=== PATIENT | female | born 1940 | race Caucasian/White ===

== ENCOUNTER → 2017-02-12 | Outpatient (CLI) | payer OTHER ==
[~2017-02-12] MED LIST: ACET325T96 PO; ASPI1TAB83 PO; B-COTAB69 PO; CALC-338 PO; CARV12.5 PO; CRAN1CAP15 PO; CRDCD/180 PO; FURO20TA PO; KRIL1000 PO; LEVO125T72 PO; LPT/40 PO; MAGN400T5 PO; MCRK20 PO; METF500T PO; MISCCAP80 PO; MULTTAB58 PO; NAPR1TAB9 PO; OMEP40CA36 PO; VALS320T PO
--- NOTE | 2017-02-12 13:17 | DIAGNOSTIC IMAGING REPORT ---
ABDOMINAL ULTRASOUND, RIGHT UPPER QUADRANT HISTORY: Pain. Nausea. RUQ PAIN. COMPARISON: None. FINDINGS: Pancreas: The pancreas demonstrates a normal echotexture. Liver: Unremarkable. Gallbladder: Surgically absent CBD: 5 mm Right kidney: No hydronephrosis. IMPRESSION: Negative study post cholecystectomy Electronically signed by: Freeman Gusman M.D. 02/12/2017 1:16 PM Dictated Date/Time: 02/12/2017 1:15 PM
== END | disposition home or self-care (01) ==
LOC: C.ULTR 11:25
PROVIDERS: ATTEND Nurse Practitioner Family
DX: R10.11 Right upper quadrant pain (principal); Z87.448 Personal history of other diseases of urinary system; R14.0 Abdominal distension (gaseous)

== ENCOUNTER → 2017-03-09 | Outpatient (CLI) | payer OTHER ==
[~2017-03-09] MED LIST changes: +OPTIRAY 320 IV PRN
--- NOTE | 2017-03-09 10:17 | DIAGNOSTIC IMAGING REPORT ---
CT OF THE ABDOMEN AND PELVIS WITH CONTRAST CLINICAL HISTORY: Progressive right upper quadrant abdominal pain. COMPARISON STUDY: CT of the abdomen and pelvis February 22, 2015. TECHNIQUE: Following IV administration of 94 mL of Optiray-320, axial images of the abdomen and pelvis were obtained from the lung bases to the proximal femurs. Images were reviewed in the axial, sagittal, and coronal planes. IV contrast was administered without complication. Oral contrast was administered. CT DOSE: 1101.92 mGy.cm FINDINGS: There is no biliary ductal dilatation status post cholecystectomy. The spleen, adrenal glands and pancreas are on remarkable. A few left renal calculi measure up to 3 mm. There is no hydronephrosis. No ureteral calculi are identified although evaluation of the pelvis is compromised due to streak artifact from a right hip arthroplasty. There is mild renal cortical thinning. There is a cortical calcification within the midpole the right kidney. There is no pancreatic ductal dilatation. No enlarged abdominal or pelvic lymph nodes are present. Caliber and wall thickness of small and large bowel are normal. There is a moderate amount of stool within the colon and rectum. The appendix is normal. Colonic diverticulosis is noted without evidence for acute diverticulitis. The uterus is not visualized. IMPRESSION: 1. No acute process within the abdomen or pelvis. 2. Colonic diverticulosis without evidence for acute diverticulitis. Moderate amount of stool within the colon and rectum. 3. Left-sided nephrolithiasis. Electronically signed by: Jhonny Rankin M.D. 03/09/2017 10:15 AM Dictated Date/Time: 03/09/2017 10:07 AM
== END | disposition home or self-care (01) ==
LOC: C.CTS 09:36
PROVIDERS: ATTEND Surgery
DX: R10.11 Right upper quadrant pain (principal); N20.0 Calculus of kidney; K57.90 Diverticulosis of intestine, part unspecified, without perforation or abscess without bleeding

== ENCOUNTER → 2017-03-11 | Outpatient (CLI) | payer OTHER ==
[~2017-03-11] MED LIST changes: -OPTIRAY 320 IV PRN
[2017-03-11 13:57] LABS: BLOOD UREA NITROGEN 12 mg/dl (7-18); CREATININE 0.75 mg/dl (0.60-1.20)
== END | disposition home or self-care (01) ==
LOC: C.LABBC 11:17
PROVIDERS: ATTEND Surgery
DX: R10.11 Right upper quadrant pain (principal)

== ENCOUNTER → 2017-06-30 | Outpatient (CLI) | payer OTHER ==
--- NOTE | 2017-06-30 15:30 | MAMMOGRAPHY REPORT ---
BILATERAL DIGITAL SCREENING MAMMOGRAM WITH CAD: 06/30/2017 CLINICAL HISTORY: Routine screening. Patient has no complaints. TECHNIQUE: Current study was also evaluated with a Computer Aided Detection (CAD) system. Bilateral CC and MLO views were obtained. COMPARISON: Comparison is made to exams dated: 06/29/2016 mammogram, 06/26/2015 mammogram, 06/25/2014 m ammogram, 06/22/2013 mammogram - [facility], 09/14/2011 mammogram, and 09/10/2010 tricia mogram. BREAST COMPOSITION: There are scattered areas of fibroglandular density in both breasts. FINDINGS: No suspicious masses, calcifications, or areas of architectural distortion are noted in ei ther breast. There has been no significant interval change compared to prior exams. Scattered bilater al benign-appearing calcifications are not significantly changed. Asymmetry in the left lateral alpa st on the CC view is stable compared to prior exams including the 2006 and 2009 exams, and considered benign given long-term stability. IMPRESSION: ACR BI-RADS CATEGORY 2: BENIGN There is no mammographic evidence of malignancy. A 1 year screening mammogram is recommended. The pa tient will receive written notification of the results. Approximately 10% of breast cancers are not detected with mammography. A negative mammographic report should not delay biopsy if a clinically suggestive mass is present. Izabel Yan M.D. /:06/30/2017 13:33:54 Professor Of Poultry Science: Susie OGDEN)(Edward), [facility] letter sent: Normal 1/2 BI-RADS Code: ACR BI-RADS Category 2: Benign
== END | disposition home or self-care (01) ==
LOC: C.MAMM 12:55
PROVIDERS: ATTEND Obstetrics & Gynecology
DX: Z12.31 Encounter for screening mammogram for malignant neoplasm of breast (principal)

== ENCOUNTER → 2018-04-26 | Outpatient (CLI) | payer OTHER ==
[~2018-04-26] MED LIST changes: +ACET-1693 PO; -ACET325T96 PO
== END | disposition home or self-care (01) ==
LOC: C.RDSM 15:19
PROVIDERS: ATTEND Orthopaedic Surgery Sports Medicine
DX: R52 Pain, unspecified (principal)

== ENCOUNTER 2018-05-18 13:16 | Inpatient (IN) | payer OTHER ==
[~2018-05-18] VITALS: Ht 162.6 cm; Wt 102.0 kg
[~2018-05-18 13:16] MED LIST changes: -ACET-1693 PO; -MISCCAP80 PO; -NAPR1TAB9 PO
--- NOTE | 2018-05-18 14:15 | DIAGNOSTIC IMAGING REPORT ---
SINGLE VIEW CHEST CLINICAL HISTORY: Fall. FINDINGS: An AP, portable, upright chest radiograph is compared to study dated 02/18/2016 and correlated with chest CT dated 02/22/2015. The examination is degraded by portable technique and patient rotation. The heart size normal for projection noting atherosclerotic calcification of the thoracic aorta. Chronic interstitial thickening is unchanged. No airspace consolidation, large pleural effusion, or pneumothorax is seen. There are low lung volumes with bibasilar atelectasis. The skeletal structures are osteopenic. Chronic posttraumatic deformity is noted in the left humerus. Degenerative change is seen in the thoracic spine. Cholecystectomy clips are seen in the right upper quadrant. Surgical clips project over the lower neck. IMPRESSION: Low lung volumes with no acute cardiopulmonary abnormality. Electronically signed by: Conner Diaz M.D. 05/18/2018 2:13 PM Dictated Date/Time: 05/18/2018 2:03 PM
--- NOTE | 2018-05-18 14:16 | DIAGNOSTIC IMAGING REPORT ---
L SHOULDER MIN 2 VIEWS ROUTINE CLINICAL HISTORY: fall l shoulder pain trauma. Pain. COMPARISON: None. DISCUSSION: Fracture left humeral neck. Mild superior migration left humeral shaft. No evidence of dislocation. The acromioclavicular joint appears to be intact. Moderate soft tissue edema. IMPRESSION: Mildly impacted fracture humeral neck. No evidence dislocation. The above report was generated using voice recognition software. It may contain grammatical, syntax or spelling errors. Electronically signed by: Freeman Gusman M.D. 05/18/2018 2:14 PM Dictated Date/Time: 05/18/2018 2:14 PM
--- NOTE | 2018-05-18 14:23 | DIAGNOSTIC IMAGING REPORT ---
HEAD WITHOUT CONTRAST (CT) CT DOSE: 614.27 mGy.cm HISTORY: Trauma. Mental status change. fall TECHNIQUE: Multiaxial CT images of the head were performed without the use of intravenous contrast. A dose lowering technique was utilized adhering to the principles of ALARA. Comparison: None. Findings: The paranasal sinuses and mastoid air cells are clear. The calvarium and skull base are intact. The ventricles and sulci are within normal limits. There is no mass, hematoma, midline shift, or acute infarct. Old right basal ganglia infarct. Considerable chronic small vessel change Impression: No acute intracranial abnormality. Age-related change. The above report was generated using voice recognition software. It may contain grammatical, syntax or spelling errors. Electronically signed by: Freeman Gusman M.D. 05/18/2018 2:22 PM Dictated Date/Time: 05/18/2018 2:20 PM
--- NOTE | 2018-05-18 16:01 | DIAGNOSTIC IMAGING REPORT ---
L UPPER EXTREMITY WITHOUT CT DOSE: 1261.48 mGy.cm HISTORY: Trauma. Fracture. LUE fx TECHNIQUE: Multiaxial CT images of the left shoulder were performed and reformatted in the sagittal and coronal plane without the use of contrast. A dose lowering technique was utilized adhering to the principles of ALARA. COMPARISON: None. FINDINGS: Comminuted fracture left humeral neck. Several small ossific fragments are present. Humeral shaft is displaced superiorly as well as anteriorly. There is no evidence for a true dislocation of the humeral head. Glenoid appears to be intact. Acromioclavicular joint is minimal degenerative change with no acute abnormality. IMPRESSION: 1. Comminuted displaced fracture left humeral neck. 2. Humeral shaft is displaced anteriorly and superiorly with moderate generalized surrounding soft tissue edematous change. 3. No evidence of dislocation specifically of the humeral head. The above report was generated using voice recognition software. It may contain grammatical, syntax or spelling errors. Electronically signed by: Freeman Gusman M.D. 05/18/2018 3:59 PM Dictated Date/Time: 05/18/2018 3:50 PM
[2018-05-18 16:25] LABS: BASO % 0.2 %; BASO ABS # 0.02 K/uL (0-0.2); EOS % 2.2 %; EOS ABS # 0.28 K/uL (0-0.5); HEMATOCRIT 42.5 % (37-47); HEMOGLOBIN 14.5 g/dL (12.0-16.0); IG# 0.03 K/uL (0.00-0.02); LYMPH ABS # 1.17 K/uL (1.2-3.4); MEAN CELL VOLUME 95.1 fL (80-100); MEAN CORPUSCULAR HEMOGLOBIN 32.4 pg (25-34); MEAN CORPUSCULAR HGB CONC 34.1 g/dl (32-36); MEAN PLATELET VOLUME 9.3 fL (7.4-10.4); MONO % 5.5 %; MONO ABS # 0.71 K/uL (0.11-0.59); NEUT % 82.9 %; NEUT ABS # 10.79 K/uL (1.4-6.5); PLATELET COUNT 194 K/uL (130-400); RED CELL DISTRIBUTION WIDTH CV 13.8 % (11.5-14.5); RED CELL DISTRIBUTION WIDTH SD 47.8 fL (36.4-46.3)
[2018-05-18 16:48] LABS: CREATININE 0.97 mg/dl (0.60-1.20); POTASSIUM 3.7 mmol/L (3.5-5.1)
--- NOTE | 2018-05-18 17:18 | EMERGENCY ROOM VISIT NOTE ---
History Report prepared by Lonnie: Gayle Sharpe Under the Supervision of: Dr. Fausto Mohamud D.O. 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 She states she was at the [employer] in [place] and she was trying to get onto a lift on a van when she fell off the side. She notes she fell backwards onto her left side and hit her left shoulder but did not hit her head. Pt denies headache, change in vision, fevers, chest pain, shortness of breath, nausea, and vomiting. She takes 1 baby aspirin regularly. She has no other complaints at this time. She notes the pain is most prominent when moving her left arm. She notes that she has trouble moving. 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 A total of 10 systems reviewed and were otherwise negative. Past Medical & Surgical Medical Problems: (1) No significant past medical history Family History Omitted seconday to the patient's age Social History Smoking Status: Never Smoker Drug Use: none Marital Status: Occupation Status: retired Current/Historical Medications Scheduled Acetaminophen Tab (Tylenol), 1,300 MG PO BID Aspirin (Aspirin), 81 MG PO DAILY Atorvastatin (Lipitor), 40 MG PO HS B-Complex W/Biotin & Folic Aci (B Complete), 1 TAB PO DAILY Calcium Citrate-Vitamin D (Citracal/Vitamin D), 1 TAB PO DAILY Carvedilol (Coreg), 12.5 MG PO QAM Cranberry-Vitamin C-Vitamin E (Cranberry), 1 CAP PO DAILY Diltiazem Hcl Coated Beads (Cardizem Cd), 180 MG PO QPM Furosemide (Lasix), 20 MG PO 2-3WK Krill Oil (Krill Oil), 1 CAP PO DAILY Levothyroxine Sodium (Synthroid), 125 MCG PO DAILY Magnesium Oxide (Mag-Ox), 400 MG PO DAILY Metformin Hcl (Glucophage), 500 MG PO BIDM Multiple Vitamin (Multivitamin), 1 TAB PO DAILY Naproxen (Aleve), 440 MG PO BID Omeprazole (Prilosec), 40 MG PO DAILY Potassium Chloride (Klor-Con), 20 MEQ PO 2-3WK Probiotic Product (Probiotic), 1 CAP PO DAILY Valsartan (Diovan), 320 MG PO HS Allergies Coded Allergies: Epinephrine (Verified Adverse Reaction, Mild, RAPID HEART RATE AND RESPIRATIONS, 07/30/14) Physical Exam Vital Signs Date Time Temp Pulse Resp B/P (MAP) Pulse Ox O2 Delivery O2 Flow Rate FiO2 05/18/18 15:43 36.6 72 18 147/106 95 Room Air 05/18/18 13:19 36.7 69 20 167/83 96 Room Air Physical Exam GENERAL: alert, well appearing, well nourished, no distress, non-toxic HEAD: normal cephalic, atraumatic EYE EXAM: normal conjunctiva, PERRL and EOM's grossly intact OROPHARYNX: no exudate, no erythema, lips, buccal mucosa, and tongue normal and mucous membranes are moist EARS: TMs clear b/l NECK: supple, no nuchal rigidity, no adenopathy, non-tender CHEST: stable to compression anteriorly and posteriorly LUNGS: clear to auscultation. Normal chest wall mechanics HEART: no murmurs, S1 normal and S2 normal ABDOMEN: abdomen soft, non-tender, normo-active bowel sounds, no masses, no rebound or guarding. PELVIS: stable to compression anteriorly and posteriorly BACK: Back is symmetrical on inspection and there is no deformity, no midline tenderness, no CVA tenderness. UPPER EXTREMITIES: full active and passive range of motion of all joints without tenderness to palpation with the exception of the left shoulder with tenderness over the humeral head which appears to be slightly anterior with significant bruising. Radial pulses equal bilateral LOWER EXTREMITIES: full active and passive range of motion of all joints without tenderness to palpation NEURO EXAM: Normal sensorium, cranial nerves II-XII grossly intact, normal speech, no gross weakness of legs. GCS: 15. Medical Decision & Procedures ER Provider Diagnostic Interpretation: Radiology results as stated below per my review and the radiologist's interpretation: L SHOULDER MIN 2 VIEWS ROUTINE CLINICAL HISTORY: fall l shoulder pain trauma. Pain. COMPARISON: None. DISCUSSION: Fracture left humeral neck. Mild superior migration left humeral shaft. No evidence of dislocation. The acromioclavicular joint appears to be intact. Moderate soft tissue edema. IMPRESSION: Mildly impacted fracture humeral neck. No evidence dislocation. The above report was generated using voice recognition software. It may contain grammatical, syntax or spelling errors. Electronically signed by: Freeman Gusman M.D. 05/18/2018 2:14 PM HEAD WITHOUT CONTRAST (CT) CT DOSE: 614.27 mGy.cm HISTORY: Trauma. Mental status change. fall TECHNIQUE: Multiaxial CT images of the head were performed without the use of intravenous contrast. A dose lowering technique was utilized adhering to the principles of ALARA. Comparison: None. Findings: The paranasal sinuses and mastoid air cells are clear. The calvarium and skull base are intact. The ventricles and sulci are within normal limits. There is no mass, hematoma, midline shift, or acute infarct. Old right basal ganglia infarct. Considerable chronic small vessel change Impression: No acute intracranial abnormality. Age-related change. The above report was generated using voice recognition software. It may contain grammatical, syntax or spelling errors. Electronically signed by: Freeman Gusman M.D. 05/18/2018 2:22 PM SINGLE VIEW CHEST CLINICAL HISTORY: Fall. FINDINGS: An AP, portable, upright chest radiograph is compared to study dated 02/18/2016 and correlated with chest CT dated 02/22/2015. The examination is degraded by portable technique and patient rotation. The heart size normal for projection noting atherosclerotic calcification of the thoracic aorta. Chronic interstitial thickening is unchanged. No airspace consolidation, large pleural effusion, or pneumothorax is seen. There are low lung volumes with bibasilar atelectasis. The skeletal structures are osteopenic. Chronic posttraumatic deformity is noted in the left humerus. Degenerative change is seen in the thoracic spine. Cholecystectomy clips are seen in the right upper quadrant. Surgical clips project over the lower neck. IMPRESSION: Low lung volumes with no acute cardiopulmonary abnormality. Electronically signed by: Conner Diaz M.D. 05/18/2018 2:13 PM L UPPER EXTREMITY WITHOUT CT DOSE: 1261.48 mGy.cm HISTORY: Trauma. Fracture. LUE fx TECHNIQUE: Multiaxial CT images of the left shoulder were performed and reformatted in the sagittal and coronal plane without the use of contrast. A dose lowering technique was utilized adhering to the principles of ALARA. COMPARISON: None. FINDINGS: Comminuted fracture left humeral neck. Several small ossific fragments are present. Humeral shaft is displaced superiorly as well as anteriorly. There is no evidence for a true dislocation of the humeral head. Glenoid appears to be intact. Acromioclavicular joint is minimal degenerative change with no acute abnormality. IMPRESSION: 1. Comminuted displaced fracture left humeral neck. 2. Humeral shaft is displaced anteriorly and superiorly with moderate generalized surrounding soft tissue edematous change. 3. No evidence of dislocation specifically of the humeral head. The above report was generated using voice recognition software. It may contain grammatical, syntax or spelling errors. Electronically signed by: Freeman Gusman M.D. 05/18/2018 3:59 PM Laboratory Results 05/18/18 16:13 Red Blood Count 4.47, Mean Corpuscular Volume 95.1, Mean Corpuscular Hemoglobin 32.4, Mean Corpuscular Hemoglobin Concent 34.1, Mean Platelet Volume 9.3, Neutrophils (%) (Auto) 82.9, Lymphocytes (%) (Auto) 9.0, Monocytes (%) (Auto) 5.5, Eosinophils (%) (Auto) 2.2, Basophils (%) (Auto) 0.2, Neutrophils # (Auto) 10.79, Lymphocytes # (Auto) 1.17, Monocytes # (Auto) 0.71, Eosinophils # (Auto) 0.28, Basophils # (Auto) 0.02 05/18/18 16:13 Test 05/18/18 16:13 White Blood Count 13.00 K/uL (4.8-10.8) Red Blood Count 4.47 M/uL (4.2-5.4) Hemoglobin 14.5 g/dL (12.0-16.0) Hematocrit 42.5 % (37-47) Mean Corpuscular Volume 95.1 fL (80-100) Mean Corpuscular Hemoglobin 32.4 pg (25-34) Mean Corpuscular Hemoglobin Concent 34.1 g/dl (32-36) Platelet Count 194 K/uL (130-400) Mean Platelet Volume 9.3 fL (7.4-10.4) Neutrophils (%) (Auto) 82.9 % Lymphocytes (%) (Auto) 9.0 % Monocytes (%) (Auto) 5.5 % Eosinophils (%) (Auto) 2.2 % Basophils (%) (Auto) 0.2 % Neutrophils # (Auto) 10.79 K/uL (1.4-6.5) Lymphocytes # (Auto) 1.17 K/uL (1.2-3.4) Monocytes # (Auto) 0.71 K/uL (0.11-0.59) Eosinophils # (Auto) 0.28 K/uL (0-0.5) Basophils # (Auto) 0.02 K/uL (0-0.2) RDW Standard Deviation 47.8 fL (36.4-46.3) RDW Coefficient of Variation 13.8 % (11.5-14.5) Immature Granulocyte % (Auto) 0.2 % Immature Granulocyte # (Auto) 0.03 K/uL (0.00-0.02) Anion Gap 8.0 mmol/L (3-11) Est Creatinine Clear Calc Drug Dose 54.7 ml/min Estimated GFR () 64.4 Estimated GFR (Non- 55.5 BUN/Creatinine Ratio 23.2 (10-20) Calcium Level 9.0 mg/dl (8.5-10.1) Laboratory results per my review. ED Course ED COURSE: Vital signs were reviewed and showed hypertensive The patients medical record was reviewed The above diagnostic studies were performed and reviewed. ED treatments and interventions as stated above. 1328: The patient was evaluated in room B10. A complete history and physical examination was performed. 1608: I reviewed the patient's case with Dr. Tran, [facility] Hospitalist. He will evaluate the patient for further management. 1610: Upon reevaluation, the patient is feeling slightly better. I discussed my findings with the patient and she understands and agrees with the treatment plan. Based on the patients age, coexisting illnesses, exam and lab findings the decision to treat as an inpatient was made. The patient remained stable while under my care. The patient will be evaluated for further management. Medical Decision Differential diagnoses include major intracranial, cervical, spinal, thoracic, abdominal, pelvic and neurologic injury. Fracture, contusion, sprain, strain, laceration, abrasions included as well. Patient is a 78-year-old female that presents the ER following a fall onto her left arm. She denies any loss consciousness. She notes that she normally ambulates with a walker and lives alone at home. She notes she is unable to move her left arm at this point. On exam she has bruising and appears to have an obvious fracture of the left arm. Neurovascular intact. CBC shows a mild leukocytosis. BMP was unremarkable. X-ray of the chest shoulder and CT head show left humeral head fracture. This was discussed with Kee from Dr. Jaden Moffett's group. They recommended CT of the shoulder for our on Wednesday. Discussed with patient and she notes she lives alone at home and needs a walker to ambulate. She will not be able to use this with her left arm fracture. Will not benefit from rehab until fixed. Elected to admit to internal medicine. Discussed with Dr. Delcid. CBC and BMP were unremarkable with exception of mild leukocytosis secondary to trauma. Medication Reconcilliation Current Medication List: was personally reviewed by me Blood Pressure Screening Patient's blood pressure: Elevated blood pressure Blood pressure disposition: Referred to PCP Consults Time Called: 1419 Consulting Physician: Dr. Tran, [facility] Hospitalist Returned Call: 1608 I reviewed the patient's case with Dr. Tran, [facility] Hospitalist. He will evaluate the patient for further management. Impression Primary Impression: Fracture of head of left humerus Additional Impression: Ambulatory dysfunction Scribe Attestation The scribe's documentation has been prepared under my direction and personally reviewed by me in its entirety. I confirm that the note above accurately reflects all work, treatment, procedures, and medical decision making performed by me. Departure Information Dispostion Being Evaluated By Hospitalist (Dr. Tran, [facility] Hospitalist) Referrals No Doctor, Assigned (PCP) Patient Instructions My [facility] Problem Qualifiers Primary Impression: Fracture of head of left humerus Encounter type: initial encounter Fracture type: closed Qualified Codes: S42.292A - Other displaced fracture of upper end of left humerus, initial encounter for closed fracture
[2018-05-18] MEDS ORDERED: OXYCODONE HCL IR 5 MG TAB (IMMEDIATE RELEASE) PO PRN (17:30)
[2018-05-18] MEDS ORDERED: POLYETHYLENE (MIRALAX) 17 GM PACK PO PRN (17:30)
[2018-05-18] MEDS ORDERED: ACETAMINOPHEN 325 MG TAB PO PRN (17:30)
[2018-05-18] MEDS ORDERED: ONDANSETRON INJ 2 MG/ML 2 ML VIAL IV PRN (17:30)
[2018-05-18] MEDS ORDERED: ALUMINUM/MAGNESIUM/SIMETH (MAALOX MAX) 30 ML UDC PO PRN (17:30)
[2018-05-18] MEDS ORDERED: MAGNESIUM HYDROXIDE SUSP 30 ML UDC PO PRN (17:30)
[2018-05-18] MEDS ORDERED: ACET-1693 PO (17:31)
[2018-05-18] MEDS ORDERED: MISCCAP80 PO (17:31)
[2018-05-18] MEDS ORDERED: NAPR1TAB9 PO (17:31)
[2018-05-18] MEDS ORDERED: CALCTAB65 PO (17:46)
[2018-05-18] MEDS ORDERED: POTA20TA13 PO (17:46)
[2018-05-18] MEDS ORDERED: AMLO10TA3 PO (17:46)
[2018-05-18] MEDS ORDERED: OMEP40CA41 PO (17:46)
[2018-05-18] MEDS ORDERED: CRAN250T PO (17:46)
[2018-05-18] MEDS ORDERED: ASPI81TA28 PO (17:46)
--- NOTE | 2018-05-18 18:06 | History and Physical ---
History & Physical Date & Time of Service: May 18, 2018 at 17:30 Chief Complaint: Fell On Left Shoulder Primary Care Physician: Parker Ni M.D. History of Present Illness Source: patient, hospital records, other 78 y/o F Hx CAD, HTN, HPL, DM II, obese, hypothyroid. Presents following a mechanical fall onto her R side having sustained a displaced R humeral fracture. Unfortunately she normally ambulates with a walker and lives alone. She cannot currently ambulate therefore and is admitted for evaluation by orthopedics. She will likely undergo repair 05/20. She denies any symptoms preceding her fall such as lightheadedness or palpitations. 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 Surgery: 1) R TKR 2) L THR 3) Lumbar laminectomy 4) L oophorectomy 5) Cholecystectomy 6) Parathyroidectomy Family History Omitted seconday to the patient's age Father due to "heart problems" Mother due to CA Social History Does not smoke or drink - lives alone Smoking Status: Never Smoker Drug Use: none Marital Status: Occupational Status: retired Immunizations History of Influenza Vaccine: Yes History of Tetanus Vaccine?: Unknown History of Pneumococcal: Yes History of Hepatitis B Vaccine: Yes Allergies Coded Allergies: Epinephrine (Verified Adverse Reaction, Mild, RAPID HEART RATE AND RESPIRATIONS, 07/30/14) Home Medications Scheduled Acetaminophen Tab (Tylenol), 1,300 MG PO BID Aspirin (Aspirin), 81 MG PO DAILY Atorvastatin (Lipitor), 40 MG PO HS B-Complex W/Biotin & Folic Aci (B Complete), 1 TAB PO DAILY Calcium Citrate-Vitamin D (Citracal/Vitamin D), 1 TAB PO DAILY Carvedilol (Coreg), 12.5 MG PO QAM Cranberry-Vitamin C-Vitamin E (Cranberry), 1 CAP PO DAILY Diltiazem Hcl Coated Beads (Cardizem Cd), 180 MG PO QPM Furosemide (Lasix), 20 MG PO 2-3WK Krill Oil (Krill Oil), 1 CAP PO DAILY Levothyroxine Sodium (Synthroid), 125 MCG PO DAILY Magnesium Oxide (Mag-Ox), 400 MG PO DAILY Metformin Hcl (Glucophage), 500 MG PO BIDM Multiple Vitamin (Multivitamin), 1 TAB PO DAILY Naproxen (Aleve), 440 MG PO BID Omeprazole (Prilosec), 40 MG PO DAILY Potassium Chloride (Klor-Con), 20 MEQ PO 2-3WK Probiotic Product (Probiotic), 1 CAP PO DAILY Valsartan (Diovan), 320 MG PO HS Review of Systems Constitutional: No fever, No chills, No sweats Eyes: No worsening of vision ENT: No hearing loss, No unusual epistaxis, No nasal symptoms Respiratory: No cough, No sputum, No wheezing Cardiovascular: No chest pain Abdomen: No pain, No nausea Musculoskeletal: + problem reported (pain in R shoulder with movement) Genitourinary - Female: No dysuria Neurologic: No memory loss, No paralysis Psychiatric: No depression symptoms Endocrine: No fatigue Hematologic / Lymphatic: No abnormal bleeding/bruising Integumentary: No rash Allergic / Immunologic: No environmental allergies Physical Exam Vital Signs Date Time Temp Pulse Resp B/P (MAP) Pulse Ox O2 Delivery O2 Flow Rate FiO2 05/18/18 15:43 36.6 72 18 147/106 95 Room Air 05/18/18 13:19 36.7 69 20 167/83 96 Room Air General Appearance: WD/WN, no apparent distress, + obese, + pertinent finding ( PLeasant, eldelry female - AAO x 3 , no distress) Head: normocephalic Eyes: + pertinent finding (Ptosis R, chronic) ENT: normal ENT inspection, pharynx normal Neck: supple, no JVD Respiratory/Chest: chest non-tender, lungs clear Cardiovascular: regular rate, rhythm, no edema, no gallop Abdomen/GI: normal bowel sounds, non tender, soft Back: normal inspection, no CVA tenderness Extremities/Musculoskelatal: no calf tenderness, normal capillary refill, + pedal edema (minimal), + pertinent finding (R arm is immobilized - distal pulses are present) 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, no motor/sensory deficits, alert, oriented x 3 Skin: normal color Diagnostics Laboratory Results Results Past 24 Hours Test 05/18/18 16:13 Range/Units White Blood Count 13.00 4.8-10.8 K/uL Red Blood Count 4.47 4.2-5.4 M/uL Hemoglobin 14.5 12.0-16.0 g/dL Hematocrit 42.5 37-47 % Mean Corpuscular Volume 95.1 80-100 fL Mean Corpuscular Hemoglobin 32.4 25-34 pg Mean Corpuscular Hemoglobin Concent 34.1 32-36 g/dl Platelet Count 194 130-400 K/uL Mean Platelet Volume 9.3 7.4-10.4 fL Neutrophils (%) (Auto) 82.9 % Lymphocytes (%) (Auto) 9.0 % Monocytes (%) (Auto) 5.5 % Eosinophils (%) (Auto) 2.2 % Basophils (%) (Auto) 0.2 % Neutrophils # (Auto) 10.79 1.4-6.5 K/uL Lymphocytes # (Auto) 1.17 1.2-3.4 K/uL Monocytes # (Auto) 0.71 0.11-0.59 K/uL Eosinophils # (Auto) 0.28 0-0.5 K/uL Basophils # (Auto) 0.02 0-0.2 K/uL RDW Standard Deviation 47.8 36.4-46.3 fL RDW Coefficient of Variation 13.8 11.5-14.5 % Immature Granulocyte % (Auto) 0.2 % Immature Granulocyte # (Auto) 0.03 0.00-0.02 K/uL Sodium Level 139 136-145 mmol/L Potassium Level 3.7 3.5-5.1 mmol/L Chloride Level 103 98-107 mmol/L Carbon Dioxide Level 28 21-32 mmol/L Anion Gap 8.0 3-11 mmol/L Blood Urea Nitrogen 23 7-18 mg/dl Creatinine 0.97 0.60-1.20 mg/dl Est Creatinine Clear Calc Drug Dose 54.7 ml/min Estimated GFR () 64.4 Estimated GFR (Non- 55.5 BUN/Creatinine Ratio 23.2 10-20 Random Glucose 135 70-99 mg/dl Calcium Level 9.0 8.5-10.1 mg/dl Diagnostic Radiology 1. Comminuted displaced fracture left humeral neck. 2. Humeral shaft is displaced anteriorly and superiorly with moderate generalized surrounding soft tissue edematous change. 3. No evidence of dislocation specifically of the humeral head. Impression Assessment and Plan 78 y/o F Hx CAD, HTN, HPL, DM II, obese, hypothyroid. Presents following a mechanical fall onto her R side having sustained a displaced R humeral fracture. Unfortunately she normally ambulates with a walker and lives alone. She cannot currently ambulate therefore and is admitted for evaluation by orthopedics. She will likely undergo repair 05/20. She denies any symptoms preceding her fall such as lightheadedness or palpitations. 1) Humeral fracture - for repair 05/20. Her RCRI is 2 or 6.6% - technically, she should be cleared by cardiology prior to a procedure. 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 An EKG is pending on admission. We have held various meds the night prior to surgery. 2) CAD - no evidence of ACS - cont Lipitor, Coreg - ASA held 3) DM II - placed on a SS 4) HTN, HPL - cont Diltiazem, Valsartan, Coreg - Valsartan to be held 05/20 - cont Lipitor 5) Hypothyroidism - cont Synthroid Full code - Heparin prophylaxis Total time for this admit including review of labs, meds, imaging, records - discussion with pt and ER attending Resuscitation Status VTE Prophylaxis Will order VTE Prophylaxis: Yes
[2018-05-18 18:45] VITALS: BP 145/85; PULSE 83; TEMP 36.7; Ht 162.6 cm; Wt 102.0 kg
[2018-05-18 18:57] LABS: PTT PATIENT 25.2 SECONDS (21.0-31.0)
[2018-05-18 20:45] VITALS: BP 137/79; PULSE 90
[2018-05-18 21:00] VITALS: O2SAT 96
[2018-05-18] MEDS ORDERED: DILTIAZEM HCL 180 MG CAPCR PO SCH (21:00)
[2018-05-18] MEDS: ATORVASTATIN 40 MG TAB PO SCH (21:04)
[2018-05-18] MEDS: VALSARTAN 80 MG TAB PO SCH (21:04)
[2018-05-18] MEDS: CARVEDILOL 12.5 MG TAB PO SCH (21:04)
[2018-05-18] MEDS: AMLODIPINE BESYLATE 5 MG TAB PO SCH (21:04)
[2018-05-18] MEDS ORDERED: NURSING DECISION MEDICATION ORDER SCH (23:15)
[2018-05-18 23:26] VITALS: BP 143/88; PULSE 79; TEMP 36.6; O2SAT 95
[2018-05-19] MEDS ORDERED: MoRPHine SULFATE 2 MG/ML CARP IV PRN (02:30)
[2018-05-19] MEDS ORDERED: NYSTATIN POWDER 15GM BTL EXT PRN (02:30)
[2018-05-19] MEDS ORDERED: KETOROLAC TROMETHAMINE 15 MG/ML VIAL ONE (02:31)
[2018-05-19] MEDS: LEVOTHYROXINE 125 MCG TAB PO SCH (05:32)
[2018-05-19 07:45] VITALS: BP 111/73; PULSE 62; TEMP 36.9; O2SAT 94
--- NOTE | 2018-05-19 07:56 | Clinical Documentation Query ---
NOELLE Diallo : Clinical Validation Query Patient is a 78 year old female admitted s/p fall for evaluation of shoulder pain. H&P notes "Presents following a mechanical fall onto her R side having sustained a displaced R humeral fracture". However, all imaging notes left humeral neck fracture. Please clarify laterality as clinically appropriate. Thank you. IF IN AGREEMENT, YOU MUST DOCUMENT ABOVE DIAGNOSTIC STATEMENT IN DAILY PROGRESS NOTES AND DISCHARGE SUMMARY. This document is not part of the patient's record. Thank You, Ren Barnes, MEHREEN [phone]
[2018-05-19 08:10] VITALS: O2SAT 94
[2018-05-19] MEDS: MAGNESIUM OXIDE 400 MG TAB PO SCH (08:33)
[2018-05-19] MEDS ORDERED: POTASSIUM CHLORIDE 20 MEQ TABCR PO SCH (09:00)
--- NOTE | 2018-05-19 11:20 | Cardiology Consultation ---
Cardiology Consultation Date of Consultation: May 19, 2018. Requesting Physician: Dr. Tran Attending Physician: Dr. Ibrahim Reason for Consultation: Pre-operative cardiovascular evaluation Pt evaluation today including: conversation w/ patient, conversation w/ family , physical exam, chart review, lab review, review of studies, review of inpatient medication list, conversation w/ attending History of Present Illness Ms. Daley is a 78-year-old female with a history of coronary artery disease S/ P inferior IL in 2002 and stenting of her RCA, hypertension, dyslipidemia, and type 2 diabetes mellitus who presented to the ED yesterday after sustaining a mechanical fall. She was found to have a left humeral fracture and is tentatively scheduled for surgical repair of the fracture tomorrow. This consultation was requested for a pre-operative cardiovascular evaluation prior to surgery. The patient is currently being seen in her room in [facility]. She states that yesterday, she was trying to get onto the ramp of her van, and she tripped over the ramp, falling backwards onto her left side. She denies any symptoms of palpitations, lightheadedness, etc. preceding the fall. She uses a walker when ambulating. She lives at home alone where she does some of her housework. She goes grocery shopping with her brother periodically, and is able to ambulate about the store with the help of a cart. She denies any symptoms of chest pain or other anginal type symptoms. She notes chronic dyspnea with more vigorous exertion, which has been stable in nature. She denies orthopnea or PND. She notes occasional swelling of her feet and ankles, which is controlled with Lasix 3 times a week. She denies any palpitations, lightheadedness, syncope, or presyncope. She denies abnormal bleeding such as melena, hematochezia, or hematuria. She denies cerebrovascular symptoms. She denies GI or symptoms. Review of Systems: As noted in HPI. All other 10 point ROS are reviewed and otherwise negative at this time. Past Medical/Surgical History 1. Coronary artery disease s/p inferior IL with RCA stent in 2002 2. Hypertension 3. Dyslipidemia 4. Type 2 diabetes mellitus 5. Hypothyroidism 6. Hypomagnesemia 7. GERD 8. Spinal stenosis 9. Cholecystectomy 10. Parathyroidectomy 11. Hysterectomy and bilateral salpingo-oopherectomy 12. Laminectomy 13. Right total hip arthroplasty 14. Bilateral cataract surgery Family History Omitted seconday to the patient's age Noncontributory given her own disease Social History Smoking Status: Never Smoker History of Alcohol Use: No She is a . She does not have children. She denies smoking, alcohol, or illicit drug use. Allergies Coded Allergies: Epinephrine (Verified Adverse Reaction, Mild, RAPID HEART RATE AND RESPIRATIONS, 07/30/14) Medications Current Inpatient Medications Medications (Trade) Dose Ordered Sig/Angel Route Start Time Stop Time Status Last Admin Dose Admin Acetaminophen (Tylenol Tab) 650 mg Q4H PRN PO 05/18/18 17:30 06/17/18 17:29 05/18/18 20:15 650 MG Al Hydrox/Mg Hydrox/Simethicone (Maalox Max Susp) 15 ml Q4H PRN PO 05/18/18 17:30 06/17/18 17:29 Magnesium Hydroxide (Milk Of Magnesia Susp) 30 ml Q6H PRN PO 05/18/18 17:30 06/17/18 17:29 Polyethylene (Miralax Powder Packet) 17 gm DAILY PRN PO 05/18/18 17:30 06/17/18 17:29 Ondansetron HCl (Zofran Inj) 4 mg Q6H PRN IV 05/18/18 17:30 06/17/18 17:29 Oxycodone HCl (Roxicodone Immediate Rel Tab) 5 mg Q4H PRN PO 05/18/18 17:30 06/01/18 17:29 05/18/18 22:49 5 MG Atorvastatin Calcium (Lipitor Tab) 40 mg HS PO 05/18/18 21:00 06/17/18 20:59 05/18/18 21:04 40 MG Carvedilol (Coreg Tab) 12.5 mg HS PO 05/18/18 21:00 06/17/18 20:59 05/18/18 21:04 12.5 MG Levothyroxine Sodium (Synthroid Tab) 125 mcg DAILYBB PO 05/19/18 06:00 06/18/18 06:59 05/19/18 05:32 125 MCG Magnesium Oxide (Mag-Ox Tab) 400 mg DAILY PO 05/19/18 09:00 06/18/18 08:59 05/19/18 08:33 400 MG Potassium Chloride (Klor-Con Tab) 20 meq DAILY PO 05/19/18 09:00 05/20/18 00:00 05/19/18 08:33 20 MEQ Valsartan (Diovan Tab) 320 mg HS PO 05/18/18 21:00 05/20/18 00:00 05/18/18 21:04 320 MG Heparin Sodium (Porcine) (Heparin Sq 5000 Unit/0.5ml) 5,000 unit Q8H SQ 05/19/18 22:00 05/20/18 00:00 Amlodipine Besylate (Norvasc Tab) 10 mg HS PO 05/18/18 21:00 06/17/18 20:59 05/18/18 21:04 10 MG Ketorolac Tromethamine (Toradol Inj) 15 mg Q6H PRN IV 05/19/18 02:30 05/24/18 02:29 Morphine Sulfate (MoRPHine SULFATE INJ) 2 mg Q4H PRN IV 05/19/18 02:30 06/02/18 02:29 Physical Exam Vital Signs Past 12 Hours Date Time Temp Pulse Resp B/P (MAP) Pulse Ox O2 Delivery O2 Flow Rate FiO2 05/19/18 07:45 36.9 62 18 111/73 (86) 94 Room Air 05/18/18 23:26 36.6 79 16 143/88 (106) 95 Room Air 05/18/18 23:20 Room Air 05/18/18 21:00 96 Room Air Constitutional: Alert, oriented, in no acute distress HEENT: Head is atraumatic and normocephalic. EOMs intact. Sclera anicteric. Face is symmetric. No perioral cyanosis. Mucous membranes moist. Neck: Supple, no JVD, no carotid bruits Pulmonary: Normal respiratory effort, clear to auscultation bilaterally Cardiac: Regular rate and rhythm, normal S1 and S2, no gallops, no rubs, no murmurs Extremities: Left arm is in a sling. No clubbing, cyanosis, or edema. Pulses 2 + and symmetric Abdomen: Normal bowel sounds, soft, non-tender, no abdominal mass palpated Skin: Normal skin color, turgor, and pigmentation, no rash, no skin lesions Neurological: Oriented to person, place, and time Data Laboratory Results: Last 24 Hours Test 05/18/18 16:13 05/19/18 08:29 White Blood Count 13.00 K/uL Red Blood Count 4.47 M/uL Hemoglobin 14.5 g/dL Hematocrit 42.5 % Mean Corpuscular Volume 95.1 fL Mean Corpuscular Hemoglobin 32.4 pg Mean Corpuscular Hemoglobin Concent 34.1 g/dl Platelet Count 194 K/uL Mean Platelet Volume 9.3 fL Neutrophils (%) (Auto) 82.9 % Lymphocytes (%) (Auto) 9.0 % Monocytes (%) (Auto) 5.5 % Eosinophils (%) (Auto) 2.2 % Basophils (%) (Auto) 0.2 % Neutrophils # (Auto) 10.79 K/uL Lymphocytes # (Auto) 1.17 K/uL Monocytes # (Auto) 0.71 K/uL Eosinophils # (Auto) 0.28 K/uL Basophils # (Auto) 0.02 K/uL RDW Standard Deviation 47.8 fL RDW Coefficient of Variation 13.8 % Immature Granulocyte % (Auto) 0.2 % Immature Granulocyte # (Auto) 0.03 K/uL Prothrombin Time 10.7 SECONDS Prothromb Time International Ratio 1.0 Activated Partial Thromboplast Time 25.2 SECONDS Partial Thromboplastin Ratio 1.0 Sodium Level 139 mmol/L Potassium Level 3.7 mmol/L Chloride Level 103 mmol/L Carbon Dioxide Level 28 mmol/L Anion Gap 8.0 mmol/L Blood Urea Nitrogen 23 mg/dl Creatinine 0.97 mg/dl Est Creatinine Clear Calc Drug Dose 54.7 ml/min Estimated GFR () 64.4 Estimated GFR (Non- 55.5 BUN/Creatinine Ratio 23.2 Random Glucose 135 mg/dl Calcium Level 9.0 mg/dl Bedside Glucose 128 mg/dl CXR: Low lung volumes with no acute cardiopulmonary abnormality. EKG: Sinus rhythm with first degree AV block. 87 bpm. Right bundle branch block and left anterior fascicular block. Pattern consistent with inferior and possible anterolateral IL. Assessment & Plan Patient is a 78-year-old female with a history of coronary artery disease S/P inferior IL in 2002 and stenting of her RCA, hypertension, dyslipidemia, and type 2 diabetes mellitus who presented to the ED yesterday after sustaining a mechanical fall. She was found to have a left humeral fracture and is tentatively scheduled for surgical repair of the fracture tomorrow. This consultation was requested for a pre-operative cardiovascular evaluation prior to surgery. Patient is currently stable and asymptomatic from a cardiovascular standpoint with no anginal symptoms at a fair functional status. She has no evidence of congestive heart failure or significant valvular heart disease. ECG shows no concerning changes. Patient is therefore at an acceptable risk to proceed with surgery as planned. Recommend close monitoring and avoidance of hypotension, hypertension, tachycardia, hypoxia, and significant anemia throughout the perioperative period to reduce myocardial oxygen demand and meet myocardial oxygen delivery. Thank you for allowing us to see this patient in consultation. The patient was discussed with Dr. Ibrahim and the plan was made in collaboration with him. ATTENDING NOTE: I saw and examined the patient I agree with the documentation above, Briefly, she suffered a fall and a humeral fracture which will require repair. She has a history of a remote IL. No current symptoms of unstable coronary disease, heart failure, severe valvular disease or arrhythmia. I don't think there is any role for pre-operative testing, As noted above, standard precautions apply to include avoiding significant anemia, hypo/hypertension hypoxia and tachycardia. She should continue her beta renaldo in the perioperative period.
[2018-05-19] MEDS: KETOROLAC TROMETHAMINE 15 MG/ML VIAL IV PRN (11:48)
[2018-05-19] MEDS ORDERED: GLUCAGON FOR INJ 1 MG VIAL IM PRN (12:00)
[2018-05-19] MEDS ORDERED: CARBOHYDRATES FOR HYPOGLYCEMIA PO PRN (12:00)
[2018-05-19] MEDS ORDERED: GLUCOSE 10 TABS/TUBE PO PRN (12:00)
[2018-05-19] MEDS ORDERED: GLUCOSE 40% GEL 15 GM TUBE PO PRN (12:00)
[2018-05-19] MEDS ORDERED: DEXTROSE 50% 50 ML SYR IV PRN (12:00)
[2018-05-19] MEDS: INSULIN ASPART 100 UNITS/ML 3 ML PEN SC SCH ×3 (12:57→20:42)
[2018-05-19 15:29] VITALS: BP 120/77; PULSE 73; TEMP 37.1; O2SAT 92
[2018-05-19] MEDS: CARVEDILOL 12.5 MG TAB PO SCH (20:35)
[2018-05-19] MEDS: AMLODIPINE BESYLATE 5 MG TAB PO SCH (20:36)
[2018-05-19] MEDS: ATORVASTATIN 40 MG TAB PO SCH (20:36)
[2018-05-19] MEDS: VALSARTAN 80 MG TAB PO SCH (20:36)
[2018-05-19 20:39] VITALS: BP 118/75; PULSE 70
--- NOTE | 2018-05-19 21:06 | ORTHOPEDIC CONSULTATION ---
DATE OF CONSULTATION: 05/19/2018 CHIEF COMPLAINT: Displaced left proximal humerus fracture. HISTORY OF PRESENT ILLNESS: Marlena is a pleasant 78-year-old female who is a community ambulator with a walker. She was getting into a community van yesterday when she fell directly on to her left shoulder. She came in to the Emergency Room where radiographs demonstrated a displaced left proximal humerus fracture. She is unable to use a walker at this point, she lives alone. She was admitted to the medical service. Orthopedics was consulted to evaluate and treat. 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 PAST SURGICAL HISTORY: Significant for a right total knee arthroplasty, a left total hip arthroplasty, lumbar laminectomy, left oophorectomy, cholecystectomy, and parathyroidectomy. MEDICATIONS: Include Tylenol, aspirin, Lipitor, Coreg, Cardizem, Lasix, Synthroid, Glucophage, Prilosec, Klor-Con, Diovan, and [id number] vitamins, minerals, and supplementations. ALLERGIES: Include EPINEPHRINE, WHICH CAUSE A RAPID HEART RATE. FAMILY HISTORY: Denies. SOCIAL HISTORY: She lives alone, is a community ambulator with a walker. She is . REVIEW OF SYSTEMS: She complains of left shoulder pain. All the pertinent review of systems are negative. PHYSICAL EXAMINATION: LEFT SHOULDER: There is a lot of ecchymosis in the area. Her radial, median, and ulnar nerves were all checked and intact at her wrist. She is wearing a sling. I do not do range of motion of her shoulder. X-rays of the left shoulder do show a displaced left proximal humerus fracture. The humeral head still seems located in the glenoid, but there is significant anterior and medial displacement of the humeral shaft. A CT scan of the proximal humerus does show a severely displaced left proximal humerus fracture. IMPRESSION: Displaced left proximal humerus fracture. PLAN: We will proceed with a fracture reverse left shoulder arthroplasty on 05/20/2018. She is currently on the OR schedule. She will be n.p.o. after midnight tonight. I did talk to her about the risks, benefits, alternatives to procedure and she would like to proceed. I think this is the quickest and most predictable way to get her back ambulating with a walker as soon as possible. She did already receive a cardiology clearance and we should be good to proceed.
[2018-05-19] MEDS ORDERED: NURSING VERBAL MED ORDER ONE (21:15)
[2018-05-19] MEDS: SODIUM CHLORIDE 0.9% 1000ML 1,000 ML IV SCH (21:30)
[2018-05-19] MEDS ORDERED: HEPARIN SOD 5000 UNIT/0.5 ML CARP SQ SCH (22:00)
--- NOTE | 2018-05-19 22:24 | Progress Note ---
Subjective Date of Service: May 19, 2018. Subjective Pt evaluation today including: conversation w/ patient, physical exam 78 yo female reports feeling well. She is awaiting her procedure which will be done the following day. Patient reports her pain is adequately controlled. Problem List Medical Problems: (1) Ambulatory dysfunction Status: Acute (2) Fracture of head of left humerus Status: Acute Review of Systems Constitutional: No fever, No chills, No sweats Eyes: No worsening of vision ENT: No hearing loss, No unusual epistaxis, No nasal symptoms Respiratory: No cough, No sputum, No wheezing Cardiovascular: No chest pain Abdomen: No pain, No nausea Musculoskeletal: + problem reported (pain in L shoulder with movement) Genitourinary - Female: No dysuria Neurologic: No memory loss, No paralysis Psychiatric: No depression symptoms Endocrine: No fatigue Hematologic / Lymphatic: No abnormal bleeding/bruising Integumentary: No rash Allergic / Immunologic: No environmental allergies Objective Vital Signs Date Time Temp Pulse Resp B/P (MAP) Pulse Ox O2 Delivery O2 Flow Rate FiO2 05/19/18 20:39 70 118/75 (89) 05/19/18 15:29 37.1 73 22 120/77 (91) 92 Room Air 05/19/18 15:15 Room Air 05/19/18 08:10 94 Room Air 05/19/18 07:45 36.9 62 18 111/73 (86) 94 Room Air 05/18/18 23:26 36.6 79 16 143/88 (106) 95 Room Air 05/18/18 23:20 Room Air Physical Exam Comments: General Appearance: WD/WN, no apparent distress, + obese, + pertinent finding ( PLeasant, eldelry female - AAO x 3 , no distress) Head: normocephalic Eyes: + pertinent finding (Ptosis R, chronic) ENT: normal ENT inspection, pharynx normal Neck: supple, no JVD Respiratory/Chest: chest non-tender, lungs clear Cardiovascular: regular rate, rhythm, no edema, no gallop Abdomen/GI: normal bowel sounds, non tender, soft Back: normal inspection, no CVA tenderness Extremities/Musculoskelatal: no calf tenderness, normal capillary refill, + pedal edema (minimal), + pertinent finding (L arm is immobilized - distal pulses are present) 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 Presents following a mechanical fall onto her L side having sustained a displaced left humeral neck fracture. Unfortunately she normally ambulates with a walker and lives alone. She cannot currently ambulate therefore and is admitted for evaluation by orthopedics. She will likely undergo repair 05/20. She denies any symptoms preceding her fall such as lightheadedness or palpitations. 1) Humeral fracture - for repair 05/20. Her RCRI is 2 or 6.6% - technically, she should be cleared by cardiology prior to a procedure. Consulted Cardiology. Patient does not require any additional cardiac intervention at this time. We have held various meds the night prior to surgery. 2) CAD - no evidence of ACS - cont Lipitor, Coreg - ASA held 3) DM II - placed on a SS 4) HTN, HPL - cont Diltiazem, Valsartan, Coreg - Valsartan to be held 05/20 - cont Lipitor 5) Hypothyroidism - cont Synthroid
[2018-05-19 22:55] VITALS: BP 111/70; PULSE 66; TEMP 36.9; O2SAT 90
[2018-05-20] VITALS (8 sets, daily range): BP systolic 102–126; BP diastolic 66–73; PULSE 58–89; TEMP 36.3–36.9; O2SAT 93–97
[2018-05-20] MEDS ORDERED: HEPARIN SOD 5000 UNIT/0.5 ML CARP SQ SCH
[2018-05-20] MEDS: KETOROLAC TROMETHAMINE 15 MG/ML VIAL IV PRN (04:06)
[2018-05-20] MEDS: LEVOTHYROXINE 125 MCG TAB PO SCH (05:41)
[2018-05-20] MEDS: SODIUM CHLORIDE 0.9% 1000ML 1,000 ML IV SCH (05:41)
[2018-05-20] MEDS: INSULIN ASPART 100 UNITS/ML 3 ML PEN SC SCH ×4 (05:59→18:00)
[2018-05-20] MEDS: MAGNESIUM OXIDE 400 MG TAB PO SCH (08:24)
[2018-05-20] MEDS ORDERED: TRAM-10 PO (09:02)
--- NOTE | 2018-05-20 09:03 | Discharge Instructions ---
Discharge Instructions Date of Service May 20, 2018. Admission Reason for Admission: Humeral Fracture Discharge Discharge Diagnosis / Problem: Plate and Screws Left Humerus Discharge Goals Goal(s): Decrease discomfort Activity Recommendations Activity Limitations: as noted below . Instructions / Follow-Up Instructions / Follow-Up may remove dressing and shower in 5 days, sling for 6 weeks, f/u with Dr Couch in 2 weeks, f/u with PCP on Wednesday Current Hospital Diet Patient's current hospital diet: Discharge Diet Recommended Diet: Regular Diet Pending Studies Studies pending at discharge: no Medical Emergencies . Who to Call and When: Medical Emergencies: If at any time you feel your situation is an emergency, please call 911 immediately. . Non-Emergent Contact Non-Emergency issues call your: Surgeon Call Non-Emergent contact if: wound has increased drainage, wound has increased redness . "Provider Documentation" section prepared by Ren Couch. .
--- NOTE | 2018-05-20 13:18 | History & Physical Bridge Note ---
H&P Re-Evaluation Bridge Note: I have examined the patient, reviewed the History & Physical and in the interval since the performance of the History & Physical I have noted the following changes of clinical significance: No changes noted
[2018-05-20] MEDS ORDERED: BACITRACIN 50000 UNIT VIAL ONE (13:56)
[2018-05-20] MEDS ORDERED: EpHEDrine SULFATE INJ 50 MG/ML AMP ONE (14:03)
[2018-05-20] MEDS ORDERED: GLYCOPYRROLATE INJ 0.2 MG/ML VIAL ONE (14:03)
[2018-05-20] MEDS ORDERED: ONDANSETRON INJ 2 MG/ML 2 ML VIAL ONE (14:03)
[2018-05-20] MEDS ORDERED: SUCCINYLCHOLINE CHLORIDE 20 MG/ML 10 ML VIAL IV ONE (14:03)
[2018-05-20] MEDS ORDERED: MIDAZOLAM HCL 1 MG/ML 2ML VIAL ONE ×2 (14:03→14:04)
[2018-05-20] MEDS ORDERED: PHENYLEPHRINE HCL INJ 10 MG/ML VIAL ONE (14:03)
[2018-05-20] MEDS ORDERED: LIDOCAINE HCL 2% 2 ML VIAL (20MG/ML) ONE (14:03)
[2018-05-20] MEDS ORDERED: DEXAMETHASONE SOD INJ 4 MG/ML VIAL ONE (14:03)
[2018-05-20] MEDS ORDERED: NEOSTIGMINE METHYLSULFATE 5 MG/5 ML SYR ONE (14:03)
[2018-05-20] MEDS ORDERED: PROPOFOL IV EMULSION 10 MG/ML 20 ML VIAL ONE (14:03)
[2018-05-20] MEDS ORDERED: FENTANYL CITRATE INJ 50 MCG/1 ML 2 ML VIAL ONE (14:04)
[2018-05-20] MEDS ORDERED: CEFAZOLIN SOD 2000MG/15 ML IV PUSH ONE (14:23)
[2018-05-20] MEDS ORDERED: NURSING VERBAL MED ORDER ONE ×2 (14:30→22:45)
[2018-05-20] MEDS ORDERED: ROPIVACAINE 5MG/ML 30 ML 150 MG, BUPIVACAINE 0.5% MPF INJ 30 ML, EpINEphrine HCL INJ 0.... INFIL SCH ×8 (14:30)
[2018-05-20] MEDS ORDERED: ROPIVACAINE 0.5% 5 MG/ML 30 ML VIAL ONE (14:33)
[2018-05-20] MEDS ORDERED: ROPIVACAINE 5MG/ML 30 ML 150 MG, BUPIVACAINE 0.5% MPF INJ 30 ML, KETOROLAC TROMETHAMINE... INFIL ONE ×7 (16:30)
--- NOTE | 2018-05-20 17:06 | [facility] Post Operative Brief Note ---
Immediate Operative Summary Operative Date May 20, 2018. Pre-Operative Diagnosis Displaced left proximal humerus fracture Post-Operative Diagnosis Displaced left proximal humerus fracture Procedure(s) Performed Left Fracture Reverse Total Shoulder Arthroplasty Surgeon Dr. Couch Climate Change Analyst Surgeon(s) Kee Acosta PA-C Estimated Blood Loss 300cc Findings Consistent with Post-Op Diagnosis Specimens A. Left humeral head Anesthesia Type General Regional
[2018-05-20] MEDS ORDERED: ROCURONIUM BROMIDE 10 MG/ML 5 ML VIAL ONE (17:22)
[2018-05-20] MEDS ORDERED: ONDANSETRON INJ 2 MG/ML 2 ML VIAL IV PRN (17:45)
[2018-05-20] MEDS ORDERED: FENTANYL CITRATE INJ 50 MCG/1 ML 2 ML VIAL IV PRN (17:45)
[2018-05-20] MEDS ORDERED: EpHEDrine SULFATE INJ 50 MG/ML AMP IV PRN (17:45)
[2018-05-20] MEDS ORDERED: ATROPINE SULFATE 0.1 MG/ML 5ML SYR IV PRN (17:45)
--- NOTE | 2018-05-20 17:54 | Anesthesiology Progress Note ---
Anesthesia Post Op Note Date & Time May 20, 2018 at 17:53 Vital Signs Pain Intensity: 0 Vital Signs Past 12 Hours Date Time Temp Pulse Resp B/P (MAP) Pulse Ox O2 Delivery O2 Flow Rate FiO2 05/20/18 17:45 66 15 121/75 100 Nasal Cannula 2 05/20/18 17:35 62 12 136/62 100 Oxymask 10 05/20/18 17:25 36.1 80 14 118/59 100 Oxymask 10 05/20/18 08:28 93 Room Air 05/20/18 07:22 36.7 58 16 126/72 (90) 93 Room Air Notes Mental Status: alert / awake / arousable, participated in evaluation Pt Amnestic to Procedure: Yes Nausea / Vomiting: adequately controlled Pain: adequately controlled Airway Patency, RR, SpO2: stable & adequate BP & HR: stable & adequate Hydration State: stable & adequate Anesthetic Complications: no major complications apparent
--- NOTE | 2018-05-20 18:31 | DIAGNOSTIC IMAGING REPORT ---
LEFT SHOULDER 3 VIEWS CLINICAL HISTORY: Postoperative examination. FINDINGS: 3 views of the left shoulder are compared to study dated 05/18/2018. The skeletal structures are osteopenic. A left shoulder arthroplasty is in near-anatomic alignment. Small bony fragments are noted along the proximal end of the arthroplasty. No acute fracture is identified. There are expected postoperative changes overlying the left shoulder including skin clips, subcutaneous gas, and soft tissue swelling. There is elevation of the left hemidiaphragm with left basilar atelectasis. Surgical clips are noted in the lower neck. IMPRESSION: Expected postoperative findings status post left shoulder arthroplasty as above. No acute fracture is seen. Electronically signed by: Conner Diaz M.D. 05/20/2018 6:29 PM Dictated Date/Time: 05/20/2018 6:28 PM
--- NOTE | 2018-05-20 20:19 | OPERATIVE REPORT ---
DATE OF OPERATION: 05/20/2018 PREOPERATIVE DIAGNOSIS: Comminuted left proximal humerus fracture. POSTOPERATIVE DIAGNOSIS: Comminuted left proximal humerus fracture. PROCEDURE: Fracture reverse left total shoulder arthroplasty. SURGEON: Ren Couch DO STOKER ERECTOR: Spenser Acosta PA-C, whose assistance was necessary for retraction and closure. ANESTHESIA: General with a left interscalene nerve block. COMPLICATIONS: None. CONDITION: Stable to PACU. IMPLANTS USED: A Biomet comprehensive reverse left shoulder arthroplasty fracture stem with a size 25 mm mini baseplate with a 30 mm central screw, 2 peripheral locking screws, a size-12 cemented standard length fracture stem with a standard humeral tray and a +3 retentive humeral bearing. The glenosphere was a size-36 eccentric. INDICATIONS: Marlena is a pleasant 78-year-old female who is walker dependent. She tripped and fell couple days ago sustaining a left proximal humerus fracture. After discussions with her and her family, elected to proceed with a reverse left shoulder arthroplasty. DESCRIPTION OF PROCEDURE: On 05/20/2018, she was brought down from her hospital room to the preoperative holding area, the operative extremity was identified and signed. She was given a preoperative antibiotic and a left interscalene nerve block. She was taken back to operating room, laid on table in supine position and put under general anesthesia. She was then put into the beachchair position. The left shoulder was prepped and draped in sterile fashion. Timeout was done. The patient's operative extremity was properly identified. A deltopectoral approach was used. Dissection was taken down through the interval and the deltoid was retracted laterally and the conjoined tendon was retracted medially. The long head of the biceps tendon was identified and the rotator interval was opened up. The long head of the biceps tendon was then tenotomized. There was a fairly significant fracture of the anatomic neck. The head was mostly intact, but given her wheelchair dependency, I felt she was best treated with a reverse shoulder arthroplasty. The tuberosities were removed from the humeral head with an oscillating saw. The humeral head was then removed. The glenoid was then exposed. Time was spent doing a complete circumferential capsular and labral release. A guide pin was placed in the inferior aspect of the glenoid at 10 degrees of inclination. A 25 mm mini baseplate was then reamed and the final baseplate was impacted into place. A single 30 mm compression screw was placed followed by superior and inferior locking screws. A 36 mm eccentric glenosphere was then impacted into place. The proximal humerus was then exposed. Sequential reaming up to a size-14 reamer was done. A 14 fracture stem was trialled and I was able to get the appropriate height. The trial was removed and a size-12 fracture stem was then cemented in place with Palacos-G cement. Once cement had hardened, several different polyethylene trials were used and a +3 retentive seemed to be the best fit. The final +3 retentive bearing was snapped into the humeral tray and the ring lock mechanism was engaged. The humeral tray was then impacted onto the humeral stem and the shoulder was reduced. The shoulder was brought through a full range of motion and felt to be stable. The tuberosities were then repaired around the stem with a #5 FiberWire sutures. The sutures all went around the stem and through the holes available in the stem. This gave excellent fixation of the tuberosities. The surrounding soft tissues were injected with 100 mL of an orthopedic pain control cocktail. The axillary nerve was palpated. The wound was then irrigated with 3 L normal saline solution with bacitracin. Skin was then closed with 2-0 Vicryl, 3-0 V-Loc suture and barbara. She was then placed in a soft dressing and a regular arm sling. She was then extubated, transferred to a [facility], and taken to the postanesthesia care unit in stable condition. She tolerated the procedure well. I attest to the content of the Intraoperative Record and any orders documented therein. Any exception s are noted below.
[2018-05-20] MEDS: POTASSIUM CHLORIDE INJ 10 MEQ in SODIUM CHLORIDE 0.9% 1000ML 1,000 ML IV SCH (20:36)
[2018-05-20] MEDS: CARVEDILOL 12.5 MG TAB PO SCH (21:25)
[2018-05-20] MEDS: AMLODIPINE BESYLATE 5 MG TAB PO SCH (21:26)
[2018-05-20] MEDS: ATORVASTATIN 40 MG TAB PO SCH (21:26)
[2018-05-20] MEDS: CEFAZOLIN IV 2,000 MG in SYRINGE 0 ML IV SCH (22:33)
--- NOTE | 2018-05-20 22:51 | Progress Note ---
Subjective Date of Service: May 20, 2018. Subjective Pt evaluation today including: conversation w/ patient 78 yo female reports no change in symptoms today. She was examined at 10 am. Patient has her surgery scheduled for the afternoon. Problem List Medical Problems: (1) Ambulatory dysfunction Status: Acute (2) Fracture of head of left humerus Status: Acute Review of Systems Constitutional: No fever, No chills, No sweats Eyes: No worsening of vision ENT: No hearing loss, No unusual epistaxis, No nasal symptoms Respiratory: No cough, No sputum, No wheezing Cardiovascular: No chest pain Abdomen: No pain, No nausea Musculoskeletal: + problem reported (pain in R shoulder with movement) Genitourinary - Female: No dysuria Neurologic: No memory loss, No paralysis Psychiatric: No depression symptoms Endocrine: No fatigue Hematologic / Lymphatic: No abnormal bleeding/bruising Integumentary: No rash Allergic / Immunologic: No environmental allergies Objective Vital Signs Date Time Temp Pulse Resp B/P (MAP) Pulse Ox O2 Delivery O2 Flow Rate FiO2 05/20/18 22:29 36.9 88 16 113/72 (86) 97 Nasal Cannula 2.0 05/20/18 21:29 36.8 84 16 109/67 (81) 96 Nasal Cannula 2.0 05/20/18 20:00 36.8 71 18 102/66 (78) 96 Nasal Cannula 2.0 05/20/18 19:33 36.3 67 18 112/73 (86) 96 Nasal Cannula 2.0 05/20/18 19:00 36.4 67 18 113/72 (86) 95 Nasal Cannula 2.0 05/20/18 19:00 95 Nasal Cannula 2.0 05/20/18 18:45 35.9 57 17 120/57 99 Nasal Cannula 2 05/20/18 18:30 60 17 125/64 95 Nasal Cannula 2 05/20/18 18:15 55 17 114/63 95 Nasal Cannula 2 05/20/18 18:05 63 13 118/71 100 Nasal Cannula 2 05/20/18 17:55 61 12 142/71 100 Nasal Cannula 2 05/20/18 17:45 66 15 121/75 100 Nasal Cannula 2 05/20/18 17:35 62 12 136/62 100 Oxymask 10 05/20/18 17:25 36.1 80 14 118/59 100 Oxymask 10 05/20/18 08:28 93 Room Air 05/20/18 07:22 36.7 58 16 126/72 (90) 93 Room Air 05/19/18 23:25 Room Air 05/19/18 22:55 36.9 66 22 111/70 (84) 90 Room Air Physical Exam Comments: General Appearance: WD/WN, no apparent distress, + obese, + pertinent finding ( PLeasant, eldelry female - AAO x 3 , no distress) Head: normocephalic Eyes: + pertinent finding (Ptosis R, chronic) ENT: normal ENT inspection, pharynx normal Neck: supple, no JVD Respiratory/Chest: chest non-tender, lungs clear Cardiovascular: regular rate, rhythm, no edema, no gallop Abdomen/GI: normal bowel sounds, non tender, soft Back: normal inspection, no CVA tenderness Extremities/Musculoskelatal: no calf tenderness, normal capillary refill, + pedal edema (minimal), + pertinent finding (L arm is immobilized - distal pulses are present) 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 Presents following a mechanical fall onto her L side having sustained a displaced left humeral neck fracture. Unfortunately she normally ambulates with a walker and lives alone. She cannot currently ambulate therefore and is admitted for evaluation by orthopedics. She will likely undergo repair 05/20. She denies any symptoms preceding her fall such as lightheadedness or palpitations. 1) Humeral fracture - for repair later today. Her RCRI is 2 or 6.6% - technically, she should be cleared by cardiology prior to a procedure. Consulted Cardiology. Patient does not require any additional cardiac intervention at this time. We have held various meds the night prior to surgery. 2) CAD - no evidence of ACS - cont Lipitor, Coreg - ASA held 3) DM II - placed on a SS 4) HTN, HPL - cont Diltiazem, Valsartan, Coreg - Valsartan to be held 05/20 - cont Lipitor 5) Hypothyroidism - cont Synthroid
[2018-05-21] MEDS: KETOROLAC TROMETHAMINE 15 MG/ML VIAL IV PRN ×2 (02:26→11:02)
[2018-05-21] MEDS: LEVOTHYROXINE 125 MCG TAB PO SCH (05:57)
[2018-05-21] MEDS: POTASSIUM CHLORIDE INJ 10 MEQ in SODIUM CHLORIDE 0.9% 1000ML 1,000 ML IV SCH ×2 (05:57→13:32)
[2018-05-21] MEDS: CEFAZOLIN IV 2,000 MG in SYRINGE 0 ML IV SCH (06:23)
[2018-05-21 07:45] VITALS: O2SAT 95
[2018-05-21 07:55] LABS: HEMATOCRIT 28.7 % (37-47); HEMOGLOBIN 9.4 g/dL (12.0-16.0); MEAN CELL VOLUME 95.7 fL (80-100); MEAN CORPUSCULAR HEMOGLOBIN 31.3 pg (25-34); MEAN CORPUSCULAR HGB CONC 32.8 g/dl (32-36); MEAN PLATELET VOLUME 9.4 fL (7.4-10.4); PLATELET COUNT 142 K/uL (130-400); RED CELL DISTRIBUTION WIDTH CV 14.1 % (11.5-14.5); RED CELL DISTRIBUTION WIDTH SD 49.1 fL (36.4-46.3); WHITE BLOOD COUNT 7.98 K/uL (4.8-10.8)
[2018-05-21 07:58] VITALS: BP 109/72; PULSE 71; TEMP 36.6; O2SAT 95
[2018-05-21] MEDS: INSULIN ASPART 100 UNITS/ML 3 ML PEN SC SCH ×2 (08:35→12:00)
[2018-05-21] MEDS: MAGNESIUM OXIDE 400 MG TAB PO SCH (08:35)
--- NOTE | 2018-05-21 10:27 | PROGRESS NOTE ---
DATE: 05/21/2018 CHIEF COMPLAINT: Status post left reverse shoulder arthroplasty for fracture, postop day #1. PROGRESS: Marlena was seen and examined at bedside today. Overall, she is doing fairly well. She has less pain in her shoulder this morning. She has not moved much yet. She has no complaints. PHYSICAL EXAMINATION: LEFT SHOULDER: The dressing is clean and dry. She is wearing her sling as instructed. Her radial, median and ulnar nerves are checked and intact at her wrist. Her axillary nerve was not checked yet. LABORATORY DATA: She has an H and H today of 9.4 and 28.7. Her glucose is 121. Her vital signs are all stable on room air. She has a Monreal catheter in place which should be removed later this morning. X-rays postoperatively of the left shoulder show the prosthesis to be in near anatomic alignment without any evidence of fracture, dislocation or loosening. IMPRESSION: Status post reverse left shoulder arthroplasty for fracture. PLAN: At this point, she is doing fairly well. She will be seen by physical therapy today for hand, wrist and elbow exercises. I do not want any pendulums quite yet. She can be weightbearing as tolerated on her left shoulder if she can use a platform walker or even a regular walker if she feels comfortable. I just do not want a lot of forward elevation or abduction of her shoulder, but she can put axial weight on it. She is orthopedically stable for discharge when medically ready. I will see her in my office in 2 weeks for staple removal. Office phone number is [phone].
--- NOTE | 2018-05-21 11:47 | Discharge Instructions ---
Discharge Instructions Date of Service May 21, 2018. Admission Reason for Admission: Humeral Fracture Discharge Discharge Diagnosis / Problem: Humeral fracture (left) Discharge Goals Goal(s): Decrease discomfort Activity Recommendations Activity Limitations: as noted below Lifting Limitations: gradually increase as tolerated . Instructions / Follow-Up Instructions / Follow-Up I do not want any pendulums quite yet. She can be weightbearing as tolerated on her left shoulder if she can use a platform walker or even a regular walker if she feels comfortable. I just do not want a lot of forward elevation or abduction of her shoulder, but she can put axial weight on it. I will see her in my office in 2 weeks for staple removal. Office phone number is [phone]. Current Hospital Diet Patient's current hospital diet: Diabetes Type 2 Diet Discharge Diet Recommended Diet: Diabetes Type 2 Diet Procedures Procedures Performed: Left Fracture Reverse Total Shoulder Arthroplasty Pending Studies Studies pending at discharge: no Medical Emergencies . Who to Call and When: Medical Emergencies: If at any time you feel your situation is an emergency, please call 911 immediately. . Non-Emergent Contact Non-Emergency issues call your: Primary Care Provider Call Non-Emergent contact if: you have any medication questions . . "Provider Documentation" section prepared by Varinder Hazel. .
[2018-05-21 12:07] VITALS: BP 109/72; PULSE 71; TEMP 36.6; O2SAT 95
[2018-05-21 12:16] VITALS: BP 104/69; PULSE 75; TEMP 36.7; O2SAT 94
--- NOTE | 2018-05-29 20:38 | Discharge Summary ---
Discharge Summary Date of Service May 21, 2018. Discharge Summary Admission Date: May 18, 2018 at 17:28 Discharge Date: May 21, 2018 Discharge Disposition: Rehab Principal Diagnosis: Left humeral fractureS/P REERSE SHOULDER REPAIR Immunizations: Have You Had Influenza Vaccine: Yes History of Tetanus Vaccine?: Unknown History of Pneumococcal: Yes History of Hepatitis B Vaccine: Yes Medication Reconciliation New Medications: Tramadol (Ultram) 50 Mg Tab 1 TAB PO Q6 PRN for Pain, #40 TAB Continued Medications: Acetaminophen Tab (Tylenol) 325 Mg Tab 650 MG PO BID, TAB Amlodipine (Norvasc) 10 Mg Tab 10 MG PO HS, TAB Aspirin (Aspirin Ec) 81 Mg Tab 81 MG PO QAM Atorvastatin (Lipitor) 40 Mg Tab 40 MG PO HS, TAB Calcium Carbonate-Vitamin D (Calcium 500 + D) 1 Tab Tab 1 TAB PO 3-5 X WEEK Carvedilol (Coreg) 12.5 Mg Tab 12.5 MG PO HS, TAB Cranberry (Vaccinium Macrocarp (Cranberry Extract) 250 Mg Tab 250 MG PO BID Furosemide (Lasix) 20 Mg Tab 20 MG PO 2-3 X WEEK PRN for Fluid Retention, TAB Levothyroxine Sodium (Synthroid) 125 Mcg Tab 125 MCG PO DAILY, TAB Magnesium Oxide (Mag-Ox) 400 Mg Tab 400 MG PO 2-3 X WEEK, TAB Metformin Hcl (Glucophage) 500 Mg Tab 250 MG PO QPM, TAB Naproxen (Aleve) 220 Mg Tab 220 MG PO QAM, TAB Omeprazole (Prilosec) 40 Mg Cap 40 MG PO DAILY, CAP Potassium Chloride Microencaps (Potassium Chloride Er) 20 Meq Tab 20 MEQ PO 2-3 X WEEK PRN for When Lasix Taken, TAB Probiotic Product (Probiotic) 1 Cap Cap 1 CAP PO DAILY Valsartan (Diovan) 320 Mg Tab 320 MG PO AFTERNOON, TAB Discharge Exam Physical Exam Comments: General Appearance: WD/WN, no apparent distress, + obese, + pertinent finding ( PLeasant, eldelry female - AAO x 3 , no distress) Head: normocephalic Eyes: + pertinent finding (Ptosis R, chronic) ENT: normal ENT inspection, pharynx normal Neck: supple, no JVD Respiratory/Chest: chest non-tender, lungs clear Cardiovascular: regular rate, rhythm, no edema, no gallop Abdomen/GI: normal bowel sounds, non tender, soft Back: normal inspection, no CVA tenderness Extremities/Musculoskelatal: no calf tenderness, normal capillary refill, + pedal edema (minimal), + pertinent finding (L arm is immobilized - distal pulses are present) 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 Presents following a mechanical fall onto her L side having sustained a displaced left humeral neck fracture. Unfortunately she normally ambulates with a walker and lives alone. She cannot currently ambulate therefore and is admitted for evaluation by orthopedics. She will likely undergo repair 05/20. She denies any symptoms preceding her fall such as lightheadedness or palpitations. 1) Humeral fracture - S/P repair Reverse shoulder repair Her RCRI is 2 or 6.6% - technically, she should be cleared by cardiology prior to a procedure. Consulted Cardiology who cleared patient for surgery. Patient does not require any additional cardiac intervention at this time. Ortho provided discharge instructions. 2) CAD - no evidence of ACS - cont Lipitor, Coreg - ASA held 3) DM II - placed on a SS 4) HTN, HPL - cont Diltiazem, Valsartan, Coreg - Valsartan to be held 05/20 - cont Lipitor 5) Hypothyroidism - cont Synthroid Patient discharged on rehab Total Time Spent: Greater than 30 minutes This includes examination of the patient, discharge planning, medication reconciliation, and communication with other providers. Discharge Instructions Please refer to the electronic Patient Visit Report (Discharge Instructions) for additional information. Follow-Up as noted in discharge instructions
== END 2018-05-21 14:20 | DRG 483 ==
LOC: C.EDB 13:19 → C.MSN 17:28 → ENRESERV 17:47
PROVIDERS: ADMIT Internal Medicine; ATTEND Internal Medicine Sports Medicine
PROC: 0RRK00Z Replacement of Left Shoulder Joint with Reverse Ball and Socket Synthetic Substitute, Open Approach (ICD-10-PCS; principal; 2018-05-20 07:30)
DX: S42.292A Other displaced fracture of upper end of left humerus, initial encounter for closed fracture (principal); V58.4XXA Person boarding or alighting a pick-up truck or van injured in noncollision transport accident, initial encounter; Y92.512 Supermarket, store or market as the place of occurrence of the external cause; D72.829 Elevated white blood cell count, unspecified; I25.10 Atherosclerotic heart disease of native coronary artery without angina pectoris; I10 Essential (primary) hypertension; E11.9 Type 2 diabetes mellitus without complications; E78.5 Hyperlipidemia, unspecified; E03.9 Hypothyroidism, unspecified; K21.9 Gastro-esophageal reflux disease without esophagitis; R26.2 Difficulty in walking, not elsewhere classified; I25.2 Old myocardial infarction; E66.9 Obesity, unspecified; Z68.38 Body mass index [BMI] 38.0-38.9, adult; Z96.651 Presence of right artificial knee joint; Z96.642 Presence of left artificial hip joint; Z95.5 Presence of coronary angioplasty implant and graft; Z79.1 Long term (current) use of non-steroidal anti-inflammatories (NSAID); Z79.82 Long term (current) use of aspirin; Z79.84 Long term (current) use of oral hypoglycemic drugs; Z79.899 Other long term (current) drug therapy; Z88.8 Allergy status to other drugs, medicaments and biological substances

== ENCOUNTER → 2018-05-26 | Outpatient (CLI) | payer OTHER ==
[~2018-05-26] MED LIST changes: +ACET-1693 PO; +AMLO10TA3 PO; -ASPI1TAB83 PO; +ASPI81TA28 PO; -B-COTAB69 PO; -CALC-338 PO; +CALCTAB65 PO; -CRAN1CAP15 PO; +CRAN250T PO; -CRDCD/180 PO; -KRIL1000 PO; -MCRK20 PO; +MISCCAP80 PO; -MULTTAB58 PO; +NAPR1TAB9 PO; -OMEP40CA36 PO; +OMEP40CA41 PO; +POTA20TA13 PO; +TRAM-10 PO
--- NOTE | 2018-05-26 14:17 | DIAGNOSTIC IMAGING REPORT ---
MRI LUMBAR SPINE WITHOUT IV CONTRAST CLINICAL HISTORY: Low back pain. Left lower extremity weakness. Fecal incontinence. COMPARISON STUDY: Abdominal CT dated 03/09/2017. MRI of the lumbar spine dated 10/20/2013. TECHNIQUE: MRI of the lumbar spine is performed utilizing various T1 and T2-weighted sequences in the axial and sagittal planes. IV contrast was not administered for this examination. FINDINGS: Lumbar spine: Marrow signal intensity is heterogeneous. Vertebral body height is maintained throughout the lumbar spine. There is 6 mm of anterolisthesis at L4-L5. Minimal retrolisthesis is seen at L1-L2, L2-L3, and L3-L4. Hyperlordosis is noted. The transverse and spinous processes are intact as imaged. There is no evidence of spondylolysis. Chronic degenerative endplate change is seen at all lumbar levels. Degenerative endplate edema is noted at L1-L2 and L2-L3. No destructive bony process is identified. Intervertebral discs: Degenerative disc desiccation is seen throughout the lumbar spine. Moderate loss of height is seen at all levels from L1-L2 through L4-L5. Spinal cord: The visualized spinal cord is normal in morphology and signal intensity. Conus medullaris terminates at the level of L1. The nerve roots of the cauda equina are normal in morphology. T12-L1: There is a small posterior disc bulge. The central canal and neural foramina are patent. L1-L2: There is a small posterior disc bulge. There is also hypertrophy of the ligamentum flavum. There is no significant acquired compromise of the central canal at this level. The disc bulge causes bilateral subarticular stenosis and may abut the exiting right L1 nerve root. L2-L3: There is broad-based posterior disc bulge. In conjunction with hypertrophy of the ligamentum flavum there is mild central canal stenosis at this level with a minimum AP diameter of 8 mm. There is bilateral subarticular stenosis, with possible impingement on the exiting bilateral L2 nerve roots. This also abuts the transiting bilateral L3 nerve roots. The neural foramina appear patent. L3-L4: There is broad-based posterior disc bulge and mild hypertrophy of the ligamentum flavum. There is only minimal acquired compromise of the central canal with a minimum AP diameter of 9.5 mm. Bilateral subarticular stenosis is identified. This likely impinges on the exiting bilateral L3 nerve roots. Facet arthropathy causes moderate right greater than left neural foraminal stenosis. L4-L5: There is broad-based posterior disc bulge with annular fissure. There is no significant acquired compromise of the central canal. There is bilateral subarticular stenosis, left greater than right with possible impingement on the exiting left L4 nerve root. Facet arthropathy causes moderate right and moderate to severe left neural foraminal stenosis. L5-S1: The central canal is clear. Facet arthropathy is of no consequence. Sacrum: The visualized sacrum is normal in morphology and signal intensity. Soft tissues: There is fatty atrophy of the paraspinous musculature. The partially imaged kidneys demonstrate cortical atrophy. The retroperitoneal structures are otherwise grossly unremarkable but incompletely assessed. IMPRESSION: 1. There is no large disc herniation or high-grade central canal stenosis. 2. No destructive bony lesion is seen. 3. Moderate multilevel lumbosacral spondylosis as above. See discussion for detailed level by level analysis. 4. Degenerative disc disease with multilevel degenerative endplate change as above. Dictated: 05/26/2018 1:50 PM Transcribed: 05/26/2018 2:17 PM [facility] Electronically signed by: Conner Diaz M.D. 05/26/2018 2:21 PM Dictated Date/Time: 05/26/2018 1:50 PM
== END | disposition home or self-care (01) ==
LOC: C.MRIBC 12:51
PROVIDERS: ATTEND Physical Medicine & Rehabilitation
DX: M54.5 Low back pain (principal); M62.81 Muscle weakness (generalized); M47.817 Spondylosis without myelopathy or radiculopathy, lumbosacral region; M51.36 Other intervertebral disc degeneration, lumbar region

== ENCOUNTER 2020-06-10 17:35 | Inpatient (IN) ==
--- NOTE | 2020-06-10 17:58 | Emergency Department Note ---
Impression & Plan Breathlessness, Weakness, Hypoxia, Acute UTI ED Provider Note Provider: Jasbir Álvarez MD DATE OF SERVICE: 06/10/2020 CHIEF COMPLAINT: Shortness of breath, weakness HISTORY OF PRESENT ILLNESS: Patient is a 80-year-old female with a history of CAD and ischemic cardiopathy and hypertension presenting from home today via ambulance after she had weakness where she could get off the toilet. Patient states this started approximately 2 days ago on Wednesday with some slight weakness difficulty getting around worsening shortness of breath developed this morning with some slight leg swelling and that she took an extra dose of her Lasix. Patient states that she usually alternates Lasix every other day but missed several days. Patient states she was a bit short of breath but denies fever. Denies significant nausea or abdominal pain at this time. Denies chest pain to me. Patient states that she did start to urinate more after taking Lasix earlier. Does relay history of somewhat similar symptoms when she has been fluid overloaded in the past. Patient states her scale is broken at home and she does not follow her weight at home due to this. Denies sick contacts or recent travel. Patient relays a little bit of bilateral knee pain but again denies that she fell or has had significant trauma this is more chronic. REVIEW OF SYSTEMS: A total of 10 review of systems was obtained and negative except as stated above in the HPI. PAST MEDICAL HISTORY: As noted above MEDICATIONS: Reviewed home medication list. SOCIAL HISTORY: Lives at home by herself, non-smoker PHYSICAL EXAM: GENERAL: alert and oriented in no acute distress on stretcher Head: normocephalic and atraumatic, left eye ptosis noted EYES: No injection, discharge or icterus of the right eye. Left eye present w ith lateral abduction both eyes closed left eyelid, left ptosis is present. Patient does not have significant movement of the left eye there is some mild injection here. NECK: Trachea midline. Supple. ENT: Mucous membranes pink and moist. LUNGS: Airway patent. No retractions. Breath sounds with diminished bases HEART: Regular rate and rhythm. No chest wall tenderness ABDOMEN: Soft and non-tender, without guarding or rebound. SKIN: Acyanotic, warm, dry, without rashes EXTREMITIES: Some slight bilateral chronic stasis changes lower extremities with 2+ lower extremity edema to the knees. NEUROLOGICAL: No aphasia. Patient states that the left eye ptosis and visual issues are at baseline. No significant strength or sensation change between the lower extremities. EK bpm sinus rhythm first-degree AV block with a right bundle branch block. Left axis noted. Note some precordial T wave inversions. Do see some slight inferior ST flattening.. QTc 460. In comparison to previous previous EKG from July [id number] there is some slight ST changes in the inferior leads noted today. CONTINUOUS CARDIAC MONITORING: was ordered and showed a heart rate of 82 bpm in sinus rhythm first-degree AV block Patient's hypertension was referred to the hospitalist Patient's laboratory studies and imaging reviewed. Differential includes Infection, dehydration, metabolic abnormality, hypo /hyperglycemia, electrolyte disturbance, anemia, hypoxia, cardiac sources, intracerebral event, toxicologic, neurologic, as well as other pathologies. IMPRESSION/MEDICAL DECISION MAKING: Patient is complaining of several days worsening weakness shortness of breath and leg swelling. Seems consistent likely with a CHF exacerbation. Did take some extra Lasix earlier. Borderline hypoxia here satting around 90% on room air initially later dropping into the high 80s requiring some slight oxygen supplementation via nasal cannula. Temperature of 37 9 noted here initially by nursing staff and given this, testing will be sent although she has no significant sick contact. No trauma is really. Does not have significant focal deficits beyond the baseline left eye ptosis that seems to be indicative of a stroke at this point. Denies chest pain. EKG and troponin were sent however as well as basic laboratory studies. Chest x-ray without significant vascular congestion, pneumonia, pneumothorax visualized per radiology. Blood work likely without significant anemia or leukocytosis lowering suspicion for sepsis. Renal function likely is at baseline. Given some IV Lasix to help with what appears to be some fluid overload clinically and by history. There is no evidence of transaminitis or severe electrolyte abnormality although some slight hypokalemia is noted. Negative troponin and proBNP is only just over thousand. TSH within normal limits. Coronavirus testing is likely negative. Given the hypoxia and her symptoms as well as weakness discussed with the patient options and she was in agreement to stay for further evaluation. Urinalysis finally returns and is questionable for possible infection with nitrates. The hospitalist was contacted. DIAGNOSIS: Shortness of breath, fluid overload, hypoxia, acute UTI DISPOSITION: Hospitalist will evaluate Patient was agreeable with this plan. Past Med/Surg History Medical History (Updated 06/10/20 @ 20:55 by Jasbir Álvarez M.D.) CAD (coronary artery disease) Diabetes Hyperlipidemia Hypertension Hypothyroidism Morbid obesity PNA (pneumonia) Surgical History (Updated 06/14/19 @ 11:46 by Sheri Hernandez) H/O cosmetic surgery lipectomy- left chest/abdomen History of surgical removal of lesion excision of lesion chest wall- Dr. Shai Adams S/P bilateral salpingo-oophorectomy S/P cholecystectomy S/P coronary artery stent placement cath stent 1 proximal right coronary artery, cath stent 2 first obtuse marginal branch S/P parathyroidectomy 4 removed and 2 were replaced S/P total abdominal hysterectomy Status post replacement of left shoulder joint Status post right hip replacement Family History (Updated 07/11/19 @ 10:25 by KAROLINE Alexandra) Mother Cancer patient not sure if mother had clear cell carcinoma of uterus or ovary Hypothyroidism Family/Other Diabetes Ovarian cancer Tuberculosis Uterine cancer Father Nephrolithiasis Other Heart disease Denies family history of Prostate cancer Breast cancer Social History (Updated 06/14/19 @ 11:56 by Sheri Hernandez) Smoking Status: Never smoker Hx Alcohol Use: No Hx Substance Use: No Preferred Language: Mauritian Communication Ability: Effective Mold Maintenance Technician Required: No Beliefs That Will Affect Care: None marital status: / Current Living Situation: Alone current occupational status: retired Other Information That Helps Us Care for You: No Feels Safe at Home: Yes Safety Concerns: Feels Safe At This Time Allergies Allergies Allergy/AdvReac Type Severity Reaction Status Date / Time epinephrine AdvReac Mild RAPID Verified 06/10/20 20:22 HEART RATE AND RESPIRATIONS Home Meds Home Medications Medication Instructions Recorded Confirmed atorvastatin 40 mg tablet 40 mg PO DAILY #90 tab 06/14/19 06/10/20 calcium carbonate 500 mg (1,250 1 tab PO .3-5XW tab 06/14/19 06/10/20 mg)-vitamin D3 200 unit tablet carvedilol 6.25 mg tablet 6.25 mg PO BIDM tab 06/14/19 06/10/20 furosemide 20 mg tablet 20 mg PO DAILY PRN #36 tab 06/14/19 06/10/20 levothyroxine 125 mcg tablet 125 mcg PO DAILY #90 tab 06/14/19 06/10/20 nitroglycerin 0.4 mg sublingual 0.4 mg SL .PRN/UD tab 06/14/19 06/10/20 tablet omeprazole 40 mg capsule,delayed 40 mg PO DAILY #90 cap 06/14/19 06/10/20 release potassium chloride 20 mEq 20 meq PO DAILY PRN #90 tab 06/14/19 06/10/20 tablet,extended release hydralazine 25 mg tablet 25 mg PO TID 07/11/19 06/10/20 metformin 500 mg tablet 250 mg PO BID #90 tab 07/11/19 06/10/20 acetaminophen 650 mg PO BID PRN 06/10/20 06/10/20 aspirin [Aspir-81] 81 mg PO DAILY 06/10/20 06/10/20 cranberry extract 0 mg PO BID 06/10/20 06/10/20 Results & Data (ED) Vital Signs Vital Signs - 24 hr 06/10/20 17:40 06/10/20 17:42 06/10/20 17:44 Temperature 37.9 C H Temperature Source Oral Pulse Rate 87 85 86 Pulse Rate from SpO2 Sensor 87 86 Respiratory Rate 22 18 22 Respiratory Effort / Characteristics Non-Labored Spontaneous Respiratory Depth Normal Respiratory Pattern Regular Blood Pressure 164/102 H 164/102 H Blood Pressure Mean 120 122 Pulse Oximetry 91 90 91 Oxygen Delivery Method Room Air Oxygen Flow Rate Sepsis Recent Fever Within 48 Hours Yes Sepsis New/Unexplained Change in Mental Status No Sepsis Action Taken by Nursing No Action Required Oxygen Flow Rate - Titration Pulse Oximetry Post Tiitration 06/10/20 17:50 06/10/20 18:00 06/10/20 18:01 Temperature Temperature Source Pulse Rate 84 84 81 Pulse Rate from SpO2 Sensor 84 84 79 Respiratory Rate 20 20 18 Respiratory Effort / Characteristics Respiratory Depth Respiratory Pattern Blood Pressure 147/70 H Blood Pressure Mean 103 Pulse Oximetry 91 90 90 Oxygen Delivery Method Nasal Cannula Oxygen Flow Rate 2 Sepsis Recent Fever Within 48 Hours Sepsis New/Unexplained Change in Mental Status Sepsis Action Taken by Nursing Oxygen Flow Rate - Titration Pulse Oximetry Post Tiitration 06/10/20 18:10 06/10/20 18:20 06/10/20 18:30 Temperature Temperature Source Pulse Rate 83 78 81 Pulse Rate from SpO2 Sensor 83 79 81 Respiratory Rate 18 23 21 Respiratory Effort / Characteristics Respiratory Depth Respiratory Pattern Blood Pressure 137/92 Blood Pressure Mean 107 Pulse Oximetry 93 95 88 L Oxygen Delivery Method Room Air Oxygen Flow Rate 0 Sepsis Recent Fever Within 48 Hours Sepsis New/Unexplained Change in Mental Status Sepsis Action Taken by Nursing Oxygen Flow Rate - Titration 2 Pulse Oximetry Post Tiitration 95 06/10/20 18:31 06/10/20 18:40 06/10/20 19:00 Temperature Temperature Source Pulse Rate 77 80 77 Pulse Rate from SpO2 Sensor 77 81 76 Respiratory Rate 17 20 20 Respiratory Effort / Characteristics Respiratory Depth Respiratory Pattern Blood Pressure 154/84 H Blood Pressure Mean 111 Pulse Oximetry 95 96 96 Oxygen Delivery Method Nasal Cannula Nasal Cannula Oxygen Flow Rate 2 2 Sepsis Recent Fever Within 48 Hours Sepsis New/Unexplained Change in Mental Status Sepsis Action Taken by Nursing Oxygen Flow Rate - Titration Pulse Oximetry Post Tiitration 06/10/20 19:20 06/10/20 19:30 06/10/20 19:31 Temperature Temperature Source Pulse Rate 77 78 76 Pulse Rate from SpO2 Sensor 77 78 76 Respiratory Rate 20 28 H 17 Respiratory Effort / Characteristics Respiratory Depth Respiratory Pattern Blood Pressure 172/84 H Blood Pressure Mean 100 Pulse Oximetry 95 96 96 Oxygen Delivery Method Nasal Cannula Oxygen Flow Rate 2 Sepsis Recent Fever Within 48 Hours Sepsis New/Unexplained Change in Mental Status Sepsis Action Taken by Nursing Oxygen Flow Rate - Titration Pulse Oximetry Post Tiitration 06/10/20 20:40 06/10/20 20:44 06/10/20 21:01 Temperature Temperature Source Pulse Rate 77 75 75 Pulse Rate from SpO2 Sensor 77 74 76 Respiratory Rate 21 24 21 Respiratory Effort / Characteristics Respiratory Depth Respiratory Pattern Blood Pressure 156/90 H 173/84 H Blood Pressure Mean 110 121 Pulse Oximetry 95 96 94 Oxygen Delivery Method Oxygen Flow Rate Sepsis Recent Fever Within 48 Hours Sepsis New/Unexplained Change in Mental Status Sepsis Action Taken by Nursing Oxygen Flow Rate - Titration Pulse Oximetry Post Tiitration Laboratory Data Result diagrams: 06/10/20 18:22 06/10/20 18:21 Lab Results 06/10/20 06/10/20 06/10/20 Range/Units 18:21 18:21 18:22 WBC 7.71 (4.8-10.8) K/uL RBC 4.44 (4.2-5.4) M/uL Hgb 13.6 (12.0-16.0) g/dL Hct 41.0 (37-47) % MCV 92.3 (80-100) fL MCH 30.6 (25-34) pg MCHC 33.2 (32-36) g/dL RDW Std Deviation 52.9 H (36.4-46.3) fL RDW Coeff of Suzette 15.5 H (11.5-14.5) % Plt Count 168 (130-400) K/uL MPV 9.2 (7.4-10.4) fL Immature Gran % (Auto) 0.1 % Neut % (Auto) 85.4 % Lymph % (Auto) 7.0 % [place] % (Auto) 6.9 % Eos % (Auto) 0.5 % Baso % (Auto) 0.1 % Neut # (Auto) 6.58 H (1.4-6.5) K/uL Lymph # (Auto) 0.54 L (1.2-3.4) K/uL [place] # (Auto) 0.53 (0.11-0.59) K/uL Eos # (Auto) 0.04 (0-0.5) K/uL Baso # (Auto) 0.01 (0-0.2) K/uL Immature Gran # (Auto) 0.01 (0.00-0.02) K/uL PT 11.4 (9.0-12.0) Seconds INR 1.1 (0.9-1.1) Sodium 138 (136-145) mmol/L Potassium 3.4 L (3.5-5.1) mmol/L Chloride 103 (98-107) mmol/L Carbon Dioxide 25 (21-32) mmol/L Anion Gap 10.0 (3-11) BUN 13 (7-18) mg/dl Creatinine 0.73 (0.6-1.2) mg/dl Est Cr Clr Drug Dosing Not Reportable Est GFR ( Amer) 89.5 Est GFR (Non-Af Amer) 77.2 BUN/Creatinine Ratio 18.2 (10-20) Glucose 127 H (70-99) mg/dl Lactate (0.4-2.0) mmol/L Calcium 9.0 (8.5-10.1) mg/dl Magnesium 1.8 (1.8-2.4) mg/dl Total Bilirubin 0.5 (0.2-1) mg/dl AST 16 (15-37) U/L ALT 13 (12-78) U/L Alkaline Phosphatase 98 (45-117) U/L Troponin I < 0.015 (0-0.045) ng/ml NT-Pro-B Natriuret Pep 1085 (0-1800) pg/ml Total Protein 7.0 (6.4-8.2) gm/dl Albumin 3.4 (3.4-5.0) gm/dl Globulin 3.6 (2.5-4.0) gm/dl Albumin/Globulin Ratio 0.9 (0.9-2) TSH 0.832 (0.300-4.500) uIu/ml Urine Color Urine Appearance (Clear) Urine pH (4.5-7.5) Ur Specific [place] (1.000-1.030) Urine Protein (Negative) Urine Glucose (UA) (Negative) Urine Ketones (Negative) Urine Blood (Negative) Urine Nitrite (Negative) Urine Bilirubin (Negative) Urine Urobilinogen (Negative) Ur Leukocyte Esterase (Negative) Urine WBC (Auto) (0-5) /hpf Urine RBC (Auto) (0-4) /hpf U Hyaline Cast (Auto) (0-5) /lpf U Epithel Cells (Auto) (0-5) /lpf Urine Bacteria (Auto) (Negative) 06/10/20 06/10/20 Range/Units 18:22 20:13 WBC (4.8-10.8) K/uL RBC (4.2-5.4) M/uL Hgb (12.0-16.0) g/dL Hct (37-47) % MCV (80-100) fL MCH (25-34) pg MCHC (32-36) g/dL RDW Std Deviation (36.4-46.3) fL RDW Coeff of Suzette (11.5-14.5) % Plt Count (130-400) K/uL MPV (7.4-10.4) fL Immature Gran % (Auto) % Neut % (Auto) % Lymph % (Auto) % [place] % (Auto) % Eos % (Auto) % Baso % (Auto) % Neut # (Auto) (1.4-6.5) K/uL Lymph # (Auto) (1.2-3.4) K/uL [place] # (Auto) (0.11-0.59) K/uL Eos # (Auto) (0-0.5) K/uL Baso # (Auto) (0-0.2) K/uL Immature Gran # (Auto) (0.00-0.02) K/uL PT (9.0-12.0) Seconds INR (0.9-1.1) Sodium (136-145) mmol/L Potassium (3.5-5.1) mmol/L Chloride (98-107) mmol/L Carbon Dioxide (21-32) mmol/L Anion Gap (3-11) BUN (7-18) mg/dl Creatinine (0.6-1.2) mg/dl Est Cr Clr Drug Dosing Est GFR ( Amer) Est GFR (Non-Af Amer) BUN/Creatinine Ratio (10-20) Glucose (70-99) mg/dl Lactate 0.9 (0.4-2.0) mmol/L Calcium (8.5-10.1) mg/dl Magnesium (1.8-2.4) mg/dl Total Bilirubin (0.2-1) mg/dl AST (15-37) U/L ALT (12-78) U/L Alkaline Phosphatase (45-117) U/L Troponin I (0-0.045) ng/ml NT-Pro-B Natriuret Pep (0-1800) pg/ml Total Protein (6.4-8.2) gm/dl Albumin (3.4-5.0) gm/dl Globulin (2.5-4.0) gm/dl Albumin/Globulin Ratio (0.9-2) TSH (0.300-4.500) uIu/ml Urine Color Yellow Urine Appearance Clear (Clear) Urine pH 6.5 (4.5-7.5) Ur Specific [place] 1.010 (1.000-1.030) Urine Protein Negative (Negative) Urine Glucose (UA) Negative (Negative) Urine Ketones Negative (Negative) Urine Blood Negative (Negative) Urine Nitrite Positive A (Negative) Urine Bilirubin Negative (Negative) Urine Urobilinogen Negative (Negative) Ur Leukocyte Esterase Trace H (Negative) Urine WBC (Auto) 5-10 H (0-5) /hpf Urine RBC (Auto) 0-4 (0-4) /hpf U Hyaline Cast (Auto) 1-5 (0-5) /lpf U Epithel Cells (Auto) 5-10 H (0-5) /lpf Urine Bacteria (Auto) 4+ H (Negative) Administered Medications Vancomycin HCl 2,250 mg/ (Sodium Chloride) 545 mls @ 200 mls/hr IV NOW ONE; Protocol Stop: 06/11/20 01:43 Last Admin: 06/10/20 23:29 Dose: 200 mls/hr Documented by: [id number] Discontinued Medications Furosemide (Furosemide 40 Mg/4 Ml Vial) 40 mg IV NOW STA Stop: 06/10/20 19:01 Last Admin: 06/10/20 19:13 Dose: 40 mg Documented by: [id number] Ceftriaxone Sodium (Rocephin) 2,000 mg in 70 mls @ 140 mls/hr IV NOW STA Stop: 06/10/20 21:46 Last Infusion: 06/10/20 21:39 Dose: 0 mls/hr Documented by: [id number] Admin: 06/10/20 21:24 Dose: 140 mls/hr Documented by: [id number] Discharge Plan Visit Data Chief Complaint: Leg Weakness, Bilateral Stated Complaint: DIFF. AMBULATING ED Provider: Jasbir Álvarez Discharge Problem: Breathlessness, Weakness, Hypoxia, Acute UTI Patient Disposition: Admitted As Inpatient Discharge Instructions Interventions: ED Discharge Assessment Last Done: 06/10/20 21:30
--- NOTE | 2020-06-10 18:26 | XRay Report ---
SINGLE VIEW CHEST CLINICAL HISTORY: Generalized weakness. FINDINGS: An AP, portable, upright chest radiograph is compared to study dated 07/25/2018. The examin ation is degraded by portable technique, large body habitus, and patient rotation. The cardiomediasti nal silhouette is unremarkable noting atherosclerotic calcification of the thoracic aorta. There is b ibasilar scarring/atelectasis. No airspace consolidation or large pleural effusion is identified. No pneumothorax is seen. The skeletal structures are osteopenic. The bony thorax is grossly intact. A le ft shoulder arthroplasty is in place. Cholecystectomy clips are noted. IMPRESSION: No active disease in the chest. ACT 112: Negative or not required by law. Electronically signed by: Conner Diaz M.D. 06/10/2020 6:24 PM
[2020-06-10 18:41] LABS: Basophils # (auto) 0.01 K/uL (0-0.2); Basophils % (auto) 0.1 %; Eosinophils # (auto) 0.04 K/uL (0-0.5); Eosinophils % (auto) 0.5 %; Hemoglobin 13.6 g/dL (12.0-16.0); Immature Granulocytes # (auto) 0.01 K/uL (0.00-0.02); Immature Granulocytes % (auto) 0.1 %; Lymphocytes # (auto) 0.54 K/uL (1.2-3.4); Mean Corpuscular Hemoglobin 30.6 pg (25-34); Mean Corpuscular Hgb Conc 33.2 g/dL (32-36); Mean Corpuscular Volume 92.3 fL (80-100); Mean Platelet Volume 9.2 fL (7.4-10.4); Monocytes # (auto) 0.53 K/uL (0.11-0.59); Monocytes % (auto) 6.9 %; Neutrophils # (auto) 6.58 K/uL (1.4-6.5); Neutrophils % (auto) 85.4 %; Platelet Count 168 K/uL (130-400); RDW Coefficient of Variation 15.5 % (11.5-14.5); RDW Standard Deviation 52.9 fL (36.4-46.3); Red Blood Count 4.44 M/uL (4.2-5.4); White Blood Count 7.71 K/uL (4.8-10.8)
[2020-06-10 18:50] LABS: INR 1.1 (0.9-1.1); Prothrombin Time 11.4 Seconds (9.0-12.0)
[2020-06-10 18:59] LABS: Alanine Aminotransferase 13 U/L (12-78); Albumin Level 3.4 gm/dl (3.4-5.0); Aspartate Aminotransferase 16 U/L (15-37); BUN Creatinine Ratio 18.2 (10-20); Blood Urea Nitrogen 13 mg/dl (7-18); Carbon Dioxide 25 mmol/L (21-32); Chloride 103 mmol/L (98-107); Est GFR (African American) 89.5; Est GFR (Non-African American) 77.2; Glucose 127 mg/dl (70-99); Magnesium 1.8 mg/dl (1.8-2.4); Potassium 3.4 mmol/L (3.5-5.1); Sodium 138 mmol/L (136-145)
[2020-06-10] MEDS ORDERED: FUROSEMIDE 40 MG/4 ML VIAL IV STA (19:00)
[2020-06-10 19:10] LABS: Albumin Globulin Ratio 0.9 (0.9-2); Alkaline Phosphatase 98 U/L (45-117); Bilirubin,Total 0.5 mg/dl (0.2-1); Globulin 3.6 gm/dl (2.5-4.0); NT Pro B Type Natriuretic Pept 1085 pg/ml (0-1800); Thyroid Stimulating Hormone 0.832 uIu/ml (0.300-4.500); Troponin I < 0.015 ng/ml (0-0.045)
[2020-06-10 20:27] LABS: Appearance Urine Clear (Clear); Bacteria Urine Automated 4+ (Negative); Bilirubin Urine Negative (Negative); Blood Urine Negative (Negative); Color Urine Yellow; Glucose Urine UA Negative (Negative); Ketones Urine Negative (Negative); Leukocyte Esterase Urine Trace (Negative); Nitrite Urine Positive (Negative); Protein Urine Negative (Negative); RBC Urine Automated 0-4 /hpf (0-4); Urobilinogen Urine Negative (Negative); pH Urine 6.5 (4.5-7.5)
[2020-06-10] MEDS ORDERED: cefTRIAXone SODIUM 2,000 MG/70 ML BAG IV STA (21:17)
--- NOTE | 2020-06-10 21:18 | History & Physical Report ---
Date of Service June 10, 2020 Assessment & Plan (1) Acute exacerbation of congestive heart failure: Acute exacerbation of CHF/CAD/ischemic cardiomyopathy/hypertension- The patient will be admitted to telemetry for serial cardiac enzymes, serial EKG's, cardiac rhythm monitoring and a 2-D echocardiogram with Dopplers. Given Lasix 40 mg IV in the ED, and will continue every morning Continue aspirin 81 mg daily, carvedilol 6.25 mg p.o. twice daily, hydralazine 25 mg p.o. 3 times daily, nitroglycerin sublingual as needed and potassium chloride 20 mEq p.o. daily. Follow serial CBC with differential, chemistry profile and magnesium level. Present on Admission?: Yes (2) CAD (coronary artery disease): See above Present on Admission?: Yes (3) Cardiomyopathy, ischemic: See above Present on Admission?: Yes (4) Cellulitis of lower extremity: Placed on vancomycin IV per pharmacokinetic monitoring and ceftriaxone IV daily Decrease edema with Lasix to decrease tendency towards cellulitis Present on Admission?: Yes (5) Diabetes mellitus: Hold metformin Placed on Accu-Cheks before meals and at bedtime with NovoLog coverage per scale Present on Admission?: Yes (6) Dyslipidemia: Continue atorvastatin 40 mg daily Present on Admission?: Yes (7) Weakness: Combination of CHF exacerbation and lower extremity cellulitis Present on Admission?: Yes (8) Hypothyroidism: Continue levothyroxine sodium 125 mcg p.o. daily Present on Admission?: Yes (9) Esophageal reflux: Continue omeprazole 40 mg p.o. daily Present on Admission?: Yes History of Present Illness Chief Complaint: The patient presents to the emergency department with worsening weakness over the past 2 days, and tonight needed help getting up off the toilet. Primary Care Provider: NO PCP The patient is an 80-year-old female with a past medical history including right bundle branch block, CAD, ischemic cardiomyopathy, diabetes mellitus, dyslipidemia, edema, esophageal reflux, former smoker, hypertension, non-STEMI, sensorineural hearing loss of both ears, urge urinary incontinence, spinal stenosis and morbid obesity. She presents to the emergency department with progressively worsening weakness over the past 2 days, and as noted above, needed help getting up off the toilet this evening. She has been progressively more short of breath also, and has noted increased swelling of bilateral lower extremities. She also notes some redness of her right lower extremity. She typically does follow her weight at home, however, her scale is broken, and has another one on order. Allergies Allergy/AdvReac Type Severity Reaction Status Date / Time epinephrine AdvReac Mild RAPID Verified 06/10/20 20:22 HEART RATE AND RESPIRATIONS Home Medications Home Medications Medication Instructions Recorded Confirmed Type atorvastatin 40 mg tablet 40 mg PO DAILY #90 tab 06/14/19 06/10/20 History calcium carbonate 500 mg (1,250 1 tab PO .3-5XW tab 06/14/19 06/10/20 History mg)-vitamin D3 200 unit tablet carvedilol 6.25 mg tablet 6.25 mg PO BIDM tab 06/14/19 06/10/20 History furosemide 20 mg tablet 20 mg PO DAILY PRN #36 tab 06/14/19 06/10/20 History levothyroxine 125 mcg tablet 125 mcg PO DAILY #90 tab 06/14/19 06/10/20 History nitroglycerin 0.4 mg sublingual 0.4 mg SL .PRN/UD tab 06/14/19 06/10/20 History tablet omeprazole 40 mg capsule,delayed 40 mg PO DAILY #90 cap 06/14/19 06/10/20 History release potassium chloride 20 mEq 20 meq PO DAILY PRN #90 tab 06/14/19 06/10/20 History tablet,extended release hydralazine 25 mg tablet 25 mg PO TID 07/11/19 06/10/20 History metformin 500 mg tablet 250 mg PO BID #90 tab 07/11/19 06/10/20 History acetaminophen 650 mg PO BID PRN 06/10/20 06/10/20 History aspirin [Aspir-81] 81 mg PO DAILY 06/10/20 06/10/20 History cranberry extract 0 mg PO BID 06/10/20 06/10/20 History Past Med/Surg History Medical History (Updated 06/11/20 @ 01:37 by Guilherme Martinez MD) CAD (coronary artery disease) Diabetes Hyperlipidemia Hypertension Hypothyroidism Morbid obesity PNA (pneumonia) Surgical History (Updated 06/14/19 @ 11:46 by Sheri Hernandez) H/O cosmetic surgery lipectomy- left chest/abdomen History of surgical removal of lesion excision of lesion chest wall- Dr. Shai Adams S/P bilateral salpingo-oophorectomy S/P cholecystectomy S/P coronary artery stent placement cath stent 1 proximal right coronary artery, cath stent 2 first obtuse marginal branch S/P parathyroidectomy 4 removed and 2 were replaced S/P total abdominal hysterectomy Status post replacement of left shoulder joint Status post right hip replacement Family History (Updated 07/11/19 @ 10:25 by KAROLINE Alexandra) Mother Cancer patient not sure if mother had clear cell carcinoma of uterus or ovary Hypothyroidism Family/Other Diabetes Ovarian cancer Tuberculosis Uterine cancer Father Nephrolithiasis Other Heart disease Denies family history of Prostate cancer Breast cancer Social History (Updated 06/14/19 @ 11:56 by Sheri Hernandez) Smoking Status: Never smoker Hx Alcohol Use: No Hx Substance Use: No Preferred Language: Frisian Communication Ability: Effective Hacksaw Inspector Required: No Beliefs That Will Affect Care: None marital status: / Current Living Situation: Alone current occupational status: retired Other Information That Helps Us Care for You: No Feels Safe at Home: Yes Safety Concerns: Feels Safe At This Time Review of Systems Review of Systems: The patient denies chest pain, palpitations, cough, sore throat, fevers, chills, sweats, nausea, vomiting, diarrhea , constipation, abdominal pain, pelvic pain, blood in urine or stool, dysuria, urinary frequency or urgency, lightheadedness, dizziness, headache, memory loss, loss of consciousness, abnormal bruising or bleeding, imbalance, focal weakness, numbness or tingling in arms or legs, generalized arthralgias or myalgias, back or neck pain, or night sweats. The review of systems is otherwise negative other than for that already noted above, and at least 10 systems have been reviewed. Physical Exam Physical Exam: The patient is awake, alert and oriented 3, well developed and well nourished, normocephalic and atraumatic, lying in bed and in no acute distress. HEENT--PERRL, EOMI, mucous membranes and oropharynx normal. Neck--supple. No JVD. No bruits. Thyroid normal, trachea midline, no adenopathy. Heart--normal S1 and S2. No murmurs, rubs or gallops. Lungs--clear bilaterally, no respiratory distress, no accessory muscle use. Abdomen--normal bowel sounds and soft. Nontender. Nondistended. Morbidly obese. Extremities--no cyanosis or clubbing. 1+ bilateral pretibial pitting edema. Dermatologic--right lower extremity with approximately one third area below the knee with mild to moderate erythema and warmth. Left lower extremity with small area about 4 cm with mild to moderate erythema. Neurologic--cranial nerves II through XII grossly intact. Rheumatologic--normal range of motion. Psychiatric--normal affect. Results & Data Results & Data ([facility]) Vital Signs (Past 12 Hours) Vital Signs Temp Pulse Resp BP Pulse Ox 06/10/20 20:44 75 24 156/90 H 96 06/10/20 20:40 77 21 95 06/10/20 19:31 76 17 96 06/10/20 19:30 78 28 H 172/84 H 96 06/10/20 19:20 77 20 95 06/10/20 19:00 77 20 154/84 H 96 06/10/20 18:40 80 20 96 06/10/20 18:31 77 17 95 06/10/20 18:30 81 21 137/92 88 L 06/10/20 18:20 78 23 95 06/10/20 18:10 83 18 93 06/10/20 18:01 81 18 147/70 H 90 06/10/20 18:00 84 20 90 06/10/20 17:50 84 20 91 06/10/20 17:44 86 22 91 06/10/20 17:42 100.2 F H 85 18 164/102 H 90 06/10/20 17:40 87 22 164/102 H 91 Laboratory Results Laboratory Results WBC 7.71 K/uL (4.8-10.8) 06/10/20 18:22 RBC 4.44 M/uL (4.2-5.4) 06/10/20 18:22 Hgb 13.6 g/dL (12.0-16.0) 06/10/20 18:22 Hct 41.0 % (37-47) 06/10/20 18:22 MCV 92.3 fL (80-100) 06/10/20 18:22 MCH 30.6 pg (25-34) 06/10/20 18:22 MCHC 33.2 g/dL (32-36) 06/10/20 18:22 RDW Std Deviation 52.9 fL (36.4-46.3) H 06/10/20 18:22 RDW Coeff of Suzette 15.5 % (11.5-14.5) H 06/10/20 18: Plt Count 168 K/uL (130-400) 06/10/20 18:22 MPV 9.2 fL (7.4-10.4) 06/10/20 18:22 Immature Gran % (Auto) 0.1 % 06/10/20 18:22 Neut % (Auto) 85.4 % 06/10/20 18:22 Lymph % (Auto) 7.0 % 06/10/20 18:22 [place] % (Auto) 6.9 % 06/10/20 18:22 Eos % (Auto) 0.5 % 06/10/20 18: Baso % (Auto) 0.1 % 06/10/20 18: Neut # (Auto) 6.58 K/uL (1.4-6.5) H 06/10/20 18:22 Lymph # (Auto) 0.54 K/uL (1.2-3.4) L 06/10/20 18:22 [place] # (Auto) 0.53 K/uL (0.11-0.59) 06/10/20 18:22 Eos # (Auto) 0.04 K/uL (0-0.5) 06/10/20 18:22 Baso # (Auto) 0.01 K/uL (0-0.2) 06/10/20 18:22 Immature Gran # (Auto) 0.01 K/uL (0.00-0.02) 06/10/20 18:22 PT 11.4 Seconds (9.0-12.0) 06/10/20 18:21 INR 1.1 (0.9-1.1) 06/10/20 18:21 Sodium 138 mmol/L (136-145) 06/10/20 18:21 Potassium 3.4 mmol/L (3.5-5.1) L 06/10/20 18:21 Chloride 103 mmol/L (98-107) 06/10/20 18:21 Carbon Dioxide 25 mmol/L (21-32) 06/10/20 18:21 Anion Gap 10.0 (3-11) 06/10/20 18:21 BUN 13 mg/dl (7-18) 06/10/20 18:21 Creatinine 0.73 mg/dl (0.6-1.2) 06/10/20 18:21 Est Cr Clr Drug Dosing Not Reportable 06/10/20 18:21 Est GFR ( Amer) 89.5 06/10/20 18:21 Est GFR (Non-Af Amer) 77.2 06/10/20 18:21 BUN/Creatinine Ratio 18.2 (10-20) 06/10/20 18:21 Glucose 127 mg/dl (70-99) H 06/10/20 18:21 Lactate 0.9 mmol/L (0.4-2.0) 06/10/20 18:22 Calcium 9.0 mg/dl (8.5-10.1) 06/10/20 18:21 Magnesium 1.8 mg/dl (1.8-2.4) 06/10/20 18:21 Total Bilirubin 0.5 mg/dl (0.2-1) 06/10/20 18:21 AST 16 U/L (15-37) 06/10/20 18:21 ALT 13 U/L (12-78) 06/10/20 18:21 Alkaline Phosphatase 98 U/L (45-117) 06/10/20 18:21 Troponin I < 0.015 ng/ml (0-0.045) 06/10/20 18:21 NT-Pro-B Natriuret Pep 1085 pg/ml (0-1800) 06/10/20 18:21 Total Protein 7.0 gm/dl (6.4-8.2) 06/10/20 18:21 Albumin 3.4 gm/dl (3.4-5.0) 06/10/20 18:21 Globulin 3.6 gm/dl (2.5-4.0) 06/10/20 18:21 Albumin/Globulin Ratio 0.9 (0.9-2) 06/10/20 18:21 TSH 0.832 uIu/ml (0.300-4.500) 06/10/20 18:21 Urine Color Yellow 06/10/20 20:13 Urine Appearance Clear (Clear) 06/10/20 20:13 Urine pH 6.5 (4.5-7.5) 06/10/20 20:13 Ur Specific [place] 1.010 (1.000-1.030) 06/10/20 20:13 Urine Protein Negative (Negative) 06/10/20 20:13 Urine Glucose (UA) Negative (Negative) 06/10/20 20:13 Urine Ketones Negative (Negative) 06/10/20 20:13 Urine Blood Negative (Negative) 06/10/20 20:13 Urine Nitrite Positive (Negative) A 06/10/20 20:13 Urine Bilirubin Negative (Negative) 06/10/20 20:13 Urine Urobilinogen Negative (Negative) 06/10/20 20:13 Ur Leukocyte Esterase Trace (Negative) H 06/10/20 20:13 Urine WBC (Auto) 5-10 /hpf (0-5) H 06/10/20 20:13 Urine RBC (Auto) 0-4 /hpf (0-4) 06/10/20 20:13 U Hyaline Cast (Auto) 1-5 /lpf (0-5) 06/10/20 20:13 U Epithel Cells (Auto) 5-10 /lpf (0-5) H 06/10/20 20:13 Urine Bacteria (Auto) 4+ (Negative) H 06/10/20 20:13 COVID-19 Eval Order Covid19 Done at [facility] 06/10/20 Unknown COVID-19 PCR NEGATIVE (Negative) 06/10/20 Unknown Code Status & VTE Plan Code Status Full code VTE Prophylaxis Plan VTE Prophylaxis will be ordered: Yes PG Care Time/CCT Total # of Minutes Spent Total Time Spent with Patient: Total time spent is greater than 50% in coordination of care (as documented) at patient's floor/unit and/or counseling patient: Coding Level of Care Code 72252 Initial Inpt Care Lvl 3 Diagnoses Acute exacerbation of congestive heart failure I50.9 CAD (coronary artery disease) I25.10 Cardiomyopathy, ischemic I25.5 Cellulitis of lower extremity L03.119 Diabetes mellitus E11.9 Dyslipidemia E78.5 Weakness R53.1 Hypothyroidism E03.9 Esophageal reflux K21.9
[2020-06-10] MEDS ORDERED: NITROGLYCERIN SL 0.4 MG/TAB TAB SL PRN (22:16)
[2020-06-10] MEDS ORDERED: GLUCAGON FOR INJ 1 MG VIAL SQ PRN (22:16)
[2020-06-10] MEDS ORDERED: CARBOHYDRATES FOR HYPOGLYCEMIA PO PRN (22:16)
[2020-06-10] MEDS ORDERED: VANCOMYCIN CONSULT ACTIVE PRN (22:16)
[2020-06-10] MEDS ORDERED: GLUCOSE 40% GEL 15 GM TUBE PO PRN (22:16)
[2020-06-10] MEDS ORDERED: ALUMINUM/MAGNESIUM SUSP 30 ML UDC PO PRN (22:16)
[2020-06-10] MEDS ORDERED: ONDANSETRON INJ 2 MG/ML 2 ML VIAL IV PRN (22:16)
[2020-06-10] MEDS ORDERED: NON-FORMULARY MEDICATION (Acetaminophen 650 MG) PO PRN (22:16)
[2020-06-10] MEDS ORDERED: DEXTROSE 50% 50 ML SYRINGE IV PRN (22:16)
[2020-06-10] MEDS ORDERED: GLUCOSE 10 TABS/TUBE PO PRN (22:16)
[2020-06-10] MEDS ORDERED: MAGNESIUM HYDROXIDE SUSP 30 ML UDC PO PRN (22:16)
[2020-06-10] MEDS ORDERED: VANCOMYCIN HCL 2,250 MG in SODIUM CHLORIDE 0.9% 500 ML IV ONE (23:00)
[2020-06-11] MEDS: ACETAMINOPHEN 325 MG TAB PO PRN ×2 (02:21→20:35)
[2020-06-11 04:08] LABS: Albumin Level 3.3 gm/dl (3.4-5.0); BUN Creatinine Ratio 19.4 (10-20); Calcium 8.6 mg/dl (8.5-10.1); Creatinine Clr Calc Pharmacy 67.9 ml/min; Est GFR (African American) 81.4; Est GFR (Non-African American) 70.2; Magnesium 1.6 mg/dl (1.8-2.4); Phosphorus 3.3 mg/dl (2.5-4.9); Potassium 3.2 mmol/L (3.5-5.1)
[2020-06-11 05:43] LABS: Estimated Average Glucose 120 mg/dl; Hemoglobin A1C 5.8 % (4.5-5.6)
[2020-06-11] MEDS: HEPARIN SOD 5,000 UNIT/0.5 ML VIAL SQ SCH ×3 (06:17→21:54)
[2020-06-11] MEDS: LEVOTHYROXINE SODIUM 125 MCG TABLET PO SCH (06:17)
[2020-06-11] MEDS: carvediloL 6.25 MG TAB PO SCH ×2 (07:46→16:32)
[2020-06-11] MEDS: MAGNESIUM OXIDE 400 MG TAB PO SCH ×2 (07:47→20:37)
[2020-06-11] MEDS: PANTOprazole 40 MG TAB PO SCH (07:47)
[2020-06-11] MEDS: ATORVASTATIN 40 MG TAB PO SCH (07:47)
[2020-06-11] MEDS: ASPIRIN 81 MG ECTAB PO SCH (07:47)
[2020-06-11] MEDS: INSULIN ASPART 100 UNITS/ML 3 ML PEN SC SCH ×4 (07:48→20:37)
[2020-06-11] MEDS: FUROSEMIDE 40 MG in SYRINGE 0 ML IV SCH (07:48)
[2020-06-11] MEDS ORDERED: POTASSIUM CHLORIDE 20 MEQ TABCR PO STA (08:10)
[2020-06-11] MEDS: MAGNESIUM SULFATE / D5W 1 GM/100 ML BAG IV SCH ×2 (08:57→10:55)
[2020-06-11] MEDS ORDERED: POTASSIUM CHLORIDE 20 MEQ TABCR PO SCH ×2 (09:00)
[2020-06-11] MEDS ORDERED: FUROSEMIDE 40 MG/4 ML VIAL IV SCH (09:00)
--- NOTE | 2020-06-11 09:22 | Hospitalist Progress Note ---
Date of Service June 11, 2020 Assessment & Plan (1) Acute exacerbation of congestive heart failure: Patient is an 80 year old female with PMHx CAD s/p stent x2, Cardiomyopathy, CHF, DM, Hypothyroidism, GERD, who presented to the ED after worsening weakness over the past 2 days and being unable to stand up after using the toilet. Acute exacerbation of CHF -Patients history of worsening SOB, weakness, and missing diuretic dosing suggestive of CHF exacerbation -While patients lung exam is fairly normal (no crackles/rales), had fairly significant swelling in LE b/l which have improved with diuretic use -Received 40mg IV lasix in the ED -Continue 40 mg IV lasix qAM -I/O as able, patient incontinent so much of her urine is unable to be obtained -Daily Standing Weights UTI -UA Positive for Nitrates, LE, and Bacteria 4+ -Urine culture growing Gram - bacilli -Continue CTX 2g QD Weakness -Likely secondary to above -PT/OT ordered while inpatient -Recommended rehab after hospital stay, patient interested in [place], Case management coordinating ?Cellulitis of Lower Extremity -Concern for cellulitis vs venous stasis changes in RLE -Appears improving with diuresis and lessening of leg edema -Was initially started on CTX and Vancomycin - Vancomycin has since been DC'd -Continue to monitor CAD / HTN / Dyslipidemia -Continue ASA 81mg -Continue Carvedilol 6.25mg BID -Continue Hydralazine 25mg TID -Continue Lipitor 40mg QD DM2 -Hold Metformin -SSI GERD -Continue Pantoprazole 40mg Hypomagnesemia / Hypokalemia -Mag low 1.6, repleted 2g mag IV -Hypokalemic 3.2, repleted 40meq Klor-con this AM, will start 20meq Klor-con BID while on increased diuretic therapy Alternating Diarrhea/Constipation -Patient noting a "long history" of one or the other in regards to diarrhea and constipation -Has only tried Miralax in the past -Has not discussed with her PCP Dr. Ni -Will start Metamucil here in hopes to bind diarrhea / soften hard stools. 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 Wolff. Agree with history, exam findings, assessment and plan of care as outlined. In brief, Ms. Daley is an 80 year old female with history of ischemic cardiomyopathy, DM and urinary incontinence admitted with several weeks of generalized weakness. Today, she reports loose stools. This has been on and off for a long time. She tends to alternate between several days of loose stools with urgency and inco ntinence or near incontinence or constipation. She has not mentioned this to her PCP. She has used miralax in the past. She denies dyspnea, chest pain, abdominal pain. She lives alone. VS and labs reviewed. Nursing notes reviewed. On exam, she is breathing comfortably on 2L. No increased work of breathing. Heart with regular rate and rhythm. No murmur. +1 pitting edema to the upper 1/3rd of the lr bilaterally. Evidence of stasis dermatitis, but no increased erythema or warmth today. Right leg is slightly more edematous than the left. Lungs are clear to auscultation with good air movement. 1.acute on chronic CHF exacerbation in the setting of ischemic cardiomyopathy. Followed by Dr. Bowman as an outpatient. Exacerbation likely due to missed doses of medications. S/p IV Lasix. Monitor I&Os, daily weights. Continue home ASA, coreg 6.25mg BID, hydralazine 25mg TID. 2. LE cellulitis. Dc vanc. Continue ceftriaxone. 3. DM. A1C 5.8. Holding home metformin. On ssi. Could consider being a bit more liberal with glucose control. 4. Urinary tract infection. Urine culture growing gram neg bacilli. Coverage with ceftriaxone. 5. Loose stool. Low suspicion for c. diff or other GI infection given lack of abdominal pain and alternating loose vs constipation. Will start trial of Metamucil to try to bulk up stool a bit. PCP is Antonio Ni with [facility]. PT/OT recs appreciated. Dispo: pending clinical improvement. Subjective Patient seen and evaluated at the bedside this AM. Patient noted that she was feeling a little better than yesterday and that she felt the swelling in her legs had improved. Briefly she recounted how she came to be admitted. She noted that she had been having weakness and SOB for at least 2 days now, but more closer to 1 week. She also noted that she had forgotten to take her Lasix pills for a few days and had been taking them every other day more recently, but that it did not seem to help her symptoms. She also states that for roughly 1 month now she has had dysuria (along with her hx of urinary incontinence x6 years) and increased frequency. She notes she was treated for this 1 month ago with Nitrofu rantoin, but that it only improved the symptoms slightly before they returned. She also notes that she sees Dr. Bowman for her cardiac concerns, but that she has never had much of an issue with congestive heart failure and that this was her first hospital stay secondary to it. Review of Systems Constitutional: + weakness; no fever and no chills Eyes: no worsening vision Ear, Nose, Mouth, Throat: no dizziness Respiratory: + dyspnea on exertion; no cough Cardiovascular: + dyspnea on exertion and + edema; no chest pain, no dyspnea and no palpitations Gastrointestinal: + diarrhea/loose stools; no abdominal pain, no nausea and no vomiting Genitourinary: + dysuria, + urinary frequency, + urinary urgency and + urinary incontinence; no hematuria Physical Exam Constitutional: WD/WN, vitals as above Eyes: L eye closed, has minimal ocular ROM. Has been ongoing since she was a teen per pt. Neck: trachea midline, no thyromegaly normal visual inspection Respiratory: normal respiratory effort, lungs clear to auscultation Cardiovascular: Rate/Rhythm: regular rate and regular rhythm Heart Sounds: no gallop, no murmur and no cardiac rub Extremities: + edema (+1 b/l) Skin: Minimal erythema and venous stasis changes of LE, R>L Results & Data Results & Data ([facility]) Vital Signs (Past 12 Hours) Vital Signs Temp Pulse Pulse Resp BP BP BP 06/11/20 07:30 82 06/11/20 07:07 37.6 C H 78 20 132/76 06/11/20 03:40 37.6 C H 88 22 150/72 H 06/10/20 23:09 37.2 C 72 18 136/66 06/10/20 23:00 73 06/10/20 22:16 37.2 C 75 18 143/88 H 06/10/20 21:50 37.2 C 75 18 143/88 H 06/10/20 21:31 71 21 149/91 H Pulse Ox 06/11/20 07:30 06/11/20 07:07 93 06/11/20 03:40 96 06/10/20 23:09 96 06/10/20 23:00 06/10/20 22:16 96 06/10/20 21:50 96 06/10/20 21:31 96 Resident Activity Tracking Resident Involvement: Resident Care Provided Care Provided: Adult Hospital Medicine
--- NOTE | 2020-06-11 09:25 | Pharmacy Report ---
Pharmacy Abx Initial Consult - Date of Service June 11, 2020 - Pharmacy Dosing Scope Date of Consult: 06/10 Consultation requested by: Dr. Martinez Pharmacy is consulted to initiate vancomycin IV/PO dosing therapy, order appropriate labs and adjust drug dose/frequency. - Subjective The patient is a 80 year old F admitted on 06/10/20 21:17. - Objective Height: 5 ft 4 in Weight: 110.2 kg Vital Signs (Past 12hrs): Vital Signs Temp Pulse Pulse Resp BP BP BP 06/11/20 07:30 82 06/11/20 07:07 37.6 C H 78 20 132/76 06/11/20 03:40 37.6 C H 88 22 150/72 H 06/10/20 23:09 37.2 C 72 18 136/66 06/10/20 23:00 73 06/10/20 22:16 37.2 C 75 18 143/88 H 06/10/20 21:50 37.2 C 75 18 143/88 H 06/10/20 21:31 71 21 149/91 H Pulse Ox 06/11/20 07:30 06/11/20 07:07 93 06/11/20 03:40 96 06/10/20 23:09 96 06/10/20 23:00 06/10/20 22:16 96 06/10/20 21:50 96 06/10/20 21:31 96 Lab Results (24hrs): Laboratory Tests (24 Hours) 06/11/20 06/10/20 06/10/20 03:25 18:22 18:21 WBC 7.71 Neut # (Auto) 6.58 H Creatinine 0.79 0.73 Est Cr Clr Drug Dosing 67.9 Not Reportable - Assessment & Plan Assessment 80 year old female presenting with slight leg swelling, concern for cellulitis of lower extremity and UTI. Preliminary urine cultures with Gm negative bacilli. Blood cultures are pending. Started on vancomycin and rocephin. Plan Vancomycin IV * Received loading dose of vancomycin 2250 mg last evening * Dosed with vancomycin 1250 mg iv q 12 hrs to achieve an estimated trough ~15- 20 mcg/ml. Patient not candidate for vancomycin AUC dosing due to elevated BMI. Dosing based upon estimated kinetics * T1/2~10 hrs, ke~0.065, CrCl ~68 ml/min * Will plan to collect trough prior to the 1200 dose on 06/12 to ensure therapeutic. Note, this will be before steady state, however want to ensure patient not accumulating dosing since BMI >35 kg/m2 Pharmacy will continue to follow and will adjust dose/frequency as necessary. Thank you.
[2020-06-11] MEDS ORDERED: VANCOMYCIN HCL 1,250 MG in SODIUM CHLORIDE 0.9% 250 ML IV SCH (12:00)
[2020-06-11] MEDS: PSYLLIUM 58.6% POWDER PACKET PO SCH (13:35)
--- NOTE | 2020-06-11 18:06 | Electrocardiogram Report ---
Test Reason : Blood Pressure : / mmHG Vent. Rate : 079 BPM Atrial Rate : 079 BPM P-R Int : 236 ms QRS Dur : 156 ms QT Int : 402 ms P-R-T Axes : 042 -78 045 degrees QTc Int : 460 ms Sinus rhythm with 1st degree A-V block Left axis deviation Right bundle branch block Inferior infarct (cited on or before 18-MAY-2018) Abnormal ECG When compared with ECG of 26-JUL-2018 18:17, Criteria for Anterior infarct are no longer Present Criteria for Anterolateral infarct are no longer Present Serial changes of Inferior infarct Present Confirmed by Scooter Ibrahim ([id number]) on 06/11/2020 6:06:09 PM Referred By: REFERRED SELF Confirmed By:Milton Ibrahim
--- NOTE | 2020-06-11 18:10 | Electrocardiogram Report ---
Test Reason : Blood Pressure : / mmHG Vent. Rate : 081 BPM Atrial Rate : 081 BPM P-R Int : 220 ms QRS Dur : 156 ms QT Int : 420 ms P-R-T Axes : 043 -79 050 degrees QTc Int : 487 ms Sinus rhythm with 1st degree A-V block Left anterior fascicular block Right bundle branch block Possible Lateral infarct , age undetermined Inferior infarct (cited on or before 18-MAY-2018) Abnormal ECG When compared with ECG of 10-JUN-2020 18:20, (unconfirmed) Borderline criteria for Lateral infarct are now Present T wave inversion now evident in Lateral leads Confirmed by Scooter Ibrahim ([id number]) on 06/11/2020 6:10:36 PM Referred By: REFERRED SELF Confirmed By:Milton Ibrahim
[2020-06-11] MEDS: POTASSIUM CHLORIDE 20 MEQ TABCR PO SCH (20:36)
[2020-06-11] MEDS: cefTRIAXone SODIUM 2,000 MG in DEXTROSE 5% 50 ML IV SCH ×2 (20:40→21:54)
[2020-06-12] MEDS: LEVOTHYROXINE SODIUM 125 MCG TABLET PO SCH (05:59)
[2020-06-12] MEDS: HEPARIN SOD 5,000 UNIT/0.5 ML VIAL SQ SCH ×3 (05:59→22:30)
[2020-06-12 06:06] LABS: Basophils # (auto) 0.01 K/uL (0-0.2); Basophils % (auto) 0.2 %; Eosinophils # (auto) 0.27 K/uL (0-0.5); Eosinophils % (auto) 5.6 %; Hemoglobin 12.2 g/dL (12.0-16.0); Lymphocytes # (auto) 1.08 K/uL (1.2-3.4); Lymphocytes % (auto) 22.6 %; Mean Corpuscular Hemoglobin 29.8 pg (25-34); Mean Corpuscular Hgb Conc 32.1 g/dL (32-36); Mean Corpuscular Volume 92.7 fL (80-100); Mean Platelet Volume 9.6 fL (7.4-10.4); Monocytes # (auto) 0.58 K/uL (0.11-0.59); Monocytes % (auto) 12.1 %; Neutrophils # (auto) 2.84 K/uL (1.4-6.5); Neutrophils % (auto) 59.5 %; Platelet Count 156 K/uL (130-400); RDW Coefficient of Variation 15.7 % (11.5-14.5); RDW Standard Deviation 53.4 fL (36.4-46.3); White Blood Count 4.78 K/uL (4.8-10.8)
[2020-06-12 06:45] LABS: BUN Creatinine Ratio 30.6 (10-20); Calcium 8.5 mg/dl (8.5-10.1); Creatinine Clr Calc Pharmacy 83.8 ml/min; Est GFR (Non-African American) 83.7; Magnesium 2.2 mg/dl (1.8-2.4); Potassium 3.8 mmol/L (3.5-5.1)
--- NOTE | 2020-06-12 07:35 | Hospitalist Progress Note ---
Date of Service June 12, 2020 Assessment & Plan (1) Acute exacerbation of congestive heart failure: Patient is an 80 year old female with PMHx CAD s/p stent x2, Cardiomyopathy, CHF, DM, Hypothyroidism, GERD, who presented to the ED after worsening weakness over the past 2 days and being unable to stand up after using the toilet. Acute exacerbation of CHF -Patients history of worsening SOB, weakness, and missing diuretic dosing suggestive of CHF exacerbation -While patients lung exam is fairly normal (no crackles/rales), had fairly significant swelling in LE b/l which have improved with diuretic use -Received 40mg IV lasix in the ED -Continue 40 mg IV lasix qAM -I/O as able, patient incontinent so much of her urine is unable to be obtained -Daily Standing Weights -Continue to wean off of oxygen, NC PRN O2 >91% UTI -UA Positive for Nitrates, LE, and Bacteria 4+ -Urine culture growing E. Coli, pansensitive -Continue CTX 2g QD Weakness -Likely secondary to above -PT/OT ordered while inpatient -Recommended rehab after hospital stay, patient interested in [place], Case management coordinating ?Cellulitis of Lower Extremity -Concern for cellulitis vs venous stasis changes in RLE -Appears improving with diuresis and lessening of leg edema -Was initially started on CTX and Vancomycin - Vancomycin has since been DC'd -Continue to monitor CAD / HTN / Dyslipidemia -Continue ASA 81mg -Continue Carvedilol 6.25mg BID -Continue Hydralazine 25mg TID -Continue Lipitor 40mg QD DM2 -Hold Metformin -SSI GERD -Continue Pantoprazole 40mg Hypomagnesemia / Hypokalemia - Resolved -Mag low 1.6, repleted 2g mag IV, -Hypokalemic 3.2, repleted 40meq Klor-con this AM, will start 20meq Klor-con BID while on increased diuretic therapy -Resolved this AM Mag 2.2 and K 3.8 Alternating Diarrhea/Constipation -Patient noting a "long history" of one or the other in regards to diarrhea and constipation -Has only tried Miralax in the past -Has not discussed with her PCP Dr. Ni -Will start Metamucil here in hopes to bind diarrhea / soften hard stools. 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 Wolff. Agree with history, exam findings, assessment and plan of care as outlined. In brief, Ms. Daley is an 80 year old female with history of ischemic cardiomyopathy, DM and urinary incontinence admitted with several weeks of generalized weakness. Today she is feeling well. Leg pain is improved. Breathing is improved. Denies chest pain. Although does feel winded after walking. VS and labs reviewed. Nursing notes reviewed. On exam, she is breathing comfortably on 1L. No increased work of breathing. Heart with regular rate and rhythm. No murmur. +1 pitting edema to the mid-lr bilaterally. Evidence of stasis dermatitis, but no increased erythema or warmth today. Right leg is slightly more edematous than the left. Lungs are clear to auscultation with good air movement. 1. acute on chronic CHF exacerbation (HFpEF). Followed by Dr. Bowman as an outpatient. Exacerbation likely due to missed doses of medications and infection (UTI and cellulitis). S/p IV Lasix. Monitor I&Os, daily weights. Continue home ASA, coreg 6.25mg BID, hydralazine 25mg TID. Clinically appears close to euvolemic today. 2. LE cellulitis. Dc vanc. Continue ceftriaxone but switch to oral abx tomorrow on discharge. 3. DM. A1C 5.8. Holding home metformin. On ssi. Could consider being a bit more liberal with glucose control. 4. Urinary tract infection. Urine culture growing ly-sensitive E. Coli. Coverage with ceftriaxone. Will switch to oral abx on discharge. 5. Loose stool. Low suspicion for c. diff or other GI infection given lack of abdominal pain and alternating loose vs constipation. Will start trial of Metamucil to try to bulk up stool a bit. PT recommending SNF. Dispo: pending SNF placement/bed availability. Subjective Patient seen at the bedside this AM. Patient noting that she is feeling better today and that she has a bit more energy than before. She notes that she was almost able to stand up by herself today when getting out of bed to be weighed. She also feels that the swelling in her legs have lessened and that she has "normal looking legs" again. Denies fever, chills, SOB, chest pain, abdominal pain. Has not had a bowel movement since using Metamucil yet. Review of Systems Constitutional: + weakness; no fever and no chills Respiratory: + dyspnea on exertion (improved); no cough Cardiovascular: + dyspnea on exertion (improved) and + edema; no chest pain, no dyspnea and no palpitations Gastrointestinal: + diarrhea/loose stools; no abdominal pain, no nausea and no vomiting Genitourinary: + dysuria, + urinary frequency, + urinary urgency and + urinary incontinence; no hematuria Physical Exam Constitutional: WD/WN, vitals as above Eyes: PERRL, conjunctivae normal, anicteric sclerae Neck: trachea midline, no thyromegaly normal visual inspection Respiratory: normal respiratory effort, lungs clear to auscultation Cardiovascular: Rate/Rhythm: regular rate and regular rhythm Heart Sounds: no gallop, no murmur and no cardiac rub Extremities: + edema (+1 b/l, improved from the day prior ) Gastrointestinal (Abdomen): normal bowel sounds, soft, nontender, no hepatosplenomegaly Psychiatric: A+Ox3, euthymic affect Results & Data Results & Data ([facility]) Vital Signs (Past 12 Hours) Vital Signs Temp Pulse Pulse Resp BP Pulse Ox 06/12/20 05:35 70 06/12/20 03:43 36.9 C 65 16 123/70 96 06/11/20 23:52 37.2 C 70 18 145/82 H 96 Resident Activity Tracking Resident Involvement: Resident Care Provided Care Provided: Adult Hospital Medicine
[2020-06-12] MEDS: PSYLLIUM 58.6% POWDER PACKET PO SCH (07:58)
[2020-06-12] MEDS: POTASSIUM CHLORIDE 20 MEQ TABCR PO SCH ×2 (07:58→22:16)
[2020-06-12] MEDS: ATORVASTATIN 40 MG TAB PO SCH (07:59)
[2020-06-12] MEDS: PANTOprazole 40 MG TAB PO SCH (07:59)
[2020-06-12] MEDS: ASPIRIN 81 MG ECTAB PO SCH (07:59)
[2020-06-12] MEDS: carvediloL 6.25 MG TAB PO SCH ×2 (07:59→17:01)
[2020-06-12] MEDS: FUROSEMIDE 40 MG in SYRINGE 0 ML IV SCH (08:00)
[2020-06-12] MEDS: MAGNESIUM OXIDE 400 MG TAB PO SCH ×2 (08:00→22:15)
[2020-06-12] MEDS: INSULIN ASPART 100 UNITS/ML 3 ML PEN SC SCH ×4 (08:41→22:29)
[2020-06-12] MEDS ORDERED: VANCOMYCIN TROUGH ONE (11:30)
[2020-06-12] MEDS: ACETAMINOPHEN 325 MG TAB PO PRN ×2 (14:16→22:57)
--- NOTE | 2020-06-12 19:16 | Electrocardiogram Report ---
Test Reason : Blood Pressure : / mmHG Vent. Rate : 060 BPM Atrial Rate : 060 BPM P-R Int : 226 ms QRS Dur : 146 ms QT Int : 446 ms P-R-T Axes : 050 -72 035 degrees QTc Int : 446 ms Sinus rhythm with 1st degree A-V block Left axis deviation Right bundle branch block Inferior infarct (cited on or before 18-MAY-2018) Posterior infarct Abnormal ECG Confirmed by Scooter Ibrahim ([id number]) on 06/12/2020 7:16:14 PM Referred By: REFERRED SELF Confirmed By:Milton Ibrahim
[2020-06-12] MEDS: cefTRIAXone SODIUM 2,000 MG in DEXTROSE 5% 50 ML IV SCH (21:52)
[2020-06-13 06:05] LABS: BUN Creatinine Ratio 22.3 (10-20); Calcium 8.6 mg/dl (8.5-10.1); Creatinine Clr Calc Pharmacy 61.5 ml/min; Est GFR (African American) 72.4; Est GFR (Non-African American) 62.5; Potassium 4.2 mmol/L (3.5-5.1)
[2020-06-13] MEDS: LEVOTHYROXINE SODIUM 125 MCG TABLET PO SCH (06:34)
[2020-06-13] MEDS: HEPARIN SOD 5,000 UNIT/0.5 ML VIAL SQ SCH (07:17)
[2020-06-13] MEDS: PANTOprazole 40 MG TAB PO SCH (08:52)
[2020-06-13] MEDS: ATORVASTATIN 40 MG TAB PO SCH (08:52)
[2020-06-13] MEDS: MAGNESIUM OXIDE 400 MG TAB PO SCH (08:53)
[2020-06-13] MEDS: carvediloL 6.25 MG TAB PO SCH (08:53)
[2020-06-13] MEDS: POTASSIUM CHLORIDE 20 MEQ TABCR PO SCH (08:53)
[2020-06-13] MEDS: ASPIRIN 81 MG ECTAB PO SCH (08:53)
[2020-06-13] MEDS: FUROSEMIDE 40 MG in SYRINGE 0 ML IV SCH (08:54)
[2020-06-13] MEDS: INSULIN ASPART 100 UNITS/ML 3 ML PEN SC SCH ×2 (08:54→11:57)
[2020-06-13] MEDS: PSYLLIUM 58.6% POWDER PACKET PO SCH (08:54)
--- NOTE | 2020-06-13 09:51 | Discharge Summary ---
Date of Service June 13, 2020 Admission HPI Per Admitting Provider The patient is an 80-year-old female with a past medical history including right bundle branch block, CAD, ischemic cardiomyopathy, diabetes mellitus, dyslipidemia, edema, esophageal reflux, former smoker, hypertension, non-STEMI, sensorineural hearing loss of both ears, urge urinary incontinence, spinal stenosis and morbid obesity. She presents to the emergency department with progressively worsening weakness over the past 2 days, and as noted above, needed help getting up off the toilet this evening. She has been progressively more short of breath also, and has noted increased swelling of bilateral lower extremities. She also notes some redness of her right lower extremity. She typically does follow her weight at home, however, her scale is broken, and has another one on order. Admission Exam Per Admitting Provider The patient is awake, alert and oriented 3, well developed and well nourished, normocephalic and atraumatic, lying in bed and in no acute distress. HEENT--PERRL, EOMI, mucous membranes and oropharynx normal. Neck--supple. No JVD. No bruits. Thyroid normal, trachea midline, no adenopathy. Heart--normal S1 and S2. No murmurs, rubs or gallops. Lungs--clear bilaterally, no respiratory distress, no accessory muscle use. Abdomen--normal bowel sounds and soft. Nontender. Nondistended. Morbidly obese. Extremities--no cyanosis or clubbing. 1+ bilateral pretibial pitting edema. Dermatologic--right lower extremity with approximately one third area below the knee with mild to moderate erythema and warmth. Left lower extremity with small area about 4 cm with mild to moderate erythema. Neurologic--cranial nerves II through XII grossly intact. Rheumatologic--normal range of motion. Psychiatric--normal affect. Principal Diagnosis CHF Exacerbation, UTI Discharge Exam Constitutional WD/WN, vitals as above Eyes PERRL, conjunctivae normal, anicteric sclerae Neck trachea midline, no thyromegaly normal visual inspection Respiratory normal respiratory effort; no respiratory distress and no labored breathing Auscultation: + crackles (very minimal crackles in bases ) Cardiovascular Rate/Rhythm: regular rate and regular rhythm Heart Sounds: no gallop, no murmur and no cardiac rub Extremities: + edema (+1 b/l, improved from the day prior ) Gastrointestinal (Abdomen) normal bowel sounds, soft, nontender, no hepatosplenomegaly Psychiatric A+Ox3, euthymic affect Discharge Data Allergies Allergy/AdvReac Type Severity Reaction Status Date / Time epinephrine AdvReac Mild RAPID Verified 06/10/20 20:22 HEART RATE AND RESPIRATIONS Consultations 06/10/20 19:59 ED Decision to Admit Stat 06/10/20 22:16 Consult Case Management - Discharge Planning Routine Hospital Course (1) Acute exacerbation of congestive heart failure: Patient is an 80 year old female with PMHx CAD s/p stent x2, Cardiomyopathy, CHF, DM, Hypothyroidism, GERD, who presented to the ED after worsening weakness over the past 2 days and being unable to stand up after using the toilet. Acute exacerbation of CHF -Patients history of worsening SOB, weakness, and missing diuretic dosing suggestive of CHF exacerbation -While patients lung exam is fairly normal (no crackles/rales), had fairly significant swelling in LE b/l which have improved with diuretic use -Received 40mg IV lasix in the ED -Continued 40 mg IV lasix qAM while inpatient -I/O as able, patient incontinent so much of her urine is unable to be obtained -Daily Standing Weights -Continued to wean off of oxygen, NC PRN O2 >91% -Upon discharge patients PO Lasix increased to 40mg QD -Follow up with PCP and Dr. Bowman Cardiology, nurse navigator consulted to assist. -Discharged to [facility] for rehab. UTI -UA Positive for Nitrates, LE, and Bacteria 4+ -Urine culture growing E. Coli, pansensitive -Continued CTX 2g QD while inpatient. -Discharged on Omnicef 300mg BID x 4 days Weakness -Likely secondary to above -PT/OT ordered while inpatient -Discharged to [facility] ?Cellulitis of Lower Extremity -Concern for cellulitis vs venous stasis changes in RLE -Appeared to improve with diuresis and lessening of leg edema -Was initially started on CTX and Vancomycin - Vancomycin was DC'd -CTX transitioned to Omnicef po as above. CAD / HTN / Dyslipidemia -Continued ASA 81mg -Continued Carvedilol 6.25mg BID -Continued Hydralazine 25mg TID -Continued Lipitor 40mg QD DM2 -Held Metformin while inpatient, resumed upon discharge. -SSI insulin while inpatient GERD -Continued Pantoprazole 40mg Hypomagnesemia / Hypokalemia - Resolved -Mag low 1.6, repleted 2g mag IV, -Hypokalemic 3.2, repleted 40meq Klor-con this AM, will start 20meq Klor-con BID while on increased diuretic therapy -Resolved Alternating Diarrhea/Constipation -Patient noting a "long history" of one or the other in regards to diarrhea and constipation -Has only tried Miralax in the past -Will start Metamucil here in hopes to bind diarrhea / soften hard stools, continue after discharge. 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." -Has been to several specialists and undergone multiple surgeries -Stable at this time (2) Cellulitis of lower extremity: (3) Weakness: (4) Cardiomyopathy, ischemic: (5) Diabetes mellitus: (6) Dyslipidemia: (7) Edema: (8) Hypertension: (9) Hypothyroidism: (10) UTI (urinary tract infection): Total Time Total Time Spent Total Time Spent (In Minutes): see attending attestation Discharge Plan Discharge Items Patient Disposition: Transfer Correction Fac Reason For Visit: ACUTE CHF EXACERBATION RLE CELLULITIS Discharge Diagnosis: Acute CHF Exacerbation, UTI Activity: Per Instructions section Non-emergency contact: Primary Care Provider Call non-emergency contact if: you have any medication questions and your symptoms worsen Follow-up/Referrals: Joaquín Bowman DO [Physician] - 06/24/20 4:10 pm (A cardiology appt. was made with Dr. Bowman's [facility], for 06/24 at 4:10pm.) Kavon Ni [Primary Care Provider] - 06/19/20 1:30 pm (A PCP appointment was made for next Wednesday, 06/19 at 1:30pm. Your physician also asked for a urology appt. Their office will call [facility] with the appointment time and date.) Diet: Low Sodium (2gm) Addtl Attending Provider Instructions: Patient is an 80 year old female with PMHx CAD s/p stent x2, Cardiomyopathy, CHF, DM, Hypothyroidism, GERD, who presented to the ED after worsening weakness over the past 2 days and being unable to stand up after using the toilet. Acute exacerbation of CHF -Patients history of worsening SOB, weakness, and missing diuretic dosing suggestive of CHF exacerbation -While patients lung exam is fairly normal (no crackles/rales), had fairly significant swelling in LE b/l which have improved with diuretic use -Received 40mg IV lasix in the ED, continued 40 mg IV lasix qAM -Would have patient continue Lasix 40mg PO daily for the short term until seen by PCP or Dr. Bowman. -Check creatinine in 1 week. -Follow up with Raymundo Ni, Lloyd Casillas, Elnei Dejesus as PCP in 1 week -Follow up with Dr. Bowman Cardiology in the next 1-2 weeks. UTI -UA Positive for Nitrates, LE, and Bacteria 4+ -Urine culture growing E. Coli, pansensitive -Started on CTX 2g QD while inpatient, transitioned to omnicef PO at discharge. -Transition to Omnicef 300mg PO BID x4 days -Recommend follow up with Urology regarding Urinary incontinence as well. Weakness -PT/OT ordered while inpatient -Recommended rehab after hospital stay at [facility] ?Cellulitis of Lower Extremity -Concern for cellulitis vs venous stasis changes in RLE -Appears improving with diuresis and lessening of leg edema -Was initially started on CTX and Vancomycin - Vancomycin has since been DC'd -Suspect this was more due to edema and chronic venous changes -Will continue with Omnicef 300mg PO BIDx4 days as above. CAD / HTN / Dyslipidemia -Continue ASA 81mg -Continue Carvedilol 6.25mg BID -Continue Hydralazine 25mg TID -Continue Lipitor 40mg QD DM2 -Continue home Metformin GERD -Continue Pantoprazole 40mg Alternating Diarrhea/Constipation -Patient noting a "long history" of one or the other in regards to diarrhea and constipation -Will start Metamucil here in hopes to bind diarrhea / soften hard stools. -Continue Metamucil upon discharge. Pending Studies at Discharge: No Stand-Alone Forms: My [facility] Continuent Skilled Items Patient informed of condition?: Yes DNR: No Discharge Level of Care: Skilled Communicable Disease: No Discharge Prognosis: Stable Lines: None Urinary Catheter: No Medications and DC Order Prescriptions: New Metamucil (with sugar) 3.4 gram Powder In Packet 1 pkg PO QAM 30 Days RF: 0 furosemide [Lasix] 40 mg tablet 40 mg PO DAILY 14 Days Qty: 14 RF: 0 cefdinir 300 mg capsule 300 mg PO BID 4 Days Qty: 8 RF: 0 Continued atorvastatin 40 mg tablet 40 mg PO DAILY Qty: 90 RF: 0 calcium carbonate-vitamin D3 500 mg(1,250mg) -200 unit tablet 1 tab PO .3-5XW RF: 0 levothyroxine 125 mcg tablet 125 mcg PO DAILY Qty: 90 RF: 0 nitroglycerin 0.4 mg tablet, sublingual 0.4 mg SL .PRN/UD RF: 0 omeprazole 40 mg capsule,delayed release(DR/EC) 40 mg PO DAILY Qty: 90 RF: 0 potassium chloride 20 mEq tablet extended release 20 meq PO DAILY PRN (Reason: . WITH FUROSEMIDE) Qty: 90 RF: 0 carvedilol 6.25 mg tablet 6.25 mg PO BIDM RF: 0 metformin 500 mg tablet 250 mg PO BID Qty: 90 RF: 0 hydralazine 25 mg tablet 25 mg PO TID RF: 0 acetaminophen 650 mg Tablet Extended Release 650 mg PO BID PRN (Reason: Pain) RF: 0 aspirin [Aspir-81] 81 mg Tablet,Delayed Release (Dr/Ec) 81 mg PO DAILY RF: 0 cranberry extract 50 mg Tablet,Chewable 0 mg PO BID RF: 0 Discontinued furosemide 20 mg tablet 20 mg PO DAILY PRN (Reason: Edema) Qty: 36 RF: 0 Discharge Orders: Discharge Order (Routine); Ordered 06/13/20 Ordered By: Emanuel Fraser/Other Patient Handouts: Psyllium granules or powder for solution, Cefdinir capsules Admission Data Admit Date/Time: 06/10/20 21:17 Attending Provider: Hira Pedro Admit Provider: Guilherme Martinez Primary Care Provider: Kavon Ni Other Providers: Guilherme Martinez ; Libby [facility] Other Interventions: Discharge Summary Assessment (RN) Last Done: 06/13/20 11:09 Supervising Physician Co-Signing Physician Notes Patient seen and examined independently of PGY-2 Dr. Wolff. Agree with history, exam findings, assessment and plan of care as outlined. In brief, Ms. Daley is an 80 year old female with history of ischemic cardiomyopathy, DM and urinary incontinence admitted with several weeks of generalized weakness. Today she is feeling well. Leg pain is improved. Breathing is improved. Denies chest pain. VS and labs reviewed. Nursing notes reviewed. On exam, she is breathing comfortably on off supplemental O2. No increased work of breathing. Heart with regular rate and rhythm. No murmur. +1 pitting edema to the mid-lr bilaterally. Evidence of stasis dermatitis, but no increased erythema or warmth today. Lungs are clear to auscultation with good air movement. 1. acute on chronic CHF exacerbation (HFpEF). Followed by Dr. Bowman as an outpatient. Exacerbation likely due to concomitant infection (UTI and cellulitis). S/p IV Lasix. Monitor I&Os, daily weights. Continue home ASA, coreg 6.25mg BID, hydralazine 25mg TID. Clinically appears close to euvolemic today. 2. LE cellulitis. Continue ceftriaxone but switch to omnicef on discharge today. 3. DM. A1C 5.8. Holding home metformin. On ssi. Could consider being a bit more liberal with glucose control. 4. Urinary tract infection. Urine culture growing ly-sensitive E. Coli. Coverage with ceftriaxone and switch to omnicef on discharge. 5. Loose stool. Improved. Continue with Metamucil at home. 6. Chronic urinary incontinence. We discussed seeing urology as an outpatient for further work up/treatment. Dispo: discharge to [facility] today. I personally spent 35 minutes discharge planning for this patient. Resident Activity Tracking Resident Involvement: Resident Care Provided Care Provided: Adult Hospital Medicine
--- NOTE | 2020-06-21 07:24 | Coding Query ---
CONGESTIVE HEART FAILURE To Promote full compliance with coding requirements relating to patient care, physician participation is requested in all cases of welt trimming machine operator uncertainty. Please assist us with the following questions. A diagnosis of Congestive Heart Failure is documented in the patient's medical record. To accurately code this diagnosis and to compare patient severity, we ask that you specify the type of heart failure by placing an X within the parenthesis (x). SYSTOLIC HEART FAILURE ( ) Acute ( ) Chronic ( ) Acute on Chronic ( ) Rheumatic ( x) Unknown DIASTOLIC HEART FAILURE ( ) Acute ( ) Chronic ( ) Acute on Chronic ( ) Rheumatic (x ) Unknown COMBINED SYSTOLIC AND DIASTOLIC HEART FAILURE ( ) Acute ( ) Chronic ( ) Acute on Chronic ( ) Rheumatic (x ) Unknown Was the CHF Present On Admission? Please check the appropriate box: ( ) Present on Admission ( ) Not Present On Admission ( x) Clinically undetermined Thank you! Siri MADRID
== END 2020-06-13 13:00 | DRG 292 ==
LOC: ED 17:35 → SUATTDRO 21:17 → 2S 21:17

== ENCOUNTER 2022-03-16 15:53 | Inpatient (IN) ==
--- NOTE | 2022-03-16 16:05 | Emergency Department Note ---
Impression & Plan Heart block ADMIT ED Provider Note HPI: Patient is an 82-year-old female with history of coronary artery disease, presents emergency department after syncopal event. Patient states that she went to answer her door today when there was someone delivering a package, she states she remembers opening the door and then does not remember what happened next. She apparently had a syncopal event per EMS report, patient does not remember having any preceding chest pain or shortness of breath. Patient states she is not sure whether or not she hit her head. On arrival here to the ED patient is noted to be bradycardic in the 30s, she has a stable blood pressure, she denies any chest pain or shortness of breath. She is saturating well on room air on my initial assessment. ROS: -Neuro: Syncopal event -Cardio: Bradycardia *10 point review systems was conducted and is otherwise negative unless stated above *Outpatient medications and allergy history reviewed PE: General: Alert, NAD HEENT: Normocephalic, atraumatic Eyes: Extraocular eye movement is intact, no scleral erythema Pulmonary: Clear to auscultation bilaterally, no wheezing Cardio: Bradycardic rate with a regular rhythm GI: Abdomen is soft, nontender : No suprapubic tenderness MSK: No evidence of trauma or malformation of the extremities, no edema, patient maintains flexion at the hips bilaterally Skin: No evidence of rash Neuro: Alert, no focal deficits Psychiatric: 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 She denied any preceding chest pain or shortness of breath, on arrival here to the ED she is noted to be bradycardic in the 30s, EKG shows evidence of high degree heart block. Patient has stable blood pressure, she is saturating well on room air on arrival, she is otherwise in no acute distress on my initial evaluation. IV was established, lab work obtained, patient was placed on potline monitor, chest x-ray as well as CT imaging of the head and neck were ordered. Chest x-ray does not show any evidence of any acute disease, lab work does not show any critical electrolyte abnormalities, high-sensitivity troponin is elevated in the 180s, patient denies any current chest pain. Shortly after arrival I did contact cardiology and spoke with Dr. Ibrahim who the patient is seen in the past, he did evaluate the patient at the bedside and heart alert was called and patient was taken to the Care Consultant for temporary pacemaker placement. Patient remained otherwise hemodynamically stable from the standpoint of her blood pressure and oxygenation while she was here in the ED. See imaging of the head and cervical spine were ordered in the ED but will be deferred to the a dmitting service given the emergent nature/need of pacemaker placement. [facility] patient was transferred to the cardiac catheterization lab and stable condition for pacemaker placement Critical care time: 35 minutes -Management of high degree heart block with bradycardia causing syncope and collapse, time spent at the bedside, interpretation of diagnostic studies including EKG, discussion with subspecialty services/cardiology and arrangement of transfer to cardiac catheterization lab and admission Diagnosis: 1. Syncope and collapse 2. Heart block, second-degree type II 3. Bradycardia 4. Elevated high-sensitivity troponin level Disposition: Admission Freeman Santoro DO Emergency Medicine Past Med/Surg History Medical History CAD (coronary artery disease) Diabetes Hyperlipidemia Hypertension Hypothyroidism Morbid obesity PNA (pneumonia) Surgical History H/O cosmetic surgery History of cholecystectomy History of eye surgery History of laminectomy History of parathyroidectomy History of surgical removal of lesion S/P bilateral salpingo-oophorectomy S/P cholecystectomy S/P coronary artery stent placement S/P parathyroidectomy S/P total abdominal hysterectomy Status post replacement of left shoulder joint Status post right hip replacement Family History Mother Cancer Hypothyroidism Hearing loss Family/Other Diabetes Ovarian cancer Tuberculosis Uterine cancer Hypertension Father Nephrolithiasis Heart disease Brother Stroke Leukemia Bleeding disorder Other No family history of adverse response to anesthesia Denies family history of Prostate cancer Breast cancer Social History Smoking Status: Never smoker Hx Alcohol Use: No Hx Substance Use: No Preferred Language: Czech Communication Ability: Effective Wine Specialist Required: No Beliefs That Will Affect Care: None marital status: / Current Living Situation: Alone current occupational status: retired Feels Safe at Home: Yes Assistive Devices: Walker and Wheelchair Allergies Allergies Allergy/AdvReac Type Severity Reaction Status Date / Time amlodipine Allergy Intermediate DIZZINESS Verified 03/16/22 17:11 epinephrine AdvReac Intermediate RAPID Verified 03/16/22 17:11 HEART RATE AND RESPIRATIONS Home Meds Home Medications Medication Instructions Recorded Confirmed carvedilol 6.25 mg tablet 6.25 mg PO BIDM tab 06/14/19 03/16/22 levothyroxine 125 mcg tablet 125 mcg PO DAILY #90 tab 06/14/19 03/16/22 nitroglycerin 0.4 mg sublingual 0.4 mg SL .PRN/UD tab 06/14/19 03/16/22 tablet omeprazole 40 mg capsule,delayed 40 mg PO DAILY #90 cap 06/14/19 03/16/22 release potassium chloride 20 mEq 20 meq PO DAILY PRN #90 tab 06/14/19 03/16/22 tablet,extended release metformin 500 mg tablet 250 mg PO BID #90 tab 07/11/19 03/16/22 cranberry extract 50 mg chewable 0 mg PO BID 06/10/20 03/16/22 tablet Saccharomyces boulardii [Daily 1 tab PO DAILY 06/20/21 03/16/22 Probiotic (S. boulardii)] coenzyme Q10 200 mg capsule (Co 200 mg PO DAILY 06/20/21 03/16/22 Q-10) furosemide 20 mg tablet 20 mg PO 3XWK 06/20/21 03/16/22 furosemide 40 mg tablet 40 mg PO DAILY tab 06/20/21 03/16/22 magnesium glycinate See Rx Instructions PO .COMPLEX 06/20/21 03/16/22 aspirin 81 mg tablet,delayed 81 mg PO DAILY 03/16/22 03/16/22 release Previous Rx's Medication Instructions Recorded fluticasone propionate 50 See Rx Instructions INTRANASAL 10/06/21 mcg/actuation nasal DAILY #15.8 ml spray,suspension Results & Data (ED) Vital Signs Vital Signs - 24 hr 03/16/22 16:00 03/16/22 16:15 03/16/22 16:23 Temperature 37.0 C Temperature Source Oral Pulse Rate 41 L 39 L Pulse Rate from SpO2 Sensor Pulse Rhythm Regular Pulse Strength Normal Respiratory Rate 17 19 Respiratory Effort / Characteristics Non-Labored Respiratory Depth Normal Respiratory Pattern Regular Blood Pressure 125/60 125/60 Blood Pressure Mean 81 81 Blood Pressure Position Lying Pulse Oximetry 93 94 99 Oxygen Delivery Method Room Air Room Air Room Air Sepsis Recent Fever Within 48 Hours No Sepsis New/Unexplained Change in Mental Status N/A Sepsis Action Taken by Nursing No Action Required 03/16/22 16:30 03/16/22 16:45 03/16/22 17:00 Temperature Temperature Source Pulse Rate 37 L 32 L 34 L Pulse Rate from SpO2 Sensor 34 L 33 L 37 L Pulse Rhythm Pulse Strength Respiratory Rate 20 24 22 Respiratory Effort / Characteristics Respiratory Depth Respiratory Pattern Blood Pressure 110/54 L Blood Pressure Mean 72 Blood Pressure Position Pulse Oximetry 92 92 93 Oxygen Delivery Method Room Air Room Air Room Air Sepsis Recent Fever Within 48 Hours Sepsis New/Unexplained Change in Mental Status Sepsis Action Taken by Nursing Laboratory Data Result diagrams: 03/16/22 16:15 03/16/22 16:15 Lab Results 03/16/22 03/16/22 03/16/22 Range/Units 16:15 16:15 16:15 WBC 10.31 (4.8-10.8) K/uL RBC 4.21 (4.2-5.4) M/uL Hgb 14.0 (12.0-16.0) g/dL Hct 41.2 (37-47) % MCV 97.9 (80-100) fL MCH 33.3 (25-34) pg MCHC 34.0 (32-36) g/dL RDW Std Deviation 47.9 H (36.4-46.3) fL RDW Coeff of Suzette 13.5 (11.5-14.5) % Plt Count 222 (130-400) K/uL MPV 9.9 (7.4-10.4) fL Immature Gran % (Auto) 0.5 % Neut % (Auto) 74.6 % Lymph % (Auto) 14.7 % [place] % (Auto) 6.2 % Eos % (Auto) 3.8 % Baso % (Auto) 0.2 % Neut # (Auto) 7.69 H (1.4-6.5) K/uL Lymph # (Auto) 1.52 (1.2-3.4) K/uL [place] # (Auto) 0.64 H (0.11-0.59) K/uL Eos # (Auto) 0.39 (0-0.5) K/uL Baso # (Auto) 0.02 (0-0.2) K/uL Immature Gran # (Auto) 0.05 H (0.00-0.02) K/uL PT 10.9 (9.0-12.0) Seconds INR 1.0 (0.9-1.1) APTT 24.5 (21.0-31.0) Seconds PTT Ratio 0.9 Sodium 139 (136-145) mmol/L Potassium 3.9 (3.5-5.1) mmol/L Chloride 103 (98-107) mmol/L Carbon Dioxide 25 (21-32) mmol/L Anion Gap 11 (3-11) BUN 20 (6-23) mg/dl Creatinine 0.87 (0.6-1.2) mg/dl Est Cr Clr Drug Dosing 59.4 ml/min Est GFR ( Amer) 71.4 ml/min Est GFR (Non-Af Amer) 61.6 ml/min BUN/Creatinine Ratio 23.0 H (10-20) Glucose 165 H (70-99(Fasting)) mg/dl Calcium 8.9 (8.5-10.1) mg/dl Magnesium 1.9 (1.7-2.4) mg/dl Total Bilirubin 0.4 (0.2-1.0) mg/dl AST 16 (13-39) U/L ALT 12 (7-52) U/L Alkaline Phosphatase 105 H (34-104) U/L Troponin I High Sens 181.5 H* (0-14) pg/ml Total Protein 6.6 (6.0-8.3) gm/dl Albumin 3.9 (3.4-5.0) gm/dl Globulin 2.7 (2.5-4.0) gm/dl Albumin/Globulin Ratio 1.4 (0.9-2) TSH (0.300-4.500) uIu/ml SARS-CoV-2, RNA, NAAT (NEGATIVE) 03/16/22 03/16/22 Range/Units 16:15 16:29 WBC (4.8-10.8) K/uL RBC (4.2-5.4) M/uL Hgb (12.0-16.0) g/dL Hct (37-47) % MCV (80-100) fL MCH (25-34) pg MCHC (32-36) g/dL RDW Std Deviation (36.4-46.3) fL RDW Coeff of Suzette (11.5-14.5) % Plt Count (130-400) K/uL MPV (7.4-10.4) fL Immature Gran % (Auto) % Neut % (Auto) % Lymph % (Auto) % [place] % (Auto) % Eos % (Auto) % Baso % (Auto) % Neut # (Auto) (1.4-6.5) K/uL Lymph # (Auto) (1.2-3.4) K/uL [place] # (Auto) (0.11-0.59) K/uL Eos # (Auto) (0-0.5) K/uL Baso # (Auto) (0-0.2) K/uL Immature Gran # (Auto) (0.00-0.02) K/uL PT (9.0-12.0) Seconds INR (0.9-1.1) APTT (21.0-31.0) Seconds PTT Ratio Sodium (136-145) mmol/L Potassium (3.5-5.1) mmol/L Chloride (98-107) mmol/L Carbon Dioxide (21-32) mmol/L Anion Gap (3-11) BUN (6-23) mg/dl Creatinine (0.6-1.2) mg/dl Est Cr Clr Drug Dosing ml/min Est GFR ( Amer) ml/min Est GFR (Non-Af Amer) ml/min BUN/Creatinine Ratio (10-20) Glucose (70-99(Fasting)) mg/dl Calcium (8.5-10.1) mg/dl Magnesium (1.7-2.4) mg/dl Total Bilirubin (0.2-1.0) mg/dl AST (13-39) U/L ALT (7-52) U/L Alkaline Phosphatase (34-104) U/L Troponin I High Sens (0-14) pg/ml Total Protein (6.0-8.3) gm/dl Albumin (3.4-5.0) gm/dl Globulin (2.5-4.0) gm/dl Albumin/Globulin Ratio (0.9-2) TSH 1.531 (0.300-4.500) uIu/ml SARS-CoV-2, RNA, NAAT NEGATIVE (NEGATIVE) Discharge Plan Visit Data Chief Complaint: Syncope Stated Complaint: CARDIAC ED Provider: Freeman Santoro Discharge Problem: Heart block Patient Disposition: Admitted As Inpatient Discharge Instructions Interventions: ED Discharge Assessment Last Done: 03/16/22 17:25
[2022-03-16 16:34] LABS: Basophils # (auto) 0.02 K/uL (0-0.2); Basophils % (auto) 0.2 %; Eosinophils # (auto) 0.39 K/uL (0-0.5); Eosinophils % (auto) 3.8 %; Hematocrit (blood only) 41.2 % (37-47); Immature Granulocytes # (auto) 0.05 K/uL (0.00-0.02); Immature Granulocytes % (auto) 0.5 %; Lymphocytes # (auto) 1.52 K/uL (1.2-3.4); Lymphocytes % (auto) 14.7 %; Mean Corpuscular Hemoglobin 33.3 pg (25-34); Mean Corpuscular Volume 97.9 fL (80-100); Mean Platelet Volume 9.9 fL (7.4-10.4); Monocytes # (auto) 0.64 K/uL (0.11-0.59); Monocytes % (auto) 6.2 %; Neutrophils # (auto) 7.69 K/uL (1.4-6.5); Neutrophils % (auto) 74.6 %; Platelet Count 222 K/uL (130-400); RDW Coefficient of Variation 13.5 % (11.5-14.5); RDW Standard Deviation 47.9 fL (36.4-46.3); Red Blood Count 4.21 M/uL (4.2-5.4); White Blood Count 10.31 K/uL (4.8-10.8)
[2022-03-16 16:42] LABS: Partial Thromboplastin Ratio 0.9; Partial Thromboplastin Time 24.5 Seconds (21.0-31.0); Prothrombin Time 10.9 Seconds (9.0-12.0)
[2022-03-16] MEDS ORDERED: MIDAZOLAM HCL 1 MG/ML 2ML VIAL ONE (17:14)
[2022-03-16] MEDS ORDERED: fentaNYL citrate 100 MCG/2 ML VIAL ONE (17:15)
[2022-03-16 17:23] LABS: Albumin Globulin Ratio 1.4 (0.9-2); Albumin Level 3.9 gm/dl (3.4-5.0); Bilirubin,Total 0.4 mg/dl (0.2-1.0); Calcium 8.9 mg/dl (8.5-10.1); Creatinine Clr Calc Pharmacy 59.4 ml/min; Est GFR (African American) 71.4 ml/min; Est GFR (Non-African American) 61.6 ml/min; Globulin 2.7 gm/dl (2.5-4.0); Magnesium 1.9 mg/dl (1.7-2.4); Potassium 3.9 mmol/L (3.5-5.1); Total Protein 6.6 gm/dl (6.0-8.3)
[2022-03-16 17:38] LABS: Troponin I High Sensitivity 181.5 pg/ml (0-14)
--- NOTE | 2022-03-16 17:47 | Cardiac Catheterization ---
[facility] Data: Wire [employer] Cardiac Status Clinical evaluation leading to the procedure CAD Presenation: Sx unlikely to be ischemic Diagnostic Physicians Name: Scooter Ibrahim MD Closure Device Recommendations: None Cardiac Cath Procedure Full Procedure Date March 16, 2022 Pre-Procedure Diagnosis Pre-Procedure Diagnosis: Arrhythmia AUC Score AUC Score: 8 Post-Procedure Diagnosis Post-Procedure Diagnosis: Cardiothoracic Finding Procedure(s) Performed Procedure(s) Performed: Temporary Pacemaker Practice Lead Scooter Ibrahim MD Director Banking(s) none Estimated Blood Loss Estimated Blood Loss: 4cc Medication(s) Medication(s): Lidocaine 1% Summary of Findings Procedure performed: Insertion of temporary transvenous pacemaker Staff design cell engineer: Scooter Ibrahim MD Indication: The patient is an 82-year-old woman with a history of coronary artery disease and an ischemic cardiomyopathy who presented to the emergency room after an episode of syncope. An EKG revealed high degree AV block with a slow ventricular escape rhythm. Based on the nature of her conduction disease and symptoms she was advised to undergo temporary transvenous pacing. Procedure in detail: The patient was informed of the risk benefits and alternatives to the intended procedure. She was brought to the cardiac catheterization suite in an urgent fashion. The right internal jugular area was prepped and draped in usual sterile fashion. This area was anesthetized using subcutaneous ministration of lidocaine solution. The right internal jugular vein was subsequently accessed under a modified Seldinger technique using ultrasound guidance. A 6 [place] venous sheath was placed at the site over guidewire. This sheath was used to facilitate passage of a balloontipped catheter under fluoroscopic guidance to the right ventricle. Adequate threshold parameters were obtained prior to se curing the catheter to the sheath and the patient's neck. The patient tolerated procedure well. There were no immediate complications Impression: Successful placement of temporary transvenous pacemaker Hemodynamics Rest Ao:: n/a Final Ao: n/a LV: n/a Recommendations Recommendations: None Specimens Specimens: None Radiation Exposure (mGy) 90 Contrast (mls) 0 Procedural Complication(s) None Disposition ICU I attest to the content of the Intraoperative Record and any orders documented therein. Any exceptions are noted below. [facility] Card Cath Procedure Codes Therapeutic Services & Ancillary Proc Procedure 1: Cardiovascular Tx and Anc Procedures: 44941 Temp Pacer Insert Procedure 2: Cardiovascular Tx and Anc Procedures: 43109 Ultrasonic Guidance Vascular Access PG Care Time/CCT Total # of Minutes Spent Total Time Spent with Patient: Total time spent is greater than 50% in coordination of care (as documented) at patient's floor/unit and/or counseling patient:
[2022-03-16] MEDS ORDERED: NITROGLYCERIN SL 0.4 MG/TAB TAB SL SCH (18:30)
--- NOTE | 2022-03-16 18:33 | History & Physical Report ---
Date of Service March 16, 2022 Assessment & Plan (1) Heart block: Plan: Admit to ICU POD#0 temporary transvenous pacing wire, planing on pacemaker insertion tomorrow Will defer further ischemic workup if felt to be necessary to cardiology Appreciate cardiology management of this (2) Temporary transvenous cardiac pacemaker present: (3) Elevated troponin I level: Plan: Further ischemic workup deferred to cardiology. Increasing fatigue for last few days possibly concerning for ischemia causing CHB as above. (4) Right bundle branch block: Plan: Not new (5) CAD (coronary artery disease): Plan: Continue ASA. Restart carvedilol once pacemaker established I am unclear why she is no longer on a statin (previously on atorvastatin 40mg PO) (6) Diabetes mellitus: Plan: HbA1C 5.08 in June 2020, repeat with AM labs Stop metformin BSG ACHS/q6h Novolog: Goal BSG Range: Low 110 mg/dL, High 140 mg/dL Correction Factor: 45mg/dL/unit No carb coverage BSGs ACHS if eating, q6h if npo (7) Esophageal reflux: Plan: Switch omeprazole to pantoprazole per hospital formulary (8) Hypertension: Plan: Restart carvedilol once pacemaker established (9) Ischemic cardiomyopathy: Plan: Restart carvedilol once pacemaker established. Presumably blood pressure limited introduction of ACEi/ARB Plan: VTE Prophylaxis - deferred due to pacemaker insertion Diet - NPO after midnight Disposition - admit to ICU Admission and Anticipated Discharge Date Admission Date: March 16, 2022 History of Present Illness Chief Complaint: Syncope Primary Care Provider: Kavon Ni Marlena Daley is an 82 year old female who presents to the ER due to syncope. She remembers opening the door but does not remember falling down. She denies any chest pain or shortness of breath prior to falling. Post fall - she is having right shoulder pain following the fall and thinks she may have hit it against the door. She has chronic neck pain that is no worse than usual. No groin pain with hip movement. EMS were called and patient was noted to be bradycardic in the 30s. Of note she does take carvedilol and did take it this morning. She has noticed increased fatigue the last few days but no chest pain or shortness of breath on exertion. She has a significant history of NSTEMI in July 2018 with successful PCI of proximal OM 1 with single drug-eluting stent. In the ER she was noted to have complete heart block. Heart alert was called and she underwent temporary transvenous pacing wire. She was transferred to the ICU post cardiac labor trainer were she was seen by myself and ICU [facility]. On telemetry she currently appears to be in NSR without pacing spikes. No medications were given to reverse beta-blockade. I discussed the case with Dr Ibrahim and planning on permanent pacemaker tomorrow. Allergies Allergy/AdvReac Type Severity Reaction Status Date / Time amlodipine Allergy Intermediate DIZZINESS Verified 03/16/22 17:11 epinephrine AdvReac Intermediate RAPID Verified 03/16/22 17:11 HEART RATE AND RESPIRATIONS Home Medications Medication Instructions Recorded Confirmed Type carvedilol 6.25 mg tablet 6.25 mg PO BIDM tab 06/14/19 03/16/22 History levothyroxine 125 mcg tablet 125 mcg PO DAILY #90 tab 06/14/19 03/16/22 History nitroglycerin 0.4 mg sublingual 0.4 mg SL .PRN/UD tab 06/14/19 03/16/22 History tablet omeprazole 40 mg capsule,delayed 40 mg PO DAILY #90 cap 06/14/19 03/16/22 History release potassium chloride 20 mEq 20 meq PO DAILY PRN #90 tab 06/14/19 03/16/22 History tablet,extended release metformin 500 mg tablet 250 mg PO BID #90 tab 07/11/19 03/16/22 History cranberry extract 50 mg chewable 0 mg PO BID 06/10/20 03/16/22 History tablet Saccharomyces boulardii [Daily 1 tab PO DAILY 06/20/21 03/16/22 History Probiotic (S. boulardii)] coenzyme Q10 200 mg capsule (Co 200 mg PO DAILY 06/20/21 03/16/22 History Q-10) furosemide 20 mg tablet 20 mg PO 3XWK 06/20/21 03/16/22 History furosemide 40 mg tablet 40 mg PO DAILY tab 06/20/21 03/16/22 History magnesium glycinate See Rx Instructions PO .COMPLEX 06/20/21 03/16/22 History fluticasone propionate 50 See Rx Instructions INTRANASAL 10/06/21 03/16/22 Rx mcg/actuation nasal DAILY #15.8 ml spray,suspension aspirin 81 mg tablet,delayed 81 mg PO DAILY 03/16/22 03/16/22 History release Past Med/Surg History Medical History CAD (coronary artery disease) Diabetes Hyperlipidemia Hypertension Hypothyroidism Morbid obesity PNA (pneumonia) Surgical History H/O cosmetic surgery lipectomy- left chest/abdomen History of cholecystectomy History of eye surgery History of laminectomy History of parathyroidectomy History of surgical removal of lesion excision of lesion chest wall- Dr. Shai Adams S/P bilateral salpingo-oophorectomy S/P cholecystectomy S/P coronary artery stent placement cath stent 1 proximal right coronary artery, cath stent 2 first obtuse marginal branch S/P parathyroidectomy 4 removed and 2 were replaced S/P total abdominal hysterectomy Status post replacement of left shoulder joint Status post right hip replacement Family History Mother Cancer patient not sure if mother had clear cell carcinoma of uterus or ovary. Pt also stated it may have been clear cell carcinoma of here stomach Hypothyroidism Hearing loss Family/Other Diabetes Ovarian cancer Tuberculosis Uterine cancer Hypertension Father Nephrolithiasis Heart disease Brother Stroke Leukemia Bleeding disorder patient did not state what bleeding disorder specifically Other No family history of adverse response to anesthesia Denies family history of Prostate cancer Breast cancer Social History Smoking Status: Never smoker Second Hand Exposure: No; Do You Dip or Chew Tobacco: No; Hx Alcohol Use: No Hx Substance Use: No Preferred Language: Divehi Communication Ability: Effective Cancer Genetic Counselor Required: No Beliefs That Will Affect Care: None marital status: / Current Living Situation: Alone current occupational status: retired Other Information That Helps Us Care for You: No Feels Safe at Home: Yes Safety Concerns: Feels Safe At This Time Assistive Devices: Denture - Upper, Glasses, Hearing Aid - Bilateral and Walker Assistive Devices Comment: shower chair, power wheelchair Review of Systems Review of Systems: All systems reviewed & are unremarkable except as noted in HPI & below Musculoskeletal: Left knee and right shoulder pain Physical Exam Constitutional: WD/WN, vitals as above + morbidly obese Neck: Right IJ transvenous pacemaker present Respiratory: normal respiratory effort, lungs clear to auscultation Cardiovascular: Rate/Rhythm: regular rate (70) and regular rhythm Heart Sounds: no murmur Gastrointestinal (Abdomen): normal bowel sounds, soft, nontender, no hepatosplenomegaly Musculoskeletal: No groin pain on internal/external rotation of hips b/l Skin: no rashes, warm and dry (mild venous stasis dermatitis change b/l LE) Neurologic: moves all extremities and awake; not confused Psychiatric: A+Ox3, euthymic affect Results & Data Results & Data ([facility]) Vital Signs (Past 12 Hours) Vital Signs Temp Pulse Resp BP Pulse Ox 03/16/22 17:00 34 L 22 93 03/16/22 16:45 32 L 24 110/54 L 92 03/16/22 16:30 37 L 20 92 03/16/22 16:23 99 03/16/22 16:15 39 L 19 125/60 94 03/16/22 16:00 37.0 C 41 L 17 125/60 93 Laboratory Results Abnormal lab results 03/16/22 03/16/22 03/16/22 Range/Units 16:15 16:15 21:05 RDW Std Deviation 47.9 H (36.4-46.3) fL Neut # (Auto) 7.69 H (1.4-6.5) K/uL [place] # (Auto) 0.64 H (0.11-0.59) K/uL Immature Gran # (Auto) 0.05 H (0.00-0.02) K/uL BUN/Creatinine Ratio 23.0 H (10-20) Glucose 165 H (70-99(Fasting)) mg/dl POC Glucose 129 H (70-99) mg/dl Alkaline Phosphatase 105 H (34-104) U/L Troponin I High Sens 181.5 H* (0-14) pg/ml Diagnostic Findings Abnormal lab results 03/16/22 03/16/22 03/16/22 Range/Units 16:15 16:15 21:05 RDW Std Deviation 47.9 H (36.4-46.3) fL Neut # (Auto) 7.69 H (1.4-6.5) K/uL [place] # (Auto) 0.64 H (0.11-0.59) K/uL Immature Gran # (Auto) 0.05 H (0.00-0.02) K/uL BUN/Creatinine Ratio 23.0 H (10-20) Glucose 165 H (70-99(Fasting)) mg/dl POC Glucose 129 H (70-99) mg/dl Alkaline Phosphatase 105 H (34-104) U/L Troponin I High Sens 181.5 H* (0-14) pg/ml Medications Administered ER Medications Given: None ECG Indication: bradycardia and syncope Rate (beats per minute): 48 Findings: + other (complete heart block with ventricular escape beats), + RBBB and + left axis deviation Comparison ECG Date: from (Jun 12, 2020) Change: the following changes noted (CHB is new) Code Status & VTE Plan Code Status Full VTE Prophylaxis Plan VTE Prophylaxis will be ordered: Yes PG Care Time/CCT Total # of Minutes Spent Total Time Spent with Patient: Total time spent is greater than 50% in coordination of care (as documented) at patient's floor/unit and/or counseling patient: Coding Level of Care Code 01360 Initial Inpt Care Lvl 3 Diagnoses Temporary transvenous cardiac pacemaker present Z95.0 Heart block I45.9 Right bundle branch block I45.10 CAD (coronary artery disease) I25.10 Diabetes mellitus E11.9 Esophageal reflux K21.9 Hypertension I10 Ischemic cardiomyopathy I25.5 Elevated troponin I level R77.8
--- NOTE | 2022-03-16 18:44 | Electrocardiogram Report ---
Test Reason : Blood Pressure : / mmHG Vent. Rate : 048 BPM Atrial Rate : 096 BPM P-R Int : 256 ms QRS Dur : 152 ms QT Int : 500 ms P-R-T Axes : 064 -68 018 degrees QTc Int : 446 ms Complete heart block with intermittent conduction and ventricular escape beats Left axis deviation Right bundle branch block Minimal voltage criteria for LVH, may be normal variant Abnormal ECG Confirmed by Scooter Ibrahim ([id number]) on 03/16/2022 6:44:00 PM Referred By: Confirmed By:Milton Ibrahim
--- NOTE | 2022-03-16 18:57 | Cardiology Consultation ---
Date of Consultation March 16, 2022 Assessment & Plan (1) Heart block: Old EKGs suggests 1st degree AV block and right bundle branch block. She clearly developed severe heart block with associated junctional escape rhythms at some point today. Undoubtedly this resulted in her syncope. There is not appear to be in antecedent ischemic event. Based on the slow and relatively unreliable nature of her conduction disease I did recommend proceeding with a temporary transvenous pacemaker in anticipation of a permanent device tomorrow. She is on low-dose beta-blockade for her known ischemic cardiomyopathy and coronary disease. However, I do not believe this is likely to resulted in her c urrent conduction disease. (2) CAD (coronary artery disease): She has a history of coronary disease having undergone percutaneous intervention to the right coronary artery in 2002. In 2018 she presented with an NSTEMI and underwent percutaneous intervention to the obtuse marginal. He has been maintained on a daily aspirin. No lipid agent in her current profile. (3) Cardiomyopathy, ischemic: She is previously known to have reduced LV systolic function but her echocardiogram performed 3 months ago revealed normal LV systolic function. She will continue on her carvedilol History of Present Illness Reason for Consultation: Syncope, complete heart block Requesting Physician: Maude Attending Physician: Jesse Hernandez MD History of Present Illness The patient is an 82-year-old woman with a history of ischemic heart disease having previously undergone percutaneous intervention in 2018. She is also known to have an element of an ischemic cardiomyopathy which appears to have resolved on her last echocardiogram performed in December of 2021. Patient states that for a couple of days she has had some mild exertional intolerance. Perhaps more fatigue attempting to do certain chores at home. She did not specifically endorse dizziness or lightheadedness but today when a package delivery room service runner arrived at her door she got up to answer the door, felt quite dizzy and experienced a syncopal episode. She was transported to the emergency room where she was discovered to have high-degree AV block and associated bradycardia. Allergies Allergy/AdvReac Type Severity Reaction Status Date / Time amlodipine Allergy Intermediate DIZZINESS Verified 03/16/22 17:11 epinephrine AdvReac Intermediate RAPID Verified 03/16/22 17:11 HEART RATE AND RESPIRATIONS Home Medications Medication Instructions Recorded Confirmed Type carvedilol 6.25 mg tablet 6.25 mg PO BIDM tab 06/14/19 03/16/22 History levothyroxine 125 mcg tablet 125 mcg PO DAILY #90 tab 06/14/19 03/16/22 History nitroglycerin 0.4 mg sublingual 0.4 mg SL .PRN/UD tab 06/14/19 03/16/22 History tablet omeprazole 40 mg capsule,delayed 40 mg PO DAILY #90 cap 06/14/19 03/16/22 History release potassium chloride 20 mEq 20 meq PO DAILY PRN #90 tab 06/14/19 03/16/22 History tablet,extended release metformin 500 mg tablet 250 mg PO BID #90 tab 07/11/19 03/16/22 History cranberry extract 50 mg chewable 0 mg PO BID 06/10/20 03/16/22 History tablet Saccharomyces boulardii [Daily 1 tab PO DAILY 06/20/21 03/16/22 History Probiotic (S. boulardii)] coenzyme Q10 200 mg capsule (Co 200 mg PO DAILY 06/20/21 03/16/22 History Q-10) furosemide 40 mg tablet 40 mg PO DAILY tab 06/20/21 03/16/22 History magnesium glycinate See Rx Instructions PO .COMPLEX 06/20/21 03/16/22 History fluticasone propionate 50 See Rx Instructions INTRANASAL 10/06/21 03/16/22 Rx mcg/actuation nasal DAILY #15.8 ml spray,suspension aspirin 81 mg tablet,delayed 81 mg PO DAILY 03/16/22 03/16/22 History release acetaminophen 325 mg tablet 1,300 mg PO BID #30 tab 03/20/22 Rx atorvastatin 40 mg tablet 40 mg PO DAILY #30 tab 03/20/22 Rx ezetimibe 10 mg tablet 10 mg PO QAM #20 tab 03/20/22 Rx Patient History Medical History CAD (coronary artery disease) Diabetes Hyperlipidemia Hypertension Hypothyroidism Morbid obesity PNA (pneumonia) Surgical History H/O cosmetic surgery lipectomy- left chest/abdomen History of cholecystectomy History of eye surgery History of laminectomy History of parathyroidectomy History of surgical removal of lesion excision of lesion chest wall- Dr. Shai Adams S/P bilateral salpingo-oophorectomy S/P cholecystectomy S/P coronary artery stent placement cath stent 1 proximal right coronary artery, cath stent 2 first obtuse marginal branch S/P parathyroidectomy 4 removed and 2 were replaced S/P total abdominal hysterectomy Status post replacement of left shoulder joint Status post right hip replacement Family History Mother Cancer patient not sure if mother had clear cell carcinoma of uterus or ovary. 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 Normally she is able to ambulate with a walker at home. She does not endorse limiting dyspnea. She has not had recent symptoms of chest discomfort. Mild right shoulder discomfort. Physical Exam Physical Exam: She is alert and oriented x3. Mood affect appear normal. She answered all questions appropriately. Obese HEENT: Sclerae are anicteric. Pupils are equal and reactive to light and accommodation. Extraocular movements were intact. Neuro: Cranial nerves intact Neck: Redundant neck tissue Lungs: Lungs are clear to auscultation bilaterally. There are no rales wheezes or rhonchi. She has normal respiratory effort without use of accessory muscles. There is normal pulmonary excursion. Cardiac: The rhythm was bradycardic. S1 and S2 were normal. There are no murmurs on examination. The PMI was not markedly displaced on palpation. Abdomen: Obese Extremities: Patient has bilateral radial pulses that are equal in intensity. There is no evidence cyanosis or clubbing. Mild edema bilaterally. Skin: There are no rashes noted on examination today. Results & Data ([facility]) Vital Signs (Past 12 Hours) Vital Signs Temp Pulse Resp BP Pulse Ox 03/16/22 18:30 36.8 C 89 24 124/89 92 03/16/22 17:00 34 L 22 93 03/16/22 16:45 32 L 24 110/54 L 92 03/16/22 16:30 37 L 20 92 03/16/22 16:23 99 03/16/22 16:15 39 L 19 125/60 94 03/16/22 16:00 37.0 C 41 L 17 125/60 93 Laboratory Results Abnormal Lab Results 03/16/22 03/16/22 03/16/22 16:15 16:15 16:15 WBC 10.31 RBC 4.21 Hgb 14.0 Hct 41.2 MCV 97.9 MCH 33.3 MCHC 34.0 RDW Std Deviation 47.9 H RDW Coeff of Suzette 13.5 Plt Count 222 MPV 9.9 Immature Gran % (Auto) 0.5 Neut % (Auto) 74.6 Lymph % (Auto) 14.7 Sanborn % (Auto) 6.2 Eos % (Auto) 3.8 Baso % (Auto) 0.2 Neut # (Auto) 7.69 H Lymph # (Auto) 1.52 Sanborn # (Auto) 0.64 H Eos # (Auto) 0.39 Baso # (Auto) 0.02 Immature Gran # (Auto) 0.05 H PT 10.9 INR 1.0 APTT 24.5 PTT Ratio 0.9 Sodium 139 Potassium 3.9 Chloride 103 Carbon Dioxide 25 Anion Gap 11 BUN 20 Creatinine 0.87 Est Cr Clr Drug Dosing 59.4 Est GFR ( Amer) 71.4 Est GFR (Non-Af Amer) 61.6 BUN/Creatinine Ratio 23.0 H Glucose 165 H Calcium 8.9 Magnesium 1.9 Total Bilirubin 0.4 AST 16 ALT 12 Alkaline Phosphatase 105 H Troponin I High Sens 181.5 H* Total Protein 6.6 Albumin 3.9 Globulin 2.7 Albumin/Globulin Ratio 1.4 TSH SARS-CoV-2, RNA, NAAT 03/16/22 03/16/22 16:15 16:29 WBC RBC Hgb Hct MCV MCH MCHC RDW Std Deviation RDW Coeff of Suzette Plt Count MPV Immature Gran % (Auto) Neut % (Auto) Lymph % (Auto) Sanborn % (Auto) Eos % (Auto) Baso % (Auto) Neut # (Auto) Lymph # (Auto) Sanborn # (Auto) Eos # (Auto) Baso # (Auto) Immature Gran # (Auto) PT INR APTT PTT Ratio Sodium Potassium Chloride Carbon Dioxide Anion Gap BUN Creatinine Est Cr Clr Drug Dosing Est GFR ( Amer) Est GFR (Non-Af Amer) BUN/Creatinine Ratio Glucose Calcium Magnesium Total Bilirubin AST ALT Alkaline Phosphatase Troponin I High Sens Total Protein Albumin Globulin Albumin/Globulin Ratio TSH 1.531 SARS-CoV-2, RNA, NAAT NEGATIVE Diagnostic Findings Echocardiogram performed 12/18/2021: Normal LV systolic function with ejection fraction of 60 65%. Regional wall motion abnormality involving the inferolateral wall. No significant valvular heart disease. PG Care Time/CCT Total # of Minutes Spent Total Time Spent with Patient: Total time spent is greater than 50% in coordination of care (as documented) at patient's floor/unit and/or counseling patient: Coding Level of Care Code 99862 Initial Inpt Care Lvl 3 Diagnoses Heart block I45.9 CAD (coronary artery disease) I25.10 Cardiomyopathy, ischemic I25.5
--- NOTE | 2022-03-16 19:36 | Critical Care Consultation ---
Date of Consultation March 16, 2022 Assessment & Plan (1) Admitted to intensive care unit: Reason Critically Ill: 82-year-old female presenting in symptomatic heart block status post temporary transvenous pacemaker placement requiring close hemodynamic monitoring in the ICU setting. NEURO - * CAM ICU: NEGATIVE CARDIAC/VASCULAR - * Heart block: * RIGHT IJ transvenous pacer in place. * Plans for permanent pacemaker placement tomorrow. * N.p.o. after midnight. * NSTEMI: * Likely in the setting of demand ischemia given profound bradycardia. * Trend troponins * Hypertension, hyperlipidemia, coronary disease: * Continue home medications when clinically appropriate * Monitor on telemetry. RESPIRATORY - * Former smoker with no underlying history of pulmonary disease otherwise. * Saturating well on room air. GI/NUTRITION - * N.p.o. after midnight with planned surgical invention tomorrow RENAL/LYTES - * No significant electrolyte derangements - * No concerns at this time * Monreal in place - Strict I&Os. ENDO - * DMII * BSGs per unit protocol. ISS --> gtt per unit policy. HEME - * Stable H&H ID - * Likely without infectious contribution at this time. LINES/IV ACCESS - * PIVs x2 * RIGHT IJ Temporary pacemaker DVT PROPHYLAXIS - * Per cardiology recommendation * SCDs I have personally spent 35 minutes of critical care time in the direct management of this patient. This is a life/limb threatening event. This includes time spent evaluating patient, direct bedside care, chart review, placing orders, interpretation of diagnostic studies, discussion with consultants, patient, and family members, as well as other required patient management activities. This time is exclusive of all separately billable procedures, and teaching time and separate from and in addition to any other critical care service time. Thank you for allowing us to participate in the care of this patient. Please refer to my attending physician's documentation for any further recommendations. (2) Heart block: (3) Temporary transvenous cardiac pacemaker present: History of Present Illness Attending Physician: Jesse Hernandez MD History of Present Illness Patient is an 82-year-old female with a significant past medical history of coronary artery disease, hypertension, hyperlipidemia, ischemic cardiomyopathy, diabetes, hypothyroidism, and hearing loss who presented to the emergency department earlier today after syncopal episode. Prior to syncopal episode, the patient was having no complaints. She apparently had ambulated to the door to answer as a machining supervisor was scheduled to fix her garage door. She apparently collapsed to the side just after opening the door. She does not remember events of the fall. She is uncertain if she struck her head. She reports remembering waking up and having her legs bent under her. She reports that she did not fall completely to the ground. Patient was noted to have a heart rate in the 30s in route to the emergency department. Upon arrival, she was noted to be in heart block with a junctional escape rhythm. She was taken emergently to the catheterization sweet where she underwent emergent placement of a RIGHT IJ transvenous pacemaker. She was subsequently brought to the ICU for ongoing management. Upon evaluation in the ICU, the patient is awake, alert, and oriented. She reports some pain to her RIGHT shoulder area, neck, and LEFT knee. She states that she was having some difficulty with breathing prior to procedure, but feels much better at this time. Otherwise, she reports feeling much better at this time. She specifically offers no complaints of headaches, dizziness, lightheadedness, visual disturbances, numbness/weakness to the extremities, nausea, vomiting, or abdominal pain. Allergies Allergy/AdvReac Type Severity Reaction Status Date / Time amlodipine Allergy Intermediate DIZZINESS Verified 03/16/22 17:11 epinephrine AdvReac Intermediate RAPID Verified 03/16/22 17:11 HEART RATE AND RESPIRATIONS Home Medications Medication Instructions Recorded Confirmed Type carvedilol 6.25 mg tablet 6.25 mg PO BIDM tab 06/14/19 03/16/22 History levothyroxine 125 mcg tablet 125 mcg PO DAILY #90 tab 06/14/19 03/16/22 History nitroglycerin 0.4 mg sublingual 0.4 mg SL .PRN/UD tab 06/14/19 03/16/22 History tablet omeprazole 40 mg capsule,delayed 40 mg PO DAILY #90 cap 06/14/19 03/16/22 History release potassium chloride 20 mEq 20 meq PO DAILY PRN #90 tab 06/14/19 03/16/22 History tablet,extended release metformin 500 mg tablet 250 mg PO BID #90 tab 07/11/19 03/16/22 History cranberry extract 50 mg chewable 0 mg PO BID 06/10/20 03/16/22 History tablet Saccharomyces boulardii [Daily 1 tab PO DAILY 06/20/21 03/16/22 History Probiotic (S. boulardii)] coenzyme Q10 200 mg capsule (Co 200 mg PO DAILY 06/20/21 03/16/22 History Q-10) furosemide 20 mg tablet 20 mg PO 3XWK 06/20/21 03/16/22 History furosemide 40 mg tablet 40 mg PO DAILY tab 06/20/21 03/16/22 History magnesium glycinate See Rx Instructions PO .COMPLEX 06/20/21 03/16/22 History fluticasone propionate 50 See Rx Instructions INTRANASAL 10/06/21 03/16/22 Rx mcg/actuation nasal DAILY #15.8 ml spray,suspension aspirin 81 mg tablet,delayed 81 mg PO DAILY 03/16/22 03/16/22 History release Patient History Medical History CAD (coronary artery disease) Diabetes Hyperlipidemia Hypertension Hypothyroidism Morbid obesity PNA (pneumonia) Surgical History H/O cosmetic surgery lipectomy- left chest/abdomen History of cholecystectomy History of eye surgery History of laminectomy History of parathyroidectomy History of surgical removal of lesion excision of lesion chest wall- Dr. Shai Adams S/P bilateral salpingo-oophorectomy S/P cholecystectomy S/P coronary artery stent placement cath stent 1 proximal right coronary artery, cath stent 2 first obtuse marginal branch S/P parathyroidectomy 4 removed and 2 were replaced S/P total abdominal hysterectomy Status post replacement of left shoulder joint Status post right hip replacement Family History Mother Cancer patient not sure if mother had clear cell carcinoma of uterus or ovary. Pt also stated it may have been clear cell carcinoma of here stomach Hypothyroidism Hearing loss Family/Other Diabetes Ovarian cancer Tuberculosis Uterine cancer Hypertension Father Nephrolithiasis Heart disease Brother Stroke Leukemia Bleeding disorder patient did not state what bleeding disorder specifically Other No family history of adverse response to anesthesia Denies family history of Prostate cancer Breast cancer Social History Smoking Status: Never smoker Second Hand Exposure: No; Do You Dip or Chew Tobacco: No; Hx Alcohol Use: No Hx Substance Use: No Preferred Language: Lithuanian Communication Ability: Effective Civil Division Commander Deputy Sheriff Required: No Beliefs That Will Affect Care: None marital status: / Current Living Situation: Alone current occupational status: retired Other Information That Helps Us Care for You: No Feels Safe at Home: Yes Safety Concerns: Feels Safe At This Time Assistive Devices: Denture - Upper, Glasses, Hearing Aid - Bilateral and Walker Assistive Devices Comment: shower chair, power wheelchair Review of Systems Review of Systems: A complete 10 point review of systems was reviewed with the patient with pertinent positives and negatives as per history of present illness. All else were negative. Physical Exam Physical Exam: VITAL SIGNS - Vital signs and nursing notes were reviewed. GENERAL - 82-year-old female appearing her stated age who is in no acute distress. Communicates well with provider and answers questions appropriately. HEAD - NC/AT. EYES - ptosis fo the left eye - unchanged. EARS - No deformities of external structures noted on gross examination bilaterally. NOSE - Midline and without cyanosis. No epistaxis or purulent drainage noted. MOUTH/OROPHARYNX - Without perioral cyanosis. Buccal mucosa pink and moist and without leukoplakia. NECK - RIGHT IJ in place. Dressing clean, dry, and intact. Neck with FROM. Supple to palpation. LUNGS - Chest wall symmetric without accessory muscle use, intercostals retractions, or central cyanosis. Normal vesicular breath sounds CTA B/L. No wheezes, rales, or rhonchi appreciated. CARDIAC - RRR with S1/S2. No murmur, rubs, or gallops appreciated. No reproducible tenderness to palpation appreciated over the anterior chest wall. ABDOMEN - Abdominal contour obese without pulsations or visible masses. BS normoactive all four quadrants. No tenderness, palpable masses, hepatosplenomegaly, or ascites noted. EXTREMITIES - No clubbing or peripheral cyanosis. Pretibial edema present. +3/5 radial and dorsalis pedis pulses palpated throughout. +5/5 strength noted in UE/LE bilaterally. NEUROLOGIC - Cranial nerves II through XII grossly intact. Sensory intact to light touch throughout. PSYCH - A&Ox3 and cooperates fully with examiner. Pt is very pleasant and interacts well with examiner. Results & Data Results & Data ([facility]) Vital Signs (Past 12 Hours) Vital Signs Temp Pulse Resp BP Pulse Ox 03/16/22 18:30 36.8 C 89 24 124/89 92 03/16/22 17:00 34 L 22 93 03/16/22 16:45 32 L 24 110/54 L 92 03/16/22 16:30 37 L 20 92 03/16/22 16:23 99 03/16/22 16:15 39 L 19 125/60 94 03/16/22 16:00 37.0 C 41 L 17 125/60 93 Coding Level of Care Code Critical Care 1st 30-74 mins Diagnoses Admitted to intensive care unit Z78.9 Heart block I45.9 Temporary transvenous cardiac pacemaker present Z95.0 Time Spent (min) 35
[2022-03-16] MEDS ORDERED: DEXTROSE 50% 50 ML SYRINGE IV PRN (20:17)
[2022-03-16] MEDS ORDERED: GLUCAGON FOR INJ 1 MG VIAL SQ PRN (20:17)
[2022-03-16] MEDS ORDERED: GLUCOSE 40% GEL 15 GM TUBE PO PRN (20:17)
[2022-03-16] MEDS ORDERED: ICU PROTOCOL FOR HYPERGLYCEMIA PRN (20:17)
[2022-03-16] MEDS ORDERED: GLUCOSE 10 TABS/TUBE PO PRN (20:17)
[2022-03-16] MEDS ORDERED: CARBOHYDRATES FOR HYPOGLYCEMIA PO PRN (20:17)
--- NOTE | 2022-03-16 20:28 | CT Scan Report ---
CT SCAN OF THE BRAIN WITHOUT IV CONTRAST CLINICAL HISTORY: Syncope. COMPARISON STUDY: CT of the brain dated 05/18/2018. TECHNIQUE: Unenhanced axial CT scan of the brain is performed from the vertex to the skull base. A do se lowering technique was utilized adhering to the principles of ALARA. CT DOSE: 1075.34 mGy.cm FINDINGS: Brain parenchyma: There is age-related involutional change noting moderate to advanced subcortical an d periventricular microangiopathic disease. There is no hemorrhage, mass effect, or evidence of acute territorial ischemia by CT criteria. Johnson-white matter differentiation is preserved. Small chronic l acunar infarcts are noted in the right thalamus and the right cerebellar hemisphere. No extra-axial f luid collection is seen. Ventricles, sulci, cisterns: Prominent secondary to involutional change. Intracranial vasculature: There is atherosclerotic calcification of the cavernous carotid and vertebr al arteries. Calvarium: The skeletal structures are osteopenic. No depressed calvarial fracture is identified. Sinuses and mastoids: A 13 mm retention cyst is noted in the left maxillary antrum. The paranasal sin uses are otherwise clear. The mastoid air cells are well pneumatized. Orbits: The bony orbits are grossly intact. There are bilateral ocular lens implants. IMPRESSION: There is no hemorrhage, mass effect, or evidence of acute territorial ischemia by CT [place]. ACT 112: Negative or not required by law. Electronically signed by: Conner Diaz M.D. 03/16/2022 8:26 PM
--- NOTE | 2022-03-16 20:33 | CT Scan Report ---
CT SCAN OF THE CERVICAL SPINE CLINICAL HISTORY: Syncope. Neck pain. COMPARISON STUDY: No priors. TECHNIQUE: CT scan of the cervical spine is performed from the skull base to the upper thoracic spine . Images are reviewed in the axial, sagittal, and coronal planes. IV contrast was not administered fo r this examination. A dose lowering technique was utilized adhering to the principles of ALARA. FINDINGS: Skeletal structures: The skeletal structures are osteopenic. There is no evidence of fracture or subl uxation involving the cervical spine. Vertebral body height and alignment are maintained. There is st raightening of the cervical lordosis. Anterior osteophytes are seen throughout. The odontoid process and lateral masses are intact. The atlantoaxial articulation is preserved noting productive degenerat leigh change. The spinous processes appear intact. There is moderate multilevel cervical spondylosis. U ncovertebral and facet arthropathy contribute sterile foraminal narrowing at several levels. Intervertebral discs: Mild to moderate disc space narrowing is seen at all cervical levels. Central canal: Posterior disc osteophyte complexes are seen at all levels between C4-C5 and C6-C7, li arlyn contributing to multilevel acquired compromise of the central canal. Soft tissues: The prevertebral and paraspinous soft tissues are within normal limits. A catheter is p resent in the right internal jugular vein. Surgical clips are present in the anterior lower neck. Calvarium: The visualized calvarium at the skull base appears intact. Brain parenchyma: Partially visualized brain parenchyma at the skull base is within normal limits not ing age-related involutional change. Sinuses and mastoids: A 13 mm retention cyst is noted in the left maxillary antrum. The mastoid air c ells are well pneumatized. Lung apices: Clear as visualized. IMPRESSION: 1. There is no evidence of fracture or subluxation involving the cervical spine. 2. Osteopenia and spondylotic change as above. ACT 112: Negative or not required by law. Electronically signed by: Conner Diaz M.D. 03/16/2022 8:31 PM
--- NOTE | 2022-03-16 20:40 | XRay Report ---
LEFT KNEE 2 VIEWS CLINICAL HISTORY: Fall with left knee injury. FINDINGS: AP and crosstable lateral views of the left knee are compared to study dated 08/02/2019. Th e skeletal structures are osteopenic. No fracture is identified. There is moderate to advanced tricom partmental degenerative joint space narrowing, greatest in the medial compartment were there is bony sclerosis and osteochondral irregularity. Chondrocalcinosis is noted in the lateral compartment. Ther e are marginal osteophytes and patellar enthesophytes. A joint effusion is observed and is similar to previous. Advanced atherosclerotic calcification is noted in the popliteal artery. Soft tissue swell ing is seen around the knee. IMPRESSION: 1. Soft tissue swelling and joint effusion with no fracture identified. 2. Osteopenia and degenerative change as above. Electronically signed by: Conner Diaz M.D. 03/16/2022 8:39 PM
--- NOTE | 2022-03-16 20:43 | XRay Report ---
RIGHT KNEE 2 VIEWS CLINICAL HISTORY: Fall with right knee pain. FINDINGS: AP and crosstable lateral views of the right knee are compared to study dated 08/02/2019. T he Skeletal structures are osteopenic. No fracture is seen. There is advanced tricompartmental degene rative joint space narrowing, greatest in the medial compartment. There are large marginal osteophyte s and patellar enthesophytes. Chondrocalcinosis is noted in the lateral compartment. A small joint ef fusion is noted. Soft tissue swelling is seen around the knee. There is advanced atherosclerotic calc ification of the popliteal artery. IMPRESSION: 1. Soft tissue swelling and joint effusion with no fracture identified. 2. Osteopenia and degenerative change as above. Electronically signed by: Conner Diaz M.D. 03/16/2022 8:41 PM
--- NOTE | 2022-03-16 20:45 | XRay Report ---
SINGLE VIEW PELVIS; 2 VIEWS RIGHT HIP CLINICAL HISTORY: Fall with right hip pain. FINDINGS: An AP view of the pelvis with AP and frog-leg views of the right hip are compared to study dated 07/15/2012. The skeletal structures are osteopenic. There is no radiographic evidence of acute fracture involving the hips or bony pelvis. A bipolar right hip arthroplasty is in near-anatomic alig nment. No periprosthetic lucency is identified. Mild to moderate osteoarthritic change is seen in the left hip. Lumbosacral spondylosis is partially imaged. There is mild degenerative sclerosis of the s acroiliac joints. The overlying soft tissues are within normal limits. Atherosclerotic calcification is seen in the femoral arteries. IMPRESSION: No acute bony abnormality is identified. Electronically signed by: Conner Diaz M.D. 03/16/2022 8:43 PM
[2022-03-16] MEDS: ACETAMINOPHEN 500 MG TAB PO PRN (21:22)
[2022-03-16 22:33] LABS: Appearance Urine Clear (Clear); Bilirubin Urine Negative (Negative); Blood Urine Negative (Negative); Color Urine Yellow; Glucose Urine UA Negative (Negative); Ketones Urine Negative (Negative); Leukocyte Esterase Urine Negative (Negative); Nitrite Urine Negative (Negative); Protein Urine Negative (Negative); Specific Gravity Urine 1.006 (1.000-1.030); Urobilinogen Urine Negative (Negative); pH Urine 7.5 (4.5-7.5)
[2022-03-17] MEDS ORDERED: CARBOHYDRATES FOR HYPOGLYCEMIA PO PRN (00:18)
[2022-03-17] MEDS ORDERED: fentaNYL citrate 100 MCG/2 ML VIAL IV ONE (01:08)
[2022-03-17] MEDS: ACETAMINOPHEN 500 MG TAB PO PRN (04:24)
[2022-03-17 05:12] LABS: Basophils # (auto) 0.01 K/uL (0-0.2); Basophils % (auto) 0.1 %; Eosinophils # (auto) 0.39 K/uL (0-0.5); Eosinophils % (auto) 3.7 %; Hemoglobin 14.6 g/dL (12.0-16.0); Immature Granulocytes # (auto) 0.01 K/uL (0.00-0.02); Immature Granulocytes % (auto) 0.1 %; Lymphocytes # (auto) 1.05 K/uL (1.2-3.4); Lymphocytes % (auto) 9.9 %; Mean Corpuscular Volume 97.3 fL (80-100); Mean Platelet Volume 9.7 fL (7.4-10.4); Monocytes # (auto) 0.77 K/uL (0.11-0.59); Monocytes % (auto) 7.2 %; Neutrophils # (auto) 8.42 K/uL (1.4-6.5); Platelet Count 201 K/uL (130-400); RDW Coefficient of Variation 13.5 % (11.5-14.5); RDW Standard Deviation 47.9 fL (36.4-46.3); Red Blood Count 4.42 M/uL (4.2-5.4); White Blood Count 10.65 K/uL (4.8-10.8)
[2022-03-17 05:36] LABS: BUN Creatinine Ratio 21.4 (10-20); Calcium 8.9 mg/dl (8.5-10.1); Creatinine Clr Calc Pharmacy 51.6 ml/min; Est GFR (African American) 61.8 ml/min; Est GFR (Non-African American) 53.3 ml/min; Magnesium 1.9 mg/dl (1.7-2.4); Phosphorus 3.4 mg/dl (2.5-4.9); Potassium 3.8 mmol/L (3.5-5.1)
[2022-03-17] MEDS: ASPIRIN 81 MG ECTAB PO SCH (07:38)
[2022-03-17] MEDS: PANTOprazole 40 MG TAB PO SCH (07:39)
[2022-03-17] MEDS: INSULIN ASPART PER UNIT SC SCH ×4 (08:03→21:26)
[2022-03-17 08:13] LABS: Estimated Average Glucose 128 mg/dl; Hemoglobin A1C 6.1 % (4.5-5.6)
[2022-03-17] MEDS: LEVOTHYROXINE SODIUM 125 MCG TABLET PO SCH (09:48)
[2022-03-17] MEDS: FLUTICASONE PROPIONATE NA SPR 16 GM BTL NAE SCH (09:48)
[2022-03-17] MEDS ORDERED: POTASSIUM CHLORIDE CRTAB 20 MEQ TABCR PO ONE (10:00)
[2022-03-17] MEDS: MAGNESIUM SULFATE / D5W 1 GM/100 ML BAG IV SCH ×2 (11:45→16:12)
[2022-03-17] MEDS ORDERED: VANCOMYCIN HCL 1000MG/20ML VIAL ONE (12:54)
[2022-03-17] MEDS ORDERED: LIDOCAINE 1% LOCAL 20 ML VIAL ONE (12:54)
[2022-03-17] MEDS ORDERED: BUPIVACAINE 0.25% 30 ML VIAL ONE (12:54)
[2022-03-17] MEDS ORDERED: WATER, STERILE FOR INJ 10 ML VIAL ONE (12:54)
[2022-03-17] MEDS ORDERED: fentaNYL citrate 100 MCG/2 ML VIAL ONE (13:13)
[2022-03-17] MEDS ORDERED: ceFAZolin 330 MG/ML 1 GM VIAL ONE (13:13)
[2022-03-17] MEDS ORDERED: MIDAZOLAM HCL 5 MG/ML 1 ML VIAL ONE (13:13)
--- NOTE | 2022-03-17 13:38 | Cardiology Progress Note ---
Date of Service March 17, 2022 Assessment & Plan (1) Heart block: (2) CAD (coronary artery disease): (3) Cardiomyopathy, ischemic: Plan: 1. Complete heart block: She is underlying significant AV conduction disease with right bundle branch block and left anterior fascicular block recently, probably indicative of right and left sided conduction disease. She then had complete heart block requiring temporary pacing yesterday. This is not likely to resolve, she requires beta-blockade for her prior cardiomyopathy and this type of heart block is not likely due to beta-blockade. I agree she needs a pacemaker. I discussed the indications, procedure, risks and alternatives of pacemaker implantation with her and she understands and agrees to proceed. Consent obtained. I also discussed sedation with her and she agrees. Consent obtained. 2. Coronary disease: She does have coronary artery disease, her troponin did elevate however with her underlying conduction disease and her presentation complete heart block she will need a pacemaker. 3. Cardiomyopathy: She has a history of ischemic cardiomyopathy but an echocardiogram 3 months ago showed normal left ventricular function. She is not a candidate for biventricular pacing. Admission and Anticipated Discharge Date Admission Date: March 16, 2022 Subjective She is feeling well today, she has no discomfort at her temporary pacemaker site, no chest discomfort and no further lightheadedness, dizziness, presyncope or syncope. Physical Exam Physical Exam: Constitutional: Alert, cooperative and in no distress. Neck: Temporary pacemaker in the right neck. Pulmonary: Clear to auscultation bilaterally. Cardiac: Regular rhythm with no murmur, gallop or rub. Abdomen: Soft, nontender with normal bowel sounds. Extremities: No edema. Skin: No rash, ecchymoses or petechiae. Results & Data ([facility]) Vital Signs (Past 12 Hours) Vital Signs Temp Pulse Pulse Resp BP BP BP 03/17/22 12:50 84 18 170/109 H 03/17/22 11:45 78 17 03/17/22 11:40 75 03/17/22 11:30 76 8 L 03/17/22 11:15 77 17 03/17/22 11:00 81 14 159/104 H 03/17/22 10:45 75 7 L 03/17/22 10:30 79 11 L 03/17/22 10:15 82 14 03/17/22 10:01 76 14 153/82 H 03/17/22 10:00 79 27 H 03/17/22 09:45 81 19 03/17/22 09:30 76 24 03/17/22 09:15 74 18 03/17/22 09:00 75 15 137/77 03/17/22 08:01 74 15 148/80 H 03/17/22 08:00 74 21 03/17/22 07:10 80 17 128/79 03/17/22 07:00 70 10 L 03/17/22 06:45 70 18 03/17/22 06:08 72 20 154/103 H 03/17/22 04:00 37 C 78 16 170/103 H 03/17/22 03:00 71 20 137/83 03/17/22 02:00 70 20 124/72 Pulse Ox 03/17/22 12:50 93 03/17/22 11:45 92 03/17/22 11:40 03/17/22 11:30 93 03/17/22 11:15 90 03/17/22 11:00 91 03/17/22 10:45 90 03/17/22 10:30 89 L 03/17/22 10:15 92 03/17/22 10:01 91 03/17/22 10:00 90 03/17/22 09:45 95 03/17/22 09:30 96 03/17/22 09:15 95 03/17/22 09:00 94 03/17/22 08:01 94 03/17/22 08:00 95 03/17/22 07:10 95 03/17/22 07:00 97 03/17/22 06:45 95 03/17/22 06:08 95 03/17/22 04:00 94 03/17/22 03:00 95 03/17/22 02:00 93 Laboratory Results Cardiac Enzymes 03/16/22 03/17/22 Range/Units 16:15 09:23 AST 16 (13-39) U/L Troponin I High Sens 181.5 H* 2769.5 H* D (0-14) pg/ml Coagulation 03/16/22 Range/Units 16:15 PT 10.9 (9.0-12.0) Seconds APTT 24.5 (21.0-31.0) Seconds CBC 03/16/22 03/17/22 Range/Units 16:15 04:48 WBC 10.31 10.65 (4.8-10.8) K/uL RBC 4.21 4.42 (4.2-5.4) M/uL Hgb 14.0 14.6 (12.0-16.0) g/dL Hct 41.2 43.0 (37-47) % Plt Count 222 201 (130-400) K/uL Neut # (Auto) 7.69 H 8.42 H (1.4-6.5) K/uL Lymph # (Auto) 1.52 1.05 L (1.2-3.4) K/uL [place] # (Auto) 0.64 H 0.77 H (0.11-0.59) K/uL Eos # (Auto) 0.39 0.39 (0-0.5) K/uL Baso # (Auto) 0.02 0.01 (0-0.2) K/uL Comprehensive Metabolic Panel 03/16/22 03/17/22 Range/Units 16:15 04:48 Sodium 139 141 (136-145) mmol/L Potassium 3.9 3.8 (3.5-5.1) mmol/L Chloride 103 103 (98-107) mmol/L Carbon Dioxide 25 28 (21-32) mmol/L BUN 20 21 (6-23) mg/dl Creatinine 0.87 0.98 (0.6-1.2) mg/dl Glucose 165 H 131 H (70-99(Fasting)) mg/dl Calcium 8.9 8.9 (8.5-10.1) mg/dl AST 16 (13-39) U/L ALT 12 (7-52) U/L Alkaline Phosphatase 105 H (34-104) U/L Total Protein 6.6 (6.0-8.3) gm/dl Albumin 3.9 (3.4-5.0) gm/dl Intake and Output 03/16/22 03/17/22 03/17/22 22:59 06:59 14:59 Intake Total 700 / 700 Output Total 200 / 200 0 / 200 Balance 500 / 500 0 / 500 Intake: IV 500 / 500 Right Forearm 500 / 500 Oral 200 / 200 Output: Urine 200 / 200 0 / 200 Other: # Unmeasured Voids 2 Weight 106 kg 108.9 kg Weight Measurement Method [facility] Findings Telemetry: Predominantly intact AV conduction today with a wide-complex PG Care Time/CCT Total # of Minutes Spent Total Time Spent with Patient: Total time spent is greater than 50% in coordination of care (as documented) at patient's floor/unit and/or counseling patient: Coding Level of Care Code 66131 Subseq Hosp Care Lvl 3 Diagnoses Heart block I45.9 CAD (coronary artery disease) I25.10 Cardiomyopathy, ischemic I25.5
--- NOTE | 2022-03-17 13:40 | Pre Anesthesia Assessment ---
Date of Service March 17, 2022 Pre Sedation Assessment Vital Signs Temp Pulse Pulse Resp BP BP BP 03/17/22 12:50 84 18 170/109 H 03/17/22 11:45 78 17 03/17/22 11:40 75 03/17/22 11:30 76 8 L 03/17/22 11:15 77 17 03/17/22 11:00 81 14 159/104 H 03/17/22 10:45 75 7 L 03/17/22 10:30 79 11 L 03/17/22 10:15 82 14 03/17/22 10:01 76 14 153/82 H 03/17/22 10:00 79 27 H 03/17/22 09:45 81 19 03/17/22 09:30 76 24 03/17/22 09:15 74 18 03/17/22 09:00 75 15 137/77 03/17/22 08:01 74 15 148/80 H 03/17/22 08:00 74 21 03/17/22 07:10 80 17 128/79 03/17/22 07:00 70 10 L 03/17/22 06:45 70 18 03/17/22 06:08 72 20 154/103 H 03/17/22 04:00 37 C 78 16 170/103 H 03/17/22 03:00 71 20 137/83 03/17/22 02:00 70 20 124/72 03/17/22 01:00 83 16 144/102 H 03/17/22 00:00 37 C 79 79 20 155/90 H 03/16/22 23:00 80 18 155/105 H 03/16/22 22:00 83 20 142/86 H 03/16/22 21:40 36.8 C 89 24 124/89 03/16/22 19:00 37 C 86 20 132/92 132/92 03/16/22 18:30 36.8 C 89 24 124/89 03/16/22 17:00 34 L 22 03/16/22 16:45 32 L 24 110/54 L 03/16/22 16:30 37 L 20 03/16/22 16:23 03/16/22 16:15 39 L 19 125/60 03/16/22 16:00 37.0 C 41 L 17 125/60 Pulse Ox 03/17/22 12:50 93 03/17/22 11:45 92 03/17/22 11:40 03/17/22 11:30 93 03/17/22 11:15 90 03/17/22 11:00 91 03/17/22 10:45 90 03/17/22 10:30 89 L 03/17/22 10:15 92 03/17/22 10:01 91 03/17/22 10:00 90 03/17/22 09:45 95 03/17/22 09:30 96 03/17/22 09:15 95 03/17/22 09:00 94 03/17/22 08:01 94 03/17/22 08:00 95 03/17/22 07:10 95 03/17/22 07:00 97 03/17/22 06:45 95 03/17/22 06:08 95 03/17/22 04:00 94 03/17/22 03:00 95 03/17/22 02:00 93 03/17/22 01:00 91 03/17/22 00:00 92 03/16/22 23:00 89 L 03/16/22 22:00 93 03/16/22 21:40 92 03/16/22 19:00 93 03/16/22 18:30 92 03/16/22 17:00 93 03/16/22 16:45 92 03/16/22 16:30 92 03/16/22 16:23 99 03/16/22 16:15 94 03/16/22 16:00 93 Cardiovascular RRR, no murmur, no edema Respiratory normal respiratory effort, lungs clear to auscultation Pre-Sedation Airway Assessment Smoking Status: Never smoker Hx Sleep Apnea: No Hx Difficult Intubation: No Short, Thick Neck: No Thyromental Distance: > or= 3.5 Finger Breadths Oral Cavity: + WNL Mallampati Class: III ASA: ASA4 NPO Status Date of Last Intake of Fluids: 03/17/22 Time of Last Intake of Fluids: 07:00 Date of Last Intake of Solid Food: 03/16/22 Time of Last Intake of Solid Foods: 18:00 Procedure Planning Contraindications for Sedation: none Current Medications Reviewed: Yes Notes The planned sedation has been discussed with the patient. Informed Consent was obtained. I have identified the patient, determined the appropriateness of sedation and have assessed the patient immediately prior to the procedure. All medicine(s) and interventions are by my order.
--- NOTE | 2022-03-17 14:42 | Hospitalist Progress Note ---
Date of Service March 17, 2022 Assessment & Plan (1) Heart block: Plan: Marlena is a 89-year-old female with a history of CAD, ischemic cardiomyopathy, DM, hypothyroid who presented after a syncopal episode. She had observed collapse following opening the door and does not remember the event. She is found to have profound bradycardia and heart rate in the 30s with a heart block and junctional escape rhythm. Emergently for placement of a right IJ transvenous pacer and transferred to the ICU. Subsequently underwent pacemaker placement and doing well, chest pain-free. Complete heart block EKG on admission: Complete heart block, w/ ventricular escape ~20-40bpm Cardiology consulted Placed on temporary transvenous pacing on admission Status post pacer placement, doing well Carvedilol resumed CAD Last echo EF 60-65%, hypokinesis of inferior wall, normal RVSP pacemaker placed as above, carvedilol resumed HS-Troponin uptrended after admit. Likely 2/2 to profound bradycardia and severe heart block, patient clinically without any signs of ACS and chest pain- free. Cardiology consulted, status post pacer as above. Carvedilol resumed. Continued on telemetry. Previously on atorvastatin 40 mg this was stopped per patient due to intolerance. - Per [facility] records by phone lovastatin has been replaced with pravastatin 10 mg, no ACEARB Hypertension Carvedilol as above, did not tolerate MARII or ARB and was taken off valsartan as outpatient.? If would tolerate this with pacer placement improving heart rates. Weakness with fall due to complete heart block CThead, no acute findings. -C-spine CT without fracture or subluxation Patient with knee pain bilaterally. Does have chronic knee pain. XR of the knees both shows degenerative changes. Both show soft tissue swelling with effusion. No fractures. May Follow-up with Ortho as outpatient. +voltarin if needed. - PT/OT pending Hyperlipidemia Statin as above Diabetes mellitus Home metformin held, on 500 twice daily monotherapy SSI goal [id number], CF 45/ A1c 6.1% BSG adequately controlled 03/17 on SSI above Hypothyroidism TSH within normal limits DVT prophylaxis: SCDs CODE STATUS: Full Disposition: Stable following pacer placement, downgrading to PCU (2) Temporary transvenous cardiac pacemaker present: (3) Elevated troponin I level: (4) Right bundle branch block: Plan: Not new (5) CAD (coronary artery disease): (6) Diabetes mellitus: (7) Esophageal reflux: (8) Hypertension: (9) Ischemic cardiomyopathy: Admission and Anticipated Discharge Date Admission Date: March 16, 2022 Subjective Marlena is seen at the bedside. She is chest pain-free without any shortness of breath, difficulty breathing, lightheadedness, or dizziness. Has had pacer placed in afternoon, site is dry. She notes she does have bilateral knee pain worse than normal with some swelling. She did have an episode of syncope, x- rays reviewed and show bilateral degenerative changes with some effusion. No fracture. Patient in afternoon eating comfortably, no nausea/vomiting/diarrhe a/stomach upset. History of lower extremity lymphedema, feels legs are at their normal baseline other than the knees which are little more tender and swollen. Denies vision change. Hard of hearing, improved with hearing aids. Review of Systems Review of Systems: All systems reviewed & are unremarkable except as noted in Subjective Physical Exam Physical Exam: General: A&Ox3. NAD. Cooperative. HEENT: Atraumatic, normocephalic. Pulm: CTAB A&P. -wheezes, -rales, -rhonchi. Symmetrical chest rise. No increase in work of breathing. No respiratory distress. Cardiac: RRR, -mrg. Radial pulses intact and symmetrical. Abdominal: Nontender, nondistended, soft. BS present. Extremities: Chronic lymphedema bilaterally, at baseline per patient. Ankle dorsiflexion/plantarflexion intact, hip flexion is intact although causes knee pain. Moves upper extremities equally and eating meal without difficulty. Results & Data Results & Data ([facility]) Vital Signs (Past 12 Hours) Vital Signs Temp Pulse Pulse Resp BP BP BP 03/17/22 12:50 84 18 170/109 H 03/17/22 11:45 78 17 03/17/22 11:40 75 03/17/22 11:30 76 8 L 03/17/22 11:15 77 17 03/17/22 11:00 81 14 159/104 H 03/17/22 10:45 75 7 L 03/17/22 10:30 79 11 L 03/17/22 10:15 82 14 03/17/22 10:01 76 14 153/82 H 03/17/22 10:00 79 27 H 03/17/22 09:45 81 19 03/17/22 09:30 76 24 03/17/22 09:15 74 18 03/17/22 09:00 75 15 137/77 03/17/22 08:01 74 15 148/80 H 03/17/22 08:00 74 21 03/17/22 07:10 80 17 128/79 03/17/22 07:00 70 10 L 03/17/22 06:45 70 18 03/17/22 06:08 72 20 154/103 H 03/17/22 04:00 37 C 78 16 170/103 H 03/17/22 03:00 71 20 137/83 Pulse Ox 03/17/22 12:50 93 03/17/22 11:45 92 03/17/22 11:40 03/17/22 11:30 93 03/17/22 11:15 90 03/17/22 11:00 91 03/17/22 10:45 90 03/17/22 10:30 89 L 03/17/22 10:15 92 03/17/22 10:01 91 03/17/22 10:00 90 03/17/22 09:45 95 03/17/22 09:30 96 03/17/22 09:15 95 03/17/22 09:00 94 03/17/22 08:01 94 03/17/22 08:00 95 03/17/22 07:10 95 03/17/22 07:00 97 03/17/22 06:45 95 03/17/22 06:08 95 03/17/22 04:00 94 03/17/22 03:00 95 PG Care Time/CCT Total # of Minutes Spent Total Time Spent with Patient: Total time spent is greater than 50% in coordination of care (as documented) at patient's floor/unit and/or counseling patient: Coding Level of Care Code 04779 Subseq Hosp Care Lvl 3 Diagnoses Heart block I45.9 Temporary transvenous cardiac pacemaker present Z95.0 Elevated troponin I level R77.8 Right bundle branch block I45.10 CAD (coronary artery disease) I25.10 Diabetes mellitus E11.9 Esophageal reflux K21.9 Hypertension I10 Ischemic cardiomyopathy I25.5
[2022-03-17] MEDS ORDERED: BACITRACIN OINT 0.9 GM PKT ONE (15:02)
[2022-03-17] MEDS ORDERED: ACETAMINOPHEN 325 MG TAB PO PRN (15:32)
[2022-03-17] MEDS ORDERED: ACETAMINOPHEN W/CODEINE #3 1 TAB PO PRN (15:32)
--- NOTE | 2022-03-17 15:32 | Electrophysiology Report ---
Date of Service March 17, 2022 Electrophysiology Procedure Electrophysiology Procedure Report Preoperative diagnosis: Complete heart block Postoperative diagnosis: Same Procedure: Dual-chamber pacemaker implantation Temporary pacemaker removal Surgeon: Roberto Nunez MD Estimated blood loss: 20 cc Complications: None Disposition: [employer] recovery Procedure details: After obtaining informed consent for the procedure, the patient was brought to the laboratory and prepped and draped in the standard sterile manner. The left prepectoral region was anesthetized with 1% lidocaine local anesthetic and left axillary venipuncture was performed by percutaneous technique and a guidewire placed through the left subclavian vein into the superior vena cava. The area was further infiltrated with 1% lidocaine local anesthetic and a 5 cm incision was made parallel to the left clavicle and 2 cm below it and carried down to the anterior pectoralis fascia. A pacemaker pocket was formed by blunt dissection anterior to the pectoralis fascia and a vancomycin-soaked sponge was placed in the pocket. A 7 [place]ien Med[employer] lead introducer was placed over the guidewire into the left subclavian vein, the dilator was removed and a second guidewire was placed through the sheath into the subclavian vein. This sheath was removed, isolating one guidewire a 7 Nigerien sheath was placed back over the guidewire into the left subclavian vein. The sheath and guidewire were removed and a bipolar active fixation steroid tipped ventricular lead was advanced through the introducer into the superior vena cava. Using a curved stylette the ventricular lead was advanced through the right ventricular outflow tract into the pulmonary artery and then using a straight stylette was positioned in the right ventricular apex. The screw was extended fixing the lead in position. Pacing and sensing thr esholds were evaluated in bipolar configuration and are recorded on the implant data sheet. Diaphragmatic pacing was evaluated at maximum output as noted on the data sheet. The sheath was stripped away from the lead. A 7 [place]ien Medtronic lead introducer was placed over the remaining guidewire into the left subclavian vein, the dilator and guidewire were removed and a bipolar active fixation steroid tipped atrial lead was advanced through the introducer into the superior vena cava. Using a curved stylette the atrial lead was positioned in the region of the atrial appendage and the screw extended fixing the lead in position. Pacing and sensing thresholds were evaluated in bipolar configuration and are recorded on the implant data sheet. Diaphragmatic pacing was evaluated at maximum output as noted on the data sheet. The sheath was stripped from the lead. Once the leads were in position they were attached to the anterior pectoralis fascia using 2 sutures of 2-0 silk around each lead collar. The vancomycin soaked sponge was removed from the pocket, hemostasis was obtained, the pacemaker was attached to the leads and placed in the pocket with the leads coiled beneath it. At this point the temporary pacemaker was removed under fluoroscopic guidance without difficulty. The incision was closed with a running double subcutaneous closure of 3-0 Vicryl absorbable suture, followed by running subcuticular skin closure of 4-0 Vicryl absorbable suture. Bacitracin ointment was placed on the incision and a dressing applied. [facility] Electrophysiology codes Indication for Procedure (1) Heart block: Pacing Procedure 1: Pacin Insert/Replace Pacer A & V PG Moderate Sedation Codes Moderate Sedation Codes Procedure 1: Sedation/Anesthesia: 05225 Mod Sedation by the same physician;Init15 Min Child Age 5 & Up Procedure 2: Sedation/Anesthesia: 36522 Mod Sedation by the same physician; Ea [id number] Minutes
[2022-03-17] MEDS: carvediloL 6.25 MG TAB PO SCH (16:12)
--- NOTE | 2022-03-17 16:18 | Post Anesthesia Assessment ---
Date of Service March 17, 2022 Post Sedation Assessment Vital Signs Temp Pulse Pulse Resp BP BP BP 03/17/22 16:01 92 H 21 188/160 H 03/17/22 16:00 89 15 03/17/22 15:54 90 21 196/104 H 03/17/22 15:53 85 29 H 03/17/22 15:45 86 18 178/100 H 03/17/22 15:30 88 18 184/101 H 03/17/22 12:50 84 18 170/109 H 03/17/22 12:30 85 22 03/17/22 12:15 83 27 H 03/17/22 12:00 82 22 148/91 H 03/17/22 11:45 78 17 03/17/22 11:40 75 03/17/22 11:30 76 8 L 03/17/22 11:15 77 17 03/17/22 11:00 81 14 159/104 H 03/17/22 10:45 75 7 L 03/17/22 10:30 79 11 L 03/17/22 10:15 82 14 03/17/22 10:01 76 14 153/82 H 03/17/22 10:00 79 27 H 03/17/22 09:45 81 19 03/17/22 09:30 76 24 03/17/22 09:15 74 18 03/17/22 09:00 75 15 137/77 03/17/22 08:01 74 15 148/80 H 03/17/22 08:00 74 21 03/17/22 07:10 80 17 128/79 03/17/22 07:00 70 10 L 03/17/22 06:45 70 18 03/17/22 06:08 72 20 154/103 H 03/17/22 04:00 37 C 78 16 170/103 H 03/17/22 03:00 71 20 137/83 03/17/22 02:00 70 20 124/72 03/17/22 01:00 83 16 144/102 H 03/17/22 00:00 37 C 79 79 20 155/90 H 03/16/22 23:00 80 18 155/105 H 03/16/22 22:00 83 20 142/86 H 03/16/22 21:40 36.8 C 89 24 124/89 03/16/22 19:00 37 C 86 20 132/92 132/92 03/16/22 18:30 36.8 C 89 24 124/89 03/16/22 17:00 34 L 22 03/16/22 16:45 32 L 24 110/54 L 03/16/22 16:30 37 L 20 03/16/22 16:23 Pulse Ox 03/17/22 16:01 03/17/22 16:00 91 03/17/22 15:54 91 03/17/22 15:53 90 03/17/22 15:45 94 03/17/22 15:30 91 03/17/22 12:50 93 03/17/22 12:30 88 L 03/17/22 12:15 92 03/17/22 12:00 92 03/17/22 11:45 92 03/17/22 11:40 03/17/22 11:30 93 03/17/22 11:15 90 03/17/22 11:00 91 03/17/22 10:45 90 03/17/22 10:30 89 L 03/17/22 10:15 92 03/17/22 10:01 91 03/17/22 10:00 90 03/17/22 09:45 95 03/17/22 09:30 96 03/17/22 09:15 95 03/17/22 09:00 94 03/17/22 08:01 94 03/17/22 08:00 95 03/17/22 07:10 95 03/17/22 07:00 97 03/17/22 06:45 95 03/17/22 06:08 95 03/17/22 04:00 94 03/17/22 03:00 95 03/17/22 02:00 93 03/17/22 01:00 91 03/17/22 00:00 92 03/16/22 23:00 89 L 03/16/22 22:00 93 03/16/22 21:40 92 03/16/22 19:00 93 03/16/22 18:30 92 03/16/22 17:00 93 03/16/22 16:45 92 03/16/22 16:30 92 03/16/22 16:23 99 Recovery Score Activity: Moves 4 extremities Respiration: Deep Breath/Cough Circulation: +/-20% PreAnes Value Consciousness: Fully Awake Oxygen Saturation: > 92% On Room Air Post Anesthesia Score: 10 Discharge Sedation Level of Care: Fast Track Phase II Post Sedation Plan On clinical assessment, the patient appears to have tolerated the sedation without complications. Patient is recovering as anticipated. Patient will continue to be monitored by nursing and may be discharged when se dation discharge criteria are met per below protocol. Upon Completions of procedure up to 15 minutes continue every 5 minute vital signs and the P.A.R. score; then discharge to a Phase I or Fast Track to Phase II per the following guidelines: * Discharge Patient to appropriate Phase II area if PAR is 8 or greater or return to pre- procedure baseline. The post - procedure orders will be as directed. * If PAR score is less than 8 or not return to pre-procedure baseline then patient will follow Phase I monitoring till PAR is reached for Phase II. The Phase I may be done in procedure room or may call to secure a Phase I area. * If naloxone or flumazenil are used for reversal, hold in Phase I for continued monitoring from when last reversal dose was given for a minimum of 60 minutes or longer pending the nurse and/or physician discretion of patient condition before discharge to Phase II. Please call the Sedation Physician to re-evaluate and complete post-note for discharge to Phase II area. Do NOT discharge from procedure sedation or Phase 1 until post- sedation evaluation note is complete by procedure /sedation MD Sedation Discharge Instructions to be given to the patient at discharge to home.
[2022-03-18 07:21] LABS: Hematocrit (blood only) 41.9 % (37-47); Mean Corpuscular Hemoglobin 31.9 pg (25-34); Mean Corpuscular Hgb Conc 33.4 g/dL (32-36); Mean Corpuscular Volume 95.4 fL (80-100); Mean Platelet Volume 10.2 fL (7.4-10.4); Platelet Count 174 K/uL (130-400); RDW Coefficient of Variation 13.7 % (11.5-14.5); RDW Standard Deviation 47.7 fL (36.4-46.3); Red Blood Count 4.39 M/uL (4.2-5.4); White Blood Count 11.46 K/uL (4.8-10.8)
[2022-03-18 07:43] LABS: Basophils # (auto) 0.01 K/uL (0-0.2); Basophils % (auto) 0.1 %; Eosinophils # (auto) 0.04 K/uL (0-0.5); Eosinophils % (auto) 0.3 %; Immature Granulocytes # (auto) 0.01 K/uL (0.00-0.02); Immature Granulocytes % (auto) 0.1 %; Lymphocytes # (auto) 0.75 K/uL (1.2-3.4); Lymphocytes % (auto) 6.5 %; Monocytes # (auto) 0.97 K/uL (0.11-0.59); Monocytes % (auto) 8.5 %; Neutrophils # (auto) 9.68 K/uL (1.4-6.5); Neutrophils % (auto) 84.5 %
[2022-03-18 07:51] LABS: BUN Creatinine Ratio 26.9 (10-20); Calcium 8.4 mg/dl (8.5-10.1); Creatinine Clr Calc Pharmacy 78.3 ml/min; Est GFR (African American) 94.2 ml/min; Est GFR (Non-African American) 81.3 ml/min; Magnesium 2.2 mg/dl (1.7-2.4); Phosphorus 2.9 mg/dl (2.5-4.9); Potassium 3.6 mmol/L (3.5-5.1)
--- NOTE | 2022-03-18 08:15 | Hospitalist Progress Note ---
Date of Service March 18, 2022 Assessment & Plan (1) Heart block: Plan: Marlena is a 89-year-old female with a history of CAD, ischemic cardiomyopathy, DM, hypothyroid who presented after a syncopal episode. She had observed collapse following opening the door and does not remember the event. She is found to have profound bradycardia and heart rate in the 30s with a heart block and junctional escape rhythm. Emergently for placement of a right IJ transvenous pacer and transferred to the ICU. Subsequently underwent pacemaker placement 03/17/22 and chest pain-free. Complete heart block EKG on admission: Complete heart block, w/ ventricular escape ~20-40bpm Cardiology Placed on temporary transvenous pacing on admission Status post permanent pacemaker placement,03/17/22 Carvedilol resumed NSTEMIcardiology recommends loading with Plavix cardiology consultation for possible diagnostic catheterization 03/19/2022 with recent procedure we will not initiate anticoagulation Last echo EF 60-65%, hypokinesis of inferior wall, normal RVSP pacemaker placed as above, carvedilol resumed HS-Troponin uptrended after admit. clinically without any signs of ACS and chest pain-free. Cardiology consulted, elevation of troponin and t wave inverstions will consider [facility] -status post pacer as above. Carvedilol resumed. Previously on atorvastatin 40 mg this was stopped per patient due to intolerance. -May consider trial of Crestor Hypertension Carvedilol as above, did not tolerate MARII or ARB and was taken off valsartan as outpatient. CThead, no acute findings. -C-spine CT without fracture or subluxation Patient with knee pain bilaterally. Does have chronic knee pain. XR of the knees both shows degenerative changes. Both show soft tissue swelling with effusion. No fractures. May Follow-up with Ortho as outpatient. +voltarin if needed. - PT/OT pending Hyperlipidemia Statin as above Diabetes mellitus Home metformin held, on 500 twice daily monotherapy SSI goal [id number], CF 45/ A1c 6.1% BSG adequately controlled 03/17 on SSI above Hypothyroidism TSH within normal limits DVT prophylaxis: SCDs CODE STATUS: Full (2) Temporary transvenous cardiac pacemaker present: (3) Elevated troponin I level: (4) Right bundle branch block: Plan: Not new (5) CAD (coronary artery disease): (6) Diabetes mellitus: (7) Esophageal reflux: (8) Hypertension: (9) Ischemic cardiomyopathy: Admission and Anticipated Discharge Date Admission Date: March 16, 2022 Subjective pts complaints seem to be musculoskeletal from her fall that preceded her admission, concern for nstemi that had elevation of HsTrop and some t wave inversions now seen since PPM placement. Pt denies any chest pain or heaviness preceding event or since Review of Systems Review of Systems: Mild distress and fatigue, moslty knee pain B/L no headache, no visual changes no speech or swallowing issues no chest pain, pressure or palpitations no shortness of breath, cough or wheezes no abdominal pain, nausea or vomiting, diarrhea or constipation no dysuria, hematuria or frequency b/l knee pain focal joint pain no swelling or bruising no back pain, CVA tenderness or radicular pain no bruising, bleeding or rashes no focal signs of weakness or numbness or altered sensation no complaints of anxiety or depression.. Physical Exam Physical Exam: The patient appeared well nourished and normally developed. Vital signs as documented. Head exam is normocephalic atraumatic Neck is without JVD, thyromegaly, or carotid bruits. Lungs are clear to auscultation, no focal loss of breath sounds Cardiac exam, Rhythm is regular.. No murmurs, rubs or gallops.Pacemaker site is without significant pain or bruising Abdominal exam reveals normal bowel sounds, soft non tender, no masses Extremities are trace edematous to lower extremities Neurologic exam is alert and oriented, no focal loss of strength or sensation Skin is without bruises or rashes, slight chronic venous changes on legs Psychologically is without concerns for anxiety or depression.. Results & Data Results & Data ([place]) Vital Signs (Past 12 Hours) Vital Signs Temp Pulse Pulse Resp BP BP Pulse Ox 03/18/22 07:31 98.2 F 81 16 108/83 91 03/18/22 03:00 97.9 F 94 H 22 117/73 90 03/18/22 00:00 108 H 03/17/22 23:15 98.8 F 108 H 22 138/90 93 03/17/22 21:00 98.4 F 98 H 19 144/89 H 95 03/17/22 20:30 98.4 F 103 H 20 137/93 96 ECG Additional Comments: Sinus rhythm with T wave inversions noted PG Care Time/CCT Total # of Minutes Spent Total Time Spent with Patient: Total time spent is greater than 50% in coordination of care (as documented) at patient's floor/unit and/or counseling patient: Coding Level of Care Code 17327 Subseq Hosp Care Lvl 3 Diagnoses Heart block I45.9 Temporary transvenous cardiac pacemaker present Z95.0 Elevated troponin I level R77.8 Right bundle branch block I45.10 CAD (coronary artery disease) I25.10 Diabetes mellitus E11.9 Esophageal reflux K21.9 Hypertension I10 Ischemic cardiomyopathy I25.5
[2022-03-18] MEDS: carvediloL 6.25 MG TAB PO SCH ×2 (08:37→16:51)
[2022-03-18] MEDS: ASPIRIN 81 MG ECTAB PO SCH (08:38)
[2022-03-18] MEDS: LEVOTHYROXINE SODIUM 125 MCG TABLET PO SCH (08:38)
[2022-03-18] MEDS: FLUTICASONE PROPIONATE NA SPR 16 GM BTL NAE SCH (08:38)
[2022-03-18] MEDS: PANTOprazole 40 MG TAB PO SCH (08:38)
[2022-03-18] MEDS: INSULIN ASPART PER UNIT SC SCH ×4 (08:45→21:37)
--- NOTE | 2022-03-18 08:55 | Cardiology Progress Note ---
Date of Service March 18, 2022 Assessment & Plan (1) Status post placement of cardiac pacemaker: Plan: 1. Postop day #1 pacer: She is doing well post pacer plantation, the site looks good and she feels well and the device is working well. I will check the chest x-ray when available. From my standpoint she is discharged, I have not arranged follow-up in our office. Admission and Anticipated Discharge Date Admission Date: March 16, 2022 Subjective She is feeling well today from a vascular standpoint. She is sore from falling but does not have incisional discomfort. No chest discomfort and no shortness of breath. Physical Exam Physical Exam: Pacemaker site is clean and dry with no significant bleeding, minor ecchymosis, nontender nursing following. Lungs are clear Rhythm is regular with no rub Results & Data ([facility]) Vital Signs (Past 12 Hours) Vital Signs Temp Pulse Pulse Resp BP BP Pulse Ox 03/18/22 07:31 36.8 C 81 16 108/83 91 03/18/22 03:00 36.6 C 94 H 22 117/73 90 03/18/22 00:00 108 H 03/17/22 23:15 37.1 C 108 H 22 138/90 93 03/17/22 21:00 36.9 C 98 H 19 144/89 H 95 Laboratory Results Cardiac Enzymes 03/17/22 Range/Units 09:23 Troponin I High Sens 2769.5 H* D (0-14) pg/ml CBC 03/18/22 Range/Units 06:20 WBC 11.46 H (4.8-10.8) K/uL RBC 4.39 (4.2-5.4) M/uL Hgb 14.0 (12.0-16.0) g/dL Hct 41.9 (37-47) % Plt Count 174 (130-400) K/uL Neut # (Auto) 9.68 H (1.4-6.5) K/uL Lymph # (Auto) 0.75 L (1.2-3.4) K/uL [place] # (Auto) 0.97 H (0.11-0.59) K/uL Eos # (Auto) 0.04 (0-0.5) K/uL Baso # (Auto) 0.01 (0-0.2) K/uL Comprehensive Metabolic Panel 03/18/22 Range/Units 06:20 Sodium 139 (136-145) mmol/L Potassium 3.6 (3.5-5.1) mmol/L Chloride 106 (98-107) mmol/L Carbon Dioxide 25 (21-32) mmol/L BUN 18 (6-23) mg/dl Creatinine 0.67 D (0.6-1.2) mg/dl Glucose 160 H (70-99(Fasting)) mg/dl Calcium 8.4 L (8.5-10.1) mg/dl Intake and Output 03/17/22 03/18/22 03/18/22 22:59 06:59 14:59 Intake Total 375 / 475 Output Total 450 / 650 200 / 650 Balance -75 / -175 -200 / -175 Intake: IV 100 / 200 Magnesium Sulfate / D5w 1 gm In 100 / 200 100 ml @ 50 mls/hr IV Q2H TIEN Rx#:[id number] Oral 275 / 275 Output: Urine 450 / 650 200 / 650 Other: # Unmeasured Voids 1 1 Weight 108.9 kg 112.8 kg Weight Measurement Method Built in [facility] Diagnostic Findings Postop ECG: Sinus rhythm with intact AV conduction and bifascicular bundle branch block. Postop x-ray: Good lead position, no pneumothorax Telemetry: Intermittent ventricular pacing appropriately all Pacemaker evaluation: Excellent pacing and sensing characteristics, pacing about 50% of the time in the ventricle PG Care Time/CCT Total # of Minutes Spent Total Time Spent with Patient: Total time spent is greater than 50% in coordination of care (as documented) at patient's floor/unit and/or counseling patient: Coding Level of Care Code 56051 Post Operative Follow-Up Diagnoses Status post placement of cardiac pacemaker Z95.0 CPT Codes Dual Lead Pacemaker System - 70111 ([id number])
--- NOTE | 2022-03-18 09:25 | Cardiology Progress Note ---
Date of Service March 18, 2022 Assessment & Plan Admission and Anticipated Discharge Date Admission Date: March 16, 2022 Subjective Patient was done at x-ray at the time I came to see her. According to the [facility] staff she denies any chest pain or chest pressure. I did review all of her records in the chart. Based on her diagnostic studies discussed below we can make a determination with regards to further evaluation for her CAD. Results & Data ([facility]) Vital Signs (Past 12 Hours) Vital Signs Temp Pulse Pulse Resp BP BP Pulse Ox 03/18/22 07:31 36.8 C 81 16 108/83 91 03/18/22 03:00 36.6 C 94 H 22 117/73 90 03/18/22 00:00 108 H 03/17/22 23:15 37.1 C 108 H 22 138/90 93 IMPRESSIONS: 1. Syncope and complete heart block status post dual-chamber pacemaker 2. History of coronary artery disease status post non-ST elevation [place] July 2018 with stenting of a high-grade OM1 lesion 3. History of prior stenting of the RCA in 2002 4. History of a mild ischemic cardiomyopathy in 2018 with basal inferior basal inferoseptal and basal inferior lateral akinesis 5. Echocardiogram this admission with normal LV size and function 6. Hypertension 7. Hyperlipidemia 8. Non-ST elevation [place] this admission The question is whether her high degree AV block on admission was actually related to coronary ischemia especially if she had an event involving the dominant coronary artery which would supply her AV node. She needs an EKG this morning post procedure. She also needs a repeat troponin this morning to trend whether it is continuing to climb. At this point she has no symptoms of chest discomfort or chest pressure. I would consider Plavix loading her with 600 mg and then 75 mg thereafter. She should remain on 81 mg of aspirin. She needs an LDL her as her last in the computer was from 2019 which at the time was in the mid 50s. She is on beta- blockers and her blood pressure is very well controlled. Depending on how aggressive she wants to be in addition to her trending troponin we can make a decision with regards to whether we should consider an invasive approach to defining her coronary anatomy. When she is seen by the hospitalist service today we can make a decision based on her testing to proceed either with medical therapy or an invasive approach.
--- NOTE | 2022-03-18 09:48 | XRay Report ---
XR chest 2V PA/lateral CLINICAL HISTORY: EXACT TIME ORDERED Evaluate for pneumothorax and l TECHNIQUE: 2 views of the chest were obtained. Comparison: Comparison is made to chest radiograph 06/10/2020 FINDINGS: Dual lead pacemaker is seen, new from prior exam. Calcified aortic knob is seen. Prominence and cepha lization of the vasculature is seen. No evidence of pleural effusion or pneumothorax. Left reverse sh oulder arthroplasty is seen. IMPRESSION: Mild pulmonary edema. No evidence of pneumothorax patient status post pacemaker placement. ACT 112: Negative or not required by law. Electronically signed by: Eber Robison M.D. 03/18/2022 9:47 AM
[2022-03-18 10:04] LABS: Chol HDL Ratio 3.4 (0-5)
[2022-03-18 10:23] LABS: Troponin I High Sensitivity 1706.8 pg/ml (0-14)
[2022-03-18] MEDS: ACETAMINOPHEN 325 MG TAB PO SCH ×2 (11:31→20:24)
--- NOTE | 2022-03-18 11:55 | Electrocardiogram Report ---
Test Reason : Blood Pressure : / mmHG Vent. Rate : 083 BPM Atrial Rate : 083 BPM P-R Int : 226 ms QRS Dur : 144 ms QT Int : 444 ms P-R-T Axes : 062 -64 -76 degrees QTc Int : 521 ms Sinus rhythm with 1st degree A-V block Left axis deviation Left ventricular hypertrophy with QRS widening Inferior infarct (cited on or before 18-MAR-2022) Anterolateral infarct (cited on or before 18-MAR-2022) Right bundle branch block Abnormal ECG When compared with ECG of 16-MAR-2022 16:07, There is loss of R-wave amplitude in the lateral precordial leads compared to 2011 Confirmed by Scooter Ibrahim ([id number]) on 03/18/2022 11:54:42 AM Referred By: REFERRED SELF Confirmed By:Milton Ibrahim
--- NOTE | 2022-03-18 12:01 | Electrocardiogram Report ---
Test Reason : Blood Pressure : / mmHG Vent. Rate : 084 BPM Atrial Rate : 084 BPM P-R Int : 216 ms QRS Dur : 148 ms QT Int : 432 ms P-R-T Axes : 044 -74 049 degrees QTc Int : 510 ms Sinus rhythm with 1st degree A-V block Left axis deviation Right bundle branch block Inferior infarct (cited on or before 18-MAR-2022) Anterolateral infarct (cited on or before 18-MAR-2022) Abnormal ECG When compared with ECG of 18-MAR-2022 05:40, (unconfirmed) Right bundle branch block is now Present Confirmed by Scooter Ibrahim ([id number]) on 03/18/2022 12:00:34 PM Referred By: REFERRED SELF Confirmed By:Milton Ibrahim
[2022-03-18] MEDS ORDERED: CLOPIDOGREL BISULFATE 300 MG TAB PO ONE (13:45)
[2022-03-18] MEDS: PRAVASTATIN SOD 10 MG TAB PO SCH (16:51)
[2022-03-19 05:49] LABS: Basophils # (auto) 0.03 K/uL (0-0.2); Basophils % (auto) 0.4 %; Eosinophils # (auto) 0.54 K/uL (0-0.5); Eosinophils % (auto) 6.4 %; Hematocrit (blood only) 39.8 % (37-47); Hemoglobin 13.2 g/dL (12.0-16.0); Immature Granulocytes # (auto) 0.01 K/uL (0.00-0.02); Immature Granulocytes % (auto) 0.1 %; Lymphocytes % (auto) 15.4 %; Mean Corpuscular Hemoglobin 32.2 pg (25-34); Mean Corpuscular Hgb Conc 33.2 g/dL (32-36); Mean Corpuscular Volume 97.1 fL (80-100); Monocytes # (auto) 0.74 K/uL (0.11-0.59); Monocytes % (auto) 8.8 %; Neutrophils # (auto) 5.82 K/uL (1.4-6.5); Neutrophils % (auto) 68.9 %; Platelet Count 122 K/uL (130-400); RDW Coefficient of Variation 13.6 % (11.5-14.5); RDW Standard Deviation 48.6 fL (36.4-46.3); White Blood Count 8.44 K/uL (4.8-10.8)
[2022-03-19 06:03] LABS: BUN Creatinine Ratio 30.6 (10-20); Calcium 8.4 mg/dl (8.5-10.1); Creatinine Clr Calc Pharmacy 61.7 ml/min; Est GFR (African American) 73.4 ml/min; Est GFR (Non-African American) 63.4 ml/min; Magnesium 2.1 mg/dl (1.7-2.4); Phosphorus 3.1 mg/dl (2.5-4.9); Potassium 3.5 mmol/L (3.5-5.1)
[2022-03-19] MEDS: PANTOprazole 40 MG TAB PO SCH (08:24)
[2022-03-19] MEDS: CLOPIDOGREL BISULFATE 75 MG TAB PO SCH (08:24)
[2022-03-19] MEDS: carvediloL 6.25 MG TAB PO SCH ×2 (08:24→16:05)
[2022-03-19] MEDS: ACETAMINOPHEN 325 MG TAB PO SCH ×2 (08:24→21:14)
[2022-03-19] MEDS: ASPIRIN 81 MG ECTAB PO SCH (08:24)
[2022-03-19] MEDS: LEVOTHYROXINE SODIUM 125 MCG TABLET PO SCH (08:24)
[2022-03-19] MEDS: FLUTICASONE PROPIONATE NA SPR 16 GM BTL NAE SCH (08:25)
[2022-03-19] MEDS: INSULIN ASPART PER UNIT SC SCH ×4 (08:29→21:00)
--- NOTE | 2022-03-19 11:48 | Cardiology Progress Note ---
Date of Service March 19, 2022 Assessment & Plan Admission and Anticipated Discharge Date Admission Date: March 16, 2022 Subjective Patient notes that she has no chest discomfort. She does have shortness of alpa th and she notes its been occurring over the last 3 to 4 weeks with activity. She is on 1 floor but she notes when she walks around the room to the next she has had dyspnea and describes increasing fatigue she also describes waking up at night and having periods of shortness of breath that take about half hour to go away and then ultimately resolved. She describes increased abdominal distention and some early satiety as well. She denies any lightheadedness or dizziness. She had a very difficult time yesterday supporting her weight. At home she normally walks with a walker. As noted she is all on 1 floor and there are no steps to get into her home. She denies any palpitations or fluttering at this point she has had no further syncopal episodes. Results & Data ([facility]) Vital Signs (Past 12 Hours) Vital Signs Temp Pulse Pulse Resp BP Pulse Ox 03/19/22 11:24 36.8 C 67 19 122/91 95 03/19/22 08:00 68 03/19/22 07:06 36.8 C 72 20 151/86 H 97 03/19/22 03:00 36.9 C 67 18 114/72 93 03/19/22 00:00 60 she is awake alert and oriented x3 she is in no acute distress HEENT 2+ carotid upstrokes no evidence of carotid bruits lungs clear to auscultation bilaterally no rales rhonchi or wheezing Heart: Regular rate and rhythm no appreciable murmurs rubs or gallops Abdomen: Soft nontender distended positive bowel sounds Extremities: No clubbing cyanosis she has mild bilateral lower extremity edema with bruising on skin tears on her lower extremities IMPRESSIONS: 1. Syncope and complete heart block status post dual-chamber pacemaker 2. History of coronary artery disease status post non-ST elevation [place] July 2018 with stenting of a high-grade OM1 lesion 3. History of prior stenting of the RCA in 2002 4. History of a mild ischemic cardiomyopathy in 2018 with basal inferior basal inferoseptal and basal inferior lateral akinesis 5. Echocardiogram this admission with normal LV size and function 6. Hypertension 7. Hyperlipidemia 8. Non-ST elevation [place] this admission The question is whether her high degree AV block on admission was actually related to coronary ischemia especially if she had an event involving the dominant coronary artery which would supply her AV node. Plavix loaded with 600 mg and then 75 mg thereafter. She should remain on 81 mg of aspirin. Her last LDL in our lab was 170. She is currently on pravastatin and has had issues with other statins and higher doses of statins. I would consider adding Zetia to her medical regimen. Her blood pressures are well controlled. I am concerned that she likely is having coronary ischemia which is leading to diastolic dysfunction and heart failure. Depending on if she has any intervention today she could potentially go to rehab tomorrow we will arrange for her device to be checked in device clinic in approximately 2 weeks with an incision check and a device check. We discussed long-term monitoring of her pacemaker. Once we know her coronary anatomy we can have this discussion with her brother who is her power of trust and estates attorney.
[2022-03-19] MEDS ORDERED: niCARdipine HCL INJ 2.5 MG/ML 10 ML AMP ONE (12:29)
[2022-03-19] MEDS ORDERED: HEPARIN (PORCINE) 1000 UNIT/ML 10 ML (CATH LAB USE ONLY) ONE (12:29)
[2022-03-19] MEDS ORDERED: fentaNYL citrate 100 MCG/2 ML VIAL ONE (12:29)
[2022-03-19] MEDS ORDERED: MIDAZOLAM HCL 1 MG/ML 2ML VIAL ONE (12:29)
[2022-03-19] MEDS ORDERED: NITROGLYCERIN/D5W 100MCG/ML 20ML SYR ONE (12:30)
--- NOTE | 2022-03-19 13:14 | Pre Anesthesia Assessment ---
Date of Service March 19, 2022 Pre Sedation Assessment Vital Signs Temp Pulse Pulse Resp BP Pulse Ox 03/19/22 12:26 71 16 146/92 H 94 03/19/22 11:24 36.8 C 67 19 122/91 95 03/19/22 08:00 68 03/19/22 07:06 36.8 C 72 20 151/86 H 97 03/19/22 03:00 36.9 C 67 18 114/72 93 03/19/22 00:00 60 03/18/22 23:00 36.6 C 61 20 104/67 92 03/18/22 19:00 36.5 C 68 20 115/74 93 03/18/22 15:52 36.6 C 67 18 107/64 92 03/18/22 14:58 62 Cardiovascular + regular rate and + regular rhythm Respiratory + respiratory effort normal Pre-Sedation Airway Assessment Smoking Status: Never smoker Hx Sleep Apnea: No Hx Difficult Intubation: No Short, Thick Neck: Yes Thyromental Distance: > or= 3.5 Finger Breadths Oral Cavity: + WNL Mallampati Class: III ASA: ASA3 NPO Status Date of Last Intake of Fluids: 03/19/22 Time of Last Intake of Fluids: 08:00 Date of Last Intake of Solid Food: 03/18/22 Time of Last Intake of Solid Foods: 18:00 Procedure Planning Contraindications for Sedation: none Current Medications Reviewed: Yes Notes The planned sedation has been discussed with the patient. Informed Consent was obtained. I have identified the patient, determined the appropriateness of sedation and have assessed the patient immediately prior to the procedure. All medicine(s) and interventions are by my order.
--- NOTE | 2022-03-19 14:57 | Cardiac Catheterization ---
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 Cardiac Status Clinical evaluation leading to the procedure CAD Presenation: Non STEMI Diagnostic Physicians Name: Scooter Ibrahim MD Closure Device Recommendations: None and Medical Therapy and/or Counseling Cardiac Cath Procedure Full Procedure Date March 19, 2022 Pre-Procedure Diagnosis Pre-Procedure Diagnosis: Non STEMI and Arrhythmia AUC Score AUC Score: 8 Post-Procedure Diagnosis Post-Procedure Diagnosis: Moderate CAD Procedure(s) Performed Procedure(s) Performed: Coronary Angiography and Left Heart Cath Waiter/Waitress Third Class Scooter Ibrahim MD Child Development Professor(s) none Estimated Blood Loss Estimated Blood Loss: 15cc Medication(s) Medication(s): Fentanyl, Heparin, Lidocaine 1%, Nicardipine, Nitroglycerin and Versed Summary of Findings Procedure performed: Left heart catheterization, selective coronary angiography Staff direct service worker: Scooter Ibrahim MD Indication: The patient is an 82-year-old woman with known coronary disease having previously undergone percutaneous intervention to the circumflex and right coronary systems. She presented with complete heart block. She had significantly elevated cardiac biomarkers and there was some concern about an acute coronary event causing her symptoms. She was therefore referred for coronary angiography. Procedure in detail: The patient was informed of the risks benefits and alternatives to the intended procedure, he understood such and wished to proceed. [facility] a fasting state. Conscious sedation was administered per protocol and the patient was monitored electrocardiographically throughout today's procedure. The right wrist area was prepped and draped in usual sterile fashion. This area was anesthetized using subcutaneous administration of a lidocaine solution. The right radial artery was then accessed using Seldinger technique, and a arterial sheath was placed at this site over a guidewire. The sheath was used to facilitate passage of the cardiac catheter for coronary angiography and left heart catheterization. Coronary angiograms were then obtained in multiple orthogonal views prior to removal of the catheter. Due to tortuosity of the subclavian system engagement of the right coronary artery from the right radial approach was very difficult. This access was subsequently abandoned and the left radial artery was also prepped and draped in usual sterile fashion. This artery was accessed using standard S eldinger technique and sheath was placed over guidewire this site. The sheath was used facilitate passage of a coronary catheter for engagement of the right coronary artery. Images were obtained in multiple orthogonal views prior to removal of the catheter and sheath. At the conclusion of the procedure the sheath was removed and hemostasis was achieved at the access site using manual pressure. The patient tolerated procedure well, there were no immediate complications. Equipment used: 5 [place] tiger 4, 6 [place] 3DRC Findings: Left main: Left main coronary was a long vessel. It was normal in size and caliber and bifurcated normally into the left anterior descending left circumflex. No significant disease in this vessel. Left anterior descending: Left anterior descending was a large transapical vessel. It had a 50% stenosis at the bifurcation of a large 1st diagonal branch. There is also 50% stenosis subsequent to a 2nd diagonal branch, luminal irregularities in the 30% more distal lesion. Left circumflex: Left circumflex was a nondominant vessel. There is a 30% stenosis in its proximal portion and 50% stenosis at the bifurcation of the ongoing AV groove vessel and a large OM1 branch. There was a patent stent in the OM1 without evidence of InStent restenoses. Right coronary: The right coronary was a dominant vessel producing the PDA. There was a stent in its proximal portion. There was significant disease in the entire vessel with approximately 50% InStent restenoses at worst. There were no other obstructive lesions. Impression: No evidence of acute coronary syndrome Nonobstructive coronary disease Patent circumflex stent without InStent restenoses Patent right coronary stent with 50% InStent restenoses Normal left ventricular filling pressures No evidence of aortic stenosis Hemodynamics Rest Ao:: 100/62 mm of mercury Final Ao: 133/70 mm of mercury LV: 113/0 mm of mercury LVEDP 6 mm of mercury Recommendations Recommendations: None and Medical Therapy and/or Counseling Specimens Specimens: None Radiation Exposure (mGy) Three thousand two hundred nineteen Contrast (mls) One hundred ten Procedural Complication(s) None Disposition PCU I attest to the content of the Intraoperative Record and any orders documented therein. Any exceptions are noted below. [facility] Card Cath Procedure Codes Cardiac Catheterization Procedure 1: Cardiovascular Cath Procedures: 39669 Coronaries and LHC (+/-LV) Moderate Sedation Procedure 1: Sedation/Anesthesia: 75246 Mod Sedation by the same physician;Init15 Min Child Age 5 & Up Procedure 2: Sedation/Anesthesia: 73307 Mod Sedation by the same physician; Ea [id number] Minutes PG Care Time/CCT Total # of Minutes Spent Total Time Spent with Patient: Total time spent is greater than 50% in coordination of care (as documented) at patient's floor/unit and/or counseling patient:
--- NOTE | 2022-03-19 14:57 | Post Anesthesia Assessment ---
Date of Service March 19, 2022 Post Sedation Assessment Vital Signs Temp Pulse Pulse Resp BP Pulse Ox 03/19/22 12:26 71 16 146/92 H 94 03/19/22 11:24 36.8 C 67 19 122/91 95 03/19/22 08:00 68 03/19/22 07:06 36.8 C 72 20 151/86 H 97 03/19/22 03:00 36.9 C 67 18 114/72 93 03/19/22 00:00 60 03/18/22 23:00 36.6 C 61 20 104/67 92 03/18/22 19:00 36.5 C 68 20 115/74 93 03/18/22 15:52 36.6 C 67 18 107/64 92 03/18/22 14:58 62 Recovery Score Activity: Moves 4 extremities Respiration: Deep Breath/Cough Circulation: +/-20% PreAnes Value Consciousness: Fully Awake Oxygen Saturation: O2 needed for >90% Post Anesthesia Score: 10 Discharge Sedation Level of Care: Fast Track Phase II Post Sedation Plan On clinical assessment, the patient appears to have tolerated the sedation without complications. Patient is recovering as anticipated. Patient will continue to be monitored by nursing and may be discharged when sed ation discharge criteria are met per below protocol. Upon Completions of procedure up to 15 minutes continue every 5 minute vital signs and the P.A.R. score; then discharge to a Phase I or Fast Track to Phase II per the following guidelines: * Discharge Patient to appropriate Phase II area if PAR is 8 or greater or return to pre- procedure baseline. The post - procedure orders will be as directed. * If PAR score is less than 8 or not return to pre-procedure baseline then patient will follow Phase I monitoring till PAR is reached for Phase II. The Phase I may be done in procedure room or may call to secure a Phase I area. * If naloxone or flumazenil are used for reversal, hold in Phase I for continued monitoring from when last reversal dose was given for a minimum of 60 minutes or longer pending the nurse and/or physician discretion of patient condition before discharge to Phase II. Please call the Sedation Physician to re-evaluate and complete post-note for discharge to Phase II area. Do NOT discharge from procedure sedation or Phase 1 until post- sedation evaluation note is complete by procedure /sedation MD Sedation Discharge Instructions to be given to the patient at discharge to home.
--- NOTE | 2022-03-19 14:59 | Post Operative Brief Note ---
Cardiology Brief Post Op Date of Surgery March 19, 2022 Pre & Post Diagnosis Operation Date: 03/16/22 17:15 <No data on this case meets the specified criteria> Operation Date: 03/17/22 12:00 <No data on this case meets the specified criteria> Operation Date: 03/19/22 12:00 <No data on this case meets the specified criteria> Procedure LHC, coronaries Mixer Lever Operator Scooter Ibrahim MD [employer] Officer none Estimated Blood Loss 20 Findings Consistent with Post-Op Diagnosis moderate RCA in-stent restenosis. Moderate LAD disease. Patent OM stent without significant ISR. No acute lesions. Normal LVEDP Both left and right radial access Complications none Disposition Accompanied Patient To Recovery: No Disposition: PCU Overlapping Procedure I was immediately available: during the entire case.
[2022-03-19] MEDS: PRAVASTATIN SOD 10 MG TAB PO SCH (16:05)
--- NOTE | 2022-03-19 17:31 | Hospitalist Progress Note ---
Date of Service March 19, 2022 Assessment & Plan (1) Heart block: Plan: Marlena is a 89-year-old female with a history of CAD, ischemic cardiomyopathy, DM, hypothyroid who presented after a syncopal episode. She had observed collapse following opening the door and does not remember the event. She is found to have profound bradycardia and heart rate in the 30s with a heart block and junctional escape rhythm. Emergently for placement of a right IJ transvenous pacer and transferred to the ICU. Subsequently underwent pacemaker placement 03/17/22 and chest pain-free. Complete heart block EKG on admission: Complete heart block, w/ ventricular escape ~20-40bpm Cardiology Placed on temporary transvenous pacing on admission Status post permanent pacemaker placement,03/17/22 Carvedilol resumed NSTEMIcardiology recommends loading with Plavix, diagnostic catheterization 03/19/2022 did not have significant coronary artery disease or require intervention. Last echo EF 60-65%, hypokinesis of inferior wall, normal RVSP pacemaker placed as above, carvedilol resumed HS-Troponin uptrended after admit. clinically without any signs of ACS and chest pain-free. Cardiology consulted, elevation of troponin and t wave inverstions will consider C -status post pacer as above. Carvedilol resumed. Previously on atorvastatin 40 mg this was stopped per patient due to intolerance. -May consider trial of Crestor we will allow this decision made to Dr. Kiser and at follow-up appointment Hypertension Carvedilol as above, did not tolerate MARII or ARB and was taken off valsartan as outpatient. CThead, no acute findings. -C-spine CT without fracture or subluxation Patient with knee pain bilaterally. Does have chronic knee pain. XR of the knees both shows degenerative changes. Both show soft tissue swelling with effusion. No fractures. May Follow-up with Ortho as outpatient. +voltarin if needed. - PT/OT pending Hyperlipidemia Statin as above Diabetes mellitus Home metformin held, on 500 twice daily monotherapy SSI goal [id number], CF 45/ A1c 6.1% BSG adequately controlled 03/17 on SSI above Hypothyroidism TSH within normal limits DVT prophylaxis: SCDs CODE STATUS: Full Severe deconditioning we will look further metabolic causes such as a urinary tract infection etc. Initial urine dip on presentation was negative no other infectious signs or symptoms TSH was within limits (2) Temporary transvenous cardiac pacemaker present: (3) Elevated troponin I level: (4) Right bundle branch block: Plan: Not new (5) CAD (coronary artery disease): (6) Diabetes mellitus: (7) Esophageal reflux: (8) Hypertension: (9) Ischemic cardiomyopathy: Admission and Anticipated Discharge Date Admission Date: March 16, 2022 Subjective Patient continues denied chest discomfort. I updated her brother Ke on the phone regarding the reasoning for catheterization. Patient is in agreement for this. Patient otherwise is extremely weak requiring 3 person assist to move about. Review of Systems Review of Systems: Mild distress and fatigue, moslty knee pain B/L no headache, no visual changes no speech or swallowing issues no chest pain, pressure or palpitations no shortness of breath, cough or wheezes no abdominal pain, nausea or vomiting, diarrhea or constipation no dysuria, hematuria or frequency b/l knee pain focal joint pain no swelling or bruising no back pain, CVA tenderness or radicular pain no bruising, bleeding or rashes no focal signs of weakness or numbness or altered sensation no complaints of anxiety or depression.. Physical Exam Physical Exam: The patient appeared well nourished and normally developed. Vital signs as documented. Head exam is normocephalic atraumatic Neck is without JVD, thyromegaly, or carotid bruits. Lungs are clear to auscultation, no focal loss of breath sounds Cardiac exam, Rhythm is regular.. No murmurs, rubs or gallops.Pacemaker site is without significant pain or bruising Abdominal exam reveals normal bowel sounds, soft non tender, no masses Extremities are trace edematous to lower extremities Neurologic exam is alert and oriented, no focal loss of strength or sensation Skin is without bruises or rashes, slight chronic venous changes on legs Psychologically is without concerns for anxiety or depression.. Results & Data Results & Data ([facility]) Vital Signs (Past 12 Hours) Vital Signs Temp Pulse Pulse Resp BP BP Pulse Ox 03/19/22 17:01 78 19 96 03/19/22 16:30 83 22 169/93 H 96 03/19/22 16:14 76 21 165/98 H 97 03/19/22 16:00 76 18 165/96 H 96 03/19/22 15:44 75 20 165/93 H 96 03/19/22 15:29 82 22 168/88 H 96 03/19/22 15:11 78 16 157/90 H 90 03/19/22 15:01 79 16 152/99 H 90 03/19/22 12:26 71 16 146/92 H 94 03/19/22 11:24 98.2 F 67 19 122/91 95 03/19/22 08:00 68 03/19/22 07:06 98.2 F 72 20 151/86 H 97 PG Care Time/CCT Total # of Minutes Spent Total Time Spent with Patient: Total time spent is greater than 50% in coordination of care (as documented) at patient's floor/unit and/or counseling patient: Coding Level of Care Code 53459 Subseq Hosp Care Lvl 2 Diagnoses Heart block I45.9 Temporary transvenous cardiac pacemaker present Z95.0 Elevated troponin I level R77.8 Right bundle branch block I45.10 CAD (coronary artery disease) I25.10 Diabetes mellitus E11.9 Esophageal reflux K21.9 Hypertension I10 Ischemic cardiomyopathy I25.5
[2022-03-20] MEDS: carvediloL 6.25 MG TAB PO SCH (08:27)
[2022-03-20] MEDS: LEVOTHYROXINE SODIUM 125 MCG TABLET PO SCH (08:27)
[2022-03-20] MEDS: CLOPIDOGREL BISULFATE 75 MG TAB PO SCH (08:27)
[2022-03-20] MEDS: PANTOprazole 40 MG TAB PO SCH (08:27)
[2022-03-20] MEDS: ASPIRIN 81 MG ECTAB PO SCH (08:27)
[2022-03-20] MEDS: FLUTICASONE PROPIONATE NA SPR 16 GM BTL NAE SCH (08:28)
[2022-03-20] MEDS: ACETAMINOPHEN 325 MG TAB PO SCH (08:28)
[2022-03-20] MEDS: INSULIN ASPART PER UNIT SC SCH ×2 (08:37→11:24)
[2022-03-20] MEDS ORDERED: EZETIMIBE 10 MG TABLET PO SCH (09:00)
--- NOTE | 2022-03-20 09:15 | Cardiology Progress Note ---
Date of Service March 20, 2022 Assessment & Plan Admission and Anticipated Discharge Date Admission Date: March 16, 2022 Subjective She denies any chest pain chest pressure chest heaviness. She denies any shortn ess of breath. She is feeling well. She notes that she feels much better than when she came to the hospital. She is concerned about her ability to ambulate. Prior to this she was at home on her own and walking with a walker. She has no wrist discomfort on either side. She denies any palpitations or fluttering she had 1 episode of lightheadedness last evening which has resolved. Results & Data ([facility]) Vital Signs (Past 12 Hours) Vital Signs Temp Pulse Pulse Resp BP BP Pulse Ox 03/20/22 08:00 36.7 C 69 18 138/56 L 97 03/20/22 03:04 36.6 C 65 18 143/61 H 94 03/20/22 00:00 67 03/19/22 22:48 36.5 C 65 20 127/75 95 she is awake alert and oriented x3 she is in no acute distress HEENT 2+ carotid upstrokes no evidence of carotid bruits lungs clear to auscultation bilaterally no rales rhonchi or wheezing Heart: Regular rate and rhythm no appreciable murmurs rubs or gallops Abdomen: Soft nontender distended positive bowel sounds Extremities: No clubbing cyanosis she has mild bilateral lower extremity edema with bruising on skin tears on her lower extremities 2+ radial pulses both sides IMPRESSIONS: 1. Syncope and complete heart block status post dual-chamber pacemaker 2. History of coronary artery disease status post non-ST elevation [place] July 2018 with stenting of a high-grade OM1 lesion 3. History of prior stenting of the RCA in 2002 4. History of a mild ischemic cardiomyopathy in 2018 with basal inferior basal inferoseptal and basal inferior lateral akinesis 5. Echocardiogram this admission with normal LV size and function 6. Hypertension 7. Hyperlipidemia 8. Non-ST elevation [place] this admission The good news is her catheterization does not show any progression of her coronary artery disease and there was nothing to suggest acute plaque rupture. This would suggest her troponin elevation is likely related to hypoperfusion due to her high degree AV block. Given her gait instability I think the risk and benefit of being on dual antiplatelet therapy favors the risk Rather than the benefit especially with her risk of falling. In light of that I will stop her Plavix and she should remain on aspirin long-term. Her blood pressure is well controlled she is on appropriate medical regimen currently. She has been intolerant of higher doses of statins in the past and at this point has only tolerated 10 mg of pravastatin Her chest x-ray post pacemaker implant looks fine when she is discharged we will arrange for her to be seen in pacer clinic in 2 weeks for a wound check as well as a device interrogation. She will need aggressive PT in the hospital to determine when she is stable to go to rehab prior to going home.
[2022-03-20] MEDS: ACETAMINOPHEN 500 MG TAB PO PRN (12:52)
--- NOTE | 2022-03-20 17:15 | Discharge Summary ---
Date of Service March 20, 2022 Admission HPI Per Admitting Provider Marlena Daley is an 82 year old female who presents to the ER due to syncope. She remembers opening the door but does not remember falling down. She denies any chest pain or shortness of breath prior to falling. Post fall - she is having right shoulder pain following the fall and thinks she may have hit it against the door. She has chronic neck pain that is no worse than usual. No groin pain with hip movement. EMS were called and patient was noted to be bradycardic in the 30s. Of note she does take carvedilol and did take it this morning. She has noticed increased fatigue the last few days but no chest pain or shortness of breath on exertion. She has a significant history of NSTEMI in July 2018 with successful PCI of proximal OM 1 with single drug-eluting stent. In the ER she was noted to have complete heart block. Heart alert was called and she underwent temporary transvenous pacing wire. 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 On telemetry she currently appears to be in NSR without pacing spikes. No medications were given to reverse beta-blockade. I discussed the case with Dr Ibrahim and planning on permanent pacemaker tomorrow. Principal Diagnosis syncope heart block requiring pacemaker implantation nstemi chronic diplopia Discharge Exam The patient appeared stable Vital signs as documented. Lungs are clear to auscultation and appear unlabored Cardiac exam, Rhythm is regular.. Abdominal exam reveals normal bowel sounds, soft non tender, no masses Discharge Data Allergies Allergy/AdvReac Type Severity Reaction Status Date / Time amlodipine Allergy Intermediate DIZZINESS Verified 03/16/22 17:11 epinephrine AdvReac Intermediate RAPID Verified 03/16/22 17:11 HEART RATE AND RESPIRATIONS Consultations 03/16/22 17:55 Consult Pipelayer Routine 03/16/22 17:59 ED Decision to Admit Stat 03/17/22 03:34 Consult Cardiology Routine Procedures Performed Operation Date: 03/16/22 17:15 Actual Procedures p Ins/RemTemporary Transvenous Pacer - Scooter Ibrahim MD s Ultrasound Vascular Access - Scooter Ibrahim MD Operation Date: 03/17/22 12:00 Actual Procedures p Pacer with A/V Leads (Dual) - Roberto Nunez MD Operation Date: 03/19/22 12:00 Actual Procedures p Cineradiography w/Routine Exam - Scooter Ibrahim MD s Cath, Left with Cors and Vent - Scooter Ibrahim MD Ordered Studies Cervical Spine CT 03/16/22 16:05 CT SCAN OF THE CERVICAL SPINE CLINICAL HISTORY: Syncope. Neck pain. COMPARISON STUDY: No priors. TECHNIQUE: CT scan of the cervical spine is performed from the skull base to the upper thoracic spine. Images are reviewed in the axial, sagittal, and coronal planes. IV contrast was not administered for this examination. A dose lowering technique was utilized adhering to the principles of ALARA. FINDINGS: Skeletal structures: The skeletal structures are osteopenic. There is no evidence of fracture or subluxation involving the cervical spine. Vertebral body height and alignment are maintained. There is straightening of the cervical lordosis. Anterior osteophytes are seen throughout. The odontoid process and lateral masses are intact. The atlantoaxial articulation is preserved noting productive degenerative change. The spinous processes appear intact. There is moderate multilevel cervical spondylosis. Uncovertebral and facet arthropathy contribute sterile foraminal narrowing at several levels. Intervertebral discs: Mild to moderate disc space narrowing is seen at all cervical levels. Central canal: Posterior disc osteophyte complexes are seen at all levels between C4-C5 and C6-C7, likely contributing to multilevel acquired compromise of the central canal. Soft tissues: The prevertebral and paraspinous soft tissues are within normal limits. A catheter is present in the right internal jugular vein. Surgical clips are present in the anterior lower neck. Calvarium: The visualized calvarium at the skull base appears intact. Brain parenchyma: Partially visualized brain parenchyma at the skull base is within normal limits noting age-related involutional change. Sinuses and mastoids: A 13 mm retention cyst is noted in the left maxillary antrum. The mastoid air cells are well pneumatized. Lung apices: Clear as visualized. IMPRESSION: 1. There is no evidence of fracture or subluxation involving the cervical spine. 2. Osteopenia and spondylotic change as above. ACT 112: Negative or not required by law. Electronically signed by: Conner Diaz M.D. 03/16/2022 8:[address] 03/16/22 16:05 CT SCAN OF THE BRAIN WITHOUT IV CONTRAST CLINICAL HISTORY: Syncope. COMPARISON STUDY: CT of the brain dated 05/18/2018. TECHNIQUE: Unenhanced axial CT scan of the brain is performed from the vertex to the skull base. A dose lowering technique was utilized adhering to the p rinciples of ANTONIO. CT DOSE: 1075.34 mGy.cm FINDINGS: Brain parenchyma: There is age-related involutional change noting moderate to advanced subcortical and periventricular microangiopathic disease. There is no hemorrhage, mass effect, or evidence of acute territorial ischemia by CT criteria. Johnson-white matter differentiation is preserved. Small chronic lacunar infarcts are noted in the right thalamus and the right cerebellar hemisphere. No extra-axial fluid collection is seen. Ventricles, sulci, cisterns: Prominent secondary to involutional change. Intracranial vasculature: There is atherosclerotic calcification of the cavernous carotid and vertebral arteries. Calvarium: The skeletal structures are osteopenic. No depressed calvarial fracture is identified. Sinuses and mastoids: A 13 mm retention cyst is noted in the left maxillary antrum. The paranasal sinuses are otherwise clear. The mastoid air cells are well pneumatized. Orbits: The bony orbits are grossly intact. There are bilateral ocular lens implants. IMPRESSION: There is no hemorrhage, mass effect, or evidence of acute territorial ischemia by CT criteria. ACT 112: Negative or not required by law. Electronically signed by: Conner Diaz M.D. 03/16/2022 8:26 PM Hip/Pelvis X-Ray 03/16/22 19:34 SINGLE VIEW PELVIS; 2 VIEWS RIGHT HIP CLINICAL HISTORY: Fall with right hip pain. FINDINGS: An AP view of the pelvis with AP and frog-leg views of the right hip are compared to study dated 07/15/2012. The skeletal structures are osteopenic. There is no radiographic evidence of acute fracture involving the hips or bony pelvis. A bipolar right hip arthroplasty is in near-anatomic alignment. No periprosthetic lucency is identified. Mild to moderate osteoarthritic change is seen in the left hip. Lumbosacral spondylosis is partially imaged. There is mild degenerative sclerosis of the sacroiliac joints. The overlying soft tissues are within normal limits. Atherosclerotic calcification is seen in the femoral arteries. IMPRESSION: No acute bony abnormality is identified. Electronically signed by: Conner Diaz M.D. 03/16/2022 8:43 PM Knee X-Ray 03/16/22 19:34 LEFT KNEE 2 VIEWS CLINICAL HISTORY: Fall with left knee injury. FINDINGS: AP and crosstable lateral views of the left knee are compared to study dated 08/02/2019. The skeletal structures are osteopenic. No fracture is identified. There is moderate to advanced tricompartmental degenerative joint space narrowing, greatest in the medial compartment were there is bony sclerosis and osteochondral irregularity. Chondrocalcinosis is noted in the lateral compartment. There are marginal osteophytes and patellar enthesophytes. A joint effusion is observed and is similar to previous. Advanced atherosclerotic calcification is noted in the popliteal artery. Soft tissue swelling is seen around the knee. IMPRESSION: 1. Soft tissue swelling and joint effusion with no fracture identified. 2. Osteopenia and degenerative change as above. Electronically signed by: Conner Diaz M.D. 03/16/2022 8:39 PM Knee X-Ray 03/16/22 19:34 RIGHT KNEE 2 VIEWS CLINICAL HISTORY: Fall with right knee pain. FINDINGS: AP and crosstable lateral views of the right knee are compared to study dated 08/02/2019. The Skeletal structures are osteopenic. No fracture is seen. There is advanced tricompartmental degenerative joint space narrowing, greatest in the medial compartment. There are large marginal osteophytes and patellar enthesophytes. Chondrocalcinosis is noted in the lateral compartment. A small joint effusion is noted. Soft tissue swelling is seen around the knee. There is advanced atherosclerotic calcification of the popliteal artery. IMPRESSION: 1. Soft tissue swelling and joint effusion with no fracture identified. 2. Osteopenia and degenerative change as above. Electronically signed by: Conner Diaz M.D. 03/16/2022 8:41 PM Chest X-Ray 03/18/22 07:00 XR chest 2V PA/lateral CLINICAL HISTORY: EXACT TIME ORDERED Evaluate for pneumothorax and l TECHNIQUE: 2 views of the chest were obtained. Comparison: Comparison is made to chest radiograph 06/10/2020 FINDINGS: Dual lead pacemaker is seen, new from prior exam. Calcified aortic knob is seen. Prominence and cephalization of the vasculature is seen. No evidence of pleural effusion or pneumothorax. Left reverse shoulder arthroplasty is seen. IMPRESSION: Mild pulmonary edema. No evidence of pneumothorax patient status post pacemaker placement. ACT 112: Negative or not required by law. Electronically signed by: Eber Robison M.D. 03/18/2022 9:47 AM Hospital Course (1) Heart block: Marlena is a 89-year-old female with a history of CAD, ischemic cardiomyopathy, DM, hypothyroid who presented after a syncopal episode. She had observed collapse following opening the door and does not remember the event. She is found to have profound bradycardia and heart rate in the 30s with a heart block and junctional escape rhythm. Emergently for placement of a right IJ transvenous pacer and transferred to the ICU. Subsequently underwent pacemaker placement 03/17/22 and chest pain-free. Complete heart block EKG on admission: Complete heart block, w/ ventricular escape ~20-40bpm Cardiology Placed on temporary transvenous pacing on admission Status post permanent pacemaker placement,03/17/22 Carvedilol resumed NSTEMIcardiology diagnostic catheterization 03/19/2022 did not have significant coronary artery disease or require intervention. Last echo EF 60-65%, hypokinesis of inferior wall, normal RVSP pacemaker placed as above, carvedilol resumed Previously on atorvastatin 40 mg watch for drug intolerance -May consider trial of Crestor we will allow this decision made to Dr. Bowman at follow-up appointment Hypertension Carvedilol as above, did not tolerate MARII or ARB and was taken off valsartan as outpatient. CThead, no acute findings. -C-spine CT without fracture or subluxation Patient with knee pain bilaterally. Does have chronic knee pain. XR of the knees both shows degenerative changes. Both show soft tissue swelling with effusion. No fractures. May Follow-up with Ortho as outpatient. +voltarin if needed. Hyperlipidemia Statin as above, follow Diabetes mellitus Home metformin held, on 500 twice daily monotherapy SSI goal [id number], CF 45/ A1c 6.1% BSG adequately controlled 03/17 on SSI above Hypothyroidism TSH within normal limits CODE STATUS: Full Severe deconditioning Initial urine dip on presentation was negative no other infectious signs or symptoms TSH was within limits (2) Temporary transvenous cardiac pacemaker present: (3) Elevated troponin I level: (4) Right bundle branch block: Not new (5) CAD (coronary artery disease): (6) Diabetes mellitus: (7) Esophageal reflux: (8) Hypertension: (9) Ischemic cardiomyopathy: Total Time Total Time Spent Total Time Spent (In Minutes): It required greater than 30 minutes to prepare this patient for discharge Discharge Plan Discharge Items Patient Disposition: Transfer Inpatient Rehab Fac Reason For Visit: SYNCOPE Discharge Diagnosis: syncope secondary to heart block implanted permanent pacemaker nstemi with non occlusive coronary artery disease on heart cath Activity: Per Instructions section Activity Comment: per in house PT/OT Non-emergency contact: Primary Care Provider and [employer] Call non-emergency contact if: your symptoms worsen Follow-up/Referrals: Kavon Ni [Primary Care Provider] - Diet: Carb Consistent or DM2 Addtl Attending Provider Instructions: For nstemi new start on atorvastatin, please monitor lab work Pt is typically on furosemide daily, please consider monitoring lab work has not required it as inpt did have incontinent episode prior to d/c, did not seem like C diff was while walking with PT just FYI was on ssi, now returning to home metformin low dose, consider monitoring blood glucose and sliding scale as needed ACTIVITY RECOMMENDATIONS: * Do not raise affected arm over head for 2 weeks. SPECIAL CARE INSTRUCTIONS: * If bleeding occurs, apply direct pressure to area for 5 minutes. * Call your doctor if you have severe pain, fever, drainage or bleeding at site. * Keep dressing on and dry for 48 hours then remove. * Keep any scheduled doctor's appointment. * Implant Card - hand held device with website information given. SKIN IRRITATION: * You may experience some redness and/or swelling in the area where radiation was administered. If any skin irritation occurs, please contact your family physician. FOLLOW UP VISIT: Keep any scheduled doctor appointments. Pending Studies at Discharge: No Stand-Alone Forms: My [facility] Skilled Items Patient informed of condition?: Yes DNR: No Discharge Level of Care: Acute rehab Communicable Disease: No Discharge Prognosis: Stable Lines: None Urinary Catheter: No Medications and DC Order Prescriptions: New acetaminophen 325 mg Tablet 1,300 mg PO BID Qty: 30 RF: 0 ezetimibe 10 mg Tablet 10 mg PO QAM Qty: 20 RF: 0 atorvastatin 40 mg tablet 40 mg PO DAILY Qty: 30 RF: 0 Continued fluticasone propionate 50 mcg/actuation spray,suspension See Rx Instructions intranasal DAILY Qty: 15.8 RF: 5 levothyroxine 125 mcg tablet 125 mcg PO DAILY Qty: 90 RF: 0 nitroglycerin 0.4 mg tablet, sublingual 0.4 mg SL .PRN/UD RF: 0 omeprazole 40 mg capsule,delayed release(DR/EC) 40 mg PO DAILY Qty: 90 RF: 0 potassium chloride 20 mEq tablet extended release 20 meq PO DAILY PRN (Reason: . WITH FUROSEMIDE) Qty: 90 RF: 0 carvedilol 6.25 mg tablet 6.25 mg PO BIDM RF: 0 metformin 500 mg tablet 250 mg PO BID Qty: 90 RF: 0 furosemide 40 mg tablet 40 mg PO DAILY RF: 0 Saccharomyces boulardii [Daily Probiotic (S. boulardii)] 1 tab PO DAILY RF: 0 coenzyme Q10 [Co Q-10] 200 mg capsule 200 mg PO DAILY RF: 0 magnesium glycinate See Rx Instructions PO .COMPLEX RF: 0 cranberry extract 50 mg Tablet,Chewable 0 mg PO BID RF: 0 aspirin 81 mg Tablet,Delayed Release (Dr/Ec) 81 mg PO DAILY RF: 0 Discontinued furosemide 20 mg tablet 20 mg PO 3XWK RF: 0 Discharge Orders: Discharge Order (Routine); Ordered 03/20/22 Ordered By: Emanuel Fraser/Other Patient Handouts: Managing Type 2 Diabetes Admission Data Admit Date/Time: 03/16/22 17:55 Attending Provider: Emanuel Lam Admit Provider: Scooter Ibrahim Primary Care Provider: Kavon Ni Other Providers: Conner Reinoso ; Ren Keller ; Duane Macias ; Jose Angel Perez ; Jose Alfredo Clark ; Honorio Jessica ; Yazan Lawton ; Jesus Schmitt ; Ny Gaitan ; Jesse Hernandez ; [facility] ; Scooter Ibrahim Other Interventions: Discharge Summary Assessment (RN) Last Done: 03/20/22 11:55 Coding Level of Care Code D/C DAY MANAGEMENT >30 MINS Diagnoses Heart block I45.9 Temporary transvenous cardiac pacemaker present Z95.0 Elevated troponin I level R77.8 Right bundle branch block I45.10 CAD (coronary artery disease) I25.10 Diabetes mellitus E11.9 Esophageal reflux K21.9 Hypertension I10 Ischemic cardiomyopathy I25.5
--- NOTE | 2022-03-21 13:09 | Communication Note ---
Date of Service: March 21, 2022 Pts urine culture has >100,000 Gram negative, I called [facility] to report this to nurse there not further Identified, she says she will let Dr Prakash know.
[2022-04-07] MEDS ORDERED: FLUTICASONE PROPIONATE NA SPR 16 GM BTL NAE SCH (09:00)
== END 2022-03-20 13:31 | DRG 242 ==
LOC: ED 15:53 → CC 17:25 → SUATTDRO 17:55 → 1E 17:55 → 2E 03-17 18:13
DX: E66.01 Morbid (severe) obesity due to excess calories; Z96.612 Presence of left artificial shoulder joint; E78.5 Hyperlipidemia, unspecified; E03.9 Hypothyroidism, unspecified; I10 Essential (primary) hypertension; Z68.41 Body mass index [BMI] 40.0-44.9, adult; I25.5 Ischemic cardiomyopathy; I25.2 Old myocardial infarction; Z79.82 Long term (current) use of aspirin; Z88.8 Allergy status to other drugs, medicaments and biological substances; K21.9 Gastro-esophageal reflux disease without esophagitis; E11.9 Type 2 diabetes mellitus without complications; H53.2 Diplopia; I44.2 Atrioventricular block, complete; Z95.5 Presence of coronary angioplasty implant and graft; Z96.641 Presence of right artificial hip joint; I45.10 Unspecified right bundle-branch block; I25.10 Atherosclerotic heart disease of native coronary artery without angina pectoris; Z79.890 Hormone replacement therapy; I21.4 Non-ST elevation (NSTEMI) myocardial infarction

== ENCOUNTER 2022-04-28 20:19 | Inpatient (IN) ==
[2022-04-28 21:40] LABS: Basophils # (auto) 0.03 K/uL (0-0.2); Basophils % (auto) 0.4 %; Eosinophils # (auto) 0.35 K/uL (0-0.50); Eosinophils % (auto) 4.7 %; Hematocrit (blood only) 39.8 % (34.1-44.9); Hemoglobin 13.1 g/dl (12.0-16.0); Immature Granulocytes # (auto) 0.02 K/uL (0.00-0.02); Immature Granulocytes % (auto) 0.3 %; Mean Corpuscular Hgb Conc 32.9 g/dL (32.0-36.0); Mean Corpuscular Volume 97.3 fL (80.0-100.0); Mean Platelet Volume 9.4 fL (9.4-12.3); Monocytes # (auto) 0.53 K/uL (0.24-0.82); Monocytes % (auto) 7.1 %; Neutrophils # (auto) 5.36 K/uL (1.4-6.5); Neutrophils % (auto) 71.5 %; Platelet Count 220 K/uL (130-400); RDW Coefficient of Variation 14.1 % (11.5-14.5); RDW Standard Deviation 50.5 fL (36.4-46.3); Red Blood Count 4.09 M/uL (3.93-5.22); White Blood Count 7.49 K/ul (4.8-10.8)
[2022-04-28 22:02] LABS: Albumin Globulin Ratio 1.6 (0.9-2); Albumin Level 3.9 gm/dl (3.4-5.0); BUN Creatinine Ratio 17.4 (10-20); Bilirubin,Total 0.3 mg/dl (0.2-1.0); Calcium 9.1 mg/dl (8.5-10.1); Creatinine Clr Calc Pharmacy 61.4 ml/min; Est GFR (African American) 72.4 ml/min; Est GFR (Non-African American) 62.5 ml/min; Globulin 2.5 gm/dl (2.5-4.0); Magnesium 1.7 mg/dl (1.7-2.4); Phosphorus 3.2 mg/dl (2.5-4.9); Potassium 3.6 mmol/L (3.5-5.1); Total Protein 6.4 gm/dl (6.0-8.3)
[2022-04-28 22:04] LABS: Troponin I High Sensitivity 13.9 pg/ml (0-14)
[2022-04-28] MEDS ORDERED: FUROSEMIDE 40 MG/4 ML VIAL IV STA (22:18)
[2022-04-29] MEDS ORDERED: ACETAMINOPHEN 500 MG TAB PO STA (01:11)
[2022-04-29] MEDS ORDERED: ceFAZolin 2000MG 2,000 MG/15 ML SYR IV STA (01:12)
--- NOTE | 2022-04-29 01:22 | Emergency Department Note ---
Impression & Plan Edema due to hypervolemia, Bilateral cellulitis of lower leg, Ambulatory dysfunction ED Provider Note NAME: JAXON MARTINEZ AGE: 82 SEX: F ARRIVES VIA: Ambulance INFORMANT: Patient, Brother ED PROVIDER(S): John Dacosta MD CHIEF COMPLAINT: Leg swelling, pain PLAN: Disposition: Admit MEDICAL DECISION MAKING: The patient is a pleasant 82-year-old woman with a past medical history of CAD, hypertension, hyperlipidemia, hypothyroidism, morbid obesity with recent hospitalization in March for syncope secondary to heart block requiring temporary pacing and placement of PPM Zentz to emergency department accompanied by her brother from her personal long term for evaluation of worsening lower extremity edema with redness warmth and pain of the bilateral lower legs where it is become so severe where she finds it difficult to ambulate. He reports she presents tonight despite the progressive worsening of swelling over weeks because she was worried about the redness and rapidly evolving infection which she reports in the past she became very sick from. She further adds that she did notice some constant discomfort overlying her left PPM site that she had not experienced before. She denies any cough, congestion, shortness of breath. She has any fevers, nausea, vomiting, diarrhea or urinary symptoms. She reports she did take additional Lasix (60) for 2 days last week but denies any significant change or fluid removal. She feels as though at her personal long term they do not monitor the sodium in her meals and wonders if this is related to that. She further adds that typically she would wear compression stockings to help minimize her swelling but reports that staff at her facility wanted her to avoid these given minor wounds suffered from her recent syncopal episode and fall. She does add that she feels as though given her pain in the center legs that she cannot ambulate safely in her personal long term and feels as though she needs admitted to get the fluid off effectively. On arrival the patient is chronically ill-appearing but no acute distress, afebrile with stable vital signs. She does appear hypervolemic with 2+ bilateral lower extremity pitting edema with mild bilateral pretibial erythema warmth and tenderness. There is serous weeping from superficial wounds of the pretibial region. Distal PMS is intact. EKG without overt acute ischemia. Chest x-ray with prominence of pulmonary vasculature per my preliminary review. WBC, H/H and platelets within normal limits. Chemistry without metabolic acidosis. Electrolytes LFTs without significant abnormality. High-sensitivity troponin 13.9, within normal limits. BNP 127, nonspecific without prior values for comparison. Lipase is not elevated. Procalcitonin is undetectable. COVID- 19 RNA, MARELY test was negative. Bilateral lower extremity ultrasound negative for DVT per preliminary stat rad report. Ancef for suspected pretibial cellulitis. Lasix 40mg IV given for diuresis. Case was discussed with RAMÓN Schultz hospitalist, who will evaluate the patient for admission. Triage Nursing notes reviewed and agree them. Prior medical records reviewed Vital Signs: reviewed and remarkable for no significant abnormalities Differential diagnosis: DVT, musculoskeletal, infection, joint effusion, trauma, lymphedema, idiopathic, CHF, as well as other pathologies. ER treatment provided: See below. Diagnostics interpreted by me: ECG: Sinus rhythm with first-degree AV block, 93 bpm, no ectopy, left axis deviation, right bundle branch block, T wave abnormality, no overt ST elevation, QTC 465, QRS 142 Cardiac Monitoring: An order for continuous cardiac monitoring was placed and demonstrated inus rhythm with first-degree AV block, 93 bpm, no ectopy. Laboratory studies: See below Imaging studies: See below Consultation(s): Case was discussed with RAMÓN Schultz hospitalist, who will evaluate the patient for admission. HPI: The patient is a pleasant 82-year-old woman with a past medical history of CAD, hypertension, hyperlipidemia, hypothyroidism, morbid obesity with recent hospitalization in March for syncope secondary to heart block requiring temporary pacing and placement of PPM Zentz to emergency department accompanied by her brother from her personal long term for evaluation of worsening lower extremity edema with redness warmth and pain of the bilateral lower legs where it is become so severe where she finds it difficult to ambulate. He reports she presents tonight despite the progressive worsening of swelling over weeks because she was worried about the redness and rapidly evolving infection which she reports in the past she became very sick from. She further adds that she did notice some constant discomfort overlying her left PPM site that she had not experienced before. She denies any cough, congestion, shortness of breath. She has any fevers, nausea, vomiting, diarrhea or urinary symptoms. She reports she did take additional Lasix (60) for 2 days last week but denies any significant change or fluid removal. She feels as though at her personal long term they do not monitor the sodium in her meals and wonders if this is related to that. She further adds that typically she would wear compression stockings to help minimize her swelling but reports that staff at her facility wanted her to avoid these given minor wounds suffered from her recent syncopal episode and fall. She does add that she feels as though given her pain in the center legs that she cannot ambulate safely in her personal long term and feels as though she needs admitted to get the fluid off effectively. ROS: See above HPI for pertinent positives & negatives. A total of 10 systems reviewed and were otherwise negative. VITALS:See Below PHYSICAL EXAMINATION: GENERAL: Awake, alert, chronically ill-appearing, in no distress, BMI 43.1. HENT: Normocephalic, atraumatic. Oropharynx unremarkable. EYES: Normal conjunctiva. Sclera non-icteric. Chronic dysconjugate gaze. NECK: Supple. No nuchal rigidity. FROM. No JVD. RESPIRATORY: Clear to auscultation. CARDIAC: Regular rate, normal rhythm. Extremities warm and well perfused. Pulses equal. ABDOMEN: Soft, non-distended. No tenderness to palpation. No rebound or guarding. No masses. RECTAL: Deferred. MUSCULOSKELETAL: Chest examination reveals no tenderness. The back is symmetrical on inspection without obvious abnormality. There is no CVA tenderness to palpation. No joint edema. LOWER EXTREMITIES: Calves are equal size bilaterally and non-tender. 2+ bilateral lower extremity pitting edema with mild bilateral pretibial erythema warmth and tenderness. There is serous weeping from superficial wounds of the pretibial region. Distal PMS is intact. NEURO: Normal sensorium. No sensory or motor deficits noted. SKIN: No rash or jaundice noted. John Dacosta MD Past Med/Surg History Medical History CAD (coronary artery disease) Diabetes Hyperlipidemia Hypertension Hypothyroidism Morbid obesity PNA (pneumonia) Surgical History H/O cosmetic surgery lipectomy- left chest/abdomen History of cholecystectomy History of eye surgery History of laminectomy History of parathyroidectomy History of surgical removal of lesion excision of lesion chest wall- Dr. Shai Adams S/P bilateral salpingo-oophorectomy S/P cholecystectomy S/P coronary artery stent placement cath stent 1 proximal right coronary artery, cath stent 2 first obtuse marginal branch S/P parathyroidectomy 4 removed and 2 were replaced S/P total abdominal hysterectomy Status post replacement of left shoulder joint Status post right hip replacement Family History Mother Cancer patient not sure if mother had clear cell carcinoma of uterus or ovary. Pt also stated it may have been clear cell carcinoma of here stomach Hypothyroidism Hearing loss Family/Other Diabetes Ovarian cancer Tuberculosis Uterine cancer Hypertension Father Nephrolithiasis Heart disease Brother Stroke Leukemia Bleeding disorder patient did not state what bleeding disorder specifically Other No family history of adverse response to anesthesia Denies family history of Prostate cancer Breast cancer Social History Smoking Status: Never smoker Second Hand Exposure: No; Hx Alcohol Use: No Hx Substance Use: No Preferred Language: Greek Communication Ability: Effective Costume Technician Required: No Beliefs That Will Affect Care: None marital status: / Current Living Situation: Alone current occupational status: retired Feels Safe at Home: Yes Assistive Devices: Scooter/Electric Scooter, Walker and Wheelchair Allergies Allergies Allergy/AdvReac Type Severity Reaction Status Date / Time amlodipine Allergy Intermediate DIZZINESS Verified 03/16/22 17:11 epinephrine AdvReac Intermediate RAPID Verified 03/16/22 17:11 HEART RATE AND RESPIRATIONS Home Meds Home Medications Medication Instructions Recorded Confirmed carvedilol 6.25 mg tablet 6.25 mg PO BIDM 06/14/19 04/28/22 levothyroxine 125 mcg tablet 125 mcg PO DAILY #90 tabs 06/14/19 04/28/22 nitroglycerin 0.4 mg sublingual 0.4 mg sublingual .PRN/UD 06/14/19 04/28/22 tablet omeprazole 40 mg capsule,delayed 40 mg PO DAILY #90 caps 06/14/19 04/28/22 release potassium chloride 20 mEq 20 meq PO DAILY PRN . WITH 06/14/19 04/28/22 tablet,extended release FUROSEMIDE #90 tabs metformin 500 mg tablet 250 mg PO BID #90 tabs 07/11/19 04/28/22 cranberry extract 50 mg chewable 0 mg PO BID 06/10/20 04/28/22 tablet coenzyme Q10 200 mg capsule (Co 200 mg PO DAILY 06/20/21 04/28/22 Q-10) furosemide 40 mg tablet 40 mg PO DAILY 06/20/21 04/28/22 aspirin 81 mg tablet,delayed 81 mg PO DAILY 03/16/22 04/28/22 release Saccharomyces bowinstondii 250 mg 250 mg PO DAILY 04/28/22 04/28/22 capsule magnesium glycinate 100 mg tablet 100 mg PO [id number] 04/28/22 04/28/22 Previous Rx's Medication Instructions Recorded fluticasone propionate 50 See Rx Instructions intranasal 10/06/21 mcg/actuation nasal DAILY #15.8 mL spray,suspension acetaminophen 325 mg tablet 1,300 mg PO BID #30 tabs 03/20/22 atorvastatin 40 mg tablet 40 mg PO DAILY #30 tabs 03/20/22 ezetimibe 10 mg tablet 10 mg PO QAM #20 tabs 03/20/22 Results & Data (ED) Vital Signs Vital Signs - 24 hr 04/28/22 20:29 04/28/22 20:34 04/28/22 21:01 Temperature 37.0 C Temperature Source Oral Pulse Rate 97 H 93 H 91 H Respiratory Rate 20 25 H 17 Respiratory Effort / Characteristics Non-Labored Respiratory Depth Normal Blood Pressure 155/109 H 159/88 H 127/85 Blood Pressure Mean 124 111 99 Pulse Oximetry 97 95 93 Oxygen Delivery Method Room Air Room Air Room Air Sepsis Recent Fever Within 48 Hours No Sepsis New/Unexplained Change in Mental Status No Sepsis Action Taken by Nursing No Action Required 04/28/22 22:00 04/28/22 23:00 04/29/22 00:00 Temperature Temperature Source Pulse Rate 86 87 87 Respiratory Rate 26 H 24 16 Respiratory Effort / Characteristics Respiratory Depth Blood Pressure 153/81 H 144/85 H 139/75 Blood Pressure Mean 105 104 96 Pulse Oximetry 93 92 92 Oxygen Delivery Method Room Air Room Air Room Air Sepsis Recent Fever Within 48 Hours Sepsis New/Unexplained Change in Mental Status Sepsis Action Taken by Nursing Laboratory Data Attestation: I reviewed the patient's lab results. Result diagrams: 04/28/22 20:30 04/28/22 20:30 Lab Results 04/28/22 04/28/22 04/28/22 Range/Units 20:30 20:30 20:30 WBC 7.49 (4.8-10.8) K/ul RBC 4.09 (3.93-5.22) M/uL Hgb 13.1 (12.0-16.0) g/dl Hct 39.8 (34.1-44.9) % MCV 97.3 (80.0-100.0) fL MCH 32.0 (25.0-34.0) pg MCHC 32.9 (32.0-36.0) g/dL RDW Std Deviation 50.5 H (36.4-46.3) fL RDW Coeff of Suzette 14.1 (11.5-14.5) % Plt Count 220 (130-400) K/uL MPV 9.4 (9.4-12.3) fL Immature Gran % (Auto) 0.3 % Neut % (Auto) 71.5 % Lymph % (Auto) 16.0 % Mcclain % (Auto) 7.1 % Eos % (Auto) 4.7 % Baso % (Auto) 0.4 % Neut # (Auto) 5.36 (1.4-6.5) K/uL Lymph # (Auto) 1.20 (1.2-3.4) K/uL Mcclain # (Auto) 0.53 (0.24-0.82) K/uL Eos # (Auto) 0.35 (0-0.50) K/uL Baso # (Auto) 0.03 (0-0.2) K/uL Immature Gran # (Auto) 0.02 (0.00-0.02) K/uL Sodium 143 (136-145) mmol/L Potassium 3.6 (3.5-5.1) mmol/L Chloride 107 (98-107) mmol/L Carbon Dioxide 27 (21-32) mmol/L Anion Gap 9 (3-11) BUN 15 (6-23) mg/dl Creatinine 0.86 (0.6-1.2) mg/dl Est Cr Clr Drug Dosing 61.4 ml/min Est GFR ( Amer) 72.4 ml/min Est GFR (Non-Af Amer) 62.5 ml/min BUN/Creatinine Ratio 17.4 (10-20) Glucose 132 H (70-99(Fasting)) mg/dl Calcium 9.1 (8.5-10.1) mg/dl Phosphorus 3.2 (2.5-4.9) mg/dl Magnesium 1.7 (1.7-2.4) mg/dl Total Bilirubin 0.3 (0.2-1.0) mg/dl AST 12 L (13-39) U/L ALT 8 (7-52) U/L Alkaline Phosphatase 139 H (34-104) U/L Troponin I High Sens 13.9 D (0-14) pg/ml B-Natriuretic Peptide 127 H (0-100) pg/ml Total Protein 6.4 (6.0-8.3) gm/dl Albumin 3.9 (3.4-5.0) gm/dl Globulin 2.5 (2.5-4.0) gm/dl Albumin/Globulin Ratio 1.6 (0.9-2) Lipase 26 (11-82) U/L Procalcitonin (0-0.5) ng/ml SARS-CoV-2, RNA, NAAT (NEGATIVE) 04/28/22 04/28/22 Range/Units 20:30 20:30 WBC (4.8-10.8) K/ul RBC (3.93-5.22) M/uL Hgb (12.0-16.0) g/dl Hct (34.1-44.9) % MCV (80.0-100.0) fL MCH (25.0-34.0) pg MCHC (32.0-36.0) g/dL RDW Std Deviation (36.4-46.3) fL RDW Coeff of Suzette (11.5-14.5) % Plt Count (130-400) K/uL MPV (9.4-12.3) fL Immature Gran % (Auto) % Neut % (Auto) % Lymph % (Auto) % Mcclain % (Auto) % Eos % (Auto) % Baso % (Auto) % Neut # (Auto) (1.4-6.5) K/uL Lymph # (Auto) (1.2-3.4) K/uL Mcclain # (Auto) (0.24-0.82) K/uL Eos # (Auto) (0-0.50) K/uL Baso # (Auto) (0-0.2) K/uL Immature Gran # (Auto) (0.00-0.02) K/uL Sodium (136-145) mmol/L Potassium (3.5-5.1) mmol/L Chloride (98-107) mmol/L Carbon Dioxide (21-32) mmol/L Anion Gap (3-11) BUN (6-23) mg/dl Creatinine (0.6-1.2) mg/dl Est Cr Clr Drug Dosing ml/min Est GFR ( Amer) ml/min Est GFR (Non-Af Amer) ml/min BUN/Creatinine Ratio (10-20) Glucose (70-99(Fasting)) mg/dl Calcium (8.5-10.1) mg/dl Phosphorus (2.5-4.9) mg/dl Magnesium (1.7-2.4) mg/dl Total Bilirubin (0.2-1.0) mg/dl AST (13-39) U/L ALT (7-52) U/L Alkaline Phosphatase (34-104) U/L Troponin I High Sens (0-14) pg/ml B-Natriuretic Peptide (0-100) pg/ml Total Protein (6.0-8.3) gm/dl Albumin (3.4-5.0) gm/dl Globulin (2.5-4.0) gm/dl Albumin/Globulin Ratio (0.9-2) Lipase (11-82) U/L Procalcitonin < 0.05 (0-0.5) ng/ml SARS-CoV-2, RNA, NAAT NEGATIVE (NEGATIVE) Administered Medications Discontinued Medications Acetaminophen (Acetaminophen 500 Mg Tab) 1,000 mg PO NOW STA Stop: 04/29/22 01:12 Last Admin: 04/29/22 01:14 Dose: 1,000 mg Documented By: FOSTER Furosemide (Furosemide 40 Mg/4 Ml Vial) 40 mg IV NOW STA Stop: 04/28/22 22:19 Last Admin: 04/28/22 22:27 Dose: 40 mg Documented By: FOSTER Cefazolin Sodium (Ancef 2000mg) 2,000 mg in 15 mls @ 3.75 mls/min IV NOW STA Stop: 04/29/22 01:15 Last Admin: 04/29/22 01:30 Dose: 3.75 mls/min Documented By: FOSTER Imaging Data My Impression: CXR: Mild prominence of pulmonary vasculature no focal infiltrates per my preliminary review. Radiologist's Impression: STATRAD Preliminary Findings Only See Final Report For Complete Findings US VENOUS BILATERAL LOWER EXTREMITIES: No prior exam for comparison. No ultrasonographic evidence of deep venous thrombosis involving the bilateral lower extremities. Radiologist: Kelly Powell MD Study ready at 00:49 and initial results transmitted at 01:48 Discharge Plan Visit Data Chief Complaint: Leg Injury/Pain Stated Complaint: leg pain ED Provider: John Dacosta Discharge Problem: Edema due to hypervolemia, Bilateral cellulitis of lower leg, Ambulatory dysfunction Forms Stand Alone Forms: [facility] Reactivity Prescriptions Prescriptions: No Action fluticasone propionate 50 mcg/actuation spray,suspension See Rx Instructions intranasal DAILY Qty: 15.8 5RF Rx Instructions: 2 sprays each nostril daily for 3 weeks then 1 spray each nostril daily levothyroxine 125 mcg tablet 125 mcg PO DAILY Qty: 90 nitroglycerin 0.4 mg tablet, sublingual 0.4 mg SL .PRN/UD Rx Instructions: NEEDED FOR CHEST PAIN : ONE TABLET UNDER THE TONGUE EVERY 5 MINUTES UP TO THREE DOSES. omeprazole 40 mg capsule,delayed release(DR/EC) 40 mg PO DAILY Qty: 90 potassium chloride 20 mEq tablet extended release 20 meq PO DAILY PRN (Reason: . WITH FUROSEMIDE) Qty: 90 Rx Instructions: TAKE THIS MED WHEN TAKING FUROSEMIDE. carvedilol 6.25 mg tablet 6.25 mg PO BIDM metformin 500 mg tablet 250 mg PO BID Qty: 90 Rx Instructions: 1/2 TABLET DOSE furosemide 40 mg tablet 40 mg PO DAILY coenzyme Q10 [Co Q-10] 200 mg capsule 200 mg PO DAILY cranberry extract 50 mg Tablet,Chewable 0 mg PO BID aspirin 81 mg Tablet,Delayed Release (Dr/Ec) 81 mg PO DAILY acetaminophen 325 mg Tablet 1,300 mg PO BID Qty: 30 0RF ezetimibe 10 mg Tablet 10 mg PO QAM Qty: 20 0RF atorvastatin 40 mg tablet 40 mg PO DAILY Qty: 30 0RF Saccharomyces boulardii 250 mg Capsule 250 mg PO DAILY magnesium glycinate 100 mg Tablet 100 mg PO [id number] Rx Instructions: TAKES MON, WED, & FRI. Referrals Referrals: Kavon Ni [Primary Care Provider] -
--- NOTE | 2022-04-29 02:01 | History & Physical Report ---
Date of Service April 29, 2022 Assessment & Plan (1) Edema: Plan: 82yo female with history of CAD s/p NSTEMI in 07/2018 with DESMOND placed to OM-1, ICM with mildly reduced EF, HTN, HLP, DM and Hypothyroidism presenting with progressive bilateral LE edema, ambulatory dysfunction. Ddx to include CHF, hypothyroid. Redness on bilateral LE more resembles venous stasis dermatitis rather than cellulitis. Patient presently with no clinical signs or symptoms of infection. -Observation to medical -Lasix 40mg IV BID -BMP BID to assess electrolytes and renal function -Monitor I/Os -Monitor daily weights -Check TSH -Consider echo -Freeman area of redness on bilateral LE - low threshold to start antibiotics (2) CAD (coronary artery disease): Plan: History of NSTEMI s/p stent placement -Continue ASA -Continue Atorvastatin -Continue Carvedilol (3) Cardiomyopathy, ischemic: Plan: Patient with edema, possibly acute decompensated CHF -Lasix as above -Monitor weights, I/Os and BMP -Continue Carvedilol (4) Diabetes mellitus: Plan: Chronic. -Hold oral agents -Lantus 5u BID with ISS (5) Dyslipidemia: Plan: Chronic -Continue Atorvastatin -Continue Zetia (6) Esophageal reflux: Plan: Chronic. Stable -Continue Omeprazole (7) Hypertension: Plan: Chronic. Stable. Blood pressure adequately controlled at present -Continue Carvedilol -Monitor (8) Hypothyroidism: Plan: Chronic -Check TSH -Continue Synthroid History of Present Illness Chief Complaint: bilateral LE edema, ambulatory dysfunction Primary Care Provider: Kavon Ni Marlena Daley is an 82yo female with history of CAD s/p NSTEMI in July 2018 s/p placement of DESMOND x 1 to OM-1, HTN, HLP, DM, Hypothyroidism and CHF. Patient was recently admitted to [facility] 03/16/22 - 03/20/22 following a syncopal event. She was found to be in complete heart block. She had placement of transvenous pacer with subsequent placement of dual chamber Med[employer]onic permanent pacer. Patient presents to the ER today with complaint of 2 weeks of progressive bilateral LE edema and heaviness. She feels that she gets a lot of salt in her meals at [facility]. She reports weight gain of approximately 13# since mid- March. She took an additional 20 mg of PO Lasix on two days this week (60mg rather than her usual 40mg) with no improvement in LE edema. She denies chest pain, palpitations, SOB or orthopnea but states that it has been difficult to ambulate because her legs are heavy and swollen. She developed redness of her bilateral legs yesterday. No fever, chills, nausea, vomiting, diarrhea or constipation. No additional complaints at this time. She does report some mild left sided chest soreness yesterday which occurred at rest. Presently no discomfort. In the ER she is afebrile, HD stable, NAD. Lasix 40mg IV given with increased UOP. Pure-wick catheter placed, >1L of UOP thus far Allergies Allergy/AdvReac Type Severity Reaction Status Date / Time amlodipine Allergy Intermediate DIZZINESS Verified 03/16/22 17:11 epinephrine AdvReac Intermediate RAPID Verified 03/16/22 17:11 HEART RATE AND RESPIRATIONS Home Medications Medication Instructions Recorded Confirmed Type carvedilol 6.25 mg tablet 6.25 mg PO BIDM 06/14/19 04/28/22 History levothyroxine 125 mcg tablet 125 mcg PO DAILY #90 tabs 06/14/19 04/28/22 History nitroglycerin 0.4 mg sublingual 0.4 mg sublingual .PRN/UD 06/14/19 04/28/22 History tablet omeprazole 40 mg capsule,delayed 40 mg PO DAILY #90 caps 06/14/19 04/28/22 History release potassium chloride 20 mEq 20 meq PO DAILY PRN . WITH 06/14/19 04/28/22 History tablet,extended release FUROSEMIDE #90 tabs metformin 500 mg tablet 250 mg PO BID #90 tabs 07/11/19 04/28/22 History cranberry extract 50 mg chewable 0 mg PO BID 06/10/20 04/28/22 History tablet coenzyme Q10 200 mg capsule (Co 200 mg PO DAILY 06/20/21 04/28/22 History Q-10) furosemide 40 mg tablet 40 mg PO DAILY 06/20/21 04/28/22 History fluticasone propionate 50 See Rx Instructions intranasal 10/06/21 04/28/22 Rx mcg/actuation nasal DAILY #15.8 mL spray,suspension aspirin 81 mg tablet,delayed 81 mg PO DAILY 06/13/22 07/26/22 History release acetaminophen 325 mg tablet 1,300 mg PO BID #30 tabs 03/20/22 04/28/22 Rx atorvastatin 40 mg tablet 40 mg PO DAILY #30 tabs 03/20/22 04/28/22 Rx ezetimibe 10 mg tablet 10 mg PO QAM #20 tabs 03/20/22 04/28/22 Rx Saccharomyces boulardii 250 mg 250 mg PO DAILY 04/28/22 04/28/22 History capsule magnesium glycinate 100 mg tablet 100 mg PO 3XWK 04/28/22 04/28/22 History Past Med/Surg History Medical History CAD (coronary artery disease) Diabetes Hyperlipidemia Hypertension Hypothyroidism Morbid obesity PNA (pneumonia) Surgical History H/O cosmetic surgery lipectomy- left chest/abdomen History of cholecystectomy History of eye surgery History of laminectomy History of parathyroidectomy History of surgical removal of lesion excision of lesion chest wall- Dr. Shai Adams S/P bilateral salpingo-oophorectomy S/P cholecystectomy S/P coronary artery stent placement cath stent 1 proximal right coronary artery, cath stent 2 first obtuse marginal branch S/P parathyroidectomy 4 removed and 2 were replaced S/P total abdominal hysterectomy Status post replacement of left shoulder joint Status post right hip replacement Family History Mother Cancer patient not sure if mother had clear cell carcinoma of uterus or ovary. Pt also stated it may have been clear cell carcinoma of here stomach Hypothyroidism Hearing loss Family/Other Diabetes Ovarian cancer Tuberculosis Uterine cancer Hypertension Father Nephrolithiasis Heart disease Brother Stroke Leukemia Bleeding disorder patient did not state what bleeding disorder specifically Other No family history of adverse response to anesthesia Denies family history of Prostate cancer Breast cancer Social History Smoking Status: Never smoker Second Hand Exposure: No; Hx Alcohol Use: No Hx Substance Use: No Preferred Language: [place] Communication Ability: Effective Critical Care Transport Nurse Required: No Beliefs That Will Affect Care: None marital status: / Current Living Situation: Alone current occupational status: retired Feels Safe at Home: Yes Assistive Devices: Scooter/Electric Scooter, Walker and Wheelchair Review of Systems Review of Systems: All systems reviewed & are unremarkable except as noted in HPI & below Physical Exam Physical Exam: General: patient resting comfortably, NAD, non-toxic in appearance, AA&O x 4 Skin: warm, dry, intact HEENT: NC/AT, PERRL, EOMI, anicteric sclera, conjunctiva without injection, external ear normal to inspection and nontender, nares patent, moist mucus membranes, dentition intact, no oropharyngeal lesions, neck supple, trachea midline, no LAD, no thyromegaly, no JVD Heart: +S1/S2, regular, 3/6 [place] at LSB, no rubs/gallops Lungs: equal air entry bilaterally, no rales/rhonchi/wheezes Abd: +BS, soft, NT/ND, no masses/organomegaly/ascites Ext: warm, 2+ pulses in UE/LE bilaterally, no clubbing/cyanosis, 2+ pitting edema of bilateral LE with redness to anterior shins, some weeping and dermatitis Neuro: nonfocal, patient AA&O x 4, speech intact, no facial droop, moving all extremities on command with equal strength 5/5 Results & Data Results & Data ([facility]) Vital Signs (Past 12 Hours) Vital Signs Temp Pulse Resp BP Pulse Ox O2 Del Method 04/29/22 00:00 87 16 139/75 92 Room Air 04/28/22 23:00 87 24 144/85 H 92 Room Air 04/28/22 22:00 86 26 H 153/81 H 93 Room Air 04/28/22 21:01 91 H 17 127/85 93 Room Air 04/28/22 20:34 93 H 25 H 159/88 H 95 Room Air 04/28/22 20:29 37.0 C 97 H 20 155/109 H 97 Room Air Laboratory Results Laboratory Results WBC 7.49 K/ul (4.8-10.8) 04/28/22 20:30 RBC 4.09 M/uL (3.93-5.22) 04/28/22 20:30 Hgb 13.1 g/dl (12.0-16.0) 04/28/22 20:30 Hct 39.8 % (34.1-44.9) 04/28/22 20:30 MCV 97.3 fL (80.0-100.0) 04/28/22 20: MCH 32.0 pg (25.0-34.0) 04/28/22: MCHC 32.9 g/dL (32.0-36.0) 04/28/22: RDW Std Deviation 50.5 fL (36.4-46.3) H 04/28/22: RDW Coeff of Suzette 14.1 % (11.5-14.5) 04/28/22: Plt Count 220 K/uL (130-400) 04/28/22: MPV 9.4 fL (9.4-12.3) 04/28/22: Immature Gran % (Auto) 0.3 % 04/28/22:30 Neut % (Auto) 71.5 % 04/28/22 20: Lymph % (Auto) 16.0 % 04/28/22: [place] % (Auto) 7.1 % 04/28/22: Eos % (Auto) 4.7 % 04/28/22: Baso % (Auto) 0.4 % 04/28/22:30 Neut # (Auto) 5.36 K/uL (1.4-6.5) 04/28/22 20:30 Lymph # (Auto) 1.20 K/uL (1.2-3.4) 04/28/22 20:30 [place] # (Auto) 0.53 K/uL (0.24-0.82) 04/28/22 20:30 Eos # (Auto) 0.35 K/uL (0-0.50) 04/28/22 20:30 Baso # (Auto) 0.03 K/uL (0-0.2) 04/28/22: Immature Gran # (Auto) 0.02 K/uL (0.00-0.02) 04/28/22 20:30 Sodium 143 mmol/L (136-145) 04/28/22 20:30 Potassium 3.6 mmol/L (3.5-5.1) 04/28/22 20:30 Chloride 107 mmol/L (98-107) 07/26/22 20:30 Carbon Dioxide 27 mmol/L (21-32) 04/28/22 20:30 Anion Gap 9 (3-11) 04/28/22 20:30 BUN 15 mg/dl (6-23) 04/28/22 20:30 Creatinine 0.86 mg/dl (0.6-1.2) 04/28/22 20:30 Est Cr Clr Drug Dosing 61.4 ml/min 04/28/22 20:30 Est GFR ( Amer) 72.4 ml/min 04/28/22 20:30 Est GFR (Non-Af Amer) 62.5 ml/min 04/28/22 20:30 BUN/Creatinine Ratio 17.4 (10-20) 04/28/22 20:30 Glucose 132 mg/dl (70-99(Fasting)) H 04/28/22 20:30 Calcium 9.1 mg/dl (8.5-10.1) 04/28/22 20: Phosphorus 3.2 mg/dl (2.5-4.9) 04/28/22 20: Magnesium 1.7 mg/dl (1.7-2.4) 04/28/22 20:30 Total Bilirubin 0.3 mg/dl (0.2-1.0) 04/28/22 20:30 AST 12 U/L (13-39) L 04/28/22 20:30 ALT 8 U/L (7-52) 04/28/22 20:30 Alkaline Phosphatase 139 U/L (34-104) H 04/28/22 20:30 Troponin I High Sens 13.9 pg/ml (0-14) D 04/28/22 20: B-Natriuretic Peptide 127 pg/ml (0-100) H 04/28/22 20:30 Total Protein 6.4 gm/dl (6.0-8.3) 04/28/22 20:30 Albumin 3.9 gm/dl (3.4-5.0) 04/28/22 20: Globulin 2.5 gm/dl (2.5-4.0) 04/28/22 20:30 Albumin/Globulin Ratio 1.6 (0.9-2) 04/28/22 20: Lipase 26 U/L (11-82) 04/28/22 20: Procalcitonin < 0.05 ng/ml (0-0.5) 04/28/22 20:30 SARS-CoV-2, RNA, NAAT NEGATIVE (NEGATIVE) 04/28/22 20:30 Diagnostic Findings Venous Doppler Study - per STAT rad - No radiographic evidence of DVT ECG Additional Comments: EKG with SR at 93 with 1st degree AV block, WF=126, MSN=289, UFw=461, left axis deviation, RBBB present PG Care Time/CCT Total # of Minutes Spent Total Time Spent with Patient: Total time spent is greater than 50% in coordination of care (as documented) at patient's floor/unit and/or counseling patient: Coding Level of Care Code INT OBSERVATION CARE 70M LVL 3 Diagnoses Edema R60.9 CAD (coronary artery disease) I25.10 Cardiomyopathy, ischemic I25.5 Diabetes mellitus E11.9 Dyslipidemia E78.5 Esophageal reflux K21.9 Hypertension I10 Hypothyroidism E03.9
[2022-04-29] MEDS ORDERED: DEXTROSE 50% 50 ML SYRINGE IV PRN (05:15)
[2022-04-29] MEDS ORDERED: GLUCAGON FOR INJ 1 MG VIAL SQ PRN (05:15)
[2022-04-29] MEDS ORDERED: ONDANSETRON INJ 2 MG/ML 2 ML VIAL IV PRN (05:15)
[2022-04-29] MEDS ORDERED: GLUCOSE 40% GEL 15 GM TUBE PO PRN (05:15)
[2022-04-29] MEDS ORDERED: CARBOHYDRATES FOR HYPOGLYCEMIA PO PRN (05:15)
[2022-04-29] MEDS ORDERED: GLUCOSE 10 TAB/TUBE PO PRN (05:15)
[2022-04-29] MEDS: LEVOTHYROXINE SODIUM 125 MCG TABLET PO SCH (06:53)
--- NOTE | 2022-04-29 07:09 | Ultrasound Report ---
BILATERAL LOWER EXTREMITY VENOUS DOPPLER HISTORY: Bilateral lower extremity edema, pain COMPARISON STUDY: None. FINDINGS: There is normal compressibility, flow, and augmentation within the bilateral lower extremit y deep venous systems. IMPRESSION: No DVT within the right or left lower extremity. ACT 112: Negative or not required by law. Electronically signed by: Shalom Garcias M.D. 04/29/2022 7:08 AM
--- NOTE | 2022-04-29 07:09 | XRay Report ---
XR chest 1V portable CLINICAL HISTORY: Atypical chest pain. Bilateral leg swelling. COMPARISON STUDY: Chest radiograph March 18, 2022. FINDINGS: Dual lead left subclavian pacemaker and reverse total left shoulder arthroplasty are noted. There is no pneumothorax or pleural effusion. No evidence for pulmonary edema. Cardiomediastinal erma houette is stable. Lung volumes are mildly diminished, unchanged. No consolidation is identified. IMPRESSION: No acute cardiopulmonary findings. ACT 112: Negative or not required by law. Electronically signed by: Jhonny Rankin M.D. 04/29/2022 7:08 AM
[2022-04-29] MEDS ORDERED: LANTUS PER UNIT CHARGE SQ SCH (09:00)
[2022-04-29] MEDS: ACETAMINOPHEN 325 MG TAB PO SCH ×2 (09:01→21:22)
[2022-04-29] MEDS: carvediloL 6.25 MG TAB PO SCH ×2 (09:01→18:14)
[2022-04-29] MEDS: ASPIRIN 81 MG ECTAB PO SCH (09:02)
[2022-04-29] MEDS: EZETIMIBE 10 MG TABLET PO SCH (09:03)
[2022-04-29] MEDS: ATORVASTATIN 40 MG TAB PO SCH (09:03)
[2022-04-29] MEDS: FLUTICASONE PROPIONATE NA SPR 16 GM BTL SCH (09:03)
[2022-04-29] MEDS: PANTOprazole 40 MG TAB PO SCH (09:04)
[2022-04-29] MEDS: FUROSEMIDE 40 MG/4 ML VIAL IV SCH ×2 (09:04→18:20)
[2022-04-29] MEDS: INSULIN ASPART PER UNIT SC SCH ×4 (09:14→21:08)
--- NOTE | 2022-04-29 13:55 | Electrocardiogram Report ---
Test Reason : Blood Pressure : / mmHG Vent. Rate : 093 BPM Atrial Rate : 093 BPM P-R Int : 220 ms QRS Dur : 142 ms QT Int : 374 ms P-R-T Axes : 055 -73 107 degrees QTc Int : 465 ms Poor data quality, interpretation may be adversely affected Sinus rhythm with 1st degree A-V block Left axis deviation Right bundle branch block Inferior infarct (cited on or before 18-MAR-2022) T wave abnormality, consider lateral ischemia Abnormal ECG When compared with ECG of 18-MAR-2022 09:52, T wave inversion no longer evident in Inferior leads Confirmed by Roberto Nunez ([id number]) on 04/29/2022 1:54:55 PM Referred By: REFERRED SELF Confirmed By:Roberto Nunez
[2022-04-29 14:22] LABS: Basophils # (auto) 0.02 K/uL (0-0.2); Basophils % (auto) 0.3 %; Eosinophils # (auto) 0.35 K/uL (0-0.50); Eosinophils % (auto) 5.1 %; Hematocrit (blood only) 38.3 % (34.1-44.9); Hemoglobin 12.6 g/dl (12.0-16.0); Immature Granulocytes # (auto) 0.02 K/uL (0.00-0.02); Immature Granulocytes % (auto) 0.3 %; Lymphocytes # (auto) 1.16 K/uL (1.2-3.4); Mean Corpuscular Hemoglobin 32.1 pg (25.0-34.0); Mean Corpuscular Hgb Conc 32.9 g/dL (32.0-36.0); Mean Corpuscular Volume 97.7 fL (80.0-100.0); Mean Platelet Volume 8.9 fL (9.4-12.3); Monocytes # (auto) 0.54 K/uL (0.24-0.82); Monocytes % (auto) 7.9 %; Neutrophils # (auto) 4.74 K/uL (1.4-6.5); Neutrophils % (auto) 69.4 %; Platelet Count 193 K/uL (130-400); RDW Coefficient of Variation 14.2 % (11.5-14.5); RDW Standard Deviation 51.2 fL (36.4-46.3); Red Blood Count 3.92 M/uL (3.93-5.22); White Blood Count 6.83 K/ul (4.8-10.8)
--- NOTE | 2022-04-29 14:38 | Communication Note ---
Date of Service: April 29, 2022 Patient seen and examined the same day of admission therefore I will not be billing for this encounter. Hypervolemic status is mainly right sided. Chest is clear and CXR normal. Suspect underlying KELLY - she reports her nurses noted hypoxia on monitor in ER when she slept. Will continue diuresis pending bump in Cr. TTE ordered. UA and protein/Cr ratio to assess renal function.
[2022-04-29 14:56] LABS: BUN Creatinine Ratio 16.3 (10-20); Calcium 8.2 mg/dl (8.5-10.1); Creatinine Clr Calc Pharmacy 61.4 ml/min; Est GFR (African American) 72.4 ml/min; Est GFR (Non-African American) 62.5 ml/min; Potassium 3.6 mmol/L (3.5-5.1)
--- NOTE | 2022-04-29 19:14 | XCELERA ---
[id number]
[2022-04-29] MEDS: metFORMIN HCL 500 MG TAB PO SCH (19:36)
[2022-04-29 19:49] LABS: Appearance Urine Clear (Clear); Bacteria Urine Automated 1+ (Negative); Bilirubin Urine Negative (Negative); Blood Urine Negative (Negative); Color Urine Yellow; Epithelial Cell Urine Auto 20-30 /lpf (0-5); Glucose Urine UA Negative (Negative); Ketones Urine Negative (Negative); Leukocyte Esterase Urine 2+ (Negative); Nitrite Urine Negative (Negative); Protein Urine Negative (Negative); RBC Urine Automated 0-4 /hpf (0-4); Specific Gravity Urine 1.011 (1.000-1.030); Urobilinogen Urine Negative (Negative); pH Urine 6.5 (4.5-7.5)
[2022-04-29 20:10] LABS: Creatinine Urine Random 48.6 mg/dl; Protein Creatinine Ratio Urine 0.1 (0-0.2); Total Protein Urine Random 5.5 mg/dl (0-11.9)
[2022-04-30] MEDS: LEVOTHYROXINE SODIUM 125 MCG TABLET PO SCH (05:33)
[2022-04-30 08:28] LABS: Basophils # (auto) 0.03 K/uL (0-0.2); Basophils % (auto) 0.4 %; Eosinophils # (auto) 0.32 K/uL (0-0.50); Eosinophils % (auto) 4.7 %; Hemoglobin 12.6 g/dl (12.0-16.0); Immature Granulocytes # (auto) 0.02 K/uL (0.00-0.02); Immature Granulocytes % (auto) 0.3 %; Lymphocytes # (auto) 1.18 K/uL (1.2-3.4); Lymphocytes % (auto) 17.3 %; Mean Corpuscular Hgb Conc 33.2 g/dL (32.0-36.0); Mean Corpuscular Volume 96.4 fL (80.0-100.0); Mean Platelet Volume 9.2 fL (9.4-12.3); Monocytes # (auto) 0.53 K/uL (0.24-0.82); Monocytes % (auto) 7.8 %; Neutrophils # (auto) 4.74 K/uL (1.4-6.5); Neutrophils % (auto) 69.5 %; Platelet Count 185 K/uL (130-400); Red Blood Count 3.94 M/uL (3.93-5.22); White Blood Count 6.82 K/ul (4.8-10.8)
[2022-04-30] MEDS: INSULIN ASPART PER UNIT SC SCH ×4 (08:34→20:30)
[2022-04-30] MEDS: metFORMIN HCL 500 MG TAB PO SCH ×2 (08:36→16:39)
[2022-04-30] MEDS: PANTOprazole 40 MG TAB PO SCH (08:39)
[2022-04-30] MEDS: carvediloL 6.25 MG TAB PO SCH ×2 (08:39→17:35)
[2022-04-30] MEDS: EZETIMIBE 10 MG TABLET PO SCH (08:39)
[2022-04-30] MEDS: ATORVASTATIN 40 MG TAB PO SCH (08:40)
[2022-04-30] MEDS: ASPIRIN 81 MG ECTAB PO SCH (08:40)
[2022-04-30] MEDS: FLUTICASONE PROPIONATE NA SPR 16 GM BTL SCH (08:41)
[2022-04-30] MEDS: ACETAMINOPHEN 325 MG TAB PO SCH ×2 (08:43→20:29)
[2022-04-30 09:17] LABS: BUN Creatinine Ratio 22.8 (10-20); Calcium 8.3 mg/dl (8.5-10.1); Creatinine Clr Calc Pharmacy 65.8 ml/min; Est GFR (African American) 80.2 ml/min; Est GFR (Non-African American) 69.2 ml/min; Magnesium 1.7 mg/dl (1.7-2.4); Potassium 3.4 mmol/L (3.5-5.1)
[2022-04-30] MEDS: FUROSEMIDE 40 MG/4 ML VIAL IV SCH ×2 (09:57→16:34)
--- NOTE | 2022-04-30 18:04 | Hospitalist Progress Note ---
Date of Service April 30, 2022 Assessment & Plan (1) Edema: Plan: 82yo female with history of CAD s/p NSTEMI in 07/2018 with DESMOND placed to OM-1, ICM with mildly reduced EF, HTN, HLP, DM and Hypothyroidism presenting with progressive bilateral LE edema, ambulatory dysfunction. Ddx to include CHF, hypothyroid. Redness on bilateral LE more resembles venous stasis dermatitis rather than cellulitis. Patient presently with no clinical signs or symptoms of infection. -Observation to medical -improving with Lasix 40mg IV BID -BMP BID to assess electrolytes and renal function -Monitor I/Os -Monitor daily weights -TSH: normal range -Consider echo: normal EF. -Freeman area of redness on bilateral LE - low threshold to start antibiotics holding antibiotics for now. (2) CAD (coronary artery disease): Plan: History of NSTEMI s/p stent placement -Continue ASA -Continue Atorvastatin -Continue Carvedilol (3) Cardiomyopathy, ischemic: Plan: Patient with edema, possibly acute decompensated CHF -Lasix as above -Monitor weights, I/Os and BMP -Continue Carvedilol (4) Diabetes mellitus: Plan: Chronic. -Hold oral agents -Lantus 5u BID with ISS (5) Dyslipidemia: Plan: Chronic -Continue Atorvastatin -Continue Zetia (6) Esophageal reflux: Plan: Chronic. Stable -Continue Omeprazole (7) Hypertension: Plan: Chronic. Stable. Blood pressure adequately controlled at present -Continue Carvedilol -Monitor (8) Hypothyroidism: Plan: Chronic -Check TSH -Continue Synthroid Admission and Anticipated Discharge Date Admission Date: April 29, 2022 Subjective 82 yo female reports no new symptoms.\ Currenty denies fever, chills. Review of Systems Review of Systems: All systems reviewed & are unremarkable except as noted in HPI & below Physical Exam Physical Exam: General: patient resting comfortably, NAD, non-toxic in appearance, AA&O x 4 Skin: warm, dry, intact HEENT: NC/AT, PERRL, EOMI, anicteric sclera, conjunctiva without injection, external ear normal to inspection and nontender, nares patent, moist mucus membranes, dentition intact, no oropharyngeal lesions, neck supple, trachea mid line, no LAD, no thyromegaly, no JVD Heart: +S1/S2, regular, 3/6 [place] at LSB, no rubs/gallops Lungs: equal air entry bilaterally, no rales/rhonchi/wheezes Abd: +BS, soft, NT/ND, no masses/organomegaly/ascites Ext: warm, 2+ pulses in UE/LE bilaterally, no clubbing/cyanosis, 2+ pitting edema of bilateral LE with redness to anterior shins, some weeping and dermatitis Neuro: nonfocal, patient AA&O x 4, speech intact, no facial droop, moving all extremities on command with equal strength 5/5 Results & Data Results & Data ([facility]) Vital Signs (Past 12 Hours) Vital Signs Temp Pulse Resp BP Pulse Ox O2 Del Method 04/30/22 15:14 36.6 C 69 17 133/79 94 Room Air 04/30/22 07:43 36.7 C 69 18 142/88 H 91 Room Air PG Care Time/CCT Total # of Minutes Spent Total Time Spent with Patient: Total time spent is greater than 50% in coordination of care (as documented) at patient's floor/unit and/or counseling patient: Coding Level of Care Code 40867 Subseq Obs Care Lvl 3 Diagnoses Edema R60.9 CAD (coronary artery disease) I25.10 Cardiomyopathy, ischemic I25.5 Diabetes mellitus E11.9 Dyslipidemia E78.5 Esophageal reflux K21.9 Hypertension I10 Hypothyroidism E03.9 Time Spent (min) 35
[2022-04-30] MEDS ORDERED: POTASSIUM CHLORIDE CRTAB 20 MEQ TABCR PO STA (21:16)
[2022-05-01] MEDS: MELATONIN 3 MG TAB PO PRN ×2 (02:10→21:18)
[2022-05-01] MEDS: LEVOTHYROXINE SODIUM 125 MCG TABLET PO SCH (05:57)
[2022-05-01] MEDS: metFORMIN HCL 500 MG TAB PO SCH ×2 (09:38→17:47)
[2022-05-01] MEDS: carvediloL 6.25 MG TAB PO SCH ×2 (09:39→17:47)
[2022-05-01] MEDS: EZETIMIBE 10 MG TABLET PO SCH (09:39)
[2022-05-01] MEDS: ASPIRIN 81 MG ECTAB PO SCH (09:39)
[2022-05-01] MEDS: PANTOprazole 40 MG TAB PO SCH (09:39)
[2022-05-01] MEDS: ATORVASTATIN 40 MG TAB PO SCH (09:39)
[2022-05-01] MEDS: FLUTICASONE PROPIONATE NA SPR 16 GM BTL SCH (09:40)
[2022-05-01] MEDS: ACETAMINOPHEN 325 MG TAB PO SCH ×2 (09:44→21:18)
[2022-05-01] MEDS: INSULIN ASPART PER UNIT SC SCH ×4 (09:45→21:18)
[2022-05-01 10:38] LABS: Hemoglobin 12.6 g/dl (12.0-16.0); Mean Corpuscular Hemoglobin 32.1 pg (25.0-34.0); Mean Corpuscular Hgb Conc 33.2 g/dL (32.0-36.0); Mean Corpuscular Volume 96.9 fL (80.0-100.0); Mean Platelet Volume 9.2 fL (9.4-12.3); Platelet Count 181 K/uL (130-400); RDW Coefficient of Variation 13.9 % (11.5-14.5); RDW Standard Deviation 49.8 fL (36.4-46.3); Red Blood Count 3.92 M/uL (3.93-5.22); White Blood Count 7.01 K/ul (4.8-10.8)
[2022-05-01 11:04] LABS: BUN Creatinine Ratio 24.2 (10-20); Calcium 8.7 mg/dl (8.5-10.1); Creatinine Clr Calc Pharmacy 57.7 ml/min; Est GFR (African American) 67.6 ml/min; Est GFR (Non-African American) 58.3 ml/min; Potassium 3.5 mmol/L (3.5-5.1)
[2022-05-01] MEDS ORDERED: FUROSEMIDE 40 MG/4 ML VIAL IV ONE ×2 (11:52→15:15)
--- NOTE | 2022-05-01 16:18 | XRay Report ---
XR chest 2V PA/lateral CLINICAL HISTORY: hypoxia. Evaluate cardiopulmonary status COMPARISON STUDY: 03/29/2022 TECHNIQUE: 2 views of the chest FINDINGS: Frontal and lateral radiographs of the chest demonstrate the cardiomediastinal silhouette to be withi n normal limits. Permanent cardiac pacer is in place. There is again elevation of both hemidiaphragms . The lungs are clear of alveolar opacities. There is no evidence for effusion bilaterally. There is no evidence for vascular congestion. There is no acute osseous pathology. IMPRESSION: 1. No acute cardiopulmonary disease. ACT 112: Negative or not required by law. Electronically signed by: Dev Escobar M.D. 05/01/2022 4:17 PM
--- NOTE | 2022-05-01 21:02 | Hospitalist Progress Note ---
Date of Service May 01, 2022 Assessment & Plan (1) Edema: Plan: 82yo female with history of CAD s/p NSTEMI in 07/2018 with DESMOND placed to OM-1, ICM with mildly reduced EF, HTN, HLP, DM and Hypothyroidism presenting with progressive bilateral LE edema, ambulatory dysfunction. Ddx to include CHF, hypothyroid. Redness on bilateral LE more resembles venous stasis dermatitis rather than cellulitis. Patient presently with no clinical signs or symptoms of infection. -Observation to medical -improving with Lasix 40mg IV BID -tapered to lasix daily. -BMP BID to assess electrolytes and renal function -Monitor I/Os -Monitor daily weights -TSH: normal range -Consider echo: normal EF. -Freeman area of redness on bilateral LE - low threshold to start antibiotics holding antibiotics for now. currently requiring oxygen. will check chest x ray and will order incentive spirometry. this was reviewed and was negative. Likely caused by atelectasis. (2) CAD (coronary artery disease): Plan: History of NSTEMI s/p stent placement -Continue ASA -Continue Atorvastatin -Continue Carvedilol (3) Cardiomyopathy, ischemic: Plan: Patient with edema, possibly acute decompensated CHF -Lasix as above -Monitor weights, I/Os and BMP -Continue Carvedilol (4) Diabetes mellitus: Plan: Chronic. -Hold oral agents -Lantus 5u BID with ISS (5) Dyslipidemia: Plan: Chronic -Continue Atorvastatin -Continue Zetia (6) Esophageal reflux: Plan: Chronic. Stable -Continue Omeprazole (7) Hypertension: Plan: Chronic. Stable. Blood pressure adequately controlled at present -Continue Carvedilol -Monitor (8) Hypothyroidism: Plan: Chronic -Check TSH -Continue Synthroid Admission and Anticipated Discharge Date Admission Date: April 30, 2022 Subjective 82 yo female reports not feeling back to baseline. She is also on oxygen. Review of Systems Review of Systems: All systems reviewed & are unremarkable except as noted in HPI & below Physical Exam Physical Exam: General: patient resting comfortably, NAD, non-toxic in appearance, AA&O x 4 Skin: warm, dry, intact HEENT: NC/AT, PERRL, EOMI, anicteric sclera, conjunctiva without injection, external ear normal to inspection and nontender, nares patent, moist mucus membranes, dentition intact, no oropharyngeal lesions, neck supple, trachea midline, no LAD, no thyromegaly, no JVD Heart: +S1/S2, regular, 3/6 [place] at LSB, no rubs/gallops Lungs: equal air entry bilaterally, no rales/rhonchi/wheezes Abd: +BS, soft, NT/ND, no masses/organomegaly/ascites Ext: warm, 2+ pulses in UE/LE bilaterally, no clubbing/cyanosis, 2+ pitting edema of bilateral LE with redness to anterior shins, some weeping and dermatitis Neuro: nonfocal, patient AA&O x 4, speech intact, no facial droop, moving all extremities on command with equal strength 5/5 Results & Data Results & Data ([facility]) Vital Signs (Past 12 Hours) Vital Signs Temp Pulse Resp BP Pulse Ox O2 Del Method O2 Flow Rate 05/01/22 14:34 36.3 C L 64 18 118/75 92 Nasal Cannula 2 PG Care Time/CCT Total # of Minutes Spent Total Time Spent with Patient: Total time spent is greater than 50% in coordination of care (as documented) at patient's floor/unit and/or counseling patient: Coding Level of Care Code 71282 Subseq Hosp Care Lvl 3 Diagnoses Edema R60.9 CAD (coronary artery disease) I25.10 Cardiomyopathy, ischemic I25.5 Diabetes mellitus E11.9 Dyslipidemia E78.5 Esophageal reflux K21.9 Hypertension I10 Hypothyroidism E03.9 Time Spent (min) 35
[2022-05-02] MEDS: LEVOTHYROXINE SODIUM 125 MCG TABLET PO SCH (05:38)
[2022-05-02 06:36] LABS: BUN Creatinine Ratio 27.7 (10-20); Calcium 8.5 mg/dl (8.5-10.1); Creatinine Clr Calc Pharmacy 50.6 ml/min; Est GFR (African American) 59.6 ml/min; Est GFR (Non-African American) 51.4 ml/min; Potassium 3.6 mmol/L (3.5-5.1)
[2022-05-02] MEDS: ASPIRIN 81 MG ECTAB PO SCH (08:17)
[2022-05-02] MEDS: ACETAMINOPHEN 325 MG TAB PO SCH (08:17)
[2022-05-02] MEDS: EZETIMIBE 10 MG TABLET PO SCH (08:17)
[2022-05-02] MEDS: metFORMIN HCL 500 MG TAB PO SCH (08:17)
[2022-05-02] MEDS: PANTOprazole 40 MG TAB PO SCH (08:18)
[2022-05-02] MEDS: carvediloL 6.25 MG TAB PO SCH (08:18)
[2022-05-02] MEDS: ATORVASTATIN 40 MG TAB PO SCH (08:18)
[2022-05-02] MEDS: FLUTICASONE PROPIONATE NA SPR 16 GM BTL SCH (08:18)
[2022-05-02] MEDS: INSULIN ASPART PER UNIT SC SCH ×2 (08:22→13:02)
[2022-05-02] MEDS ORDERED: BACITRACIN/POLYMYXIN B SULFATE 90 APPLN/28.4 GM TUBE EXT ONE (12:48)
[2022-05-02] MEDS ORDERED: BACITRACIN/POLYMYXIN B SULFATE 90 APPLN/28.4 GM TUBE EXT SCH (21:00)
--- NOTE | 2022-05-03 10:31 | Discharge Summary ---
Date of Service May 02, 2022 Admission HPI Per Admitting Provider Marlena Daley is an 82yo female with history of CAD s/p NSTEMI in July 2018 s/p placement of DESMOND x 1 to OM-1, HTN, HLP, DM, Hypothyroidism and CHF. Patient was recently admitted to [facility] 03/16/22 - 03/20/22 following a syncopal event. She was found to be in complete heart block. She had placement of transvenous pacer with subsequent placement of dual chamber Medtronic permanent pacer. Patient presents to the ER today with complaint of 2 weeks of progressive bilateral LE edema and heaviness. She feels that she gets a lot of salt in her meals at [facility]. She reports weight gain of approximately 13# since mid- March. She took an additional 20 mg of PO Lasix on two days this week (60mg rather than her usual 40mg) with no improvement in LE edema. She denies chest pain, palpitations, SOB or orthopnea but states that it has been difficult to ambulate because her legs are heavy and swollen. She developed redness of her bilateral legs yesterday. No fever, chills, nausea, vomiting, diarrhea or con stipation. No additional complaints at this time. She does report some mild left sided chest soreness yesterday which occurred at rest. Presently no discomfort. In the ER she is afebrile, HD stable, NAD. Lasix 40mg IV given with increased UOP. Pure-wick catheter placed, >1L of UOP thus far Principal Diagnosis edema Discharge Exam General: patient resting comfortably, NAD, non-toxic in appearance, AA&O x 4 Skin: warm, dry, intact HEENT: NC/AT, PERRL, EOMI, anicteric sclera, conjunctiva without injection, external ear normal to inspection and nontender, nares patent, moist mucus membranes, dentition intact, no oropharyngeal lesions, neck supple, trachea midline, no LAD, no thyromegaly, no JVD Heart: +S1/S2, regular, 3/6 AZ at LSB, no rubs/gallops Lungs: equal air entry bilaterally, no rales/rhonchi/wheezes Abd: +BS, soft, NT/ND, no masses/organomegaly/ascites Ext: warm, 2+ pulses in UE/LE bilaterally, no clubbing/cyanosis, edema decreased, redness also decreased. Neuro: nonfocal, patient AA&O x 4, speech intact, no facial droop, moving all extremities on command with equal strength 5/5 Discharge Data Allergies Allergy/AdvReac Type Severity Reaction Status Date / Time amlodipine Allergy Intermediate DIZZINESS Verified 03/16/22 17:11 epinephrine AdvReac Intermediate RAPID Verified 03/16/22 17:11 HEART RATE AND RESPIRATIONS Consultations 04/29/22 01:17 ED Decision to Admit Stat Ordered Studies 04/28/22 21:24 US venous doppler LE Urgent Hospital Course (1) Edema: 82yo female with history of CAD s/p NSTEMI in 07/2018 with DESMOND placed to OM-1, ICM with mildly reduced EF, HTN, HLP, DM and Hypothyroidism presenting with progressive bilateral LE edema, ambulatory dysfunction. Ddx to include CHF, hypothyroid. Redness on bilateral LE more resembles venous stasis dermatitis rather than cellulitis. Patient presently with no clinical signs or symptoms of infection. -Observation to medical -improving with Lasix 40mg IV BID -tapered to lasix daily. -BMP BID to assess electrolytes and renal function -Monitor I/Os -Monitor daily weights -TSH: normal range -Consider echo: normal EF. -Freeman area of redness on bilateral LE - low threshold to start antibiotics Patient did not show signs of cellulitis throughout stay, areas appeared more bruised, but no warmth, redness did not increase, in fact it decrease. will recommend antibiotic ointment to help decrease risk of infection. Patient had 2 step and passed, she did not require oxygen. Recommended home sliding scale for her diuretics. Instructions noted below. (2) CAD (coronary artery disease): History of NSTEMI s/p stent placement -Continue ASA -Continue Atorvastatin -Continue Carvedilol (3) Cardiomyopathy, ischemic: Patient with edema, possibly acute decompensated CHF -Lasix as above -Monitor weights, I/Os and BMP -Continue Carvedilol (4) Diabetes mellitus: Chronic. -Hold oral agents -Lantus 5u BID with ISS (5) Dyslipidemia: Chronic -Continue Atorvastatin -Continue Zetia (6) Esophageal reflux: Chronic. Stable -Continue Omeprazole (7) Hypertension: Chronic. Stable. Blood pressure adequately controlled at present -Continue Carvedilol (8) Hypothyroidism: Chronic -Check TSH -Continue Synthroid Total Time Total Time Spent Total Time Spent (In Minutes): 35 Discharge Plan Discharge Items Patient Disposition: Personal Intermediate Reason For Visit: EDEMA, AMBULATORY DYSFUNCTION Discharge Diagnosis: ambulatory dysfunction Activity: Resume your previous activity Non-emergency contact: Primary Care Provider Call non-emergency contact if: you have any medication questions Follow-up/Referrals: Kavon Ni [Primary Care Provider] - Diet: Carb Consistent or DM2 and Low Sodium (2gm) Addtl Attending Provider Instructions: Recommend a sliding scale with your weight for usage of furosemide. If weight of > 2lbs (1kg) over 2 days, or 5lbs (2.5kg) over a week:then take an additonal dose for 2 days. And reassess and call your provider. If dry weight achieved, return to previous dose, if not continue for 2 more days and then reassess. - daily weight should be recorded & taken first thing in the morning, after emptying the bladder, & without clothes on or similar amount of clothes every day \ Pending Studies at Discharge: No Stand-Alone Forms: My [employer], Smoking Cessation Skilled Items Patient informed of condition?: No DNR: Yes Discharge Level of Care: Skilled Communicable Disease: No Discharge Prognosis: Stable Lines: None Urinary Catheter: No Medications and DC Order Prescriptions: New Polysporin (bacitracin zinc) 500-10,000 unit/gram Ointment In Packet 1 applic EXT BID Qty: 144 0RF Rx Instructions: Apply for about 2 weeks to wound on leg. Continued fluticasone propionate 50 mcg/actuation spray,suspension See Rx Instructions intranasal DAILY Qty: 15.8 5RF Rx Instructions: 2 sprays each nostril daily for 3 weeks then 1 spray each nostril daily levothyroxine 125 mcg tablet 125 mcg PO DAILY Qty: 90 nitroglycerin 0.4 mg tablet, sublingual 0.4 mg SL .PRN/UD Rx Instructions: NEEDED FOR CHEST PAIN : ONE TABLET UNDER THE TONGUE EVERY 5 MINUTES UP TO THREE DOSES. omeprazole 40 mg capsule,delayed release(DR/EC) 40 mg PO DAILY Qty: 90 potassium chloride 20 mEq tablet extended release 20 meq PO DAILY PRN (Reason: . WITH FUROSEMIDE) Qty: 90 Rx Instructions: TAKE THIS MED WHEN TAKING FUROSEMIDE. carvedilol 6.25 mg tablet 6.25 mg PO BIDM metformin 500 mg tablet 250 mg PO BID Qty: 90 Rx Instructions: 1/2 TABLET DOSE furosemide 40 mg tablet 40 mg PO DAILY coenzyme Q10 [Co Q-10] 200 mg capsule 200 mg PO DAILY cranberry extract 50 mg Tablet,Chewable 0 mg PO BID aspirin 81 mg Tablet,Delayed Release (Dr/Ec) 81 mg PO DAILY acetaminophen 325 mg Tablet 1,300 mg PO BID Qty: 30 0RF ezetimibe 10 mg Tablet 10 mg PO QAM Qty: 20 0RF atorvastatin 40 mg tablet 40 mg PO DAILY Qty: 30 0RF Saccharomyces boulardii 250 mg Capsule 250 mg PO DAILY magnesium glycinate 100 mg Tablet 100 mg PO 3XWK Rx Instructions: TAKES MON, WED, & FRI. Discharge Orders: Discharge Order (Routine); Ordered 05/02/22 Ordered By: Varinder Hazel Admission Data Admit Date/Time: 04/30/22 21:19 Attending Provider: Varinder Hazel Admit Provider: Tammy Stanley Primary Care Provider: Kavon Ni Other Providers: Tammy Stanley Other Interventions: Discharge Summary Assessment (RN) Last Done: 05/02/22 15:22 Coding Level of Care Code D/C DAY MANAGEMENT >30 MINS Diagnoses Edema R60.9 CAD (coronary artery disease) I25.10 Cardiomyopathy, ischemic I25.5 Diabetes mellitus E11.9 Dyslipidemia E78.5 Esophageal reflux K21.9 Hypertension I10 Hypothyroidism E03.9
--- NOTE | 2022-05-06 10:28 | Coding Query ---
CODING QUERY To promote full compliance with coding requirements relating to patient care, provider participation is requested in all cases of poured wall foreman uncertainty. Please assist us with the question(s) below: Coding Question(s): Pt admitted with history of 2 weeks bilateral leg edema. IV Lasix 40 mg B.I.D. then daily . Please document, if known or suspected, the etiology of the leg edema. Thanks for your help! Justino Lau [facility] Physician's Response(s): Possibe lymphedema, vs venous stasis. CHF may have played a role as well, however, patient did not appear to be volume overloaded on exam Principal Diagnosis: "that condition established after study, to be chiefly responsible for occasioning the admission of the patient to the hospital for care." Co-Existing Principal Diagnosis: "when two or more diagnoses equally meet the criteria for principal diagnosis as determined by the circumstances of admission, diagnostic work up, and/or therapy provided, and the Alphabetic Index, Tabular List, or another coding guideline does not provide sequencing direction, any one of the diagnoses may be sequenced first." "When the physician has documented what appears to be a current diagnosis in the body of the record, but has not included the diagnosis in the final diagnostic statement, the physician should be asked whether the diagnosis should be added." (Source Coding Clinic 2 QTR90. p3-4) JULIUS
== END 2022-05-02 17:14 | disposition home or self-care (01) | DRG 300 ==
LOC: ED 20:19 → INTOOBSV 04-29 01:59 → SUATTDRO 04-29 01:59 → EDINP 04-29 01:59 → 3N 04-29 05:27

== ENCOUNTER 2023-01-08 19:22 | Observation (INO) ==
--- NOTE | 2023-01-08 19:36 | Emergency Department Note ---
History of Present Illness General Chief Complaint: Chest Pain Time Seen by Provider: 01/08/23 19:25 History of Present Illness Provider Complaint: chest pain Time: 15:15 Duration: improved Onset: during exertion (mixing cake) Pain Location: right chest Pain Radiation: RUE and neck Severity: moderate Maximum Pain Intensity: 7 Current Pain Intensity: 4 Quality: + aching and + dull Relieved By: + rest Exacerbated By: + exertion Context: no recent illness, no recent surgery, no recent immobilization, no recent travel, no trauma/injury or no new medications Associated symptoms: + dyspnea and + cough; no vomiting, no diaphoresis, no palpitations or no fever Treatments prior to arrival: aspirin Patient reports her pain felt like her previous heart attacks as when she had her heart attacks her pain was all on the right side also. Home Medications Medication Instructions Recorded Confirmed Type carvedilol 6.25 mg tablet 6.25 mg PO BIDM 06/14/19 04/28/22 History levothyroxine 125 mcg tablet 125 mcg PO DAILY #90 tabs 06/14/19 04/28/22 History nitroglycerin 0.4 mg sublingual 0.4 mg sublingual .PRN/UD 06/14/19 04/28/22 History tablet omeprazole 40 mg capsule,delayed 40 mg PO DAILY #90 caps 06/14/19 04/28/22 History release potassium chloride 20 mEq 20 meq PO DAILY PRN . WITH 06/14/19 04/28/22 History tablet,extended release FUROSEMIDE #90 tabs metformin 500 mg tablet 250 mg PO BID #90 tabs 07/11/19 04/28/22 History cranberry extract 50 mg chewable 0 mg PO BID 06/10/20 04/28/22 History tablet coenzyme Q10 200 mg capsule (Co 200 mg PO DAILY 06/20/21 04/28/22 History Q-10) furosemide 40 mg tablet 40 mg PO DAILY 06/20/21 04/28/22 History fluticasone propionate 50 See Rx Instructions intranasal 10/06/21 04/28/22 Rx mcg/actuation nasal DAILY #15.8 mL spray,suspension aspirin 81 mg tablet,delayed 81 mg PO DAILY 03/16/22 04/28/22 History release acetaminophen 325 mg tablet 1,300 mg PO BID #30 tabs 03/20/22 04/28/22 Rx atorvastatin 40 mg tablet 40 mg PO DAILY #30 tabs 03/20/22 04/28/22 Rx ezetimibe 10 mg tablet 10 mg PO QAM #20 tabs 03/20/22 04/28/22 Rx Saccharomyces boulardii 250 mg 250 mg PO DAILY 04/28/22 04/28/22 History capsule magnesium glycinate 100 mg tablet 100 mg PO 3XWK 04/28/22 04/28/22 History bacitracin zinc 500 unit-polymyxin 1 applic EXT BID #144 ea 05/02/22 Rx B 10,000 unit/gram top oint packet (Polysporin) Allergies Allergy/AdvReac Type Severity Reaction Status Date / Time amlodipine Allergy Intermediate DIZZINESS Verified 03/16/22 17:11 epinephrine AdvReac Intermediate RAPID Verified 03/16/22 17:11 HEART RATE AND RESPIRATIONS Past Med/Surg History Medical History CAD (coronary artery disease) Diabetes Hyperlipidemia Hypertension Hypothyroidism Morbid obesity PNA (pneumonia) Surgical History H/O cosmetic surgery lipectomy- left chest/abdomen History of cholecystectomy History of eye surgery History of laminectomy History of parathyroidectomy History of surgical removal of lesion excision of lesion chest wall- Dr. Shai Adams S/P bilateral salpingo-oophorectomy S/P cholecystectomy S/P coronary artery stent placement cath stent 1 proximal right coronary artery, cath stent 2 first obtuse marginal branch S/P parathyroidectomy 4 removed and 2 were replaced S/P total abdominal hysterectomy Status post replacement of left shoulder joint Status post right hip replacement Family History Mother Cancer patient not sure if mother had clear cell carcinoma of uterus or ovary. Pt also stated it may have been clear cell carcinoma of here stomach Hypothyroidism Hearing loss Family/Other Diabetes Ovarian cancer Tuberculosis Uterine cancer Hypertension Father Nephrolithiasis Heart disease Brother Stroke Leukemia Bleeding disorder patient did not state what bleeding disorder specifically Other No family history of adverse response to anesthesia Denies family history of Prostate cancer Breast cancer Social History Smoking Status: Never smoker Second Hand Exposure: No; Hx Alcohol Use: No Hx Substance Use: No Preferred Language: Austrian Communication Ability: Effective Associate Attorney Required: No Beliefs That Will Affect Care: None marital status: / Current Living Situation: Alone Current Living Situation Comment: brother and sister in law current occupational status: retired Feels Safe at Home: Yes Assistive Devices: Scooter/Electric Scooter, Walker and Wheelchair Physical Exam Vital Signs Vital Signs - 24 hr 01/08/23 19:28 01/08/23 19:34 01/08/23 19:35 Temperature 36.5 C 36.8 C Temperature Source Oral Oral Pulse Rate 82 80 Pulse Rate [Finger] 80 Respiratory Rate 18 18 18 Respiratory Effort / Characteristics Non-Labored Respiratory Depth Normal Respiratory Pattern Regular Blood Pressure 190/100 H Blood Pressure [Right Arm] Blood Pressure Mean 130 Blood Pressure Mean [Right Arm] Pulse Oximetry 93 93 93 Oxygen Delivery Method Room Air Room Air Sepsis Recent Fever Within 48 Hours No Sepsis New/Unexplained Change in Mental Status No Sepsis Action Taken by Nursing No Action Required 01/08/23 19:45 01/08/23 20:50 Temperature Temperature Source Pulse Rate 75 Pulse Rate [Finger] 78 Respiratory Rate 18 Respiratory Effort / Characteristics Respiratory Depth Respiratory Pattern Blood Pressure Blood Pressure [Right Arm] 150/97 H Blood Pressure Mean Blood Pressure Mean [Right Arm] 114 Pulse Oximetry 95 Oxygen Delivery Method Sepsis Recent Fever Within 48 Hours Sepsis New/Unexplained Change in Mental Status Sepsis Action Taken by Nursing Physical Exam GENERAL: oriented to person, place, and time. appears well-developed and well- nourished. HENT: Exam performed. - Head: Normocephalic and atraumatic. EYES: Conjunctivae and EOM are normal. Right eye exhibits no discharge. Left eye exhibits no discharge. No scleral icterus. NECK: Normal range of motion. Neck supple. No JVD present. CV: Normal rate, regular rhythm, normal heart sounds and intact distal pulses. There is no peripheral edema. Palpable radial pulses bue. PULM/CHEST: Effort normal and breath sounds normal. No respiratory distress. No stridor. no wheezes. no rales. ABD: The abdomen is soft. There is no tenderness. NEURO: Motor and sensation grossly intact. SKIN: Skin is warm and dry. He is not diaphoretic. PSYCH: normal mood and affect. Behavior is normal. Judgment and thought content normal. Course Course 1924: The patient was evaluated in room B6. A complete history and physical exam was performed Cardiac monitoring: An order was placed for continuous cardiac monitoring. The monitor shows a rate of 80 with sinus rhythm interpreted by me 2107: Vital signs stable. Labs and imaging within normal limits. Discussed with patient and family at bedside about the option of outpatient cardiology work-up versus inpatient observation for rule out ACS and given the patient's moderate heart score, risk factors, age, and the patient elected to stay in the hospital overnight for observation. [facility] Hospitalist team Dr. Morrison notified. HEART Score for Major Cardiac Events from [email or web address] on 01/08/2023 All calculations should be rechecked by clinician prior to use RESULT SUMMARY: 5 points Moderate Score (4-6 points) Risk of MACE of 12-16.6%. INPUTS: History > 1 = Moderately suspicious EKG > 0 = Normal Age > 2 = >=5 Risk factors > 2 = >= risk factors or history of atherosclerotic disease Initial troponin > 0 = <=ormal limit Medical Decision Making Laboratory Data Attestation: I reviewed the patient's lab results. 01/08/23 19:31 01/08/23 19:31 Labs: Lab Results 01/08/23 01/08/23 01/08/23 Range/Units 19:31 19:31 20:14 WBC 8.17 (4.8-10.8) K/ul RBC 4.78 (4.20-5.40) M/uL Hgb 15.4 (12.0-16.0) g/dl Hct 46.8 (37.0-47.0) % MCV 97.9 (80.0-100.0) fL MCH 32.2 (25.0-34.0) pg MCHC 32.9 (32.0-36.0) g/dL RDW Std Deviation 48.2 H (36.4-46.3) fL RDW Coeff of Suzette 13.2 (11.5-14.5) % Plt Count 194 (130-400) K/uL MPV 9.6 (9.4-12.4) fL Immature Gran % (Auto) 0.2 % Neut % (Auto) 76.4 % Lymph % (Auto) 13.8 % [place] % (Auto) 5.8 % Eos % (Auto) 3.3 % Baso % (Auto) 0.5 % Neut # (Auto) 6.24 (1.40-6.50) K/uL Lymph # (Auto) 1.13 L (1.2-3.4) K/uL [place] # (Auto) 0.47 (0.11-0.59) K/uL Eos # (Auto) 0.27 (0-0.50) K/uL Baso # (Auto) 0.04 (0-0.2) K/uL Immature Gran # (Auto) 0.02 (0.01-0.20) K/uL PT 10.8 (9.0-12.0) Seconds INR 1.0 (0.9-1.1) APTT 25.8 (21.0-31.0) Seconds PTT Ratio 0.9 Sodium 137 (136-145) mmol/L Potassium 4.3 (3.5-5.1) mmol/L Chloride 101 (98-107) mmol/L Carbon Dioxide 27 (21-32) mmol/L Anion Gap 9 (3-11) BUN 41 H (6-23) mg/dl Creatinine 0.95 (0.6-1.2) mg/dl Est Cr Clr Drug Dosing 56.1 ml/min Est GFR ( Amer) 64.2 ml/min Est GFR (Non-Af Amer) 55.4 ml/min BUN/Creatinine Ratio 43.2 H (10-20) Glucose 133 H (70-99(Fasting)) mg/dl Calcium 9.5 (8.6-10.3) mg/dl Troponin I High Sens 6.7 (0-14) pg/ml Lipase 26 (11-82) U/L Imaging Data Chest x-ray: Attestation: I personally reviewed and interpreted this imaging study as follows: My impression: No significant change from the chest x-ray done in April 2022 ECG Data Attestation: I personally reviewed and interpreted this ECG as follows: Additional Comments: Sinus rhythm with rate of 83. AZ 206 QRS 168 QTc 524. Right bundle branch block present. First-degree AV block present. No significant ST elevation or ST depression. No change from the EKG done in April 2022. [facility] Narrative 1925: The patient was evaluated in room B6. A complete history and physical exam was performed Cardiac monitoring: An order was placed for continuous cardiac monitoring. The monitor shows a rate of 80 with sinus rhythm interpreted by nc 2107: Vital signs stable. Labs and imaging within normal limits. Discussed with patient and family at bedside about the option of outpatient cardiology work-up versus inpatient observation for rule out ACS and given the patient's moderate heart score, risk factors, age, and the patient elected to stay in the hospital overnight for observation. [facility] hospitalist team Dr. Morrison notified. HEART Score for Major Cardiac Events from [employer] on 01/08/2023 All calculations should be rechecked by clinician prior to use RESULT SUMMARY: 5 points Moderate Score (4-6 points) Risk of MACE of 12-16.6%. INPUTS: History > 1 = Moderately suspicious EKG > 0 = Normal Age > 2 = >=5 Risk factors > 2 = >= risk factors or history of atherosclerotic disease Initial troponin > 0 = <=ormal limit Impression & Plan Chest pain Discharge Plan Visit Data Chief Complaint: Chest Pain ED Provider: Ari De La O Discharge Problem: Chest pain Patient Disposition: Being Evaluated by Hospitalist Forms Stand Alone Forms: My [facility] [employer] Prescriptions Prescriptions: No Action fluticasone propionate 50 mcg/actuation spray,suspension See Rx Instructions intranasal DAILY Qty: 15.8 5RF Rx Instructions: 2 sprays each nostril daily for 3 weeks then 1 spray each nostril daily levothyroxine 125 mcg tablet 125 mcg PO DAILY Qty: 90 nitroglycerin 0.4 mg tablet, sublingual 0.4 mg SL .PRN/UD Rx Instructions: NEEDED FOR CHEST PAIN : ONE TABLET UNDER THE TONGUE EVERY 5 MINUTES UP TO THREE DOSES. omeprazole 40 mg capsule,delayed release(DR/EC) 40 mg PO DAILY Qty: 90 potassium chloride 20 mEq tablet extended release 20 meq PO DAILY PRN (Reason: . WITH FUROSEMIDE) Qty: 90 Rx Instructions: TAKE THIS MED WHEN TAKING FUROSEMIDE. carvedilol 6.25 mg tablet 6.25 mg PO BIDM metformin 500 mg tablet 250 mg PO BID Qty: 90 Rx Instructions: 1/2 TABLET DOSE furosemide 40 mg tablet 40 mg PO DAILY coenzyme Q10 [Co Q-10] 200 mg capsule 200 mg PO DAILY cranberry extract 50 mg Tablet,Chewable 0 mg PO BID aspirin 81 mg Tablet,Delayed Release (Dr/Ec) 81 mg PO DAILY acetaminophen 325 mg Tablet 1,300 mg PO BID Qty: 30 0RF ezetimibe 10 mg Tablet 10 mg PO QAM Qty: 20 0RF atorvastatin 40 mg tablet 40 mg PO DAILY Qty: 30 0RF Saccharomyces boulardii 250 mg Capsule 250 mg PO DAILY magnesium glycinate 100 mg Tablet 100 mg PO 3XWK Rx Instructions: TAKES MON, WED, & FRI. Polysporin 500-10,000 unit/gram Ointment In Packet 1 applic EXT BID Qty: 144 0RF Rx Instructions: Apply for about 2 weeks to wound on leg. Referrals Referrals: ALISHA, [Primary Care Provider] -
[2023-01-08 20:10] LABS: Basophils # (auto) 0.04 K/uL (0-0.2); Basophils % (auto) 0.5 %; Eosinophils # (auto) 0.27 K/uL (0-0.50); Eosinophils % (auto) 3.3 %; Hematocrit (blood only) 46.8 % (37.0-47.0); Hemoglobin 15.4 g/dl (12.0-16.0); Immature Granulocytes # (auto) 0.02 K/uL (0.01-0.20); Immature Granulocytes % (auto) 0.2 %; Lymphocytes # (auto) 1.13 K/uL (1.2-3.4); Lymphocytes % (auto) 13.8 %; Mean Corpuscular Hemoglobin 32.2 pg (25.0-34.0); Mean Corpuscular Hgb Conc 32.9 g/dL (32.0-36.0); Mean Corpuscular Volume 97.9 fL (80.0-100.0); Mean Platelet Volume 9.6 fL (9.4-12.4); Monocytes # (auto) 0.47 K/uL (0.11-0.59); Monocytes % (auto) 5.8 %; Neutrophils # (auto) 6.24 K/uL (1.40-6.50); Neutrophils % (auto) 76.4 %; Platelet Count 194 K/uL (130-400); RDW Coefficient of Variation 13.2 % (11.5-14.5); RDW Standard Deviation 48.2 fL (36.4-46.3); Red Blood Count 4.78 M/uL (4.20-5.40); White Blood Count 8.17 K/ul (4.8-10.8)
[2023-01-08 20:33] LABS: BUN Creatinine Ratio 43.2 (10-20); Calcium 9.5 mg/dl (8.6-10.3); Creatinine Clr Calc Pharmacy 56.1 ml/min; Est GFR (African American) 64.2 ml/min; Est GFR (Non-African American) 55.4 ml/min; Potassium 4.3 mmol/L (3.5-5.1)
[2023-01-08 20:47] LABS: Troponin I High Sensitivity 6.7 pg/ml (0-14)
[2023-01-08 20:54] LABS: Partial Thromboplastin Ratio 0.9; Partial Thromboplastin Time 25.8 Seconds (21.0-31.0); Prothrombin Time 10.8 Seconds (9.0-12.0)
--- NOTE | 2023-01-08 22:13 | History & Physical Report ---
Date of Service January 08, 2023 Assessment & Plan (1) Chest pain: Plan: 82yo Female with PMH pacemaker, CHF, CAD, DM2, HTN, GERD, Hypothyroidism, chronic lymphedema here for chest pain. Chest Pain, right sided -EKG unchanged from previous -trop 6.7, trending -prior echo 11/13 EF 55-60% with moderate concentric LVH -CXR: per my read trace pulmonary edema -will admit for observation overnight -ordered echo for am CHF, HTN -continue lasix 40mg PO BID -continue carvedilol -continue spironolactone -continue ASA 81mg -trend BMP -repeat echo ordered Electrolyte Abnormalities -continue home Mag Ox 400mg daily -continue KCl 20mg daily DM2 -SSI ordered -hold home metformin Hypothyroidism -continue levothyroxime HLD -continue pravastatin FENa: heart healthy DM2 Code Status: full DVT PPX: Heprain Dispo: obs med/Celeste Clinton D.O. PGY 2, FCM (2) Cardiomyopathy, ischemic: (3) Diabetes mellitus: (4) CAD (coronary artery disease): (5) Hypoxia: (6) Weakness: (7) Status post placement of cardiac pacemaker: (8) Hypertension: (9) Hypothyroidism: (10) Morbid obesity: History of Present Illness Chief Complaint: Chest Pain Primary Care Provider: ALISHA 82yo Female with PMH pacemaker, CHF, CAD, DM2, HTN, GERD, Hypothyroidism, chronic lymphedema here for chest pain. Patient states around 3:30pm today she developed sudden sharp and severe right sided chest pain radiating up her neck. She states it felt similar to her previous heart attack, the pain was persistent, so she took a tylenol and the pain improved after an hour to an ache rated 1-2/10. Patient states she has slight SOB, says her SOB on exertion has been worse over this past week. She has limited appetite but did drink her boost this evening. Patient states she had some abd cramps this evening, had a bowel movement, abd pain improved. She denies nausea vomitting diarrhea constipation or change in weakness. At this time her chest pain is present but mild. Patient lives at [facility] with assisted living, has assistance for medication. At baseline she can stand for short periods of time, primarily travels with electric wheelchair. Allergies Allergy/AdvReac Type Severity Reaction Status Date / Time amlodipine Allergy Intermediate DIZZINESS Verified 03/16/22 17:11 epinephrine AdvReac Intermediate RAPID Verified 03/16/22 17:11 HEART RATE AND RESPIRATIONS Home Medications Medication Instructions Recorded Confirmed Type carvedilol 6.25 mg tablet 6.25 mg PO BID 06/14/19 01/08/23 History levothyroxine 125 mcg tablet 125 mcg PO DAILY #90 tabs 06/14/19 01/08/23 History nitroglycerin 0.4 mg sublingual 0.4 mg sublingual UD PRN Chest Pain 06/14/19 01/08/23 History tablet potassium chloride 20 mEq 20 meq PO DAILY #90 tabs 06/14/19 01/08/23 History tablet,extended release metformin 500 mg tablet 250 mg PO BID #90 tabs 07/11/19 01/08/23 History aspirin 81 mg tablet,delayed 81 mg PO DAILY 03/16/22 01/08/23 History release acetaminophen 650 mg 1,300 mg PO BID 01/08/23 01/08/23 History tablet,extended release coenzyme Q10 100 mg capsule (Co 100 mg PO DAILY 01/08/23 01/08/23 History Q-10) cranberry extract-vitamin C 250 1 cap PO BID 01/08/23 01/08/23 History mg-60 mg capsule (Azo Cranberry Plus Vit C) cyanocobalamin (vitamin B-12) 1,000 mcg subcut WK 01/08/23 01/08/23 History 1,000 mcg/mL injection solution furosemide 20 mg tablet 40 mg PO .DAILY AT 2PM 01/08/23 01/08/23 History furosemide 40 mg tablet (Lasix) 40 mg PO .DAILY AT 7AM 01/08/23 01/08/23 History light mineral oil 1 %-mineral oil 1 drp ophthalmic (eye) QID 01/08/23 01/08/23 History 4.5 % (PF) eye drops in dropperette (Soothe XP (PF)) magnesium oxide 400 mg PO DAILY 01/08/23 01/08/23 History nystatin-triamcinolone 100,000 1 applic topical BID 01/08/23 01/08/23 History unit/gram-0.1 % topical ointment pravastatin 10 mg tablet 10 mg PO DAILY 01/08/23 01/08/23 History spironolactone 25 mg tablet 25 mg PO DAILY 01/08/23 01/08/23 History Past Med/Surg History Medical History CAD (coronary artery disease) Diabetes Hyperlipidemia Hypertension Hypothyroidism Morbid obesity PNA (pneumonia) Surgical History H/O cosmetic surgery lipectomy- left chest/abdomen History of cholecystectomy History of eye surgery History of laminectomy History of parathyroidectomy History of surgical removal of lesion excision of lesion chest wall- Dr. Shai Adams S/P bilateral salpingo-oophorectomy S/P cholecystectomy S/P coronary artery stent placement cath stent 1 proximal right coronary artery, cath stent 2 first obtuse marginal branch S/P parathyroidectomy 4 removed and 2 were replaced S/P total abdominal hysterectomy Status post replacement of left shoulder joint Status post right hip replacement Family History Mother Cancer patient not sure if mother had clear cell carcinoma of uterus or ovary. Pt also stated it may have been clear cell carcinoma of here stomach Hypothyroidism Hearing loss Family/Other Diabetes Ovarian cancer Tuberculosis Uterine cancer Hypertension Father Nephrolithiasis Heart disease Brother Stroke Leukemia Bleeding disorder patient did not state what bleeding disorder specifically Other No family history of adverse response to anesthesia Denies family history of Prostate cancer Breast cancer Social History Smoking Status: Never smoker Second Hand Exposure: No; Hx Alcohol Use: No Hx Substance Use: No Preferred Language: Frisian Communication Ability: Effective [employer] Required: No Beliefs That Will Affect Care: None marital status: / Current Living Situation: Alone Current Living Situation Comment: brother and sister in law current occupational status: retired Feels Safe at Home: Yes Assistive Devices: Scooter/Electric Scooter, Walker and Wheelchair Physical Exam Constitutional: + morbidly obese, cooperative and comfortable Eyes: left eye closed, opens on command, not oriented in same direction as right eye, chronic ENMT: external ear and nose normal, oropharynx normal Neck: normal visual inspection and + thick neck Respiratory: normal respiratory effort, lungs clear to auscultation Cardiovascular: Rate/Rhythm: regular rate and regular rhythm b/l LE in compression stockings no pitting edema noted, pain on palpation of both extremities Gastrointestinal (Abdomen): Inspection/Auscultation: abdomen normal to inspection Pain on palpation to RLQ, chronic ever since prior abd surgical infection Skin: no rashes, warm and dry Results & Data Results & Data Vital Signs (Past 12 Hours) Vital Signs Temp Pulse Pulse Resp BP BP Pulse Ox 01/08/23 20:50 78 18 150/97 H 95 01/08/23 19:45 75 01/08/23 19:35 36.8 C 80 18 93 01/08/23 19:34 80 18 93 01/08/23 19:28 36.5 C 82 18 190/100 H 93 O2 Del Method 01/08/23 20:50 01/08/23 19:45 01/08/23 19:35 01/08/23 19:34 Room Air 01/08/23 19:28 Room Air Supervising Physician Co-Signing Physician Notes I personally saw and examined the patient. I verified all gomez points and agree with Celeste Hendrickson PGY-2 with the following exceptions and/or additions: Subjective: 82-year-old female past medical history significant for CAD s/p stent with ischemic cardiomyopathy, DM 2, hypertension, hypothyroidism presented to the ER for chest pain similar to previous PR, with associated nausea. In the ER noted to have normal initial troponin level, hemodynamically stable on room air, lab work otherwise normal, COVID-19 negative. She notes that she has very little discomfort at this point, actually isolated more so to the upper chest across the shoulders than in the chest itself. She reports intermittent shortness of breath with activity, no clear rhyme or reason to it. Physical exam: Vitals reviewed Gen: Alert and oriented, NAD HEENT: anicteric sclerae, EOMI CV: RRR no murmurs Pulm: CTAB no wheezes or crackles Abd: +BS soft NT ND no masses Ext: no edema, 2+ DP pulses, JORGE hosiery Skin: no rashes, warm/dry Neuro: No focal neurologic deficits; patient closes left eye chronically for history of ptosis Labs, Rads, and ECG reviewed Assessment and Plan: Chest pain rule out: Patient with a history of CAD s/p stent x2, with ischemic cardiomyopathy chronic wall motion abnormalities, normal LVEF on last echocardiogram in November 2022. Presents with upper chest pain with radiation into the right shoulder, similar to previous PR. Initial troponin negative, EKG personally reviewed by myself not notable for new ST or T wave changes. Patient has a heart score of 5, moderate risk, admit for observation and serial troponins. Echocardiogram in the a.m. to look for new wall motion abnormalities. Continue home medications for ischemic cardiomyopathy including aspirin, Coreg, statin. Consider cardiology consultation for consideration of catheterization, though at this point symptoms seem more musculoskeletal in nature than cardiac given improvement in symptoms at the [facility] with Tylenol. Heart block: History of right bundle branch block and left anterior fascicular block, s/p dual-chamber Med[employer]onic pacemaker after previous hospitalization for syncope. Telemetry for cardiac monitoring, heart rate 70s in the ER. Diabetes: Defer home oral medications in favor of basal/bolus insulin, diabetic diet, BSG checks qACHS. Last A1c in March 2022, repeat. Plan otherwise as above. Resident Activity Tracking Resident Involvement: Resident Care Provided Care Provided: Adult Hospital Medicine (1) Chest pain Chest pain type: unspecified Qualified Code(s): R07.9 - Chest pain, unspecified
[2023-01-08] MEDS ORDERED: ACETAMINOPHEN 500 MG TAB PO STA (22:56)
[2023-01-08] MEDS ORDERED: GLUCAGON FOR INJ 1 MG VIAL SQ PRN (23:03)
[2023-01-08] MEDS ORDERED: CARBOHYDRATES FOR HYPOGLYCEMIA PO PRN (23:03)
[2023-01-08] MEDS ORDERED: DEXTROSE 50% 50 ML SYRINGE IV PRN (23:03)
[2023-01-08] MEDS ORDERED: GLUCOSE 10 TAB/TUBE PO PRN (23:03)
[2023-01-08] MEDS ORDERED: GLUCOSE 40% GEL 15 GM TUBE PO PRN (23:03)
--- NOTE | 2023-01-08 23:07 | Billing Data ---
Date of Service January 08, 2023 Coding Level of Care Code 10363 INT INP/OBS CARE
[2023-01-09] MEDS ORDERED: POLYETHYLENE (MIRALAX) 17 GM PACK PO PRN (00:27)
[2023-01-09] MEDS ORDERED: FUROSEMIDE 40 MG TAB PO SCH (00:27)
[2023-01-09] MEDS ORDERED: KETOROLAC TROMETHAMINE 15 MG/ML VIAL IV ONE (00:58)
[2023-01-09] MEDS: HEPARIN SOD 5,000 UNIT/0.5 ML VIAL SQ SCH ×2 (06:06→15:06)
[2023-01-09] MEDS: FUROSEMIDE 40 MG TAB PO SCH ×2 (06:06→15:06)
[2023-01-09] MEDS ORDERED: LEVOTHYROXINE SODIUM 125 MCG TABLET PO SCH (06:30)
[2023-01-09 07:09] LABS: Hematocrit (blood only) 42.3 % (37.0-47.0); Hemoglobin 14.1 g/dl (12.0-16.0); Mean Corpuscular Hemoglobin 32.4 pg (25.0-34.0); Mean Corpuscular Hgb Conc 33.3 g/dL (32.0-36.0); Mean Corpuscular Volume 97.2 fL (80.0-100.0); Mean Platelet Volume 9.1 fL (9.4-12.4); Platelet Count 171 K/uL (130-400); RDW Coefficient of Variation 13.2 % (11.5-14.5); RDW Standard Deviation 47.5 fL (36.4-46.3); Red Blood Count 4.35 M/uL (4.20-5.40); White Blood Count 6.16 K/ul (4.8-10.8)
[2023-01-09 07:25] LABS: BUN Creatinine Ratio 38.4 (10-20); Calcium 8.8 mg/dl (8.6-10.3); Creatinine Clr Calc Pharmacy 52.8 ml/min; Est GFR (African American) 61.1 ml/min; Est GFR (Non-African American) 52.7 ml/min; Potassium 3.9 mmol/L (3.5-5.1)
--- NOTE | 2023-01-09 07:47 | Discharge Summary ---
Date of Service January 09, 2023 Admission HPI Per Admitting Provider 82yo Female with PMH pacemaker, CHF, CAD, DM2, HTN, GERD, Hypothyroidism, chronic lymphedema here for chest pain. Patient states around 3:30pm today she developed sudden sharp and severe right sided chest pain radiating up her neck. She states it felt similar to her previous heart attack, the pain was persistent, so she took a tylenol and the pain improved after an hour to an ache rated 1-2/10. Patient states she has slight SOB, says her SOB on exertion has been worse over this past week. She has limited appetite but did drink her boost this evening. Patient states she had some abd cramps this evening, had a bowel movement, abd pain improved. She denies nausea vomitting diarrhea constipation or change in weakness. At this time her chest pain is present but mild. Patient lives at [facility] with assisted living, has assistance for medication. At baseline she can stand for short periods of time, primarily travels with electric wheelchair. Admission Exam Per Admitting Provider Constitutional: + morbidly obese, cooperative and comfortable Eyes: left eye closed, opens on command, not oriented in same direction as right eye, chronic ENMT: external ear and nose normal, oropharynx normal Neck: normal visual inspection and + thick neck Respiratory: normal respiratory effort, lungs clear to auscultation Cardiovascular: Rate/Rhythm: regular rate and regular rhythm b/l LE in compression stockings no pitting edema noted, pain on palpation of both extremities Gastrointestinal (Abdomen): Inspection/Auscultation: abdomen normal to inspection Pain on palpation to RLQ, chronic ever since prior abd surgical infection Skin: no rashes, warm and dry Principal Diagnosis noncardiac chest pain Discharge Exam General: Grossly A&O. NAD. Cooperative. HEENT: Atraumatic, normocephalic. Negative Spurling's bilaterally. Full neck range of motion. No cervical spinal tenderness to palpation. EOMI, but gaze is not coordinated due to left eye dysfunction. Habitually keeps left eyelid closed most of the time. Pulm: CTAB. -wheezes, -rales, -rhonchi. Symmetrical chest rise. No respiratory distress. Cardiac: RRR, -mrg. Abdominal: Nontender, nondistended, soft. Musculoskeletal: Right shoulder with full range of motion and abduction. Negative Cheng Adan, empty can test. Mild anterior/posterior joint area tenderness to palpation. Mild bilateral anterior chest wall tenderness palpation just medial to the shoulders; not reproducible at the same pain that patient came in with (sharp right chest pain that radiated down her right shoulder). Discharge Data Allergies Allergy/AdvReac Type Severity Reaction Status Date / Time amlodipine Allergy Intermediate DIZZINESS Verified 03/16/22 17:11 epinephrine AdvReac Intermediate RAPID Verified 03/16/22 17:11 HEART RATE AND RESPIRATIONS Consultations 01/08/23 21:06 ED Decision to Admit Stat Ordered Studies Cardiac Enzymes 01/08/23 01/08/23 01/09/23 Range/Units 19:31 23:28 01:55 Troponin I High Sens 6.7 18.0 H D 19.8 H (0-14) pg/ml 01/09/23 Range/Units 06:49 Troponin I High Sens 18.9 H (0-14) pg/ml Coagulation 01/08/23 Range/Units 20:14 PT 10.8 (9.0-12.0) Seconds APTT 25.8 (21.0-31.0) Seconds Lipids 01/09/23 Range/Units 06:49 Triglycerides 98 (0-150) mg/dl Cholesterol 230 H (0-200) mg/dl HDL Cholesterol 54 mg/dl Cholesterol/HDL Ratio 4.3 (0-5) CBC 01/08/23 01/09/23 Range/Units 19:31 06:49 WBC 8.17 6.16 (4.8-10.8) K/ul RBC 4.78 4.35 (4.20-5.40) M/uL Hgb 15.4 14.1 (12.0-16.0) g/dl Hct 46.8 42.3 (37.0-47.0) % Plt Count 194 171 (130-400) K/uL Neut # (Auto) 6.24 (1.40-6.50) K/uL Lymph # (Auto) 1.13 L (1.2-3.4) K/uL Tyrrell # (Auto) 0.47 (0.11-0.59) K/uL Eos # (Auto) 0.27 (0-0.50) K/uL Baso # (Auto) 0.04 (0-0.2) K/uL Comprehensive Metabolic Panel 01/08/23 01/09/23 Range/Units 19:31 06:49 Sodium 137 142 (136-145) mmol/L Potassium 4.3 3.9 (3.5-5.1) mmol/L Chloride 101 104 (98-107) mmol/L Carbon Dioxide 27 31 (21-32) mmol/L BUN 41 H 38 H (6-23) mg/dl Creatinine 0.95 0.99 (0.6-1.2) mg/dl Glucose 133 H 98 (70-99(Fasting)) mg/dl Calcium 9.5 8.8 (8.6-10.3) mg/dl Intake and Output 01/08/23 01/09/23 01/09/23 22:59 06:59 14:59 Intake Total 300 / 300 Output Total 100 / 100 Balance 200 / 200 Intake: Oral 300 / 300 Output: Urine 100 / 100 Other: Weight 115.9 kg 112.3 kg 112.3 kg Weight Measurement Method Standing Scale Patient Weight 01/10/23 06:59 Weight 112.3 kg Chest X-Ray 01/08/23 19:32 XR chest 1V portable CLINICAL HISTORY: Chest pain, nonspecific COMPARISON STUDY: Chest radiograph May 01, 2022. Chest CT February 22, 2015. FINDINGS: Left subclavian pacer is in place. Mild cardiomegaly is unchanged. No evidence for pulmonary edema. Left basilar opacity favors atelectasis. No consolidation to suggest pneumonia. Upper mediastinal widening is unchanged. There is no pneumothorax or pleural effusion. IMPRESSION: No acute cardiopulmonary findings. No change in appearance of the chest. ACT 112: Negative or not required by law. Electronically signed by: Jhonny Rankin M.D. 01/09/2023 8:34 AM Shoulder X-Ray 01/09/23 10:01 XR shoulder RT min 2V routine CLINICAL HISTORY: Right shoulder pain. Evaluate for osteoarthritis. COMPARISON: Chest radiograph May 01, 2022. FINDINGS: Left subclavian pacer leads are partially imaged. Incidental note is made of surgical clips within the lower neck and mediastinum. Alignment of the right shoulder is anatomic. There is no acute fracture. There is moderate to severe AC joint osteoarthritis with subacromial spurring. There is moderate glenohumeral joint osteoarthritis. IMPRESSION: 1. No acute fracture or dislocation within the right shoulder. 2. Moderate to severe right AC joint osteoarthritis. Moderate glenohumeral joint osteoarthritis. ACT 112: Negative or not required by law. Electronically signed by: Jhonny Rankin M.D. 01/09/2023 10:43 AM Hospital Course (1) Chest pain: 82yo Female with PMHx of pacemaker, CHF, ischemic cardiomyopathy, DM2, HTN, GERD, Hypothyroidism, chronic lymphedema here for sharp right chest pain that presented similarly to when she had NSTEMI. noncardiac right chest pain -CAD w/ hx of NSTEMIx2 and stent -Reassuring ecgx2, prolonged qtc on initial has resolved. hstrop peaked at 19s. -Repeat echo w/o significant change from 11/13. EF 55 to 60%. Hypokinesis of basal inferolateral and basal inferior wall segment. Possible mild aortic stenosis. HLD -continue pravastatin 10mg daily -LDL 156. With history of NSTEMI and stent, recommend outpatient follow-up regarding optimizing statin therapy, increasing from low to high intensity. right shoulder osteoarthritis -Right shoulder x-ray with moderate to severe right AC joint osteoarthritis. M oderate glenohumeral joint arthritis. -Outpatient f/u; e.g. can consider corticosteroid injection. CHF (HFpEF), HTN -continue home Lasix (40mg PO BID), carvedilol, spironolactone DM2 -A1c 6.1, stable. Resume home metformin upon discharge from hospital. left eye dysfunction, chronic -Patient preferentially keeps left eyelid closed. 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 Reports horizontal and vertical diplopia from slightly uncoordinated conjugate gaze. Hypothyroidism -continue levothyroxine Patient was full code this admission. (2) Cardiomyopathy, ischemic: (3) Diabetes mellitus: (4) CAD (coronary artery disease): (5) Hypoxia: (6) Weakness: (7) Status post placement of cardiac pacemaker: (8) Hypertension: (9) Hypothyroidism: (10) Morbid obesity: (11) Eye abnormality: Total Time Total Time Spent Total Time Spent (In Minutes): See attending documentation. Discharge Plan Discharge Items Patient Disposition: Personal Group Home Reason For Visit: CHEST PAIN Discharge Diagnosis: noncardiac chest pain Activity: Per Instructions section Non-emergency contact: Primary Care Provider Call non-emergency contact if: you have any medication questions, your symptoms worsen and you have a fever Follow-up/Referrals: ALISHA, [Primary Care Provider] - (pcp f/u within 1 week) Diet: Carb Consistent or DM2 and Low Sodium (2gm) Addtl Attending Provider Instructions: 82yo Female with PMHx of pacemaker, CHF, ischemic cardiomyopathy, DM2, HTN, GERD, Hypothyroidism, chronic lymphedema here for sharp right chest pain that presented similarly to when she had NSTEMI. noncardiac right chest pain -CAD w/ hx of NSTEMIx2 and stent -Reassuring ecgx2, prolonged qtc on initial has resolved. hstrop peaked at 19s. -Repeat echo w/o significant change from 11/13. EF 55 to 60%. Hypokinesis of basal inferolateral and basal inferior wall segment. Possible mild aortic stenosis. HLD -continue pravastatin 10mg daily -LDL 156. With history of NSTEMI and stent, recommend outpatient follow-up regarding optimizing statin therapy, increasing from low to high intensity. right shoulder osteoarthritis -Right shoulder x-ray with moderate to severe right AC joint osteoarthritis. Moderate glenohumeral joint arthritis. -Outpatient f/u; e.g. can consider corticosteroid injection. CHF (HFpEF), HTN -continue home Lasix (40mg PO BID), carvedilol, spironolactone DM2 -A1c 6.1, stable. Resume home metformin upon discharge from hospital. left eye dysfunction, chronic -Patient preferentially keeps left eyelid closed. 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 Reports hori zontal and vertical diplopia from slightly uncoordinated conjugate gaze. Hypothyroidism -continue levothyroxine Patient was full code this admission. Pending Studies at Discharge: No Stand-Alone Forms: My [facility], Smoking Cessation Skilled Items Patient informed of condition?: Yes DNR: No Discharge Level of Care: Other Communicable Disease: No Discharge Prognosis: Stable Lines: None Urinary Catheter: No Medications and DC Order Prescriptions: Continued levothyroxine 125 mcg tablet 125 mcg PO DAILY Qty: 90 nitroglycerin 0.4 mg tablet, sublingual 0.4 mg SL UD PRN (Reason: Chest Pain) Rx Instructions: ONE TABLET UNDER THE TONGUE EVERY 5 MINUTES UP TO THREE DOSES. if no relief call doctor potassium chloride 20 mEq tablet extended release 20 meq PO DAILY Qty: 90 carvedilol 6.25 mg tablet 6.25 mg PO BID metformin 500 mg tablet 250 mg PO BID Qty: 90 Rx Instructions: 1/2 TABLET DOSE aspirin 81 mg Tablet,Delayed Release (Dr/Ec) 81 mg PO DAILY spironolactone 25 mg Tablet 25 mg PO DAILY furosemide 20 mg Tablet 40 mg PO .DAILY AT 2PM magnesium oxide 400 mg magnesium Tablet 400 mg PO DAILY acetaminophen 650 mg Tablet Extended Release 1,300 mg PO BID cranberry extract-vitamin C [Azo Cranberry Plus Vit C] 250-60 mg Capsule 1 cap PO BID pravastatin 10 mg Tablet 10 mg PO DAILY furosemide [Lasix] 40 mg Tablet 40 mg PO .DAILY AT 7AM cyanocobalamin (vitamin B-12) 1,000 mcg/mL Solution 1,000 mcg SUBCUT WK Rx Instructions: x 4 weeks then monthly coenzyme Q10 [Co Q-10] 100 mg Capsule 100 mg PO DAILY Soothe XP (PF) 1-4.5 % Dropperette 1 drp OPHTHALMIC (EYE) QID Rx Instructions: self administration, may keep at bedside , may use as needed too for dryness nystatin-triamcinolone 100,000-0.1 unit/gram-% Ointment 1 applic TOPICAL BID Rx Instructions: may keep at bedside and self administer to abdominal folds Discharge Orders: Discharge Order (Routine); Ordered 01/09/23 Ordered By: Luigi Fraser/Other Patient Handouts: Managing Type 2 Diabetes Admission Data Admit Date/Time: 01/08/23 22:44 Attending Provider: Shakira Potter Admit Provider: Celeste Hendrickson Primary Care Provider: Audelia BRITO Providers: Hope Delarosa Other Interventions: Discharge Summary Assessment (RN) Last Done: 01/09/23 15:30 Supervising Physician Co-Signing Physician Notes Resident Physician Supervision Note: I independently interviewed and examined the patient and verified the gomez history and physical, reviewed labs and image studies and agree with resident findings and care plan. Resident Activity Tracking Resident Involvement: Resident Care Provided Care Provided: Adult Hospital Medicine
[2023-01-09 07:53] LABS: Estimated Average Glucose 128 mg/dl; Hemoglobin A1C 6.1 % (4.5-5.6)
[2023-01-09 08:22] LABS: Chol HDL Ratio 4.3 (0-5)
--- NOTE | 2023-01-09 08:36 | XRay Report ---
XR chest 1V portable CLINICAL HISTORY: Chest pain, nonspecific COMPARISON STUDY: Chest radiograph May 01, 2022. Chest CT February 22, 2015. FINDINGS: Left subclavian pacer is in place. Mild cardiomegaly is unchanged. No evidence for pulmonar y edema. Left basilar opacity favors atelectasis. No consolidation to suggest pneumonia. Upper medias tinal widening is unchanged. There is no pneumothorax or pleural effusion. IMPRESSION: No acute cardiopulmonary findings. No change in appearance of the chest. ACT 112: Negative or not required by law. Electronically signed by: Jhonny Rankin M.D. 01/09/2023 8:34 AM
[2023-01-09] MEDS ORDERED: NYSTATIN/TRIAMCIN OINT 15 GM TUBE EXT SCH (09:00)
[2023-01-09] MEDS ORDERED: ACETAMINOPHEN 325 MG TAB PO SCH (09:00)
[2023-01-09] MEDS ORDERED: ASPIRIN 81 MG ECTAB PO SCH (09:00)
[2023-01-09] MEDS ORDERED: PRAVASTATIN SOD 10 MG TAB PO SCH (09:00)
[2023-01-09] MEDS ORDERED: carvediloL 6.25 MG TAB PO SCH (09:00)
[2023-01-09] MEDS ORDERED: NON-FORMULARY MEDICATION (Coenzyme Q10 [Co Q-10] 100 mg Capsule) PO SCH (09:00)
[2023-01-09] MEDS ORDERED: LANTUS PER UNIT CHARGE SQ SCH (09:00)
[2023-01-09] MEDS ORDERED: POTASSIUM CHLORIDE CRTAB 20 MEQ TABCR PO SCH (09:00)
[2023-01-09] MEDS ORDERED: MAGNESIUM OXIDE 400 MG TAB PO SCH (09:00)
[2023-01-09] MEDS ORDERED: NON-FORMULARY MEDICATION (Cranberry Extract-Vitamin C [Azo Cranberry Plus Vit C] 250-60 mg PO SCH (09:00)
[2023-01-09] MEDS ORDERED: SPIRONOLACTONE 25 MG TAB PO SCH (09:00)
[2023-01-09] MEDS: INSULIN ASPART PER UNIT CHARGE SC SCH ×2 (10:14→13:32)
--- NOTE | 2023-01-09 10:45 | XCELERA ---
[id number] [id number]
--- NOTE | 2023-01-09 10:45 | XRay Report ---
XR shoulder RT min 2V routine CLINICAL HISTORY: Right shoulder pain. Evaluate for osteoarthritis. COMPARISON: Chest radiograph May 01, 2022. FINDINGS: Left subclavian pacer leads are partially imaged. Incidental note is made of surgical clip s within the lower neck and mediastinum. Alignment of the right shoulder is anatomic. There is no acu te fracture. There is moderate to severe AC joint osteoarthritis with subacromial spurring. There is moderate glenohumeral joint osteoarthritis. IMPRESSION: 1. No acute fracture or dislocation within the right shoulder. 2. Moderate to severe right AC joint osteoarthritis. Moderate glenohumeral joint osteoarthritis. ACT 112: Negative or not required by law. Electronically signed by: Jhonny Rankin M.D. 01/09/2023 10:43 AM
--- NOTE | 2023-01-09 21:32 | Electrocardiogram Report ---
Test Reason : Blood Pressure : / mmHG Vent. Rate : 083 BPM Atrial Rate : 083 BPM P-R Int : 232 ms QRS Dur : 168 ms QT Int : 446 ms P-R-T Axes : 056 -73 068 degrees QTc Int : 524 ms Poor data quality, interpretation may be adversely affected Sinus rhythm with 1st degree A-V block Left axis deviation Left ventricular hypertrophy Right bundle branch block Possible Lateral infarct , age undetermined Inferior infarct (cited on or before 18-MAR-2022) Abnormal ECG When compared with ECG of 28-APR-2022 20:23, No significant change Present Confirmed by Chucho Garay ([id number]) on 01/09/2023 9:31:36 PM Referred By: Cindy Desir Confirmed By:Chucho Garay
--- NOTE | 2023-01-09 21:49 | Electrocardiogram Report ---
Test Reason : Blood Pressure : / mmHG Vent. 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
== END 2023-01-09 16:51 | disposition home or self-care (01) ==
LOC: ED 19:22 → 2N 19:22 → SUATTDRO 22:44 → 2N 23:19